=== PATIENT | male | born 1940 | race Caucasian/White ===

== ENCOUNTER → 2016-10-26 | Outpatient (REF) | payer MEDICARE, BC ==
[2016-10-26 13:01] LABS: MEAN CORPUSCULAR HEMOGLOBIN 30.7 pg (27.0-33.0); MEAN CORPUSCULAR HGB CONC 32.9 g/dl (32.0-36.5); MEAN CORPUSCULAR VOLUME 93.1 fl (80.0-96.0); RED CELL DISTRIBUTION WIDTH 12.6 % (11.5-14.5); WHITE BLOOD COUNT 6.2 K/mm3 (4.0-10.0)
[2016-10-26 13:25] LABS: ALBUMIN 4.1 GM/DL (3.2-5.2); ALBUMIN/GLOBULIN RATIO 1.41 (1.00-1.93); BILIRUBIN,TOTAL 0.5 MG/DL (0.2-1.0); CALCIUM LEVEL 9.2 MG/DL (8.8-10.2); CREATININE FOR GFR 1.48 MG/DL (0.70-1.30); GLOMERULAR FILTRATION RATE 49.1 (>42); POTASSIUM SERUM 4.9 MEQ/L (3.5-5.1)
== END ==
LOC: M SFHCPLAZ 10:59
PROVIDERS: ATTEND Internal Medicine
DX: Z79.899 Other long term (current) drug therapy (principal); E11.9 Type 2 diabetes mellitus without complications

== ENCOUNTER → 2017-10-04 | Outpatient (REF) | payer MEDICARE, BC ==
[2017-10-04 13:30] LABS: ALBUMIN 4.1 GM/DL (3.2-5.2); ALBUMIN/GLOBULIN RATIO 1.21 (1.00-1.93); ALKALINE PHOSPHATASE 63 U/L (45-117); ALT/SGPT 28 U/L (12-78); ANION GAP 7 MEQ/L (8-16); AST/SGOT 19 U/L (7-37); BILIRUBIN,TOTAL 0.5 MG/DL (0.2-1.0); BLOOD UREA NITROGEN 26 MG/DL (7-18); CALCIUM LEVEL 9.2 MG/DL (8.8-10.2); CARBON DIOXIDE LEVEL 28 MEQ/L (21-32); CHLORIDE LEVEL 103 MEQ/L (98-107); CHOLESTEROL LEVEL 139 MG/DL (<200); CHOLESTEROL RISK RATIO 3.088 (<5); CREATININE FOR GFR 1.56 MG/DL (0.70-1.30); GLOMERULAR FILTRATION RATE 46.1 (>42); GLUCOSE, FASTING 161 MG/DL (83-110); HDL CHOLESTEROL 45 MG/DL (>40); LDL CHOLESTEROL 68.2 MG/DL (<100); NON-HDL-C 94 MG/DL; POTASSIUM SERUM 4.9 MEQ/L (3.5-5.1); SODIUM LEVEL 138 MEQ/L (136-145); TOTAL PROTEIN 7.5 GM/DL (6.4-8.2); TRIGLYCERIDES LEVEL 129 MG/DL (<150)
[2017-10-04 14:10] LABS: CREATININE, URINE 78.1 MG/DL; MAU/CREAT RATIO 7.6 MCG/MG (0.0-30.0)
[2017-10-04 15:45] LABS: ESTIMATED AVERAGE GLUCOSE 183 MG/DL (60-110)
== END ==
LOC: M SFHCPLAZ 09:26
DX: E11.9 Type 2 diabetes mellitus without complications (principal); E78.00 Pure hypercholesterolemia, unspecified
CPT/HCPCS: 80053

== ENCOUNTER → 2017-12-27 | Outpatient (CLI) | payer MEDICARE, BC | LOC: M RAD 10:35 | DX: R93.422 Abnormal radiologic findings on diagnostic imaging of left kidney (principal) | CPT/HCPCS: 76775 ==

== ENCOUNTER → 2017-12-30 | Outpatient (REF) | payer MEDICARE, BC ==
[2017-12-30 16:01] LABS: ANION GAP 6 MEQ/L (8-16); BLOOD UREA NITROGEN 21 MG/DL (7-18); CALCIUM LEVEL 9.2 MG/DL (8.8-10.2); CARBON DIOXIDE LEVEL 27 MEQ/L (21-32); CHLORIDE LEVEL 104 MEQ/L (98-107); CREATININE FOR GFR 1.72 MG/DL (0.70-1.30); GLUCOSE, FASTING 260 MG/DL (70-100); SODIUM LEVEL 137 MEQ/L (136-145)
== END ==
LOC: M SFHCPLAZ 12:12
DX: N28.89 Other specified disorders of kidney and ureter (principal)
CPT/HCPCS: 80048

== ENCOUNTER → 2018-01-02 | Outpatient (CLI) | payer MEDICARE, BC | LOC: M RAD 15:00 | DX: N28.89 Other specified disorders of kidney and ureter (principal); R93.41 Abnormal radiologic findings on diagnostic imaging of renal pelvis, ureter, or bladder | CPT/HCPCS: 74150 ==

== ENCOUNTER → 2018-01-10 | Outpatient (CLI) | payer MEDICARE, BC ==
[~2018-01-10] MED LIST: PROHANCE 279.3MG/ML 15ML VIAL (A9576) As Ordered
== END ==
LOC: M RAD 15:18
DX: N28.89 Other specified disorders of kidney and ureter (principal); N28.1 Cyst of kidney, acquired
CPT/HCPCS: A9576

== ENCOUNTER → 2018-01-15 | Outpatient (CLI) | payer MEDICARE, BC ==
[2018-01-15 16:08] LABS: HEMATOCRIT 43.4 % (42.0-52.0); HEMOGLOBIN 14.4 g/dl (13.5-17.5); MEAN CORPUSCULAR HEMOGLOBIN 30.5 pg (27.0-33.0); MEAN CORPUSCULAR HGB CONC 33.2 g/dl (32.0-36.5); MEAN CORPUSCULAR VOLUME 91.9 fl (80.0-96.0); PLATELET COUNT, AUTOMATED 204 10^3/uL (150-450); RED BLOOD COUNT 4.72 10^6/uL (4.30-6.10); RED CELL DISTRIBUTION WIDTH 13.4 % (11.5-14.5); WHITE BLOOD COUNT 5.9 10^3/uL (4.0-10.0)
[2018-01-15 16:25] LABS: INR 0.88
[2018-01-15 16:26] LABS: PARTIAL THROMBOPLASTIN TIME 37.1 SECONDS (26.8-37.9)
[2018-01-15 16:33] LABS: ALBUMIN 4.2 GM/DL (3.2-5.2); ALBUMIN/GLOBULIN RATIO 1.17 (1.00-1.93); ALKALINE PHOSPHATASE 65 U/L (45-117); ALT/SGPT 22 U/L (12-78); ANION GAP 7 MEQ/L (8-16); AST/SGOT 14 U/L (7-37); BILIRUBIN,TOTAL 0.4 MG/DL (0.2-1.0); BLOOD UREA NITROGEN 25 MG/DL (7-18); CALCIUM LEVEL 9.2 MG/DL (8.8-10.2); CARBON DIOXIDE LEVEL 27 MEQ/L (21-32); CHLORIDE LEVEL 104 MEQ/L (98-107); CREATININE FOR GFR 1.59 MG/DL (0.70-1.30); GLOMERULAR FILTRATION RATE 44.9 (>42); GLUCOSE, FASTING 173 MG/DL (70-100); POTASSIUM SERUM 4.8 MEQ/L (3.5-5.1); SODIUM LEVEL 138 MEQ/L (136-145); TOTAL PROTEIN 7.8 GM/DL (6.4-8.2)
== END ==
LOC: M LAB 15:15
DX: Z01.818 Encounter for other preprocedural examination (principal); N28.89 Other specified disorders of kidney and ureter
CPT/HCPCS: 71046

== ENCOUNTER 2018-01-24 05:48 | Inpatient (IN) | payer MEDICARE, BC ==
[2018-01-24] MEDS ORDERED: LR 1,000 ML IV (06:00)
[2018-01-24 06:37] LABS: BEDSIDE GLUCOSE 156 MG/DL (83-110)
[2018-01-24] MEDS ORDERED: GLUCOSE 4 GM CHEW TABLET PO (07:45)
[2018-01-24] MEDS ORDERED: GLUCAGON FOR INJ 1 MG VIAL (J1610) SC (07:45)
[2018-01-24] MEDS ORDERED: PERCOCET 5MG/325MG TAB PO (07:45)
[2018-01-24] MEDS ORDERED: ACETAMINOPHEN TAB 650MG DOSE (2X325MG) PO (07:45)
[2018-01-24] MEDS ORDERED: ONDANSETRON 4MG/2ML VIAL (J2405) IV ×2 (07:45→14:45)
[2018-01-24] MEDS ORDERED: DEXTROSE 50% 50 ML SYRINGE IV (07:45)
[2018-01-24] MEDS ORDERED: PROPOFOL 200 MG/20 ML VIAL As Ordered (08:11)
[2018-01-24] MEDS ORDERED: ePHEDrine SULFATE 25 MG/5 ML(5MG/ML) SYRINGE As Ordered (08:11)
[2018-01-24] MEDS ORDERED: LIDOCAINE 2% JELLY 30 ML As Ordered (08:11)
[2018-01-24] MEDS ORDERED: ROCURONIUM BROMIDE 50 MG/5 ML VIAL As Ordered ×3 (08:11→10:32)
[2018-01-24] MEDS ORDERED: LIDOCAINE 2% INJ 100 MG/5 ML SDV (FOR ANES.) As Ordered (08:11)
[2018-01-24] MEDS ORDERED: dexameTHASONE 4 MG/ML 1ML VIAL (J1100) As Ordered (08:11)
[2018-01-24] MEDS ORDERED: PHENYLephrine HCL 500 MCG/5 ML (100MCG/ML) SYRINGE (J2370) As Ordered ×2 (08:11→12:38)
[2018-01-24] MEDS ORDERED: GLYCOPYRROLATE INJ 0.2 MG/ML 2 ML VIAL As Ordered ×2 (08:11)
[2018-01-24] MEDS ORDERED: NEOSTIGMINE 10 MG/10 ML VIAL (J2710) As Ordered (08:11)
[2018-01-24] MEDS ORDERED: MIDAZOLAM INJ 2 MG/2 ML VIAL (J2250) As Ordered (08:11)
[2018-01-24] MEDS ORDERED: fentaNYL 250 MCG/5 ML INJECTION (J3010) As Ordered (08:11)
[2018-01-24] MEDS ORDERED: METOCLOPRAMIDE INJ 10MG/2ML VIAL (J2765) As Ordered (08:11)
[2018-01-24] MEDS ORDERED: ONDANSETRON 4MG/2ML VIAL (J2405) As Ordered (08:12)
[2018-01-24] MEDS: GABAPENTIN 300 MG CAP PO ×2 (09:00→20:42)
[2018-01-24] MEDS: DOCUSATE SODIUM 100 MG CAP PO ×2 (09:00→20:41)
[2018-01-24] MEDS ORDERED: HYDROmorphone HCL 2 MG/ML 1ML VIAL (J1170) As Ordered (09:23)
[2018-01-24] MEDS ORDERED: DESFLURANE 240 ML INHALANT As Ordered (10:21)
[2018-01-24] MEDS: MANNITOL 25% 12.5 GM/50 ML VIAL (J2150) As Ordered (10:23)
[2018-01-24] MEDS: FILTER 1.2 MICRON (ADULT TPN/MANNITOL/REMICADE) XX (10:23)
[2018-01-24] MEDS: HumaLOG INSULIN (NovoLOG) PER UNIT SC ×4 (12:00→21:00)
[2018-01-24] MEDS ORDERED: PHENYLEPHRINE INJ 10MG/ML VIAL (J2370) As Ordered (12:54)
[2018-01-24 13:41] LABS: iSTAT CA++ 4.6 MG/DL (4.5-5.3)
[2018-01-24] MEDS ORDERED: FUROSEMIDE 100 MG/10 ML VIAL (J1940) As Ordered (13:54)
[2018-01-24] MEDS: LIDOCAINE 1% SDV INJ 30 ML VIAL As Ordered (14:10)
[2018-01-24] MEDS: BUPIVACAINE HCL 0.25% 30 ML VIAL As Ordered (14:10)
[2018-01-24 14:40] LABS: HEMOGLOBIN 12.5 g/dl (13.5-17.5); MEAN CORPUSCULAR HEMOGLOBIN 30.4 pg (27.0-33.0); MEAN CORPUSCULAR HGB CONC 32.9 g/dl (32.0-36.5); MEAN CORPUSCULAR VOLUME 92.5 fl (80.0-96.0); PLATELET COUNT, AUTOMATED 192 10^3/uL (150-450); RED BLOOD COUNT 4.11 10^6/uL (4.30-6.10); RED CELL DISTRIBUTION WIDTH 13.7 % (11.5-14.5)
[2018-01-24] MEDS ORDERED: MORPHINE 10 MG/ML 1ML VIAL (J2270) IV (14:45)
[2018-01-24] MEDS: LR 1,000 ML IV (14:45)
[2018-01-24] MEDS ORDERED: fentaNYL 100 MCG/2 ML INJECTION (J3010) IV (14:45)
[2018-01-24 15:00] LABS: ANION GAP 9 MEQ/L (8-16); BLOOD UREA NITROGEN 19 MG/DL (7-18); CALCIUM LEVEL 8.1 MG/DL (8.8-10.2); CARBON DIOXIDE LEVEL 24 MEQ/L (21-32); CHLORIDE LEVEL 106 MEQ/L (98-107); CREATININE FOR GFR 1.81 MG/DL (0.70-1.30); GLOMERULAR FILTRATION RATE 38.7 (>42); GLUCOSE, FASTING 300 MG/DL (70-100); POTASSIUM SERUM 5.1 MEQ/L (3.5-5.1); SODIUM LEVEL 139 MEQ/L (136-145)
[2018-01-24] MEDS: ceFAZolin SOD 1 GM in D5W MINI-BAG PLUS 50 ML IV (17:21)
[2018-01-24] MEDS: NS 1,000 ML IV ×2 (17:21)
[2018-01-24] MEDS: PERCOCET 5MG/325MG TAB PO (17:24)
[2018-01-24] MEDS: LISINOPRIL 40 MG TAB PO (17:24)
[2018-01-24 18:50] LABS: BEDSIDE GLUCOSE 325 MG/DL (83-110)
[2018-01-24 20:17] LABS: BEDSIDE GLUCOSE 280 MG/DL (83-110)
[2018-01-24] MEDS: MORPHINE 4 MG/ML 1ML VIAL/SYRINGE (J2270) IV (20:41)
[2018-01-24] MEDS: DOXEPIN 25 MG CAP PO (20:41)
[2018-01-25] MEDS: ceFAZolin SOD 1 GM in D5W MINI-BAG PLUS 50 ML IV (00:32)
[2018-01-25] MEDS: NS 1,000 ML IV ×2 (00:32→08:56)
[2018-01-25] MEDS: PERCOCET 5MG/325MG TAB PO ×4 (05:40→22:35)
[2018-01-25 06:53] LABS: HEMATOCRIT 32.5 % (42.0-52.0); HEMOGLOBIN 10.8 g/dl (13.5-17.5); MEAN CORPUSCULAR HEMOGLOBIN 30.7 pg (27.0-33.0); MEAN CORPUSCULAR HGB CONC 33.2 g/dl (32.0-36.5); MEAN CORPUSCULAR VOLUME 92.3 fl (80.0-96.0); PLATELET COUNT, AUTOMATED 178 10^3/uL (150-450); RED BLOOD COUNT 3.52 10^6/uL (4.30-6.10); RED CELL DISTRIBUTION WIDTH 13.9 % (11.5-14.5); WHITE BLOOD COUNT 7.8 10^3/uL (4.0-10.0)
[2018-01-25 07:24] LABS: ANION GAP 5 MEQ/L (8-16); BLOOD UREA NITROGEN 21 MG/DL (7-18); CALCIUM LEVEL 7.7 MG/DL (8.8-10.2); CARBON DIOXIDE LEVEL 26 MEQ/L (21-32); CHLORIDE LEVEL 107 MEQ/L (98-107); CREATININE FOR GFR 1.98 MG/DL (0.70-1.30); GLOMERULAR FILTRATION RATE 34.9 (>42); GLUCOSE, FASTING 220 MG/DL (70-100); SODIUM LEVEL 138 MEQ/L (136-145)
[2018-01-25 07:32] LABS: POTASSIUM SERUM 5.2 MEQ/L (3.5-5.1)
[2018-01-25] MEDS: DOCUSATE SODIUM 100 MG CAP PO ×2 (08:57→20:44)
[2018-01-25] MEDS: HumaLOG INSULIN (NovoLOG) PER UNIT SC ×4 (08:57→22:28)
[2018-01-25] MEDS: FUROSEMIDE 20 MG/2 ML VIAL (J1940) IV (08:57)
[2018-01-25] MEDS: GABAPENTIN 300 MG CAP PO ×2 (08:58→20:44)
[2018-01-25] MEDS: ASPIRIN 81 MG ENTERIC TAB PO (08:58)
[2018-01-25] MEDS: MORPHINE 4 MG/ML 1ML VIAL/SYRINGE (J2270) IV (09:06)
[2018-01-25 11:31] LABS: BEDSIDE GLUCOSE 216 MG/DL (83-110)
[2018-01-25 17:15] LABS: BEDSIDE GLUCOSE 180 MG/DL (83-110)
[2018-01-25] MEDS: LISINOPRIL 40 MG TAB PO (17:34)
[2018-01-25] MEDS: DOXEPIN 25 MG CAP PO (20:45)
[2018-01-25 22:31] LABS: BEDSIDE GLUCOSE 291 MG/DL (83-110)
[2018-01-26] MEDS: PERCOCET 5MG/325MG TAB PO ×3 (05:59→14:39)
[2018-01-26 06:48] LABS: HEMATOCRIT 30.8 % (42.0-52.0); HEMOGLOBIN 10.3 g/dl (13.5-17.5); MEAN CORPUSCULAR HGB CONC 33.4 g/dl (32.0-36.5); MEAN CORPUSCULAR VOLUME 92.8 fl (80.0-96.0); PLATELET COUNT, AUTOMATED 137 10^3/uL (150-450); RED BLOOD COUNT 3.32 10^6/uL (4.30-6.10); RED CELL DISTRIBUTION WIDTH 13.6 % (11.5-14.5); WHITE BLOOD COUNT 7.7 10^3/uL (4.0-10.0)
[2018-01-26 07:03] LABS: ANION GAP 6 MEQ/L (8-16); BLOOD UREA NITROGEN 22 MG/DL (7-18); CARBON DIOXIDE LEVEL 27 MEQ/L (21-32); CHLORIDE LEVEL 103 MEQ/L (98-107); CREATININE FOR GFR 2.09 MG/DL (0.70-1.30); GLOMERULAR FILTRATION RATE 32.8 (>42); GLUCOSE, FASTING 207 MG/DL (70-100); POTASSIUM SERUM 4.7 MEQ/L (3.5-5.1); SODIUM LEVEL 136 MEQ/L (136-145)
[2018-01-26] MEDS: HumaLOG INSULIN (NovoLOG) PER UNIT SC ×2 (08:51→11:34)
[2018-01-26] MEDS: ASPIRIN 81 MG ENTERIC TAB PO (08:52)
[2018-01-26] MEDS: DOCUSATE SODIUM 100 MG CAP PO (08:52)
[2018-01-26] MEDS: GABAPENTIN 300 MG CAP PO (08:52)
[2018-01-26 11:33] LABS: BEDSIDE GLUCOSE 287 MG/DL (83-110)
[2018-01-26 12:15] LABS: CREATININE BF 2.3 MG/DL (NOT ESTABLISHED); SOURCE, BODY FLUID CREATININE PERITONEAL
== END 2018-01-26 15:30 | disposition home or self-care (01) | DRG 688 ==
LOC: M OR 05:48 → M MS5PR 15:35
PROVIDERS: Urology
PROC: 0TB14ZX Excision of Left Kidney, Percutaneous Endoscopic Approach, Diagnostic (ICD-10-PCS; principal; 2018-01-24 07:30)
PROC: 8E0W4CZ Robotic Assisted Procedure of Trunk Region, Percutaneous Endoscopic Approach (ICD-10-PCS; 2018-01-24 07:30)
DX: C64.2 Malignant neoplasm of left kidney, except renal pelvis (principal); E11.9 Type 2 diabetes mellitus without complications; E78.00 Pure hypercholesterolemia, unspecified; M15.9 Polyosteoarthritis, unspecified; L30.8 Other specified dermatitis; Z87.891 Personal history of nicotine dependence; Z79.82 Long term (current) use of aspirin; Z79.84 Long term (current) use of oral hypoglycemic drugs; Z79.899 Other long term (current) drug therapy

== ENCOUNTER → 2018-02-04 | Outpatient (CLI) | payer MEDICARE, BC ==
[2018-02-04 18:19] LABS: HEMATOCRIT 34.7 % (42.0-52.0); MEAN CORPUSCULAR HEMOGLOBIN 30.3 pg (27.0-33.0); MEAN CORPUSCULAR HGB CONC 31.7 g/dl (32.0-36.5); MEAN CORPUSCULAR VOLUME 95.6 fl (80.0-96.0); PLATELET COUNT, AUTOMATED 361 10^3/uL (150-450); RED BLOOD COUNT 3.63 10^6/uL (4.30-6.10); RED CELL DISTRIBUTION WIDTH 13.5 % (11.5-14.5); WHITE BLOOD COUNT 8.4 10^3/uL (4.0-10.0)
[2018-02-04 18:23] LABS: ANION GAP 8 MEQ/L (8-16); BLOOD UREA NITROGEN 25 MG/DL (7-18); CALCIUM LEVEL 8.5 MG/DL (8.8-10.2); CARBON DIOXIDE LEVEL 26 MEQ/L (21-32); CHLORIDE LEVEL 104 MEQ/L (98-107); CREATININE FOR GFR 1.96 MG/DL (0.70-1.30); GLOMERULAR FILTRATION RATE 35.3 (>42); GLUCOSE, FASTING 237 MG/DL (70-100); SODIUM LEVEL 138 MEQ/L (136-145)
[2018-02-04 18:26] LABS: POTASSIUM SERUM 5.4 MEQ/L (3.5-5.1)
== END ==
LOC: M SMT 14:23
DX: C64.9 Malignant neoplasm of unspecified kidney, except renal pelvis (principal)
CPT/HCPCS: 80048

== ENCOUNTER 2018-03-13 12:43 | Emergency (ER) | payer MEDICARE, BC ==
[2018-03-13] MEDS: NORCO, ANEXSIA 5/325MG TABLET (HYDROcodone/ACETAMINOPHEN) PO (13:37)
[2018-03-13 14:17] LABS: HEMATOCRIT 34.7 % (42.0-52.0); HEMOGLOBIN 11.4 g/dl (13.5-17.5); MEAN CORPUSCULAR HEMOGLOBIN 29.9 pg (27.0-33.0); MEAN CORPUSCULAR HGB CONC 32.9 g/dl (32.0-36.5); MEAN CORPUSCULAR VOLUME 91.1 fl (80.0-96.0); PLATELET COUNT, AUTOMATED 214 10^3/uL (150-450); RED BLOOD COUNT 3.81 10^6/uL (4.30-6.10); RED CELL DISTRIBUTION WIDTH 13.5 % (11.5-14.5); WHITE BLOOD COUNT 8.1 10^3/uL (4.0-10.0)
[2018-03-13 14:29] LABS: INR 0.94; PROTHROMBIN TIME 12.7 SECONDS (12.1-14.4)
[2018-03-13] MEDS: BENZONATATE 100 MG CAP PO (14:30)
[2018-03-13 14:35] LABS: ALBUMIN 3.3 GM/DL (3.2-5.2); ALKALINE PHOSPHATASE 84 U/L (45-117); ALT/SGPT 19 U/L (12-78); ANION GAP 9 MEQ/L (8-16); AST/SGOT 8 U/L (7-37); BILIRUBIN,DIRECT 0.1 MG/DL (0.0-0.2); BILIRUBIN,TOTAL 0.5 MG/DL (0.2-1.0); BLOOD UREA NITROGEN 18 MG/DL (7-18); CALCIUM LEVEL 8.7 MG/DL (8.8-10.2); CARBON DIOXIDE LEVEL 27 MEQ/L (21-32); CHLORIDE LEVEL 103 MEQ/L (98-107); CREATININE FOR GFR 1.64 MG/DL (0.70-1.30); GLOMERULAR FILTRATION RATE 43.4 (>42); GLUCOSE, FASTING 262 MG/DL (70-100); POTASSIUM SERUM 4.6 MEQ/L (3.5-5.1); SODIUM LEVEL 139 MEQ/L (136-145); TOTAL PROTEIN 7.4 GM/DL (6.4-8.2)
== END 2018-03-13 15:57 | disposition short-term general hospital (02) ==
LOC: M ED 12:43
DX: S22.42XD Multiple fractures of ribs, left side, subsequent encounter for fracture with routine healing (principal); S06.5X0A Traumatic subdural hemorrhage without loss of consciousness, initial encounter; W10.9XXA Fall (on) (from) unspecified stairs and steps, initial encounter; Y92.009 Unspecified place in unspecified non-institutional (private) residence as the place of occurrence of the external cause; I10 Essential (primary) hypertension; E11.9 Type 2 diabetes mellitus without complications
CPT/HCPCS: 70450

== ENCOUNTER → 2018-03-20 | Outpatient (REF) | payer MEDICARE, BC ==
[2018-03-20 11:58] LABS: HEMATOCRIT 37.6 % (42.0-52.0); HEMOGLOBIN 12.3 g/dl (13.5-17.5); MEAN CORPUSCULAR HEMOGLOBIN 30.1 pg (27.0-33.0); MEAN CORPUSCULAR HGB CONC 32.7 g/dl (32.0-36.5); MEAN CORPUSCULAR VOLUME 92.2 fl (80.0-96.0); PLATELET COUNT, AUTOMATED 266 10^3/uL (150-450); RED BLOOD COUNT 4.08 10^6/uL (4.30-6.10); RED CELL DISTRIBUTION WIDTH 13.2 % (11.5-14.5); WHITE BLOOD COUNT 7.8 10^3/uL (4.0-10.0)
[2018-03-20 12:19] LABS: ALBUMIN 3.5 GM/DL (3.2-5.2); ALBUMIN/GLOBULIN RATIO 1.03 (1.00-1.93); ALKALINE PHOSPHATASE 123 U/L (45-117); ALT/SGPT 28 U/L (12-78); ANION GAP 7 MEQ/L (8-16); AST/SGOT 11 U/L (7-37); BILIRUBIN,TOTAL 0.4 MG/DL (0.2-1.0); BLOOD UREA NITROGEN 19 MG/DL (7-18); CALCIUM LEVEL 8.9 MG/DL (8.8-10.2); CARBON DIOXIDE LEVEL 28 MEQ/L (21-32); CHLORIDE LEVEL 104 MEQ/L (98-107); GLUCOSE, FASTING 171 MG/DL (70-100); POTASSIUM SERUM 4.9 MEQ/L (3.5-5.1); PROSTATIC SPECIFIC AG MONITOR 8.02 NG/ML (< 4.0); SODIUM LEVEL 139 MEQ/L (136-145); TOTAL PROTEIN 6.9 GM/DL (6.4-8.2)
[2018-03-20 13:10] LABS: ESTIMATED AVERAGE GLUCOSE 192 MG/DL (60-110); HEMOGLOBIN A1c 8.3 %
== END ==
LOC: M SFHCPLAZ 09:41
DX: C64.9 Malignant neoplasm of unspecified kidney, except renal pelvis (principal); Z51.81 Encounter for therapeutic drug level monitoring; Z79.899 Other long term (current) drug therapy; E11.9 Type 2 diabetes mellitus without complications; R97.20 Elevated prostate specific antigen [PSA]
CPT/HCPCS: 80053

== ENCOUNTER → 2018-04-15 | Outpatient (CLI) | payer MEDICARE, BC | LOC: M RAD 09:10 | DX: I62.00 Nontraumatic subdural hemorrhage, unspecified (principal) | CPT/HCPCS: 70450 ==

== ENCOUNTER → 2018-07-30 | Outpatient (REF) | payer MEDICARE, BC ==
[2018-07-30 12:52] LABS: HEMATOCRIT 42.3 % (42.0-52.0); HEMOGLOBIN 13.4 g/dl (13.5-17.5); MEAN CORPUSCULAR HEMOGLOBIN 29.3 pg (27.0-33.0); MEAN CORPUSCULAR HGB CONC 31.7 g/dl (32.0-36.5); MEAN CORPUSCULAR VOLUME 92.4 fl (80.0-96.0); PLATELET COUNT, AUTOMATED 216 10^3/uL (150-450); RED BLOOD COUNT 4.58 10^6/uL (4.30-6.10); RED CELL DISTRIBUTION WIDTH 13.9 % (11.5-14.5); WHITE BLOOD COUNT 5.8 10^3/uL (4.0-10.0)
[2018-07-30 13:02] LABS: ALBUMIN 3.8 GM/DL (3.2-5.2); ALBUMIN/GLOBULIN RATIO 1.06 (1.00-1.93); ALKALINE PHOSPHATASE 94 U/L (45-117); ALT/SGPT 24 U/L (12-78); ANION GAP 7 MEQ/L (8-16); AST/SGOT 15 U/L (7-37); BILIRUBIN,TOTAL 0.5 MG/DL (0.2-1.0); BLOOD UREA NITROGEN 15 MG/DL (7-18); CALCIUM LEVEL 9.1 MG/DL (8.8-10.2); CARBON DIOXIDE LEVEL 29 MEQ/L (21-32); CHLORIDE LEVEL 103 MEQ/L (98-107); CHOLESTEROL LEVEL 136 MG/DL (<200); CHOLESTEROL RISK RATIO 3.578 (<5); CREATININE FOR GFR 1.66 MG/DL (0.70-1.30); GLOMERULAR FILTRATION RATE 42.8 (>42); GLUCOSE, FASTING 194 MG/DL (70-100); HDL CHOLESTEROL 38 MG/DL (>40); LDL CHOLESTEROL 72 MG/DL (<100); NON-HDL-C 98 MG/DL; POTASSIUM SERUM 4.7 MEQ/L (3.5-5.1); PROSTATIC SPECIFIC AG MONITOR 6.2 NG/ML (< 4.0); SODIUM LEVEL 139 MEQ/L (136-145); TOTAL PROTEIN 7.4 GM/DL (6.4-8.2); TRIGLYCERIDES LEVEL 130 MG/DL (<150)
[2018-07-30 13:36] LABS: ESTIMATED AVERAGE GLUCOSE 166 MG/DL (60-110); HEMOGLOBIN A1c 7.4 %
[2018-07-30 13:41] LABS: MALB URINE SIEMENS 37.5 MG/L; MAU/CREAT RATIO 26.2 MCG/MG (0.0-30.0)
== END ==
LOC: M SFHCPLAZ 08:59
DX: Z86.010 Personal history of colon polyps (principal); E11.9 Type 2 diabetes mellitus without complications; E78.00 Pure hypercholesterolemia, unspecified; R97.20 Elevated prostate specific antigen [PSA]
CPT/HCPCS: 80053

== ENCOUNTER → 2018-08-11 | Outpatient (CLI) | payer MEDICARE, BC | LOC: M RAD 13:01 | DX: C64.9 Malignant neoplasm of unspecified kidney, except renal pelvis (principal); K86.2 Cyst of pancreas; Z90.5 Acquired absence of kidney | CPT/HCPCS: A9576 ==

== ENCOUNTER → 2018-12-24 | Outpatient (REF) | payer MEDICARE, BC ==
[~2018-12-24] MED LIST changes: +ACET-716 PO; +ACET1TAB55 PO; +ASPI81TA85 PO; +CINN500C9 PO; +COLA100C5 PO; +DOXE75CA2 PO; +GABA600T4 PO; +GLIP10TA6 PO; +LIPI20TA PO; +LISI40TA PO; +LOSA100T50 PO; +MELA1TAB15 PO; +METF750T PO; +MULT1TAB10 PO; +OCUVTAB PO; +OXYC1TAB23 PO; +PIOG1TAB37 PO; -PROHANCE 279.3MG/ML 15ML VIAL (A9576) As Ordered; +TRUL0.5I SC
[2018-12-24 12:35] LABS: MEAN CORPUSCULAR HEMOGLOBIN 29.4 pg (27.0-33.0); MEAN CORPUSCULAR HGB CONC 31.8 g/dl (32.0-36.5); MEAN CORPUSCULAR VOLUME 92.4 fl (80.0-96.0); RED BLOOD COUNT 4.76 10^6/uL (4.30-6.10); WHITE BLOOD COUNT 6.2 10^3/uL (4.0-10.0)
[2018-12-24 12:47] LABS: ALBUMIN 4.1 GM/DL (3.2-5.2); BILIRUBIN,TOTAL 0.5 MG/DL (0.2-1.0); CALCIUM LEVEL 8.9 MG/DL (8.8-10.2); CREATININE FOR GFR 1.59 MG/DL (0.70-1.30); GLOMERULAR FILTRATION RATE 44.8 (>35); POTASSIUM SERUM 4.4 MEQ/L (3.5-5.1); TOTAL PROTEIN 6.9 GM/DL (6.4-8.2)
[2018-12-24 14:05] LABS: HEMOGLOBIN A1c 7.9 %
== END ==
LOC: M SFHCPLAZ 09:03
PROVIDERS: ATTEND Internal Medicine
DX: Z86.010 Personal history of colon polyps (principal); E11.9 Type 2 diabetes mellitus without complications

== ENCOUNTER → 2019-02-10 | Outpatient (REF) | payer MEDICARE, BC ==
[2019-02-10 17:59] LABS: CALCIUM LEVEL 8.9 MG/DL (8.8-10.2); CREATININE FOR GFR 1.73 MG/DL (0.70-1.30); GLOMERULAR FILTRATION RATE 40.7 (>35); POTASSIUM SERUM 4.5 MEQ/L (3.5-5.1)
== END ==
LOC: M LABSMT 14:01
PROVIDERS: ATTEND Urology
DX: C64.9 Malignant neoplasm of unspecified kidney, except renal pelvis (principal)

== ENCOUNTER → 2019-03-09 | Outpatient (CLI) | payer MEDICARE, BC ==
[~2019-03-09] MED LIST changes: +PROHANCE 279.3MG/ML 5ML VIAL (A9576) As Ordered ONE
--- NOTE | 2019-03-09 12:09 | REP ---
MRI abdomen and kidneys without and with intravenous gadolinium: History: Renal cell carcinoma. Comparison MRI study is from August 11, 2018. Comparison CT study January 02, 2018. The patient is status post partial left nephrectomy. Technique: Axial and coronal imaging planes are utilized. T1 and T2-weighted sequences include spin-echo, gradient-echo, in and [id number], and dynamically acquired sequential post gadolinium enhanced images. MRI findings: A there is low T1 and low T2 signal intensity fibrosis at the partial nephrectomy site along the lateral aspect of the left kidney. There is a small peripheral cyst at the lower pole and tiny cysts are seen at each kidney. No recurrent mass is seen at the operative site. No suspicious hypervascular lesion is seen in the perinephric fat. There is no evidence of regional adenopathy. No contralateral mass is observed. There is a small septated cystic area in the head of the pancreas again seen at the bottom of the imaging field of view unchanged from the comparison MRI study August 11, 2018 measuring 2.0 cm in greatest diameter. Impression: No evidence of recurrent renal mass lesion. Electronically Signed by Korey Erickson MD 03/09/2019 01:17 P
== END ==
LOC: M RAD 10:13
PROVIDERS: ATTEND Urology
DX: C64.9 Malignant neoplasm of unspecified kidney, except renal pelvis (principal)
CPT/HCPCS: 74183; A9576

== ENCOUNTER → 2019-07-03 | Outpatient (REF) | payer MEDICARE, BC ==
[~2019-07-03] MED LIST changes: -METF750T PO; +METF750T36 PO; -PROHANCE 279.3MG/ML 5ML VIAL (A9576) As Ordered ONE
[2019-07-03 12:48] LABS: HEMATOCRIT 42.4 % (42.0-52.0); HEMOGLOBIN 13.6 g/dl (13.5-17.5); MEAN CORPUSCULAR HEMOGLOBIN 29.8 pg (27.0-33.0); MEAN CORPUSCULAR HGB CONC 32.1 g/dl (32.0-36.5); MEAN CORPUSCULAR VOLUME 92.8 fl (80.0-96.0); PLATELET COUNT, AUTOMATED 105 10^3/uL (150-450); RED BLOOD COUNT 4.57 10^6/uL (4.30-6.10); WHITE BLOOD COUNT 5.8 10^3/uL (4.0-10.0)
[2019-07-03 13:10] LABS: HEMOGLOBIN A1c 7.5 %
[2019-07-03 13:24] LABS: CHOLESTEROL RISK RATIO 3.2 (<5)
[2019-07-03 13:32] LABS: MALB URINE SIEMENS 35.7 MG/L
== END ==
LOC: M SFHCPLAZ 08:56
PROVIDERS: ATTEND Internal Medicine
DX: C64.9 Malignant neoplasm of unspecified kidney, except renal pelvis (principal); E11.9 Type 2 diabetes mellitus without complications; E78.00 Pure hypercholesterolemia, unspecified

== ENCOUNTER → 2019-11-18 | Outpatient (REF) | payer MEDICARE, BC ==
[2019-11-18 14:37] LABS: APPEARANCE, URINE CLEAR (CLEAR); BACTERIA, URINE AUTO NEGATIVE (NEGATIVE); BILIRUBIN, URINE AUTO NEGATIVE (NEGATIVE); BLOOD, URINE BLOOD NEGATIVE (NEGATIVE); COLOR, URINE YELLOW (YELLOW); GLUCOSE, URINE (UA) AUTO NEGATIVE (NEGATIVE); KETONE, URINE AUTO NEGATIVE (NEGATIVE); LEUKOCYTE ESTERASE, URINE AUTO NEGATIVE (NEGATIVE); NITRITE, URINE AUTO NEGATIVE (NEGATIVE); PROTEIN, URINE AUTO NEGATIVE (NEGATIVE); RBC, URINE AUTO 0 /HPF (0-3); SPECIFIC GRAVITY URINE AUTO 1.008 (1.002-1.035); SQUAMOUS EPITHELIAL CELL UR AU 0 /HPF (0-6); UROBILINOGEN, URINE AUTO 0.2 mg/dL (0.0-2.0); WBC, URINE AUTO 0 /HPF (0-3)
== END ==
LOC: M SMT 13:21
PROVIDERS: ATTEND Nurse Practitioner Family
DX: R35.1 Nocturia (principal)
CPT/HCPCS: 51798; 81001; 87086; G0463

== ENCOUNTER → 2019-12-16 | Outpatient (REF) | payer MEDICARE, BC ==
[2019-12-16 13:21] LABS: BASO # 0.1 10^3/uL (0.0-0.2); BASO % 1.4 % (0.0-1.0); EOS # 0.3 10^3/uL (0.0-0.5); HEMATOCRIT 43.2 % (42.0-52.0); HEMOGLOBIN 13.8 g/dl (13.5-17.5); LYMPH # 1.5 10^3/uL (1.5-5.0); LYMPH % 25.5 % (24.0-44.0); MEAN CORPUSCULAR HEMOGLOBIN 29.9 pg (27.0-33.0); MEAN CORPUSCULAR HGB CONC 31.9 g/dl (32.0-36.5); MEAN CORPUSCULAR VOLUME 93.7 fl (80.0-96.0); MONO # 0.5 10^3/uL (0.0-0.8); NEUTROPHILS # 3.5 10^3/uL (1.5-8.5); NEUTROPHILS % 59.9 % (36.0-66.0); PLATELET COUNT, AUTOMATED 137 10^3/uL (150-450); RED BLOOD COUNT 4.61 10^6/uL (4.30-6.10); WHITE BLOOD COUNT 5.8 10^3/uL (4.0-10.0)
[2019-12-16 13:32] LABS: ALBUMIN 3.8 GM/DL (3.2-5.2); BILIRUBIN,TOTAL 0.4 MG/DL (0.2-1.0); CALCIUM LEVEL 8.9 MG/DL (8.8-10.2); CREATININE FOR GFR 1.66 MG/DL (0.70-1.30); GLOMERULAR FILTRATION RATE 42.5 (>35); POTASSIUM SERUM 4.6 MEQ/L (3.5-5.1); TOTAL PROTEIN 7.2 GM/DL (6.4-8.2)
[2019-12-16 13:39] LABS: FOLATE 7.8 NG/ML
[2019-12-16 13:42] LABS: HEMOGLOBIN A1c 8.2 %
== END ==
LOC: M SFHCPLAZ 09:33
PROVIDERS: ATTEND Internal Medicine
DX: C64.9 Malignant neoplasm of unspecified kidney, except renal pelvis (principal); E11.9 Type 2 diabetes mellitus without complications; D69.6 Thrombocytopenia, unspecified

== ENCOUNTER → 2020-02-25 | Outpatient (CLI) | payer MEDICARE, BC ==
[~2020-02-25] MED LIST changes: +PROHANCE 279.3MG/ML 15ML VIAL As Ordered ONE
--- NOTE | 2020-02-25 15:33 | REP ---
REASON FOR EXAM: Known renal mass. There has been the interim development of mediastinal widening. There is an uncoiling of the aortic arch status quo. The cardiac silhouette is enlarged. The lung mcmillan are otherwise unchanged. There is no change in the osseous structures. IMPRESSION: Abnormal mediastinal widening. Contrast enhanced CT examination of the chest is recommended. Electronically Signed by Alphonso Ramos DO 02/25/2020 05:06 P
--- NOTE | 2020-02-25 23:09 | REP ---
MRI ABDOMEN WITH AND WITHOUT CONTRAST: HISTORY: Renal cell carcinoma. COMPARISON: 03/09/2019 TECHNIQUE: Multiple sequences obtained in the axial and coronal planes prior to and following the intravenous administration of 10 mL ProHance. Once again, there is evidence of a prior partial left nephrectomy. There is an area of low signal on both T1- and T2-weighted images at the surgical site laterally. There is no recurrent mass. There is a simple cyst again seen of the lower pole of the let kidney, unchanged, measuring 1.5 cm. There is no internal enhancement. No perinephric mass is seen. There is no evidence of adenopathy in the visualized abdomen. Stable complex cystic lesion in the upper pole of the right kidney is unchanged, measuring approximately 1.7 cm. There is no new renal mass bilaterally. There is no free fluid in the visualized abdomen. Small lobulated cystic structure in the head of the pancreas demonstrates no internal enhancement and is stable in size, measuring approximately 2 cm in diameter. IMPRESSION: Stable exam. Postsurgical changes left kidney status post partial nephrectomy. No recurrent mass or adenopathy. Unreviewed
== END ==
LOC: M RAD 13:24
PROVIDERS: ATTEND Urology
DX: C64.9 Malignant neoplasm of unspecified kidney, except renal pelvis (principal)
CPT/HCPCS: 36415; 71046; 74183; 80048; A9576

== ENCOUNTER → 2020-02-25 | Outpatient (CLI) | payer MEDICARE, BC ==
[~2020-02-25] MED LIST changes: -PROHANCE 279.3MG/ML 15ML VIAL As Ordered ONE
[2020-02-25 12:01] LABS: CALCIUM LEVEL 8.7 MG/DL (8.8-10.2); CREATININE FOR GFR 1.47 MG/DL (0.70-1.30); GLOMERULAR FILTRATION RATE 48.9 (>35); POTASSIUM SERUM 4.5 MEQ/L (3.5-5.1)
== END ==
LOC: M LAB 11:16
PROVIDERS: ATTEND Urology
DX: C64.9 Malignant neoplasm of unspecified kidney, except renal pelvis (principal)

== ENCOUNTER → 2020-05-28 | Outpatient (CLI) | payer MEDICARE, BC ==
[~2020-05-28] MED LIST changes: -ASPI81TA85 PO; +ASPI81TA86 PO
== END ==
LOC: M LABSMTC 11:06
PROVIDERS: ATTEND Orthopaedic Surgery
DX: Z11.59 Encounter for screening for other viral diseases (principal); Z20.828 Contact with and (suspected) exposure to other viral communicable diseases

== ENCOUNTER → 2020-05-30 | Outpatient (CLI) | payer MEDICARE, BC ==
[2020-05-30 18:02] LABS: CREATININE FOR GFR 1.56 MG/DL (0.70-1.30); GLOMERULAR FILTRATION RATE 45.7 (>35); POTASSIUM SERUM 4.6 MEQ/L (3.5-5.1)
[2020-05-30 18:06] LABS: HEMOGLOBIN A1c 7.5 %
== END ==
LOC: M PLALAB 14:25
PROVIDERS: ATTEND Family Medicine
DX: Z01.818 Encounter for other preprocedural examination (principal); E11.9 Type 2 diabetes mellitus without complications

== ENCOUNTER → 2020-10-25 | Outpatient (REF) | payer MEDICARE, BC ==
[~2020-10-25] MED LIST changes: -LISI40TA PO; +LISI40TA4 PO
[2020-10-25 14:59] LABS: BILIRUBIN,TOTAL 0.7 MG/DL (0.2-1.0); CALCIUM LEVEL 9.6 MG/DL (8.8-10.2); CHOLESTEROL RISK RATIO 3.857 (<5); CREATININE FOR GFR 1.71 MG/DL (0.70-1.30); GLOMERULAR FILTRATION RATE 41.1 (>35); POTASSIUM SERUM 4.8 MEQ/L (3.5-5.1); TOTAL PROTEIN 7.2 GM/DL (6.4-8.2)
[2020-10-25 15:04] LABS: MALB URINE SIEMENS 15.2 MG/L; MAU/CREAT RATIO 12.8 MCG/MG (0.0-30.0)
[2020-10-25 15:38] LABS: BASO # 0.1 10^3/uL (0.0-0.2); EOS # 0.3 10^3/uL (0.0-0.5); EOS % 4.8 % (0.0-3.0); HEMATOCRIT 42.9 % (42.0-52.0); HEMOGLOBIN 13.7 g/dl (13.5-17.5); LYMPH # 1.6 10^3/uL (1.5-5.0); LYMPH % 25.7 % (24.0-44.0); MEAN CORPUSCULAR HEMOGLOBIN 29.8 pg (27.0-33.0); MEAN CORPUSCULAR HGB CONC 31.9 g/dl (32.0-36.5); MEAN CORPUSCULAR VOLUME 93.5 fl (80.0-96.0); MONO # 0.4 10^3/uL (0.0-0.8); MONO % 7.2 % (0.0-5.0); NEUTROPHILS # 3.7 10^3/uL (1.5-8.5); PLATELET COUNT, AUTOMATED 163 10^3/uL (150-450); RED BLOOD COUNT 4.59 10^6/uL (4.30-6.10); WHITE BLOOD COUNT 6.1 10^3/uL (4.0-10.0)
[2020-10-25 15:54] LABS: HEMOGLOBIN A1c 7.5 %
== END ==
LOC: M PLALAB 09:07
PROVIDERS: ATTEND Internal Medicine
DX: E78.00 Pure hypercholesterolemia, unspecified (principal); Z86.010 Personal history of colon polyps; E11.9 Type 2 diabetes mellitus without complications

== ENCOUNTER → 2021-01-08 | Outpatient (CLI) | payer MEDICARE, BC | LOC: M LABSMTC 11:27 | PROVIDERS: ATTEND Anesthesiology | DX: Z01.812 Encounter for preprocedural laboratory examination (principal); Z11.52 Encounter for screening for COVID-19 ==

== ENCOUNTER 2021-01-13 10:42 | Day surgery (SDC) | payer MEDICARE, BC ==
[~2021-01-13] VITALS: Ht 172.7 cm; Wt 95.3 kg
[~2021-01-13 10:42] MED LIST changes: +NS 1,000 ML IV ONE
[2021-01-13] MEDS ORDERED: LIDOCAINE 2% 100MG/5ML SDV (FOR ANES.) As Ordered ONE (11:17)
[2021-01-13] MEDS ORDERED: propofoL 200 MG/20 ML VIAL As Ordered ONE (11:17)
--- NOTE | 2021-01-13 12:27 | ROOR ---
Patient Name: Dennis Pino Procedure Date: 01/13/2021 11:50 AM Date of : 1940 Age: 80 Room: [facility] Gender: Male Note Status: Finalized Procedure: Total Colonoscopy to Cecum + Cold Snare Polypectomy + Hemoclips Indications: High risk colon cancer surveillance: Personal history of colonic polyps, Last colonoscopy: 2015 Providers: Bradford Smith MD Referring MD: Salazar López MD Requesting Provider: Medicines: Monitored Anesthesia Care Complications: No immediate complications. Procedure: Pre-Anesthesia Assessment: - The heart rate, respiratory rate, oxygen saturations, blood pressure, adequacy of pulmonary ventilation, and response to care were monitored throughout the procedure. The Colonoscope was introduced through the anus and advanced to the cecum, identified by appendiceal orifice and ileocecal valve. The colonoscopy was performed without difficulty. The patient tolerated the procedure well. The quality of the bowel preparation was good. Findings: The perianal and digital rectal examinations were normal. Non-bleeding internal hemorrhoids were found during retroflexion. The hemorrhoids were small and Grade I (internal hemorrhoids that do not prolapse). Multiple small and large-mouthed diverticula were found in the recto-sigmoid colon, sigmoid colon and descending colon. A large polyp was found in the cecum. The polyp was carpet-like. The polyp was removed with a cold snare. Resection and retrieval were complete. To prevent bleeding after the polypectomy, three hemostatic clips were successfully placed. Impression: - Non-bleeding internal hemorrhoids. - Diverticulosis in the recto-sigmoid colon, in the sigmoid colon and in the descending colon. - One large polyp in the cecum, removed with a cold snare. Resected and retrieved. Clips were placed. - The exam was otherwise normal to the cecum. Recommendation: - Patient has a contact number available for emergencies. The signs and symptoms of potential delayed complications were discussed with the patient. Return to normal activities tomorrow. Written discharge instructions were provided to the patient. - High fiber diet. - Discharge patient to home. - Continue present medications. - Await pathology results. - Telephone GI clinic for pathology results in 1 week. - Repeat colonoscopy for surveillance based on pathology results. - Return to referring physician. - The findings and recommendations were discussed with the patient. Procedure Code(s): --- Professional --- 39338, Colonoscopy, flexible; with removal of tumor(s), polyp(s), or other lesion(s) by snare technique Diagnosis Code(s): --- Professional --- Z86.010, Personal history of colonic polyps K64.0, First degree hemorrhoids K63.5, Polyp of colon K57.30, Diverticulosis of large intestine without perforation or abscess without bleeding CPT copyright 2019 [employer]. All rights reserved. The codes documented in this report are preliminary and upon department supervisor review may be revised to meet current compliance requirements. Bradford Smith MD Bradford Smith MD 01/13/2021 12:27:03 PM Electronically signed by Bradford Smith MD Number of Addenda: 0 Note Initiated On: 01/13/2021 11:50 AM Estimated Blood Loss: Estimated blood loss: none.
[2021-01-13 12:50] VITALS: BP 167/89
== END 2021-01-13 12:49 | disposition home or self-care (01) ==
LOC: M OPP 10:42
PROVIDERS: ATTEND Internal Medicine Gastroenterology
DX: Z12.11 Encounter for screening for malignant neoplasm of colon (principal); Z86.010 Personal history of colon polyps; D12.0 Benign neoplasm of cecum; K57.30 Diverticulosis of large intestine without perforation or abscess without bleeding; K64.0 First degree hemorrhoids; E11.9 Type 2 diabetes mellitus without complications; N18.30 Chronic kidney disease, stage 3 unspecified; I12.9 Hypertensive chronic kidney disease with stage 1 through stage 4 chronic kidney disease, or unspecified chronic kidney disease; Z79.82 Long term (current) use of aspirin; Z79.84 Long term (current) use of oral hypoglycemic drugs; Z79.899 Other long term (current) drug therapy

== ENCOUNTER → 2021-03-21 | Outpatient (CLI) | payer MEDICARE, BC ==
[~2021-03-21] MED LIST changes: -NS 1,000 ML IV ONE
[2021-03-21 13:54] LABS: CALCIUM LEVEL 9.3 MG/DL (8.8-10.2); CREATININE FOR GFR 1.64 MG/DL (0.70-1.30); POTASSIUM SERUM 4.6 MEQ/L (3.5-5.1)
[2021-03-22 23:07] LABS: PSA FREE 1.07 ng/mL; PSA TOTAL 6.7 ng/mL (0.0-4.0)
== END ==
LOC: M PLALAB 09:36
PROVIDERS: ATTEND Urology
DX: C64.9 Malignant neoplasm of unspecified kidney, except renal pelvis (principal); R97.20 Elevated prostate specific antigen [PSA]

== ENCOUNTER → 2021-04-27 | Outpatient (CLI) | payer MEDICARE, BC ==
[2021-04-27 13:39] LABS: BASO # 0.1 10^3/uL (0.0-0.2); BASO % 1.5 % (0.0-1.0); EOS # 0.4 10^3/uL (0.0-0.5); EOS % 6.1 % (0.0-3.0); HEMATOCRIT 44.3 % (42.0-52.0); HEMOGLOBIN 13.8 g/dl (13.5-17.5); LYMPH # 1.4 10^3/uL (1.5-5.0); LYMPH % 23.5 % (24.0-44.0); MEAN CORPUSCULAR HEMOGLOBIN 28.8 pg (27.0-33.0); MEAN CORPUSCULAR HGB CONC 31.2 g/dl (32.0-36.5); MEAN CORPUSCULAR VOLUME 92.5 fl (80.0-96.0); MONO # 0.4 10^3/uL (0.0-0.8); MONO % 6.6 % (2.0-8.0); NEUTROPHILS # 3.8 10^3/uL (1.5-8.5); NEUTROPHILS % 62.1 % (36.0-66.0); PLATELET COUNT, AUTOMATED 175 10^3/uL (150-450); RED BLOOD COUNT 4.79 10^6/uL (4.30-6.10); WHITE BLOOD COUNT 6.1 10^3/uL (4.0-10.0)
[2021-04-27 13:58] LABS: HEMOGLOBIN A1c 7.1 %
[2021-04-27 14:04] LABS: ALBUMIN 4.1 GM/DL (3.2-5.2); BILIRUBIN,TOTAL 0.6 MG/DL (0.2-1.0); CALCIUM LEVEL 8.9 MG/DL (8.8-10.2); CHOLESTEROL RISK RATIO 3.358 (<5); CREATININE FOR GFR 1.68 MG/DL (0.70-1.30); GLOMERULAR FILTRATION RATE 41.9 (>35); POTASSIUM SERUM 4.8 MEQ/L (3.5-5.1); TOTAL PROTEIN 7.4 GM/DL (6.4-8.2)
== END ==
LOC: M PLALAB 11:13
PROVIDERS: ATTEND Internal Medicine
DX: E11.9 Type 2 diabetes mellitus without complications (principal); Z11.59 Encounter for screening for other viral diseases; D69.6 Thrombocytopenia, unspecified; E78.00 Pure hypercholesterolemia, unspecified
CPT/HCPCS: 36415; 80053; 80061; 83036; 85025; G0472

== ENCOUNTER → 2021-05-15 | Outpatient (CLI) | payer MEDICARE, BC ==
[~2021-05-15] MED LIST changes: +PROHANCE 279.3MG/ML 5ML VIAL ONE
--- NOTE | 2021-05-15 13:28 | REP ---
INDICATION: RENAL CELL CA. COMPARISON: 02/25/2020 as well as other multiple prior exams. TECHNIQUE: Multiple sequences obtained in the axial and coronal planes, prior to and following the intravenous administration of 9 cc ProHance. FINDINGS: There is again evidence of prior partial left nephrectomy. Low signal is again noted at the surgical site laterally on both T1 and T2 weighted images. I suspect a recurrent mass anteriorly of the mid left kidney approximately 2.2 cm in diameter. The adjacent draining left renal veins are more prominent than on the prior study. The oval cyst in the lower pole of the left kidney is unchanged measuring approximately 1.6 cm. There is no internal enhancement. There is a stable complex cystic lesion in the upper pole the right kidney unchanged, measuring approximately 1.4 cm. There is no hydronephrosis bilaterally. No adenopathy is seen in the visualized abdomen. There is no free fluid in the visualized abdomen. A complex cystic structure in the head of the pancreas is unchanged measuring approximately 2.2 cm in diameter. There is no internal enhancement. IMPRESSION: I suspect a recurrent mass anteriorly of the mid left kidney approximately 2.2 cm in diameter. The left renal veins are more prominent in size compared to the prior exam. The remainder of the study appears stable. <Electronically signed by Darrion Gutierrez > 05/15/21 [id number]
== END ==
LOC: M PLAIMG 09:49
PROVIDERS: ATTEND Urology
DX: C64.9 Malignant neoplasm of unspecified kidney, except renal pelvis (principal)
CPT/HCPCS: 74183; A9576

== ENCOUNTER → 2021-06-13 | Outpatient (CLI) | payer MEDICARE, BC ==
[~2021-06-13] MED LIST changes: -PROHANCE 279.3MG/ML 5ML VIAL ONE
[2021-06-13 18:00] LABS: CALCIUM LEVEL 8.8 MG/DL (8.8-10.2); CREATININE FOR GFR 2.78 MG/DL (0.70-1.30); GLOMERULAR FILTRATION RATE 23.4 (>35); POTASSIUM SERUM 5.2 MEQ/L (3.5-5.1)
== END ==
LOC: M PLALAB 14:20
DX: N28.89 Other specified disorders of kidney and ureter (principal)

== ENCOUNTER 2021-08-20 16:58 | Emergency (ER) | payer MEDICARE, BC ==
[~2021-08-20] VITALS: Ht 172.7 cm; Wt 91.1 kg
[2021-08-20 16:59] VITALS: BP 176/92
[2021-08-20] MEDS ORDERED: HumaLOG INSULIN (NovoLOG) PER UNIT SC SCH (21:00)
--- OUTSIDE RECORDS SUMMARY | 2021-08-20 21:03 | CCD ---
Author Author [facility] Organization [facility] Address Unknown Phone Unavailable Care Team Providers Care Manager Of Warehouse Name Role Phone Jorge L Parekh Unavailable PROBLEMS Type Condition ICD9-CM Code ZTY92-RX Code Onset Dates Condition S tatus W/U Status Risk SNOMED Code Notes Problem Hypercholesterolemia E78.00 Active confirmed 62804939 On Lipitor. Lipid targets achieved in April 2021, without toxicity from his medication. Problem Other intermediate frame tender (current) drug therapy Z79.899 A ctive confirmed 612923132 Problem Personal history of colonic polyps Z86.010 Activ e confirmed [id number] He had adenomatous polyps in 1997, 2000, not in 2008; two adenomatous polyps were seen in 08/2014, one sessile and not entirely removed. He had a followup colonoscopy in March 2015, 07/2016, December 2020 and he had a large villous adenoma resected partially in December 2020. He says he has another colonoscopy planned for June 2021. 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 He had been provided a prescription for Tylenol No. 3 from his dentist and this works better. I have no objection to him using that. He had a second opinion from another orthopedist in Spring 2017 and surgery on his back was being considered. His diagnosis of renal cancer has taken precedence but he may consider pursuing spine issues more aggressively, although he is tolerating his symptoms at present with a TENS unit. Problem Contact with and (suspected) exposure to asbestos Z77.090 Active confirmed [id number] Last CXR was in February 2019. Problem Type 2 diabetes mellitus without complications E11 .9 Active confirmed [id number] On glipizide, metfor min, and now Ozempic instead of Truliciity, which is supplied by [facility]. Metformin at 750 mg daily is acceptable at that dose given his renal function (GFR is 42). HgbA1c was most 7.1% in April 2021; it was 7.5% in May 2020 and October 2020, 8.2% in December 2019, 7.5% in June 2019, 7.9% in December 2018, 7.4% in July 2018. His last eye exam was in 2020 by his account (I have no note), and his last urine microalbumin was negative in October 2020. He has no endorgan complications. [facility] has been involved in his care and has provided nutrition counseling, and discussed insulin therapy with him which he is refractory to. [facility] also in 2018 stopped his Actos therapy. I would agree with that. ACP guidelines indicate that a hemoglobin A1c target of 8% or less is reasonable. He was started on acarbose therapy at [facility] in early 2019 which caused the expected side of excessive abdominal gas and he is off that. I [facility] that [facility] not [facility]. Problem Back pain M54.9 Active confirmed [id number] Tylenol 3 has been prescribed in the past. He no longer takes Mobic and tramadol because they did not provide much benefit, and gabapentin was added by orthopedist for back pain 2013. He has seen another orthopedist at which time his renal lesion was discovered but this has now been treated and he may end up pursuing his back issues more aggressively if they become more symptomatic. Problem Elevated PSA R97.20 Active confirmed 2792039 05 PSA was significantly higher in September 2011, but had dropped to near baseline levels in March 2012. He is followed by urology. His PSA has been as high as 8 as of March 2018, dropped to 6.2 as of July 2018, and was 5.6 in October 2019 at [facility], 6.7 here in March 2021. He is seeing a urologist. Problem Abnormal chest x-ray R93.89 Active confirmed 939111845 Problem Insomnia, unspecified G47.00 Active confirmed 424443799 He is on doxepin with benefit at 25mg daily. Problem Chronic kidney disease, stage 3b N18.32 Active confirmed 611115211 His baseline creatinine is in the 1.6-1. 7 range and was 1.68 with a GFR 42 in April 2021. He has had a creatinine in this range since at least 2008, by my review of laboratory tests from the past. Problem Unilateral inguinal hernia, without obstruction or gangrene, not specified as recurrent K40.90 Active confirmed 8574857 00 This is somewhat symptomatic. It was identified in the past and he had seen a surgeon in 2018 and balked at surgical intervention but he may need to pursue this in the future. Problem History of subdural hematoma Z86.79 Active confirme d [id number] A 4 mm left temporal subdural hematoma was identified on CT scan in late February 2018, subsequent to a fall. He was evaluated by the neurosurgical services in [place], not kept overnight. He has no residual evident. Problem Renal cell cancer C64.9 Active confirmed [id number] Patient had an MRI of his spine with [facility]-- incidental finding of left kidney abnormality. Had a robotic left partial nephrectomy 01/2018; cancer diagnosed. He is followed by urology, had an MRI most recently in February 2020. He is seeing the urologist again in May 2021. Problem Thrombocytopenia D69.6 Active confirmed 415 [id number] ?platelet clumping. Will follow. Most recently platelet count was 163,000 in October 2020, 175,000 in April 2021. Problem Low vitamin B12 level E53.8 Active confirmed 651488025 In December 2019 his vitamin B12 level was 311, likely related to metformin therapy, and I initiated supplementation, which he maintains. ALLERGIES No Known Allergies ENCOUNTERS from 1940 to 2021-05-25 Encounter Location Date Provider Diagnosis [facility] [phone] [place] [address] 07 May, 2021 Jorge L Parekh IMMUNIZATIONS Vaccine Route Administration Date Status Influenza 18 yrs & older Flublok IM Intramuscular Jul 10, 2019 Administered Influenza (High Dose 65 & up) Unknown Jul 02, 2018 Ad ministered Influenza (High Dose 65 & up) Unknown Oct 11, 2017 Re fused Influenza (High Dose 65 & up) IM Intramuscular Jul 26, 2015 A dministered Zoster 0.65mL Zostavax Unknown Oct 17, 2007 Administe red Pneumococcal Adult 0.5mL Pneumovax 23 Unknown Sep 16 06 Administered Influenza Pharmacy Given Unknown Jun 22, 2020 Adminis tered Pneumococcal 0.5mL Prevnar 13 IM Intramuscular Jul 26, 2015 A dministered TD Adult 0.5mL Tetanus Unknown February 18, 2002 Administe red Influenza 6mo & up Fluzone Unknown May 29, 2013 Admin istered SOCIAL HISTORY Tobacco Use: Social History Observation Description Date Details (start date - stop date) Never Smoker Sex Assigned At : Social History Observation Description Sex Assigned At Unknown Education: Question Answer Notes Level of Education: College Audit Question Answer Notes Total Score: 2 Interpretation: Alcohol Education Congregational: Question Answer Notes Congregational NONE Sexual Hx: Question Answer Notes Had sex in the last 12 months (vaginal, oral, or anal)? No Have you ever had an STD? Yes Herpes? Yes Drug and Alcohol Question Answer Notes Total Score: 0 Interpretation: No problems reported Alcohol Screening: Question Answer Notes Did you have a drink containing alcohol in the past year? Ye s Points 2 Interpretation Negative How often did you have six or more drinks on one occas ion in the past year? Never (0 points) How many drinks did you have on a typica l day when you were drinking in the past year? 3 or 4 (1 point) How often did you have a drink containing alcohol in t he past year? Monthly or less (1 point) BMI Care Goal Follow-Up Question Answer Notes Above Normal BMI Follow-Up Giving encouragement to exercise, Weight monitoring Tobacco Use: Question Answer Notes Are you a: never smoker REASON FOR REFERRAL No Information VITAL SIGNS No information MEDICATIONS Medication SIG (Take, Route, Frequency, Duration) Notes Start Da te End Date Status PreserVision AREDS 2 - 1 cap Orally Daily Active glipiZIDE 10 MG TAKE TWO TABLETS BY MOUTH TWICE A DAY for 90 Active Vitamin B12 1000 MCG 1 tablet Orally Once a day for 100 days Dec, Active Lipitor 40 MG 1 tablet Orally once a day three times a week fo r 90 day(s) M,W,F Active Vitamin D3 2000 UNIT 1 capsule Orally Once a day for 100 days Active Turmeric Curcumin 500 MG 1 cap Orally once daily Active Multivitamin Adults 50+ - as directed Orally Active Clobetasol Propionate 0.05 % 1 application to affected area Externally Twice a day for 30 days PRN Dec, Active Doxepin HCl 75 MG 1 capsule at bedtime Orally Once a day for 90 days Active Reynaldo Aspirin EC Low Dose 81 MG 1 tablet Orally Once a day Active metFORMIN HCl ER 750 MG 1 tablet Orally Once a day at supper time for 90 day(s) Active Blood Glucose Test _ Accu-Check Caitlin In Vitro Once a day DX: 25 0 for 90 days May, Active Losartan Potassium 100 MG 1 tablet Orally Once a day for 90 Active Jardiance 25 MG 1 tablet Orally Once a day for 30 day(s) 1 Dec, Active Cinnamon 500 MG 2 tab Orally Daily A ctive Melatonin 10 mg 1 tablet at bedtime as needed with food Orally daily Active Gabapentin 600 MG 1 cap(s) Orally twice a day for 90 day(s) Active Tylenol Extra Strength 500 MG 2 tablets as needed Orally cruz ry 6 hrs [id number] Active Ozempic (1 MG/DOSE) 2 MG/1.5ML 0.75 ml Subcutaneous Weekly Active PROCEDURES No Information RESULTS No Results REASON FOR VISIT MRI MEDICAL (GENERAL) HISTORY Type Description Date Medical History Type 2 diabetes mellitus without complic ations Medical History Hypercholesterolemia Medical History Polyosteoarthritis, unspecified Medical History Personal history of colonic polyps Medical History Contact with and (suspected) exposure to asbestos Medical History Primary insomnia Medical History Renal cell cancer Surgical History appendectomy age 5 Surgical History left tibial plateau fracture repair. had pelvic fracture, left SI joint disruption 1992 Surgical History colonoscopy 04/2009 Surgical History cataract extraction, left 06/2012 Surgical History cataract extraction, right 05/2012 Surgical History Colonoscopy 08/2014 Surgical History Colonoscopy 03/2015 Surgical History biopsy on center of chest, B CC removed in [place] and extracted sabaeous cyst. 10/2015 Surgical History Colonoscopy 07/2016 Surgical History Robotic partial nephrectomy-Dr. Parekh 01/24/2018 Surgical History Skin cancer removed from nose via Moh's surgery 04/2019 Surgical History Colonoscopy with a large villous adenoma 12/2020 Hospitalization History FALL FROM ROOF 17 [facility]YS [facility] [address] [facility] ED from fall, fractured 2 ribs and bleed on brain. Transfered to [facility] ED. 03/13/2018 Goals Section No Information Health Concerns No Information MEDICAL EQUIPMENT No Information MENTAL STATUS No Information FUNCTIONAL STATUS No Information ASSESSMENTS No Information PLAN OF TREATMENT Next Appt Details Provider Name:Salazar López, 2021-11-07 11 :00:00 AM, [address] [facility], , [place], [address], Insurance Providers Payer Name Payer Address Payer Phone Insured Name Patient Relati onship to Insured Coverage Start Date Coverage End Date EVAN KEVIN PPO [phone] [facility] [place] [place] [id number] AL[place] VILLA self MEDICARE Part A and B [address] [place] [id number] [phone] [place]ZO VILLA self
--- OUTSIDE RECORDS SUMMARY | 2021-08-20 21:03 | CCD ---
Author Author [facility] Organization [facility] Address Unknown Phone Unavailable Care Team Providers Care Computer Systems Architect Name Role Phone Jorge L Parekh Unavailable PROBLEMS Type Condition ICD9-CM Code [id number] Code Onset Dates Condition S tatus W/U Status Risk SNOMED Code Notes Problem Hypercholesterolemia E78.00 Active confirmed [id number] On Lipitor. Lipid targets achieved in April 2021, without toxicity from his medication. 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 He had a followup colonoscopy in March 2015, 07/2016, December 2020 and he had a large villous adenoma resected partially in December 2020. He says he has another colonoscopy planned for June 2021. 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 Problem Type 2 diabetes mellitus without complications E11 .9 Active confirmed [id number] On glipizide, metfor min, and now Ozempic [...] management. Problem Back pain M54.9 Active confirmed 654355517 Tylenol 3 has been prescribed in the [...] symptomatic. Problem Elevated PSA R97.20 Active confirmed 8686714 05 PSA was significantly higher in September [...] Problem Abnormal chest x-ray R93.89 Active confirmed 226347735 Problem Insomnia, unspecified G47.00 Active confirmed 567208436 He is on doxepin with benefit at 25mg daily. Problem Chronic kidney disease, stage 3b N18.32 Active confirmed 137322724 His baseline creatinine is in the 1.6-1. 7 range and was 1.68 with a GFR 42 in April 2021. He has had a creatinine in this range since at least 2008, by my review of laboratory tests from the past. Problem Unilateral inguinal hernia, without obstruction or gangrene, not specified as recurrent K40.90 Active confirmed 7898899 00 This is somewhat symptomatic. It was identified in the past and he had seen a surgeon in 2018 and balked at surgical intervention but he may need to pursue this in the future. Problem History of subdural hematoma Z86.79 Active confirme d [id number] A 4 mm left temporal subdural hematoma was identified on CT scan in late February 2018, subsequent to a fall. He was evaluated by the neurosurgical services in [place], not kept overnight. He has no residual evident. Problem Renal cell cancer C64.9 Active confirmed [id number] Patient had an MRI of his spine with [facility]-- incidental finding of left kidney abnormality. Had a robotic left partial nephrectomy 01/2018; cancer diagnosed. He is followed by urology, had an MRI most recently in February 2020. He is seeing the urologist again in May 2021. Problem Thrombocytopenia D69.6 Active confirmed 415 810014 ?platelet clumping. Will follow. Most recently platelet count was 163,000 in October 2020, 175,000 in April 2021. Problem Low vitamin B12 level E53.8 Active confirmed 473193903 In December 2019 his vitamin B12 level was 311, likely related to metformin therapy, and I initiated supplementation, which he maintains. ALLERGIES No Known Allergies ENCOUNTERS from 1938 to 2021-05-24 Encounter Location Date Provider Diagnosis [facility] [address] [phone] [place] [address] May, Jorge L Parekh Renal cell cancer C64.9 IMMUNIZATIONS Vaccine Route Administration Date Status Influenza [...] Adult 0.5mL Pneumovax 23 Unknown Sep 16 Administered Influenza Pharmacy Given Unknown Jun 22, [...] Notes Total Score: 2 Interpretation: Alcohol Education Scientology: Question Answer Notes Scientology NONE Sexual Hx: Question Answer Notes Had [...] REASON FOR REFERRAL No Information VITAL SIGNS Weight 209 lbs May, Weight-kg 94.8 kg May, Height 68 in May, BMI 31.77 kg/m2 May, Heart Rate 67 /min May, Respiratory Rate 18 /min May, Temperature 96.8 degrees Fahrenheit May, Oximetry 97 May, Blood pressure systolic 142 mm Hg May, Blood pressure diastolic 80 mm Hg May, MEDICATIONS Medication SIG (Take, Route, Frequency, Duration) [...] as needed Orally cruz ry 6 hrs [id number] Active Ozempic (1 MG/DOSE) 2 MG/1.5ML 0.75 ml Subcutaneous Weekly Active PROCEDURES No Information RESULTS No Results REASON FOR VISIT MRI f/u MEDICAL (GENERAL) HISTORY Type Description Date Medical [...] DAYS IN HOSPITAL 1 993 Hospitalization History [facility] ED from fall, fractured 2 ribs and bleed on brain. Transfered to [facility] ED. 03/13/2018 Goals Section No Information Health Concerns No Information MEDICAL EQUIPMENT No Information MENTAL STATUS No Information FUNCTIONAL STATUS No Information ASSESSMENTS Encounter Date Diagnosis Assessment Notes Treatment Notes Treatm ent Clinical Notes May, Renal cell cancer (ICD-10 - C64.9) - MRI results discussed w/ patient in detail - will send a referral to Dr. Womack at [facility] PLAN OF TREATMENT Treatment Notes Assessment Notes Clinical Notes Renal cell cancer - MRI results discus sed w/ patient in detail- will send a referral to Dr. Womack at [facility] Next Appt Details Provider Name:Salazar López, 2021-11-07 11 :00:00 AM, [address] [facility], , [place], [address], Insurance Providers Payer Name Payer Address Payer Phone Insured Name Patient Relati onship to Insured Coverage Start Date Coverage End Date BCBS [place] PPO [id number] [facility] [employer] [facility] [place] [id number] [place] MEDICARE Part A and B [facility] [address] [place] [phone] [place]
--- OUTSIDE RECORDS SUMMARY | 2021-08-20 21:03 | CCD | Continuity of Care Document ---
Author Author Dennis ALCALA F.N.P. Organization Unknown Address [address] [place] [address] Phone [phone] Care Team Providers Care Loom Tuner Name Role Phone Salazar López MD [facility] [phone] Problems Description No Information Available Social History Type Date Description Comments Sex Unknown Tobacco Use Start: Unknown Never Smoked Cigarettes ETOH Use Rarely consumes alcohol Tobacco Use Start: Unknown Patient has never smoked Sun Exposure excessive amount of sun exposure Sun Exposure Has experienced blistering from sunburns Sun Exposure Has never used tanning bed Sun Exposure Uses sunscreen on occasion. Wea rs protective clothing. Allergies and adverse reactions Description No Known Drug Allergies Medications Active Medications SIG Qnty Indications Ordering Provide r Date Valacyclovir HCL 1gm Tablets 2 tabs by mouth and repeat in 12 hours 20tabs B00.89 Evelia Alcala F.N.P. 07/04/2021 Losartan Potassium 25mg Tablets 1 by mouth every day Evelia Alcala F.N.P. 2018 Clobetasol Propionate 0.05% Ointme nt apply to left ankle and left calf sparingly x 10 days,then as needed 60units L20.89 Evelia Alcala F.N.P. 09/19/2017 Triamcinolone0.1% CR 120GM/Menthol 600MG /Eucerin 120GM Cream apply topically to skin as needed itching. QS L29.8 Elise LingP-C 08/15/2015 Compression Stocking 15-20MMHG apply to legs every in the morning and remove at hs. Page FelizN.P. 2014 Lpqjwcji-Tcnkdtumk-PT 3.5-27115-1 Solution Unknown Trulicity 1.5mg/0.5ML Solution Pen -Inject Unknown Multivitamin Adult Unknown Glipizide XL Unknown Cinnamon Unknown Urea Unknown Pioglitazone HCL-Glimepiride Unknown Codeine Sulfate Unknown 0 Atorvastatin Calcium Unknown Accu-Chek Caitlin Unknown 0 Ocuvite Adult 50+ Capsules 1 tab by mouth every day Unknown Lisinopril 40mg Tablets 1 tab by mouth every day Unknown Gabapentin 600mg Tablets 1 tab by mouth twice a day Unknown Doxepin HCL 50mg Capsules 1 tab by mouth every day Unknown Melatonin 10mg Capsules 1 tab by mouth every day Unknown Aspir-81 1 tab by mouth every day Unknown Metformin HCL ER 750mg Tablets ER 24HR 2 tab by mouth every day Unknown 0 Immunizations Description No Information Available Vital Signs Date Vital Result Comment 07/06/2021 9:13am BP Systolic 134 mmHg BP Diastolic 77 mmHg O2 % BldC Oximetry 96 % Heart Rate 71 /min 07/04/2021 12:37pm BP Systolic 138 mmHg BP Diastolic 77 mmHg O2 % BldC Oximetry 95 % Heart Rate 86 /min Results Test Acquired Date Facility Test Result H/L Range Note BXDX Pathology 07/04/2021 [facility] L LC Icd9 Code ICD9 Code: L57.0 1, 2 PDFReport SEE IMAGE 1 LN2 any remaining 2 ICD9 Code: L57.0 Protocol: tyler Clinical Text: CYSTIC BCC Final Diagnosis: ACTINIC KERATOSIS AND SURFACE OF CYSTIC STRUCTURE. Final Diagnosis: COMMENT: MULTIPLE SECTIONS HAVE BEEN EXAMINED AND AN UNDERLYING BASAL CELL CARCINOMA CANNOT BE EXCLUDED. Final Diagnosis: IF CLINICAL FEATURES OF AN ATYPICAL LESION PERSIST, AN ADDITIONAL BIOPSY IS RECOMMENDED. Gross Text: The specimen grossly was irregular in shape and measured 4 x 3 mm. on the surface and 1 mm. deep. It was divided into 2 sections on the short axis. All of the tissue was submitted for processing. Microscopic Description: The epidermis shows partial thickness keratinocytic atypia between adnexa. There is a background of solar elastosis. The base of the specimen is comprised of the surface of a cystic structure. CPT: 23882*1 Procedures Date Code Description Status 07/06/2021 34188 Office/Outpatient Established Mo d MDM 30-39 Min Completed 07/06/2021 43814 Destruction Of Lesions 2-14 Comp leted 07/06/2021 41537 Destruction Of Lesion First Comp leted 07/04/2021 50631 Office/Outpatient Established Mo d MDM 30-39 Min Completed 07/04/2021 92690 Shave Biopsy Of Skin, Single Les ion Completed Medical Devices Description No Information Available Encounters Type Date Location Provider Dx Diagnosis Office Visit 07/06/2021 9:00a Main Office JOANNE Reddy L57. 0 Actinic keratosis Office Visit 07/04/2021 12:15p Main Office Evelia Alcala, F.N.P. 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 07/04/2021 L57.0 Actinic keratosis Evelia ron, F.N.P. 07/04/2021 D22.5 Melanocytic nevi of trunk Lon Alcala, F.N.P. 07/04/2021 D22.61 Melanocytic nevi of right upper limb, including shoulder Evelia Alcala, F.N.P. 07/04/2021 D22.62 Melanocytic nevi of left upper l imb, including shoulder Evelia Alcala, F.N.P. 07/04/2021 D22.71 Melanocytic nevi of right lower limb, including hip Evelia Alcala, F.N.P. 07/04/2021 D22.72 Melanocytic nevi of left lower l imb, including hip Evelia Alcala, F.N.P. 07/04/2021 L81.4 Other melanin hyperpigmentation Evelia Alcala F.N.P. 07/04/2021 L82.1 Other seborrheic keratosis Kirsty Alcala, F.N.P. 07/04/2021 B00.89 Other herpesviral infection Chel Alcala F.N.P. 07/04/2021 Z85.828 Personal history of other malign ant neoplasm of skin Page FelizN.P. 07/04/2021 Z08 Encounter for follow -up examination after completed treatment for malignant neoplasm Page FelizNLorin. Plan of Treatment Future Appointment(s):* 08/28/2021 10:00 am - Evelia Alcala F.N.P. at Main Office * 01/04/2022 12:45 pm - Yasmin Feliz.N.PMaryse at Main Office 07/06/2021 - JOANNE Reddy* L57.0 Actinic keratosis* Comments:* Discussed actinic keratoses are precancerous proliferations that occur within sun damaged skin. If untreated, a small subset of AK's can develop into SCC's. Discussed LN2 in depth to include that the areas treated will get red, bubble up/blister, maybe get a little weepy, form a scab then heal. Discussed S/E to include scarring, risk of hypopigmentation, bleeding, infectionConsent signed todayLN2 to 10 AK's today. Wound care instructions given.Sunscreen use and sun protection discussed. Contact office if AK's fail to resolve despite treatment. Instructed to call with any problems * Follow up:* Has appointment - [facility] 01/04/22 Functional Status Description No Information Available Mental Status Description No Information Available Referrals Description No Information Available
--- OUTSIDE RECORDS SUMMARY | 2021-08-20 21:03 | CCD | Continuity of Care Document ---
Author Author Dennis ALCALA F.N.P. Organization Unknown Address [address] [place] [address] Phone [phone] Care Team Providers Care Crm Consultant Name Role Phone Salazar López MD [facility] [phone] Problems Description No Information Available Social History [...] 1 by mouth every day Evelia Alcala FMaryseN.P. 2018 Clobetasol Propionate 0.05% Ointme nt apply to left ankle and left calf sparingly x 10 days,then as needed 60units L20.89 Evelia Alcala F.N.P. 09/19/2017 Triamcinolone0.1% CR 120GM/Menthol 600MG /Eucerin 120GM Cream apply topically to skin as needed itching. QS L29.8 Elise LingP-C 08/15/2015 Compression Stocking 15-20MMHG apply to legs every in the morning and remove at hs. Page FelizN.P. 2014 Nizjnbem-Wafzadkkx-XH 3.5-39499-2 Solution Unknown Trulicity 1.5mg/0.5ML Solution Pen -Inject [...] the surface of a cystic structure. CPT: 62510*1 Procedures Date Code Description Status 07/06/2021 65285 Office/Outpatient Established Mo d MDM 30-39 Min Completed 07/06/2021 50801 Destruction Of Lesions 2-14 Comp leted 07/06/2021 32234 Destruction Of Lesion First Comp leted 07/04/2021 37526 Office/Outpatient Established Mo d MDM 30-39 Min Completed 07/04/2021 31798 Shave Biopsy Of Skin, Single Les ion [...]
--- OUTSIDE RECORDS SUMMARY | 2021-08-20 21:03 | CCD | Summary of Care ---
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 Name Role Phone Valerie Hernandez PCP Reason for Referral * (Routine) Referred By Contact Referred To Contact Status Reason Specialty Diagnoses / Procedures Yaneth Padgett MD [address], [address] [place] [id number] Email: [email or web address] Open Diagnoses Abnormal ECG P rocedures Echocardiogram 2D complete ECH10 Electronically signed by Yaneth Padgett MD at Reason for Visit * Reason Comments Pre-op Exam Echo Encounter Details Care Team Description Date Type Department Yaneth Padgett MD [address], [address] [place] [address] [phone] Essential hypertension (Primary Dx); Abnormal ECG 05/31/2021 Office Visit [facility] [address] [place] [address] 5th Floor, [address] [place] [phone] Allergies No Known Active Allergiesdocumented as of this encounter (statuses as of 05/31/2021) Medications End Date Status Medication Sig Dispensed Refills Start Date Active aspirin 81 MG tablet Take 81 mg by 0 mouth daily Active atorvastatin (LIPITOR) 40 Take 40 mg by 0 MG tablet mouth every other day (taking --) Active doxepin (SINEQUAN) 50 MG Take 75 mg by 0 capsule mouth nightly Active glipiZIDE (GLUCOTROL) 5 Take 10 mg by 0 MG tablet mouth Two times daily before meals Active Multiple Vitamin Take 1 tablet 0 (MULTIVITAMIN) tablet by mouth daily Active gabapentin (NEURONTIN) Take 600 mg 0 400 MG capsule by mouth Two Times Daily Active melatonin 3 MG tablet Take 10 mg by 0 mouth nightly Active pioglitazone (ACTOS) 30 Take 30 mg by 0 MG tablet mouth daily Active docusate sodium (COLACE) Take 100 mg 0 100 MG capsule by mouth daily Active oxycodone-acetaminophen Take 1 tablet 0 (PERCOCET) 5-325 MG per by mouth tablet every 4 (four) hours as needed for Pain Active LOSARTAN POTASSIUM PO Take 100 mg 0 by mouth daily Active Vitamin D3 25 MCG (1000 Take 1,000 0 UT) Oral Tablet Units by (CHOLECALCIFEROL) mouth every other day (taking on ) Active Semaglutide (OZEMPIC, 1 Inject into 0 MG/DOSE, SC) the skin once a week Active diphenhydrAMINE-APAP Take 1 tablet 0 (sleep) 25-500 MG Oral by mouth Tablet (TYLENOL PM) nightly as needed Active CINNAMON PO Take 1 tablet 0 by mouth daily Active Empagliflozin 25 MG Oral Take 1 tablet 0 Tablet by mouth daily Active metFORMIN HCl ER 750 MG Take 750 mg 0 Oral Tablet Extended by mouth Release 24 Hour daily with (GLUCOPHAGE-XR) breakfast Active Ocuvite Adult 50+ Oral Take 1 tablet 0 Capsule by mouth daily Active Turmeric 500 MG Oral Take by mouth 0 Capsule daily Active Magnesium 500 MG Oral Take 1 0 Capsule capsule by mouth Daily documented as of this encounter (statuses as of 05/31/2021) Active Problems Problem Noted Date Abnormal ECG 05/31/2021 Renal mass 05/30/2021 Overview: Formatting of this note might be differ ent from the original. Added automatically from request for triny ghosh [id number] SDH (subdural hematoma) 04/08/2018 Diabetes mellitus Hypertension Hypercholesteremia Sleep apnea GERD (gastroesophageal reflux disease) Cancer of kidney documented as of this encounter (statuses as of 05/31/2021) Social History Date Tobacco Use Types Packs/Day Years Used Never Smoker Smokeless Tobacco: Never Used Comments Alcohol Use Standard Drinks/Week rarely Yes 0 (1 standard drink = 0.6 o z pure alcohol) Sex Assigned at Date Recorded Not on file Date Recorded COVID-19 Exposure Response 05/31/2021 2:17 PM EDT In the last month, have you been in contact with No / Unsure someone who was confirmed or suspected to have Coronavirus / COVID-19? documented as of this encounter Last Filed Vital Signs Reading Time Taken Comments Vital Sign 123/65 05/31/2021 2:49 PM EDT Blood Pressure 74 05/31/2021 2:41 PM EDT Pulse - - Temperature 16 05/31/2021 2:41 PM EDT Respiratory Rate 95% 05/31/2021 2:41 PM EDT Oxygen Saturation - - Inhaled Oxygen Concentration 94.8 kg (209 lb) 05/31/2021 2:41 PM EDT Weight 172.7 cm (5' 8") 05/31/2021 2:41 PM EDT Height 31.78 05/31/2021 2:41 PM EDT Body Mass Index documented in this encounter Progress Notes * Yaneth Padgett MD - 05/31/2021 2:40 PM EDT Images from the original note were not included. CARDIOLOGY OFFICE NOTE May 31, 2021 REASON FOR VISIT: pre-operative assessment Mr. Villa is a 80 y.o. male with a history that includes hypertension, hyperlipi demia and recently diagnosed recurrent renal cell carcinoma. He denies cardiac symptoms. He states he can easily climb 2 flights of stairs. He is limited to some extent related to his history of back pain. He has some numbness in his ri ght leg and left hip area which he attributes to his back issues. 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 He is on losartan for his blood pressure. He is on atorvastatin for his hyperlipidemia. Overall from a cardiac standpoint he has clinically st able. CARDIAC HISTORY: None MEDICATIONS: Current Outpatient Medications Medication Sig aspirin 81 MG tablet Take 81 mg by mouth daily atorvastatin (LIPITOR) 40 MG tablet Take 40 mg by mouth every other day ( taking --) CINNAMON PO Take 1 tablet by mouth daily diphenhydrAMINE-APAP (sleep) 25-500 MG Oral Tablet (TYLENOL PM) Take 1 ta blet by mouth nightly as needed docusate sodium (COLACE) 100 MG capsule Take 100 mg by mouth daily doxepin (SINEQUAN) 50 MG capsule Take 75 mg by mouth nightly Empagliflozin 25 MG Oral Tablet Take 1 tablet by mouth daily gabapentin (NEURONTIN) 400 MG capsule Take 600 mg by mouth Two Times Danni y glipiZIDE (GLUCOTROL) 5 MG tablet Take 10 mg by mouth Two times daily bef ore meals LOSARTAN POTASSIUM PO Take 100 mg by mouth daily Magnesium 500 MG Oral Capsule Take 1 capsule by mouth Daily melatonin 3 MG tablet Take 10 mg by mouth nightly metFORMIN HCl ER 750 MG Oral Tablet Extended Release 24 Hour (GLUCOPHAGE- XR) Take 750 mg by mouth daily with breakfast Multiple Vitamin (MULTIVITAMIN) tablet Take 1 tablet by mouth daily Ocuvite Adult 50+ Oral Capsule Take 1 tablet by mouth daily oxycodone-acetaminophen (PERCOCET) 5-325 MG per tablet Take 1 tablet by m outh every 4 (four) hours as needed for Pain pioglitazone (ACTOS) 30 MG tablet Take 30 mg by mouth daily Semaglutide (OZEMPIC, 1 MG/DOSE, SC) Inject into the skin once a week Turmeric 500 MG Oral Capsule Take by mouth daily Vitamin D3 25 MCG (1000 UT) Oral Tablet (CHOLECALCIFEROL) Take 1,000 Unit s by mouth every other day (taking on ) ALLERGIES: No Known Allergies PMH : Past Medical History: Diagnosis Date Cancer of kidney Left Kidney Diabetes mellitus GERD (gastroesophageal reflux disease) Hypercholesteremia Hypertension Skin cancer Nose, Chest, Back Sleep apnea Patient denies SURGICAL HISTORY: Past Surgical History: Procedure Laterality Date APPENDECTOMY CARPAL TUNNEL RELEASE Left MASS EXCISION l kidney PARTIAL NEPHRECTOMY Left 2020 SKIN CANCER EXCISION Nose, chest, and back TIBIA FRACTURE SURGERY Left FAMILY HISTORY: Family History Problem Relation Age of Onset Heart attack Mother Diabetes Mother Diabetes Father SOCIAL HISTORY: Social History Socioeconomic History Marital status: Spouse name: Iva Number of children: 6 Years of education: Not on file Highest education level: Not on file Occupational History 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 HENT: Negative for nosebleeds. Eyes: Negative for visual disturbance. Cardiovascular: Positive for leg swelling (mainly left leg). Negative for chest pain, dyspnea on exertion, near-syncope, palpitations and syncope. Respiratory: Negative for cough and wheezing. Hematologic/Lymphatic: Does not bruise/bleed easily. Musculoskeletal: Positive for back pain. Bone pain, left lower leg Gastrointestinal: Negative for bloating. Neurological: Negative for dizziness and light-headedness. PHYSICAL EXAM: Vitals: 05/31/21 1441 05/31/21 1449 BP: 134/55 123/65 BP Location: Left arm Right arm Patient Position: Sitting Sitting Cuff size: Regular Regular Pulse: 74 Resp: 16 SpO2: 95% Weight: 94.8 kg (209 lb) Height: 1.727 m Physical Exam RESULTS: EKG: abnormal and reviewed by myself Sinus with LAFB. Echocardiogram: normal wall motion ASSESSMENT: SDH (subdural hematoma) Diabetes mellitus Hypertension Hypercholesteremia Sleep apnea GERD (gastroesophageal reflux disease) Cancer of kidney Renal mass Abnormal ECG PLAN: Return if symptoms worsen or fail to improve. Abnormal ECG - LAFB; echo is normal. >4METs of exercise tolerance. Stable from a cardiac standpoint to undergo his planned surgery. Yaneth Padgtet MD [facility] documented in this encounter Nursing Notes * Chen Jeff RN - 05/31/2021 2:40 PM EDT Patient needs cardiac clearance for Left nephrectomy, scheduled for this Saturday06/02/[address] Leal. Patient denies chest pain or SOB. documented in this encounter Plan of Treatment Care Team Description Date Type Specialty Cathy Salazar PA [address] [facility] [place] [address] 06/01/2021 Pre-Admission Pre-Admission Testi ng Testing Jorge Leal MD [address] [place] [address] [place] [phone] 06/02/2021 Hospital Surgery Encounter Order Schedule Name Type Priority Associated Diag noses Ordered: 05/31/2021 EKG 12 lead EKG1 ECG Routine Essential hyp ertension Health Maintenance Due Date Last Done Comments Pneumococcal Vaccine: 65+ 1944 Years (1 of 4 - PCV13) Pneumococcal Vaccine: 1946 Pediatrics (0 to 5 Years) and At-Risk Patients (6 to 64 Years) (1 of 4 - PCV13) COVID-19 Vaccine (1) 1952 MMR Vaccines (1 of 1 - 10/04/2008 Standard series) Varicella Vaccines (1 of 10/04/2008 09/06/2008, 2 - 2-dose childhood 10/17/2007 series) Zoster Vaccines (2 of 3) 11/01/2008 09/06/2008, 10/17/2007 DTaP,Tdap,and Td Vaccines 02/21/2011 08/23/2010, (3 - Td or Tdap) 02/18/2002 Influenza Vaccine 06/16/2021 06/22/2020, 06/20/2020, 07/10/2019, Additional history exists HIB Vaccines Aged Out No longer eligible based on patient's age to complete this topic Hepatitis A Vaccines Aged Out No longer eligibl e based on patient's age to complete this topic Hepatitis B Vaccines Aged Out No longer eligibl e based on patient's age to complete this topic IPV Vaccines Aged Out No longer eligible based on patient's age to complete this topic documented as of this encounter Procedures Comments Procedure Name Priority Date/Time Associated Diag nosis ECHOCARDIOGRAM 2D Routine 05/31/2021 Abnormal ECG COMPLETE 3:13 PM EDT documented in this encounter Results * Echocardiogram 2D complete ECH10 (05/31/2021 3:13 PM EDT) Specimen Narrative Performed At . [facility] [address] 5th Floor, [address] [place] [phone] Echocardiography Examination Transthoracic Name: DENNIS VILLA MR#: [id number] Admission Number: [id number] Study Date: 05/31/2021 Study Time: 03:13 PM Date Of : 1940 Age: 80 years Height: 68 in. (172.7 cm) Weight: 205 lbs. (92.99 kg) BSA: 2.07 m2 Gender: Male Blood Pressure: 123 mmHg / 65 mmHg Heart Rate: Procedure Staff Reading Physician: YANETH PADGETT MD [facility] Senior Technical Manager: Ezio Gallegos RDCS Ordering Physician: YANETH PADGETT MD [facility] Indications Reason for Order->Perioperative Evaluat ion for Non-Cardiac Surgery Exam Details Procedure Ordered: ECHOCARDIOGRAM 2D COMPLETE Conclusions Left Ventricle: There is left ventricular concentric re modeling. Normal global systolic left ventricular function. Left Ventricular Measurements LVEF, BP: 67 %. Right Ventricle: Right ventricular systolic function is normal. Tricuspid Valve: Trivial tricuspid regurgitation. Pulmonic Valve: Trace/physiologic pulmonic regurgitatio n is present. Patient: DENNIS VILLA Study Date: 05/31/2021 03:13 PM Previous Study Comparison Overview: No previous studies available for [facility] Findings Left Ventricle: Left ventricle is normal in size. There is left ventricular concentric remodeling. Normal global systolic left ventricular function. There are no regional wall mo tion abnormalities. Left ventricular diastolic function parameters are harper l. Left Ventricular Measurements LVEF, BP: 67 %. Right Ventricle: Right ventricle is normal in size . Rig ht ventricular systolic function is normal. Left Atrium: The left atrium size by volume measurem ent is normal (16-34 ml/m2) . Left Atrium Measurements LAESV index, BP: 28.5 ml/m. Right Atrium: The right atrium is normal in size. Mitral Valve: Mitral valve appears structurally harper l. No mitral regurgitation. Aortic Valve: Mild aortic valve sclerosis. No aortic regurgitation. Tricuspid Valve: The tricuspid valve appears structurall y normal. Trivial tricuspid regurgitation. Pulmonic Valve: The pulmonic valve appears grossly norm al. Trace/physiologic pulmonic regurgitation is present. Aorta: The aortic root is normal in size. The ascending aorta measures 3.7 cm. Ascending aorta is normal in size. Pericardium: No pericardial effusion. Measurements Anatomy Label Value Normal Value Aorta AoAsc 3.7 cm Aorta AoRoot, 2D 3.1 cm Aortic Valve AV PGmean 2.06 mmHg Aortic Valve AV Vmax 0.91 m/s Interventricular septum IVSd, 2D 1.3 cm (0.6cm - 1cm) Left Atrium LADs, 2D 3.9 cm (3cm - 4cm) Left Atrium LAESV index, BP 28.5 ml/m Left Ventricle LVDd, 2D 4.2 cm (4.2cm - 5.8cm) Left Ventricle LVPWd, 2D 1.3 cm (0.6cm - 1cm) Left Ventricle LVEF, BP 67 % (52% - 72%) Left Ventricle LV Mass Index, 2D ASE 97.6 g/m (49g/m - 115g/m) Left Ventricle LVRWT, 2D 0.62 Left Ventricle Diastolic MV E/A 0.63 Function Left Ventricle Diastolic MV E/E' lateral 9.20 Function Left Ventricle Diastolic MV E/E' septal 19.03 (2.4 - 2.4) Function Left Ventricle Diastolic MV E' septal 0.04 m/s Patient: DENNIS VILLA Study Date: 05/31/2021 03:13 PM Function Left Ventricle Diastolic MV E' lateral 0.09 m/s Function Left Ventricle Diastolic MV E/E' mean 12.46 Function Left Ventricle Diastolic MV E' mean 0.06 m/s Function Pulmonic Valve PV PGmax 4 mmHg Pulmonic Valve PV Vmax, Caliper 0.97 m/s _ Patient: DENNIS VILLA Study Date: 05/31/2021 03:13 PM Procedure Note Interface, Received Via [employer] - 05/31/2021 6:17 PM EDT . [facility] [address] 5th [address], [address] [place] [address] Echocardiography Examination Transthoracic Name: DENNIS VILLA MR#: [id number] Admission Number: [id number] Study Date: 05/31/2021 Study Time: 03:13 PM Date Of : 1940 Age: 80 years Height: 68 in. (172.7 cm) Weight: 205 lbs. (92.99 kg) BSA: 2.07 m2 Gender: Male Blood Pressure: 123 mmHg / 65 mmHg Heart Rate: Procedure Staff Reading Physician: YANETH PADGETT MD [facility] Senior Technical Manager: Ezio Gallegos RDCS Ordering Physician: YANETH PADGETT MD [facility] Indications Reason for Order->Perioperative Evaluation for Non-Cardiac Surgery Exam Details Procedure Ordered: ECHOCARDIOGRAM 2D COMPLETE Conclusions Left Ventricle: There is left ventricular concentric remodeling. Normal global systolic left ventricular function. Left Ventricular Measurements LVEF, BP: 67 %. Right Ventricle: Right ventricular systolic function is normal. Tricuspid Valve: Trivial tricuspid regurgitation. Pulmonic Valve: Trace/physiologic pulmonic regurgitation is present. Patient: DENNIS VILLA Study Date: 05/31/2021 03:13 PM Previous Study Comparison Overview: No previous studies available for comparison Findings Left Ventricle: Left ventricle is normal in size. There is left ventricular concentric remodeling. Normal global systolic left ventricular function. There are no regional wall motion abnormalities. Left ventricular diastolic function parameters are normal. Left Ventricular Measurements LVEF, BP: 67 %. Right Ventricle: Right ventricle is normal in size . Right ventricular systolic function is normal. Left Atrium: The left atrium size by volume measurement is normal (16-34 ml/m2) . Left Atrium Measurements LAESV index, BP: 28.5 ml/m. Right Atrium: The right atrium is normal in size. Mitral Valve: Mitral valve appears structurally normal. No mitral regurgitation. Aortic Valve: Mild aortic valve sclerosis. No aortic regurgitation. Tricuspid Valve: The tricuspid valve appears structurally normal. Trivial tricuspid regurgitation. Pulmonic Valve: The pulmonic valve appears grossly normal. Trace/physiologic pulmonic regurgitation is present. Aorta: The aortic root is normal in size. The ascending aorta measures 3.7 cm. Ascending aorta is normal in size. Pericardium: No pericardial effusion. Measurements Anatomy Label Value Normal Value Aorta AoAsc 3.7 cm Aorta AoRoot, 2D 3.1 cm Aortic Valve AV PGmean 2.06 mmHg Aortic Valve AV Vmax 0.91 m/s Interventricular septum IVSd, 2D 1.3 cm (0.6cm - 1cm) Left Atrium LADs, 2D 3.9 cm (3cm - 4cm) Left Atrium LAESV index, BP 28.5 ml/m Left Ventricle LVDd, 2D 4.2 cm (4.2cm - 5.8cm) Left Ventricle LVPWd, 2D 1.3 cm (0.6cm - 1cm) Left Ventricle LVEF, BP 67 % (52% - 72%) Left Ventricle LV Mass Index, 2D ASE 97.6 g/m (49g/m - 115g/m) Left Ventricle LVRWT, 2D 0.62 Left Ventricle Diastolic MV E/A 0.63 Function Left Ventricle Diastolic MV E/E' lateral 9.20 Function Left Ventricle Diastolic MV E/E' septal 19.03 (2.4 - 2.4) Function Left Ventricle Diastolic MV E' septal 0.04 m/s Patient: DENNIS VILLA Study Date: 05/31/2021 03:13 PM Function Left Ventricle Diastolic MV E' lateral 0.09 m/s Function Left Ventricle Diastolic MV E/E' mean 12.46 Function Left Ventricle Diastolic MV E' mean 0.06 m/s Function Pulmonic Valve PV PGmax 4 mmHg Pulmonic Valve PV Vmax, Caliper 0.97 m/s Patient: DENNIS VILLA Study Date: 05/31/2021 03:13 PM Performing Organization Address City/State/ZIP Code [place] [facility] documented in this encounter Visit Diagnoses Diagnosis Cancer of kidney Malignant neoplasm of kidney, except pe lvis Renal mass Unspecified disorder of kidney and uret er Essential hypertension - Primary Unspecified essential hypertension Abnormal ECG Nonspecific abnormal electrocardiogram (ECG) (EKG) documented in this encounter
--- OUTSIDE RECORDS SUMMARY | 2021-08-20 21:03 | CCD | Summary of Care ---
Author Author [facility] Organization [facility] Address Unknown Phone Unavailable Care Team Providers Care Welding Foreman Name Role Phone Valerie Hernandez PCP Reason for Visit * Auth/Cert Referred By Contact Referred To Contact Status Reason Specialty Diagnoses / Procedures Jorge Leal MD [address] [place] [phone] Email: [email or web address] Diagnoses renal mass Encounter Details Care Team Description Date Type Department Jorge Leal MD [address] [place] [address] 06/02/2021 Hospital [facility] SURGERY/TRANSPL ANT - Encounter [address] 06/04/2021 [place] [address] Allergies No Known Active Allergiesdocumented as of this encounter (statuses as of 06/04/2021) Medications End Date Status Medication Sig Dispensed Refills Start Date Active aspirin 81 MG tablet Take 81 mg by 0 mouth every morning Active atorvastatin (LIPITOR) 40 Take 40 mg by 0 MG tablet mouth every other day (taking --) nightly Active doxepin (SINEQUAN) 75 MG Take 75 mg by 0 capsule mouth nightly Active glipiZIDE (GLUCOTROL) 10 Take 20 mg by 0 MG tablet mouth Two times daily before breakfast and dinner Active Multiple Vitamin Take 1 tablet 0 (MULTIVITAMIN) tablet by mouth daily Active gabapentin (NEURONTIN) Take 600 mg 0 300 MG capsule by mouth Two Times Daily Active Melatonin 10 MG TABS Take 10 mg by 0 mouth nightly Active pioglitazone (ACTOS) 30 Take 30 mg by 0 MG tablet mouth daily Active docusate sodium (COLACE) Take 100 mg 0 100 MG capsule by mouth daily with dinner Active oxycodone-acetaminophen Take 1 tablet 0 (PERCOCET) 5-325 MG per by mouth tablet every 4 (four) hours as needed for Pain Active LOSARTAN POTASSIUM PO Take 100 mg 0 by mouth daily with dinner Active Vitamin D3 25 MCG (1000 Take 1,000 0 UT) Oral Tablet Units by (CHOLECALCIFEROL) mouth every other day (taking on ) morning Active Semaglutide (OZEMPIC, 1 Inject into 0 MG/DOSE, SC) the skin once a week Saturday Active diphenhydrAMINE-APAP Take 1 tablet 0 (sleep) 25-500 MG Oral by mouth Tablet (TYLENOL PM) nightly Active CINNAMON PO Take 1 tablet 0 by mouth every morning Active Empagliflozin 25 MG Oral Take 1 tablet 0 Tablet by mouth every morning Active metFORMIN HCl ER 750 MG Take 750 mg 0 Oral Tablet Extended by mouth Release 24 Hour daily with (GLUCOPHAGE-XR) dinner Active Ocuvite Adult 50+ Oral Take 1 tablet 0 Capsule by mouth every morning Active Magnesium 500 MG Oral Take 1 0 Capsule capsule by mouth daily with dinner Active Acetaminophen 500 MG Oral Take 500 mg 0 Tablet (TYLENOL) by mouth every 6 (six) hours as needed for Pain 06/07/2021 Active traMADol HCl 50 MG Oral Take 1 tablet 8 tablet 0 Tablet (ULTRAM) by mouth 1 every 8 (eight) hours as needed for Pain for up to 3 days, Max Daily Dose: 150 mg documented as of this encounter (statuses as of 06/04/2021) Active Problems Problem Noted Date Abnormal ECG 05/31/2021 Renal mass 05/30/2021 Overview: Formatting of this note might be differ ent from the original. Added automatically from request for triny ghosh [id number] SDH (subdural hematoma) 04/08/2018 Diabetes mellitus Hypertension Hypercholesteremia Sleep apnea GERD (gastroesophageal reflux disease) Cancer of kidney documented as of this encounter (statuses as of 06/04/2021) Social History Date Tobacco Use Types Packs/Day Years Used Never Smoker Smokeless Tobacco: Never Used Comments Alcohol Use Standard Drinks/Week rarely Yes 0 (1 standard drink = 0.6 o z pure alcohol) Sex Assigned at Date Recorded Not on file Date Recorded COVID-19 Exposure Response 06/02/2021 5:35 AM EDT In the last month, have you been in contact with No / Unsure someone who was confirmed or suspected to have Coronavirus / COVID-19? documented as of this encounter Last Filed Vital Signs Reading Time Taken Comments Vital Sign 157/80 06/04/2021 4:25 PM EDT Blood Pressure 96 06/04/2021 4:25 PM EDT Pulse 36.6 C (97.9 F) 06/04/2021 4:25 PM EDT Temperature 16 06/04/2021 4:25 PM EDT Respiratory Rate 94% 06/04/2021 4:25 PM EDT Oxygen Saturation - - Inhaled Oxygen Concentration 95 kg (209 lb 6.4 oz) 06/02/2021 5:43 AM EDT Weight 172.7 cm (5' 8") 05/30/2021 1:55 PM EDT Height 32.87 06/01/2021 9:28 AM EDT Body Mass Index documented in this encounter Discharge Instructions * Instructions* Jacque Kramer MD - 06/04/2021 1:40 PM EDT Images from the original note were not included. Call us with any questions or concerns at [phone] [facility] at [address] [place] [address] Specialty Services at [facility] [place] [address] [place] [address] Activity: Your activity is limited to lifting less than 10 pounds for 4-6 weeks. No mowing the lawn, no riding mowers, no motorcycles, no ATV's You should walk inside or outside of your home and do small tasks. Be active and do as much of your normal routine as you can. Go up and down stair s, walk as much as possible, go out as you like. Avoid sitting with your legs down for long periods of time. Keeping active will help prevent blood clots from forming in the veins of your l egs. You should not drive while taking pain medicines and cleared by Dr . You can ride in a car and should wear a seatbelt. Use your incentive spirometer (breathing toy) at least 5 times a day until your follow-up appointment. Incision Care: Shower when you get home. Daily showering will help to prevent infection. Do not use highly perfumed or scented soap, lotion, creams, or ointments on your incisions. Pat dry after washing with mild soap and water. Do not rub your incisions. Clear drainage from your incisions is ok, if you see pus and, or you develop a f ever call your doctor at [phone]. If you have steri strips small pieces of tape over the incision, remove them 7 t o10 days after your surgery. If you do not have steri-strips over your incisions, you may have clear skin glu e (Dermabond). Dermabond will flake off as your skin grows. This may take 3 to 5 weeks after s urgery. Nutrition: Be sure to eat well to promote healing. Medicines: You will receive a list of the medicines that you should take at home. You may be sent home with different medicines or dosages than you were taking be fore surgery. Your surgeon will review your medicines at your first postoperative clinic visit Bring your pill bottles or the list of your medicines with you to your first cli ashley appointment with your surgeon after surgery. Pain medicines are usually sent home with you and should be the same medicines y ou were taking during the later part of your hospital stay. Try using Tylenol before using the narcotic pain medicines. If you need to take the Lortab know that there is Tyleonol in it (325mg) Do not exceed 3000 mg of tylenol or acetaminophen in 24 hours from all sources If you have a lot of pain after surgery, take your medicine. Do not wait because it will be harder for the medicine to control the pain. If your pain is decreasing and you do not need the same dose of pain medicine d ecrease the amount of medicine you are taking. You can take 1 pill at a time ins tead of 2, or increase the amount of time between doses of pain medicine. Do not drive, drink alcohol, or operate heavy machinery while taking narcotic pa in medicines. Narcotic pain medicines can cause constipation. You should have a bowel movement within 3 days after your operation. We suggest the following steps to prevent constipation: Drink plenty of liquids. Use Colace [id number] two times a day. You may add Miralax daily You may also add Metamucil two times a day. Use Senna at bedtime as a laxative. Eat prunes or drink prune juice daily. Call for: Temperature of 101.5 or greater. Pus draining from your incisions. Shortness of breath. Call if you are having pain that is not controlled with your pain medications. Please bring a list of questions at the time of your visit. Speak Up If You Have Any Questions or Concerns documented in this encounter Progress Notes * Teresa Whalen RN - 06/04/2021 5:15 PM EDT Assumed care of patient from 0700 until time of discharge. Physical assessment as doc in flowsheets. VSS. Pain controled on current regimen . Cha removed, patient urinating appropriately 20 ml remaining per bladder scan. AVS reviewed in detail with patient. All questions answered. Patient dressed appropriately for discharge. Wheeled to front [place] with all [facility] belongings where son is waiting to transport patient home. Teresa Whalen * Buddy Alcantara RN - 06/03/2021 12:15 AM EDT 06/03/21 0009 Vitals Temp 38.5 C (101.3 F) Temp src Oral MD Jacque Kramer made aware of the following temp. Pt states no complaints at this time. 1,000 mg IV Acetaminophen started per NOV. No other interventions at this time. Will continue to monitor. * Zhanna Francisco - 06/02/2021 7:24 PM EDT Images from the original note were not included. If wound was present on admission, this documentation was sent to attending prov ider for cosignature. * Jess Vincent RN - 06/02/2021 3:36 PM EDT 153- Received call from radiology regarding critical chest XRay result 153- message delivered to urology Bryson CURRY, critical result relayed aware, n o new orders documented in this encounter H&P Notes * Teresa Wilder MD - 06/02/2021 6:55 AM EDT Urology History and Physical Pre-Operative Note Chief Complaint: L renal mass, L renal vein thrombus HPI: Dennis Pino is a 80 y.o. 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 . Past Medical History: Past Medical History: Diagnosis Date Cancer of kidney Left Kidney Diabetes mellitus GERD (gastroesophageal reflux disease) Hypercholesteremia Hypertension Skin cancer Nose, Chest, Back Sleep apnea Patient denies Past Surgical History: Past Surgical History: Procedure Laterality Date APPENDECTOMY CARPAL TUNNEL RELEASE Left MASS EXCISION l kidney PARTIAL NEPHRECTOMY Left 2020 SKIN CANCER EXCISION Nose, chest, and back TIBIA FRACTURE SURGERY Left Allergies: No Known Allergies Medications: No current facility-administered medications on file prior to encounter. Current Outpatient Medications on File Prior to Encounter Medication Sig Dispense Refill aspirin 81 MG tablet Take 81 mg by mouth every morning CINNAMON PO Take 1 tablet by mouth every morning diphenhydrAMINE-APAP (sleep) 25-500 MG Oral Tablet (TYLENOL PM) Take 1 ta blet by mouth nightly docusate sodium (COLACE) 100 MG capsule Take 100 mg by mouth daily with d inner doxepin (SINEQUAN) 75 MG capsule Take 75 mg by mouth nightly Empagliflozin 25 MG Oral Tablet Take 1 tablet by mouth every morning gabapentin (NEURONTIN) 300 MG capsule Take 600 mg by mouth Two Times Danni y glipiZIDE (GLUCOTROL) 10 MG tablet Take 20 mg by mouth Two times daily be fore breakfast and dinner Melatonin 10 MG TABS Take 10 mg by mouth nightly Ocuvite Adult 50+ Oral Capsule Take 1 tablet by mouth every morning oxycodone-acetaminophen (PERCOCET) 5-325 MG per tablet Take 1 tablet by m outh every 4 (four) hours as needed for Pain Semaglutide (OZEMPIC, 1 MG/DOSE, SC) Inject into the skin once a week Sat atorvastatin (LIPITOR) 40 MG tablet Take 40 mg by mouth every other day ( taking ) nightly LOSARTAN POTASSIUM PO Take 100 mg by mouth daily with dinner metFORMIN HCl ER 750 MG Oral Tablet Extended Release 24 Hour (GLUCOPHAGE- XR) Take 750 mg by mouth daily with dinner Multiple Vitamin (MULTIVITAMIN) tablet Take 1 tablet by mouth daily pioglitazone (ACTOS) 30 MG tablet Take 30 mg by mouth daily Vitamin D3 25 MCG (1000 UT) Oral Tablet (CHOLECALCIFEROL) Take 1,000 Unit s by mouth every other day (taking on ) morning Social: Social History Socioeconomic History Marital status: Spouse name: Iva Number of children: 6 Years of education: Not on file Highest education level: Not on file Occupational History Occupation: [employer] Tobacco Use Smoking status: Never Smoker Smokeless tobacco: Never Used Vaping Use Vaping Use: Never used Substance and Sexual Activity Alcohol use: Yes Comment: rarely Drug use: No Sexual activity: Not on file Other Topics Concern Not on file Social History Narrative Not on file Social Determinants of Health Financial Resource Strain: Difficulty of Paying Living Expenses: Food Insecurity: Worried About Running Out of Food in the Last Year: Ran Out of Food in the Last Year: Transportation Needs: Lack of Transportation (Medical): Lack of Transportation (Non-Medical): Physical Activity: Days of Exercise per Week: Minutes of Exercise per Session: Stress: Feeling of Stress : Social Connections: Frequency of Communication with Friends and Family: Frequency of Social Gatherings with Friends and Family: Attends Faith Services: Active Member of Clubs or Organizations: Attends Club or Organization Meetings: Marital Status: Intimate Partner Violence: Fear of Current or Ex-Partner: Emotionally Abused: Physically Abused: Sexually Abused: Family: Family History Problem Relation Age of Onset Heart attack Mother Diabetes Mother Diabetes Father ROS: A 10-point review of systems was performed, and pertinents as per HPI Objective: Vitals: 06/02/21 0642 BP: 135/75 Pulse: 65 Resp: 16 Temp: 36.7 C SpO2: 96% General: Awake, Alert Neurologic: Oriented to person, place, time Eyes: EOMI Lung: No increased WOB Abdomen: Soft, non-tender, nondistended Back: No CVA tenderness Extremities: No edema, no cyanosis Psychiatric: Normal mood, affect BMP: Lab Results Component Value Date NA 133 (L) 05/29/2021 K 4.7 05/29/2021 CL 97 (L) 05/29/2021 BICARBONATE 24 05/29/2021 GLUCOSE 146 (H) 05/29/2021 BUN 27 (H) 05/29/2021 CREATININE 1.73 (H) 05/29/2021 BCR 15 05/29/2021 GFRAA 05/29/2021 eGFR is not calculated in patients <18 or >80 years of age. GFRNONAA 05/29/2021 eGFR is not calculated in patients <18 or >80 years of age. 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 male who presents for L radical nephrectomy with renal vein thrombectomy, possible IVC thrombectomy, possible vascular reconstruction, possible open. - NPO - Abx - SQH - Consent - Proceed with surgery as scheduled Teresa Wilder, PGY-5 Department of Urology Associated attestation - Jorge Leal MD - 06/02/2021 7:50 AM EDT I saw and evaluated this patient with a resident and I agree with the resident's note above. Jorge Leal M.D. Professor and Chair Department of Urology [facility] documented in this encounter Miscellaneous Notes * Plan of Care - Neha Wynne RN - 06/04/2021 12:20 AM EDT Problem: Glucose Imbalance Goal: Clinical indication of glucose balance is achieved Outcome: Progressing Goal: Patient's discharge needs are met Outcome: Progressing Problem: Inadequate breathing pattern Goal: Respiratory rate and effor will be within normal limits for the plan Outcome: Progressing Goal: Patient will maintain patent airway Outcome: Progressing Problem: Risk for Falls Goal: No falls during hospitalization Description: Patient will not fall during hospitalization. Outcome: Progressing Problem: Knowledge Deficit Goal: Knowledge - personal safety Description: Patient will verbalize understanding of fall prevention. Outcome: Progressing Problem: INJURY, RISK FOR Goal: Patient will not be injured from a fall during hospitalization Outcome: Progressing Problem: Knowledge Deficit Goal: Patient requires education regarding causes of high risk injury from a fal l Outcome: Progressing Goal: Patient's family requires education regarding causes of high risk injury f rom a fall Outcome: Progressing * Plan of Care - [place] Walls RN - 06/03/2021 2:17 AM EDT Problem: Glucose Imbalance Goal: Clinical indication of glucose balance is achieved Outcome: Progressing Goal: Patient's discharge needs are met Outcome: Progressing Problem: Inadequate breathing pattern Goal: Respiratory rate and effor will be within normal limits for the plan Outcome: Progressing Goal: Patient will maintain patent airway Outcome: Progressing Problem: Risk for Falls Goal: No falls during hospitalization Description: Patient will not fall during hospitalization. Outcome: Progressing Problem: Knowledge Deficit Goal: Knowledge - personal safety Description: Patient will verbalize understanding of fall prevention. Outcome: Progressing Problem: INJURY, RISK FOR Goal: Patient will not be injured from a fall during hospitalization Outcome: Progressing Problem: Knowledge Deficit Goal: Patient requires education regarding causes of high risk injury from a fal l Outcome: Progressing Goal: Patient's family requires education regarding causes of high risk injury f rom a fall Outcome: Progressing * PAT Jose - Kajal Cox RN - 05/31/2021 11:11 AM EDT PAT GREEN SHEET PAT VISIT DATE: 06/01/2021 DOS DATE: 06/02/2021 PRE-PAT VISIT CALL COMPLETED: 1. GRADUATE NURSE name and phone number? []NA (Does not see a Cardiolog ist) a. Date of last visit? 05/31/2021 b. Clearance note? [x]Yes []No c. Note in Epic? [x]Yes[]No d. Note in CE? []Yes[]No e. Note printed/scanned? []Yes[]No f. Purple sheet with NSC waiting for records/future notes? []Yes[]No Additional notes for Hobbies And Crafts Sales Representative Visit: Seen by Dr. Barrow 2. Date of last EKG (actual tracing), where can it be found? 03/13/2021 (outside , in [facility]), 05/31/2021 (report/final not in [facility] yet) a. Calling for last EKG? []Yes[]No b. Received/Scanned? []Yes[]No 3. Date of last ECHO, where can it be found? 05/31/2021 ([facility]) a. Calling for last ECHO? []Yes[]No b. Received/Scanned? []Yes[]No 4. Date of last STRESS TEST, where can it be found? a. Calling for Last Stress Test? []Yes[]No b. Received/Scanned? []Yes[]No 5. PCP name and phone number? ?? []NA (Does not have PCP or not applic able at this time) 6. Date of last PCP visit? a. Clearance note? []Yes[]No b. F/U visit? []Yes[]No c. Note in Epic? []Yes[]NO d. Note in CE? []Yes[]No e. Note printed/scanned? []Yes[]No f. Purple sheet with NSC waiting for records/future notes? []Yes[]No Additional notes for PCP visit: Record states ALEXIS Alexandra is PCP, but this is heme/onc. 7. MEN'S FURNISHINGS SALESPERSON name and phone number? []NA (Does not see a Pulmonologi st a. Date of last Leather Goods I Assembler note? b. Date of last PFT, where can it be found? c. Calling for last PFT? []Yes[]No d. Received/Scanned? []Yes[]No Additional notes for Pulmonology visit: 8. Date of last LABS done, where can they be found? 05/29/2021 (epic) a. Calling for last labs? []Yes[]No b. Received/Scanned? []Yes[]No Additional information for labs done: 11. Orders for PAT visit from Surgeon? documented in this encounter Plan of Treatment Date/Time Name Type Priority Associated Diag noses 06/02/2021 7:09 AM EDT Type and Screen Blood Bank STAT 06/02/2021 3:41 PM EDT Surgical Pathology Exam Pathology and Routine ([facility] Only) Cytology Order Schedule Name Type Priority Associated Diag noses STAT for 1 Occurrences starting 06/02/20 until 06/02/2021 Prepare RBC 2 Units Blood Bank STAT STAT for 1 Occurrences starting 06/02/20 until 06/02/2021 Type and Screen Blood Bank STAT Once for 1 Occurrences starting 06/02/20 until 06/02/2021 Surgical Pathology Exam Pathology and Routine ( Only) Cytology Daily for 30 Days starting 06/03/2021 un til 07/02/2021, 2 completed CBC Lab Routine Daily for 3 Days starting 06/03/2021 unt il 06/05/2021, 2 completed Basic Metabolic Panel Lab Routine Daily for 30 Days starting 06/03/2021 un til 07/02/2021, 2 completed Magnesium Level Lab Routine Daily for 30 Days starting 06/03/2021 un til 07/02/2021, 2 completed Phosphorus Level Lab Routine Once for 1 Occurrences starting 06/02/20 until 06/02/2021 Surgical Pathology Exam Pathology and Routine ( Only) Cytology 4X Daily (AC & HS) for 30 Days starting 06/03/2021 until 07/03/2021, 3 completed POCT glucose, docked Point of Care Routine Testing-Docked Device Health Maintenance Due Date Last Done Comments [...] Procedure Name Priority Date/Time Associated Diag nosis POCT GLUCOSE, DOCKED Routine 06/04/2021 1:03 PM EDT POCT GLUCOSE, DOCKED Routine 06/04/2021 8:42 AM EDT XR CHEST FRONTAL ONLY Routine 06/04/2021 [id number] 5:29 AM EDT CBC Routine 06/04/2021 5:00 AM EDT PHOSPHORUS LEVEL Routine 06/04/2021 5:00 AM EDT MAGNESIUM LEVEL Routine 06/04/2021 5:00 AM EDT BASIC METABOLIC PANEL Routine 06/04/2021 5:00 AM EDT POCT GLUCOSE, DOCKED Routine 06/03/2021 9:24 PM EDT POCT GLUCOSE, DOCKED Routine 06/03/2021 6:00 PM EDT POCT GLUCOSE, DOCKED Routine 06/03/2021 12:41 PM EDT POCT GLUCOSE, DOCKED Routine 06/03/2021 8:29 AM EDT XR CHEST FRONTAL ONLY Routine 06/03/2021 [id number] 4:20 AM EDT CBC Routine 06/03/2021 3:50 AM EDT PHOSPHORUS LEVEL Routine 06/03/2021 3:50 AM EDT MAGNESIUM LEVEL Routine 06/03/2021 3:50 AM EDT BASIC METABOLIC PANEL Routine 06/03/2021 3:50 AM EDT POCT GLUCOSE, DOCKED Routine 06/03/2021 3:45 AM EDT POCT GLUCOSE, DOCKED Routine 06/03/2021 12:54 AM EDT COVID-19 PCR Timed 06/02/2021 8:47 PM EDT POCT GLUCOSE, DOCKED Routine 06/02/2021 8:41 PM EDT XR CHEST FRONTAL ONLY Routine 06/02/2021 [id number] 7:56 PM EDT POCT GLUCOSE, DOCKED Routine 06/02/2021 4:31 PM EDT CBC STAT 06/02/2021 2:30 PM EDT PHOSPHORUS LEVEL STAT 06/02/2021 2:30 PM EDT MAGNESIUM LEVEL STAT 06/02/2021 2:30 PM EDT BASIC METABOLIC PANEL STAT 06/02/2021 2:30 PM EDT XR CHEST FRONTAL ONLY Urgent 06/02/2021 [id number] 2:10 PM EDT POCT ISTAT ARTERIAL CG8 Routine 06/02/2021 1:24 PM EDT POCT ISTAT ARTERIAL CG8 Routine 06/02/2021 12:47 PM EDT POCT ISTAT ARTERIAL CG8 Routine 06/02/2021 12:02 PM EDT POCT ISTAT ARTERIAL CG8 Routine 06/02/2021 11:24 AM EDT POCT ISTAT ARTERIAL CG8 Routine 06/02/2021 9:30 AM EDT ANGELES VIDEO Routine 06/02/2021 7:04 AM EDT CROSSMATCH, PAT Routine 06/02/2021 7:00 AM EDT POCT GLUCOSE, DOCKED Routine 06/02/2021 6:59 AM EDT documented in this encounter Results * POCT glucose, docked (06/04/2021 1:03 PM EDT) POC Glucose 222 (H) 70 - 140 mg/dL [facility] POC Specimen Whole Blood Performing Organization Address City/[facility] P feliciano Number POINT OF CARE TEST [address] POC [address] [place] [address] * POCT glucose, docked (06/04/2021 8:42 AM EDT) POC Glucose 190 (H) 70 - 140 mg/dL [facility] POC Specimen Whole Blood Performing Organization Address [facility] P fel[place]o Number POINT OF CARE TEST [address] POC [address] [place] [address] * XR Chest Frontal Only (06/04/2021 5:29 AM EDT) Specimen Narrative Performed At [facility] PROCEDURE INFORMATION: Exam: XR Chest Exam date and time: 06/04/2021 5:23 AM Age: 80 years old Clinical indication: Other: Evaluate pn eumo TECHNIQUE: Imaging protocol: XR of the chest. Views: 1 view. COMPARISON: CR XR CHEST FRONTAL ONLY [id number] PORTABLE 06/03/2021 4:15 AM FINDINGS: Lungs: Suspicion for subtle left perihi lar and lower lung infiltrate. Pleural spaces: Unremarkable. No pleura l effusion. No pneumothorax. Heart/Mediastinum: Unremarkable. No car diomegaly. Bones/joints: Unremarkable. IMPRESSION: Left perihilar and lower lung infiltrat e suspected. THIS DOCUMENT HAS BEEN ELECTRONICALLY S IGNED BY HESHAM NGUYEN MD Procedure Note Interface, Received Via [employer] System - 06/04/2021 7:45 AM EDT PROCEDURE INFORMATION: Exam: XR Chest Exam date and time: 06/04/2021 5:23 AM Age: 80 years old Clinical indication: Other: Evaluate pneumo TECHNIQUE: Imaging protocol: XR of the chest. Views: 1 view. COMPARISON: CR XR CHEST FRONTAL ONLY [id number] PORTABLE 06/03/2021 4:15 AM FINDINGS: Lungs: Suspicion for subtle left perihilar and lower lung infiltrate. Pleural spaces: Unremarkable. No pleural effusion. No pneumothorax. Heart/Mediastinum: Unremarkable. No cardiomegaly. Bones/joints: Unremarkable. IMPRESSION: Left perihilar and lower lung infiltrate suspected. THIS DOCUMENT HAS BEEN ELECTRONICALLY SIGNED BY HESHAM NGUYEN MD Performing Organization Address City/State/ZIP Code P feliciano Number [facility] [address] [place] [address] * Phosphorus Level (06/04/2021 5:00 AM EDT) Phosphorus 3.0 2.5 - 4.5 mg/dL [facility] Clin Pathology Specimen Plasma Performing Organization Address [facility] P feliciano Number [address] 132 10 Clin Pathology * Magnesium Level (06/04/2021 5:00 AM EDT) Magnesium 2.1 1.6 - 2.4 mg/dL [facility] Pathology Specimen Plasma Performing Organization Address [facility] P feliciano Number [address] 132 10 Clin Pathology * Basic Metabolic Panel (06/04/2021 5:00 AM EDT) Bicarbonate 25 22 - 29 mmol/L [facility]ology Chloride 97 (L) 98 - 107 mmol/L [facility]ology Creatinine 2.17 (H) 0.70 - 1.20 mg/dL [facility]ology Glucose 186 (H) 70 - 140 mg/dL [facility]ology Potassium 4.6 3.4 - 5.1 mmol/L [facility]ology Sodium 134 (L) 136 - 145 mmol/L [facility] Pathology Blood Urea 22 8 - 23 mg/dL [facility] Nitrogen [facility] Clin Pathology Anion Gap 12 8 - 15 mmol/L [facility] Pathology Osmolality, Dominic 287 275.0 - 300.0 [facility] mosm/kg [facility] Pathology BUN/Cre Ratio 10 [facility] Pathology Calcium 8.0 (L) 8.8 - 10.2 mg/dL [facility] Pathology GFR Non eGFR is not calculated in >60 mL/min/1.73m2 [facility] 2008 patients <18 or >80 years of [facility] CDK-EPI age. Pathology GFR eGFR is not calculated in >60 mL/min/1.73m2 [facility] 2008 patients <18 or >80 years of [facility] CKD-EPI age. Pathology Specimen Plasma Performing Organization Address City/State/ZIP Code P feliciano Number [facility] [address] [place], [place] 132 PATHOLOGY [facility] [address] [place], [place] 132 10 Clin Pathology * CBC (06/04/2021 5:00 AM EDT) White Blood 7.1 4.00 - 10.00 10*3/[facility]L [facility] Red Blood Cell 3.03 (L) 4.60 - 6.10 10*6/uL [facility]ology Hemoglobin 8.8 (L) 13.5 - 18.0 g/dL [facility] Pathology Hematocrit 27.2 (L) 41.0 - 53.0 % [facility] Pathology Mean Cell 89.7 80.0 - 96.0 fL [facility] Volume [facility] Clin Pathology Mean Cell 29.0 27.0 - 33.0 pg [facility] Hemoglobin [facility] Clin Pathology Mean Cell Hgb 32.3 32 - 36 g/dL [facility] Clin Pathology Red Cell Dist 16.1 (H) 11.5 - 14.5 % [facility] Clin Pathology Platelet Count 144 (L) 150 - 400 10*3/uL [facility] Pathology Specimen EDTA Whole Blood Performing Organization Address City/[facility]/ZIP Code P feliciano Number [facility] [address] [place], [place] 1321 PATHOLOGY [facility] [address] [place], [place] 132 10 Clin Pathology * POCT glucose, docked (06/03/2021 9:24 PM EDT) POC Glucose 225 (H) 70 - 140 mg/dL [facility] POC Specimen Whole Blood Performing Organization Address City/[facility]/ZIP [facility] P feliciano Number POINT OF CARE TEST [address] [place], [place] [id number] [place] [address] POC [address] [place] [address] * POCT glucose, docked (06/03/2021 6:00 PM EDT) POC Glucose 242 (H) 70 - 140 mg/dL [facility] POC Specimen Whole Blood Performing Organization Address City/[facility]/ZIP [facility] P feliciano Number POINT OF CARE TEST [address] [place], [place] [id number] [place] [address] POC [address] [place] [address] * POCT glucose, docked (06/03/2021 12:41 PM EDT) POC Glucose 176 (H) 70 - 140 mg/dL [facility] POC Specimen Whole Blood Performing Organization Address City/[facility] P feliciano Number POINT OF CARE TEST [address] [place], [place] [id number] [place] [address] POC [address] [place] [address] * POCT glucose, docked (06/03/2021 8:29 AM EDT) POC Glucose 146 (H) 70 - 140 mg/dL [facility] POC Specimen Whole Blood Performing Organization Address City/[facility] P feliciano Number POINT OF CARE TEST [address] [place], [place] [id number] [place] [address] POC [address] [place] [address] * XR Chest Frontal Only (06/03/2021 4:20 AM EDT) Specimen Narrative Performed At [facility] PROCEDURE INFORMATION: Exam: XR Chest Exam date and time: 06/03/2021 4:15 AM Age: 80 years old Clinical indication: Other: Evaluate pn eumothorax TECHNIQUE: Imaging protocol: XR of the chest. Views: 1 view. COMPARISON: DX XR CHEST FRONTAL ONLY [id number] PORTABLE 06/02/2021 7:53 PM FINDINGS: Lungs: Opacities of the lower lungs int ervally accentuated which could reflect areas of atelectasis or infiltrate with most prominent involvement in the retrocardiac left lower lung. Pleural spaces: Mild blunting of the co stophrenic angles could not exclude small effusions. Probably minor residua l left apical pneumothorax. Heart/Mediastinum: Cardiomediastinal si lhouette is similar. Bones/joints: Degenerative change of th e spine. Remote lower left rib fracture deformities. IMPRESSION: 1. Minor residual left apical pneumotho rax. 2. Opacities in the lower lungs greater on the left which could indicate atelectasis or infiltrate and are both slightly accentuated. THIS DOCUMENT HAS BEEN ELECTRONICALLY S IGNED BY AMBER COHN MD Procedure Note Interface, Received Via [employer] - 06/03/2021 8:52 AM EDT PROCEDURE INFORMATION: Exam: XR Chest Exam date and time: 06/03/2021 4:15 AM Age: 80 years old Clinical indication: Other: Evaluate pneumothorax TECHNIQUE: Imaging protocol: XR of the chest. Views: 1 view. COMPARISON: DX XR CHEST FRONTAL ONLY [id number] PORTABLE 06/02/2021 7:53 PM FINDINGS: Lungs: Opacities of the lower lungs intervally accentuated which could reflect areas of atelectasis or infiltrate with most prominent involvement in the retrocardiac left lower lung. Pleural spaces: Mild blunting of the costophrenic angles could not exclude small effusions. Probably minor residual left apical pneumothorax. Heart/Mediastinum: Cardiomediastinal silhouette is similar. Bones/joints: Degenerative change of the spine. Remote lower left rib fracture deformities. IMPRESSION: 1. Minor residual left apical pneumothor ax. 2. Opacities in the lower lungs greater on the left which could indicate atelectasis or infiltrate and are both slightly accentuated. THIS DOCUMENT HAS BEEN ELECTRONICALLY SIGNED BY AMBER COHN MD Performing Organization Address City/State/ZIP Code P feliciano Number [facility] [address] [place] [address] * Phosphorus Level (06/03/2021 3:50 AM EDT) Phosphorus 4.3 2.5 - 4.5 mg/dL [facility] Pathology Specimen Plasma Performing Organization Address City/[facility] P feliciano Number [facility] [address] [place], [place] [address] 132 10 Clin Pathology * Magnesium Level (06/03/2021 3:50 AM EDT) Magnesium 1.9 1.6 - 2.4 mg/dL [facility] Pathology Specimen Plasma Performing Organization Address [facility] P feliciano Number [facility] [address] [place], [place] [address] 132 10 Clin Pathology * Basic Metabolic Panel (06/03/2021 3:50 AM EDT) Bicarbonate 20 (L) 22 - 29 mmol/L [facility]ology Chloride 101 98 - 107 mmol/L [facility]ology Creatinine 1.86 (H) 0.70 - 1.20 mg/dL [facility]ology Glucose 163 (H) 70 - 140 mg/dL [facility]ology Potassium 5.0 3.4 - 5.1 mmol/L [facility]ology Sodium 135 (L) 136 - 145 mmol/L [facility] Pathology Blood Urea 18 8 - 23 mg/dL [facility] Nitrogen [facility] Clin Pathology Anion Gap 14 8 - 15 mmol/L [facility] Pathology Osmolality, Dominic 285 275.0 - 300.0 [facility] mosm/kg [facility] Clin Pathology BUN/Cre Ratio 10 [facility] Pathology Calcium 8.4 (L) 8.8 - 10.2 mg/dL [facility] Pathology GFR Non eGFR is not calculated in >60 mL/min/1.73m2 [facility] Cambodian 2009 patients <18 or >80 years of [facility] Clin CDK-EPI age. Pathology GFR eGFR is not calculated in >60 mL/min/1.73m2 [facility] 2009 patients <18 or >80 years of [facility] CKD-EPI age. Pathology Specimen Plasma Performing Organization Address City/State/ZIP Code P feliciano Number [facility] [address] [place], [place] 1321 PATHOLOGY [facility] [address] [place], [place] 132 10 Clin Pathology * CBC (06/03/2021 3:50 AM EDT) White Blood 7.0 4.00 - 10.00 10*3/uL [facility] ate Cell [facility] Pathology Red Blood Cell 3.57 (L) 4.60 - 6.10 10*6/uL [facility] Pathology Hemoglobin 10.4 (L) 13.5 - 18.0 g/dL [facility] Pathology Hematocrit 31.8 (L) 41.0 - 53.0 % [facility] Pathology Mean Cell 89.0 80.0 - 96.0 fL [facility] Volume [facility] Clin Pathology Mean Cell 29.2 27.0 - 33.0 pg [facility] Hemoglobin [facility] Clin Pathology Mean Cell Hgb 32.8 32 - 36 g/dL [facility] Pathology Red Cell Dist 15.6 (H) 11.5 - 14.5 % [facility] Width [facility] Clin Pathology Platelet Count 150 150 - 400 10*3/uL [facility] Pathology Specimen EDTA Whole Blood Performing Organization Address City/[facility] P feliciano Number [facility] [address] [place], [place] 1321 PATHOLOGY [facility] [address] [place], [place] 132 10 Clin Pathology * POCT glucose, docked (06/03/2021 3:45 AM EDT) POC Glucose 156 (H) 70 - 140 mg/dL [facility] POC Specimen Whole Blood Performing Organization Address City/[facility]/ZIP Code P feliciano Number POINT OF CARE TEST [address] [place] [address] [facility] POC [address] [place] [address] * POCT glucose, docked (06/03/2021 12:54 AM EDT) POC Glucose 148 (H) 70 - 140 mg/dL [facility] POC Specimen Whole Blood Performing Organization Address City/[facility]/ZIP Code P feliciano Number POINT OF CARE TEST [address] [place] [address] [facility] POC [address] [place] [address] * COVID-19 PCR (06/02/2021 8:47 PM EDT) Specimen Nasopharyngeal Swab [facility] Description CLINICAL PATHOLOGY SARS CoV-2 2019 nCoV Real-Time RT-PCR: 2019 nCoV Real-Isaak e [facility] NOT DETECTED RT-PCR: NOT DETECTED Med [facility] Clin Pathology Assay performed Test performed using [employer] [facility] Simplexa COVID-19 Direct [facility] Clin Assay. This test is only for Pathology use under Food and Drug Administration's Emergency Use Authorization. Additional information is available on the following FDA websites for healthcare providers and patients. https://www.fda.gov/media/0369 20/download, https://www.Turpitude.gov/XipLink/3662 21/download First COVID-19 [facility] Test? CLINICAL PATHOLOGY Employed in [facility] [employer] [facility] CLINICAL setting? PATHOLOGY Symptomatic for [facility] COVID-19 as CLINICAL defined by CDC? PATHOLOGY Date of symptom UNKNOWN [facility] onset? CLINICAL ([id number]) PATHOLOGY Hospitalized [facility] for COVID-19? CLINICAL PATHOLOGY Admitted to ICU UNKNOWN [facility] for COVID-19? CLINICAL PATHOLOGY Resident in a [facility] CLINICAL ([facility]) care PATHOLOGY setting? ? UNKNOWN [facility] CLINICAL PATHOLOGY Specimen Nasopharyngeal Swab Performing Organization Address City/[facility]/ZIP Code P feliciano Number [facility] [address] [place], [place] 132 PATHOLOGY [facility] [address] [place], [place] [address] 10 Clin Pathology * POCT glucose, docked (06/02/2021 8:41 PM EDT) POC Glucose 165 (H) 70 - 140 mg/dL [facility] POC Specimen Whole Blood Performing Organization Address City/[facility]/ZIP Code P feliciano Number POINT OF CARE TEST [address] [place] [address] [facility] POC [address] [place] [address] * XR Chest Frontal Only (06/02/2021 7:56 PM EDT) Specimen Narrative Performed At [facility] PROCEDURE INFORMATION: Exam: XR Chest Exam date and time: 06/02/2021 7:53 PM Age: 80 years old Clinical indication: Other: Evaluate pn eumothorax TECHNIQUE: Imaging protocol: XR of the chest. Views: 1 view. COMPARISON: DX XR CHEST FRONTAL ONLY [id number] PORTABLE 06/02/2021 2:10 PM FINDINGS: Lungs: Low lung volumes are noted. This accentuates bronchovascular markings as well as cardiac size. Left basilar cons olidation is unchanged. Stable right lung apex pulmonary opacity. Pleural spaces: Small left apical pneum othorax is unchanged from the previous examination. Heart/Mediastinum: The heart size is wi thin normal limits. Vasculature: There is uncoiling/tortuos ity of the aorta. Bones/joints: Left posterior rib fracture. IMPRESSION: 1. Small left apical pneumothorax is un changed from the previous examination. 2. Left basilar consolidation is unchan ged. THIS DOCUMENT HAS BEEN ELECTRONICALLY S IGNED BY BRYCE ANTONY MD Procedure Note Interface, Received Via [employer] - 06/02/2021 9:15 PM EDT PROCEDURE INFORMATION: Exam: XR Chest Exam date and time: 06/02/2021 7:53 PM Age: 80 years old Clinical indication: Other: Evaluate pneumothorax TECHNIQUE: Imaging protocol: XR of the chest. Views: 1 view. COMPARISON: DX XR CHEST FRONTAL ONLY [id number] PORTABLE 06/02/2021 2:10 PM FINDINGS: Lungs: Low lung volumes are noted. This accentuates bronchovascular markings as well as cardiac size. Left basilar consolidation is unchanged. Stable right lung apex pulmonary opacity. Pleural spaces: Small left apical pneumothorax is unchanged from the previous examination. Heart/Mediastinum: The heart size is within normal limits. Vasculature: There is uncoiling/tortuosity of the aorta. Bones/joints: Left posterior rib fracture. IMPRESSION: 1. Small left apical pneumothorax is unc hanged from the previous examination. 2. Left basilar consolidation is unchang ed. THIS DOCUMENT HAS BEEN ELECTRONICALLY SIGNED BY BRYCE ANTONY MD Performing Organization Address City/State/ZIP Code P feliciano Number [facility] [address] [place] [address] * POCT glucose, docked (06/02/2021 4:31 PM EDT) POC Glucose 152 (H) 70 - 140 mg/dL [facility] POC Specimen Whole Blood Performing Organization Address [facility] P feliciano Number POINT OF CARE TEST [address] [place] [address] [facility] POC [address] [place] [address] * Phosphorus Level (06/02/2021 2:30 PM EDT) Phosphorus 3.7 2.5 - 4.5 mg/dL [facility] Clin Pathology Specimen Plasma Performing Organization Address [facility] P feliciano Number [facility] [address] [place], [place] [address] 132 10 Clin Pathology * Magnesium Level (06/02/2021 2:30 PM EDT) Magnesium 2.2 1.6 - 2.4 mg/dL [facility] Pathology Specimen Plasma Performing Organization Address [facility] P feliciano Number [facility] [address] [place], [place] 1321 PATHOLOGY [facility] [address] [place], [place] 132 10 Clin Pathology * Basic Metabolic Panel (06/02/2021 2:30 PM EDT) Bicarbonate 23 22 - 29 mmol/L [facility] Pathology Chloride 102 98 - 107 mmol/L [facility] Pathology Creatinine 1.50 (H) 0.70 - 1.20 mg/dL [facility] Pathology Glucose 146 (H) 70 - 140 mg/dL [facility] Pathology Potassium 4.2 3.4 - 5.1 mmol/L [facility] Pathology Sodium 139 136 - 145 mmol/L [facility] Pathology Blood Urea 17 8 - 23 mg/dL [facility] Clin Pathology Anion Gap 14 8 - 15 mmol/L [facility] Pathology Osmolality, Dominic 292 275.0 - 300.0 [facility] mosm/kg [facility] Clin Pathology BUN/Cre Ratio 11 [facility] Pathology Calcium 8.9 8.8 - 10.2 mg/dL [facility] Pathology GFR Non eGFR is not calculated in >60 mL/min/1.73m2 [facility] 2008 patients <18 or >80 years of [facility] CDK-EPI age. Pathology GFR eGFR is not calculated in >60 mL/min/1.73m2 [facility] 2008 patients <18 or >80 years of [facility] CKD-EPI age. Pathology Specimen Plasma Performing Organization Address [facility]/ZIP Code P feliciano Number [facility] [address] [place], [place] [address] 132 10 Clin Pathology * CBC (06/02/2021 2:30 PM EDT) White Blood 8.5 4.00 - 10.00 10*3/uL [facility] ate Cell [facility] Clin Pathology Red Blood Cell 3.27 (L) 4.60 - 6.10 10*6/uL [facility] Clin Pathology Hemoglobin 9.9 (L) 13.5 - 18.0 g/dL [facility] Pathology Hematocrit 29.5 (L) 41.0 - 53.0 % [facility] Pathology Mean Cell 90.1 80.0 - 96.0 fL [facility] Volume [facility] Clin Pathology Mean Cell 30.3 27.0 - 33.0 pg [facility] Hemoglobin [facility] Clin Pathology Mean Cell Hgb 33.7 32 - 36 g/dL [facility] Conc [facility] Clin Pathology Red Cell Dist 15.7 (H) 11.5 - 14.5 % [facility] Width [facility] Clin Pathology Platelet Count 149 (L) 150 - 400 10*3/uL [facility] Pathology Specimen EDTA Whole Blood Performing Organization Address City/[facility]/ZIP Code P feliciano Number [facility] [address] [place], [place] [address] 132 10 Clin Pathology * XR Chest Frontal Only (06/02/2021 2:10 PM EDT) Specimen Addenda Addendum by Lora Mercedes MD on 06/02/2021 3:36 PM THIS REPORT CONTAINS FINDINGS THAT MAY BE CRITICAL TO PATIENT CARE. The findings were verbally communicated via telephone conference with Jess Vincent RN at 3:35 PM EDT on 06/02/2021. The findings were acknowledged and understood THIS DOCUMENT HAS BEEN ELECTRONICALLY SIGNED BY LORA MERCEDES MD Narrative Performed At [facility] PROCEDURE INFORMATION: Exam: XR Chest Exam date and time: 06/02/2021 2:10 PM Age: 80 years old Clinical indication: Other: Pneumothroa x TECHNIQUE: Imaging protocol: XR of the chest. Views: 1 view. COMPARISON: CT THORAX WITHOUT CONTRAST [id number] 12:30 PM FINDINGS: Tubes, catheters and devices: EKG leads overlie the chest. Lungs: There is hyperlucency of the lef t upper lobe. There is bibasilar and right upper lobe atelectasis/consolidat ion. Pleural spaces: A left apical pneumotho rax cannot be excluded. Possible trace right pleural effusion.. Heart/Mediastinum: Unremarkable. No car diomegaly. Bones/joints: A mildly displaced fractu re of the posterior left 7th rib is present. The fracture is of uncertain a ge. There is generalized osteopenia. Degenerative changes are seen in the sp ine, the bilateral shoulders and bilateral acromioclavicular joints. Soft tissues: Skin carole are projecte d over the left upper quadrant. IMPRESSION: 1. Questionable left apical pneumothora x. 2. Bibasilar and right upper lobe atele ctasis/consolidation. 3. Possible trace right pleural effusio n. 4. Mildly displaced fracture of uncerta in age involving the posterior left 7th rib. THIS DOCUMENT HAS BEEN ELECTRONICALLY S IGNED BY LORA MERCEDES MD Procedure Note Interface, Received Via [employer] - 06/02/2021 2:58 PM EDT PROCEDURE INFORMATION: Exam: XR Chest Exam date and time: 06/02/2021 2:10 PM Age: 80 years old Clinical indication: Other: Pneumothroax TECHNIQUE: Imaging protocol: XR of the chest. Views: 1 view. COMPARISON: CT THORAX WITHOUT CONTRAST [id number] 05/31/2021 12:30 PM FINDINGS: Tubes, catheters and devices: EKG leads overlie the chest. Lungs: There is hyperlucency of the left upper lobe. There is bibasilar and right upper lobe atelectasis/consolidation. Pleural spaces: A left apical pneumothorax cannot be excluded. Possible trace right pleural effusion.. Heart/Mediastinum: Unremarkable. No cardiomegaly. Bones/joints: A mildly displaced fracture of the posterior left 7th rib is present. The fracture is of uncertain age. There is generalized osteopenia. Degenerative changes are seen in the spine, the bilateral shoulders and bilateral acromioclavicular joints. Soft tissues: Skin carole are projected over the left upper quadrant. IMPRESSION: 1. Questionable left apical pneumothorax . 2. Bibasilar and right upper lobe atelec tasis/consolidation. 3. Possible trace right pleural effusion . 4. Mildly displaced fracture of uncertai n age involving the posterior left 7th rib. THIS DOCUMENT HAS BEEN ELECTRONICALLY SIGNED BY LORA MERCEDES MD Performing Organization Address [facility] P feliciano Number [facility] [address] [place] [address] * POCT i-STAT arterial CG8 (06/02/2021 1:24 PM EDT) I-STAT ARTERIAL 7.40 7.38 - 7.44 [facility] PH [facility] POC i-STAT Arterial 39 35 - 40 mmHg [facility] PCO2 [facility] POC i-STAT Arterial 117 (H) 95 - 100 mmHg [facility] PO2 [facility] POC i-STAT Arterial 0 mmol/L [facility] Base Excess [facility] POC i-STAT Arterial 99 94 - 100 % [facility] SO2 [facility] POC i-STAT Arterial 25 mmol/L [facility] Total CO2 [facility] POC i-STAT Sodium 138 136 - 145 mmol/L [facility] POC i-STAT 4.1 3.4 - 5.1 mmol/L [facility] Potassium [facility] POC i-STAT Ionized 1.27 1.13 - 1.32 mmol/L [facility] v Calcium [facility] POC i-STAT Glucose 143 (H) 70 - 140 mg/dL [facility] POC i-STAT 29 (L) 41 - 53 % [facility] Hematocrit [facility] POC i-STAT 9.9 (L) 13.5 - 18.0 g/dL [facility] Hemoglobin [facility] POC Specimen Whole Blood Performing Organization Address [facility] P feliciano Number POINT OF CARE TEST [address] [place], [place] [id number] [place] [address] POC [address] [place] [address] * POCT i-STAT arterial CG8 (06/02/2021 12:47 PM EDT) I-STAT ARTERIAL 7.37 (L) 7.38 - 7.44 [facility] PH [facility] POC i-STAT Arterial 44 (H) 35 - 40 mmHg [facility] PCO2 [facility] POC i-STAT Arterial 126 (H) 95 - 100 mmHg [facility] PO2 [facility] POC i-STAT Arterial 0 mmol/L [facility] Excess [facility] POC i-STAT Arterial 99 94 - 100 % [facility] SO2 [facility] POC i-STAT Arterial 26 mmol/L [facility] Total CO2 [facility] POC i-STAT Sodium 138 136 - 145 mmol/L [facility] POC i-STAT 4.1 3.4 - 5.1 mmol/L [facility] Potassium [facility] POC i-STAT Ionized 1.15 1.13 - 1.32 mmol/L [facility] POC i-STAT Glucose 151 (H) 70 - 140 mg/dL [facility] POC i-STAT 32 (L) 41 - 53 % [facility] Hematocrit [facility] POC i-STAT 10.9 (L) 13.5 - 18.0 g/dL [facility] POC Specimen Whole Blood Performing Organization Address City/State/ZIP Code P feliciano Number POINT OF CARE TEST [address] [place], [place] [id number] [place] [address] POC [address] [place] [address] * POCT i-STAT arterial CG8 (06/02/2021 12:02 PM EDT) I-STAT ARTERIAL 7.36 (L) 7.38 - 7.44 [facility] POC i-STAT Arterial 46 (H) 35 - 40 mmHg [facility] PCO2 [facility] POC i-STAT Arterial 152 (H) 95 - [address] POC i-STAT Arterial 1 mmol/L [facility] POC i-STAT Arterial 99 94 - 100 % [facility] SO2 [facility] POC i-STAT Arterial 28 mmol/L [facility] Total CO2 [facility] POC i-STAT Sodium 138 136 - 145 mmol/L [facility] POC i-STAT 4.2 3.4 - 5.1 mmol/L [facility] Potassium [facility] POC i-STAT Ionized 1.02 (L) 1.13 - 1.32 mmol/L [facility] POC i-STAT Glucose 159 (H) 70 - 140 mg/dL [facility] POC i-STAT 33 (L) 41 - 53 % [facility] POC i-STAT 11.2 (L) 13.5 - 18.0 g/dL [facility] Hemoglobin [facility] POC Specimen Whole Blood Performing Organization Address City/[facility] P feliciano Number POINT OF CARE TEST [address] [place] [address] [facility] POC [address] [place] [address] * POCT i-STAT arterial CG8 (06/02/2021 11:24 AM EDT) I-STAT ARTERIAL 7.32 (L) 7.38 - 7.44 [facility] PH [facility] POC i-STAT Arterial 50 (H) 35 - 40 mmHg [facility] PCO2 [facility] POC i-STAT Arterial 129 (H) 95 - 100 mmHg [facility] PO2 [facility] POC i-STAT Arterial NEG 1 mmol/L [facility] Base Excess [facility] POC i-STAT Arterial 99 94 - 100 % [facility] SO2 [facility] POC i-STAT Arterial 27 mmol/L [facility] Total CO2 [facility] POC i-STAT Sodium 138 136 - 145 mmol/L [facility] POC i-STAT 4.2 3.4 - 5.1 mmol/L [facility] Potassium [facility] POC i-STAT Ionized 1.04 (L) 1.13 - 1.32 mmol/L [facility] v Calcium [facility] POC i-STAT Glucose 154 (H) 70 - 140 mg/dL [facility] POC i-STAT 33 (L) 41 - 53 % [facility] Hematocrit [facility] POC i-STAT 11.2 (L) 13.5 - 18.0 g/dL [facility] Hemoglobin [facility] POC Specimen Whole Blood Performing Organization Address City/[facility] P feliciano Number POINT OF CARE TEST [address] [place], [place] [id number] [place] [address] POC [address] [place] [address] * POCT i-STAT arterial CG8 (06/02/2021 9:30 AM EDT) I-STAT ARTERIAL 7.35 (L) 7.38 - 7.44 [facility] PH [facility] POC i-STAT Arterial 50 (H) 35 - 40 mmHg [facility] PCO2 Hospital POC i-STAT Arterial 153 (H) 95 - 100 mmHg [facility] PO2 [facility] POC i-STAT Arterial 1 mmol/L [facility] Base Excess [facility] POC i-STAT Arterial 99 94 - 100 % [facility] SO2 Hospital POC i-STAT Arterial 29 mmol/L [facility] Total CO2 [facility] POC i-STAT Sodium 139 136 - 145 mmol/L [facility] POC i-STAT 3.9 3.4 - 5.1 mmol/L [facility] Potassium [facility] POC i-STAT Ionized 1.17 1.13 - 1.32 mmol/L [facility] v Calcium [facility] POC i-STAT Glucose 173 (H) 70 - 140 mg/dL [facility] POC i-STAT 38 (L) 41 - 53 % [facility] Hematocrit [facility] POC i-STAT 12.9 (L) 13.5 - 18.0 g/dL [facility] Hemoglobin [facility] POC Specimen Whole Blood Performing Organization Address City/[facility] Code P feliciano Number POINT OF CARE TEST [address] [place], [place] [id number] [place] [address] POC [address] [place] [address] * CROSSMATCH, PAT (06/02/2021 7:00 AM EDT) Crossmatch 06/05/2021,2359 [facility] Expiration [facility] Pathology ABO/RH(D) O POS [facility]ology Site Performed at [place], [place] Med Univ Clin Pathology UNIT NUMBER [id number] [facility] Blood Component Leukoreduced Red Cells [facility] Univ Clin Pathology Unit Division 00 [facility] Clin Pathology STATUS OF UNIT REL FROM ALLOC [facility] Clin Pathology TRANSFUSION OK TO TRANSFUSE [facility] Med Univ Clin Pathology CROSSMATCH Compatible [facility] Univ Clin Pathology UNIT NUMBER [id number] [facility] Blood Component Leukoreduced Red Cells [facility] Univ Clin Pathology Unit Division 00 [facility] Univ Clin Pathology STATUS OF UNIT REL FROM ALLOC [facility] Clin Pathology TRANSFUSION OK TO TRANSFUSE [facility] Med Univ Clin Pathology CROSSMATCH Compatible [facility] Clin Pathology UNIT NUMBER [id number] [facility] Clin Pathology Blood Component Leukoreduced Red Cells [facility] Univ Clin Pathology Unit Division 00 [facility] Clin Pathology STATUS OF UNIT REL FROM ALLOC [facility] Clin Pathology TRANSFUSION OK TO TRANSFUSE [facility] Med [facility] Clin Pathology CROSSMATCH Compatible [facility] Med [facility] Clin Pathology UNIT NUMBER [id number] [facility] Pathology Blood Component Leukoreduced Red Cells [facility] Type [facility] Clin Pathology Unit Division 00 [facility] Clin Pathology STATUS OF UNIT REL FROM ALLOC [facility] Clin Pathology TRANSFUSION OK TO TRANSFUSE [facility] Clin Pathology CROSSMATCH Compatible [facility] RESULT [facility] Clin Pathology Specimen EDTA Whole Blood Performing Organization Address City/[facility]/ZIP Code P feliciano Number [facility] CL[facility]ICAL [address] [place], [place] [address] PATHOLOGY [facility] [address] [place], [place] [address] Clin Pathology * POCT glucose, docked (06/02/2021 6:59 AM EDT) POC Glucose 128 70 - 140 mg/dL [facility] POC Specimen Whole Blood Performing Organization Address City/[facility] P feliciano Number POINT OF CARE TEST [address] [place] [address] [facility] POC [address] [place] [address] documented in this encounter Visit Diagnoses Diagnosis Renal mass - Primary Unspecified disorder of kidney and uret er 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 06/03/2021 8:38 AM EDT 40 mg atorvastatin (LIPITOR) tablet 40 mg Given 40 mg, Oral, Every other day, First dos e on Sat06/03/21 at 0900, For 30 days 06/04/2021 9:15 AM EDT 100 mg docusate sodium (COLACE) capsule 100 mg Given 100 mg, Oral, 2 Times Daily, First dose on Sat06/02/21 at 2100, For 30 days 100 mg Given 06/03/2021 8:22 PM EDT 100 mg Given 06/03/2021 8:38 AM EDT 06/03/2021 8:22 PM EDT 75 mg doxepin (SINEQUAN) capsule 75 mg Given 75 mg, Oral, Nightly, First dose on Sat06/02/21 at 2200, For 7 days 06/03/2021 9:05 AM EDT 25 mcg fentaNYL (SUBLIMAZE) (PF) injection 25 New Bag mcg 25 mcg, Intravenous, Every 2 hours PRN, breakthrough pain, Starting on Sat06/02/21 at 1724, For 70 hours 25 mcg New Bag 06/03/2021 1:31 AM EDT 25 mcg New Bag 06/02/2021 8:52 PM EDT 06/04/2021 9:14 AM EDT 400 mg gabapentin (NEURONTIN) capsule 400 mg Given 400 mg, Oral, 2 Times Daily, Indications: Neuropathic Pain, First dose (after last modification) on Sat06/02/21 at 2100, For 30 days 400 mg Given 06/03/2021 8:22 PM EDT 400 mg Given 06/03/2021 8:38 AM EDT 06/04/2021 9:14 AM EDT 5,000 Units heparin (porcine) 5000 UNIT/ML injection Given 5,000 Units 5,000 Units, Subcutaneous, Three Times Daily Standard, First dose on Sat06/02/21 at 1700, For 30 days 5,000 Units Given 06/03/2021 8:22 PM EDT 5,000 Units Given 06/03/2021 5:54 PM EDT hydroxypropyl methylcellulose (GONIOSOL ) 2.5 % ophthalmic solution 1 drop 1 drop, Both Eyes, PRN, Dry Eyes, Starting on Sat06/03/21 at 1115, For 30 days 06/04/2021 1:49 PM EDT 1 Units insulin lispro (HumaLOG) injection LOW Given DOSE EATING INSULIN patients 1-8 Units 1-8 Units, Subcutaneous, Three Times Daily-With Meals, First dose on Sat06/03/21 at 1300, For 30 days, Nursing MUST open the 'SQ Insulin Dosing Charts ' Sidebar Report, or, the Patient Summary or Summary Report within the ED. 1 Units Given 06/03/2021 6:08 PM EDT 06/02/2021 6:18 PM EDT 50 mL/hr 50 mL/hr lactated ringers infusion Rate/Dose at 50 mL/hr, Intravenous, Continuous, Change Starting on Sat06/02/21 at 1515, For 30 days 100 mL/hr 100 mL/hr New Bag 06/02/2021 3:12 PM EDT 06/02/2021 4:47 PM EDT 1 patch Other lidocaine (LIDODERM) 5 % patch 1 patch Patch 1 patch, Transdermal, Every 24 hours, Applied First dose on Sat06/02/21 at 1630, For 30 days, Apply to abdomen 12 hours on - 12 hours off 06/03/2021 9:39 PM EDT 10 mg melatonin tablet 10 mg Given 10 mg, Oral, Nightly, First dose on Sat06/02/21 at 2200, For 30 days 10 mg Given 06/02/2021 10:13 PM EDT 06/04/2021 4:23 PM EDT 10 mg oxyCODONE (ROXICODONE) immediate release Given tablet 10 mg 10 mg, Oral, Every 4 hours PRN, Sever e Pain (Pain Scale Score 7-10), Starting on Sat06/02/21 at 1724, For 70 hours, Oxycodone immediate release is limited to 10 mg per dose. Higher doses ([facility] only) require Pain Service consultation and approval. 10 mg Given 06/04/2021 9:14 AM EDT 10 mg Given 06/04/2021 5:31 AM EDT oxyCODONE (ROXICODONE) immediate releas e tablet 5 mg 5 mg, Oral, Every 4 hours PRN, Moderate Pain (Pain Scale Score 4-6), Starting on Sat06/02/21 at 1724, For 70 hours, Oxycodone immediate release is limited to 10 mg per dose. Higher doses ([facility] only) require Pain Service consultation and approval. Action Date Dose Rate Site Medication Order MAR Action 06/03/2021 1:57 PM EDT 1,000 mg 400 mL/hr acetaminophen (OFIRMEV) infusion 1,000 New Bag mg 1,000 mg, Intravenous, Administer over 15 Minutes, Every 8 hours, First dose on Sat06/02/21 at 1630, For 4 doses, Maximum daily dose of acetaminophen fro m all sources 3,000 mg daily. 1,000 mg 400 mL/hr New Bag 06/03/2021 12:00 AM EDT 1,000 mg 400 mL/hr New Bag 06/02/2021 4:47 PM EDT 06/02/2021 2:30 PM EDT 25 mcg fentaNYL (SUBLIMAZE) (PF) injection 25 Given by IV mcg push 25 mcg, Intravenous, Every 5 min PRN, Severe Pain (Pain Scale Score 7-10), Starting on Sat06/02/21 at 1343, For 10 doses, Recovery 25 mcg Given by IV push 06/02/2021 2:24 PM EDT 25 mcg Given by IV push 06/02/2021 2:17 PM EDT 06/02/2021 5:34 PM EDT 50 mcg fentaNYL (SUBLIMAZE) (PF) injection 50 New Bag mcg 50 mcg, Intravenous, Once, On Sat06/02/21 at 1730, For 1 dose 06/02/2021 7:08 AM EDT 5,000 Units Abdomina l Tissue heparin (porcine) 5000 UNIT/ML injection Given 5,000 Units 5,000 Units, Subcutaneous, Once, On Sat06/02/21 at 0715, For 1 dose, Pre-op 06/03/2021 5:56 AM EDT 1 g 100 mL/hr magnesium sulfate in dextrose 5 % New Bag infusion (premix) 1 g 1 g, Intravenous, Administer over 60 Minutes, Once, On Sat06/03/21 at 0545, For 1 dose 06/02/2021 4:47 PM EDT 5 mg oxyCODONE (ROXICODONE) immediate release Given tablet 5 mg 5 mg, Oral, Every 4 hours PRN, Severe Pain (Pain Scale Score 7-10), Starting on Sat06/02/21 at 1617, For 3 days, Oxycodone immediate release is limited to 10 mg per dose. Higher doses ([facility] only) require Pain Service consultation and approval. 06/02/2021 3:00 PM EDT 3 mLs sodium chloride (preservative free) 0.9 Given by IV % flush 3 mL push 3 mL, Intravenous, Every 8 hours, First dose on Sat06/02/21 at 0700, For 30 days, Pre-op, Saline Lock. Flush Q8H and after each use to Saline Lock. documented in this encounter Active and Recently Administered Medications Times are shown in EDT. 06/03/2021 06/04/2021 Medication Order 06/02/2021 0000 (New Bag - Provider: Buddy Alcantara RN)1357 (New Bag - Provider: Teresa Whalen RN) acetaminophen (OFIRMEV) infusion 1,000 1647 (New Bag - mg (CANCELED) Provider: Zhanna 1,000 mg, Intravenous, Administer over Francisco) 15 Minutes, Every 8 hours, First dose on Sat06/02/21 at 1630, For 4 doses, Maximum daily dose of acetaminophen fro m all sources 3,000 mg daily. 2021 (Given - Provider: Bailey Walls RN) 0123 (Not Given - Provider: Bailey Walls RN - Reason: Patient sedated/sleeping)0914 (Not Given - Provider: Teresa Whalen RN - Reason: Patient/family refused)1305 (Not Given - Provider: Teresa Duenas RN - Reason: Patient/family refused)1999 (Due) acetaminophen (TYLENOL) tablet 650 mg 650 mg, Oral, Every 6 hours, First dose on Sat06/03/21 at 2000, For 30 days, Maximum daily dose of acetaminophen is 3,000 mg from all sources in 24 hours. 0838 (Given - Provider: Teresa Fernández RN) atorvastatin (LIPITOR) tablet 40 mg 40 mg, Oral, Every other day, First dos e on Sat06/03/21 at 0900, For 30 days ceFAZolin (ANCEF) IVPB 2 g in dextrose 0849 (Given - (premix) (COMPLETED) Provider: Denise 2 g, Intravenous, Administer over 30 MD Mello)123 7 Minutes, Once, On Sat06/02/21 at 0715, (Given - Prov ider: For 1 dose, Pre-op Denise Sarkar MD) 0838 (Given - Provider: Teresa Fernández RN)2021 (Given - Provider: Bailey Walls RN) 0915 (Given - Provider: Teresa Fernández RN)2099 (Due) docusate sodium (COLACE) capsule 100 mg 3 (Given - 100 mg, Oral, 2 Times Daily, First dose Provider: Tommie monsivais on Sat06/02/21 at 2100, For 30 days BETHANY Alcantara) 0138 (Hold - Provider: Buddy Alcantara RN - Reason: Medication not available)2021 (Given - Provider: Bailey Walls RN) 2199 (Due) doxepin (SINEQUAN) capsule 75 mg 75 mg, Oral, Nightly, First dose on Sat06/02/21 at 2200, For 7 days fentaNYL (SUBLIMAZE) (PF) injection 50 1734 (New Bag - mcg (COMPLETED) Provider: Zhanna 50 mcg, Intravenous, Once, On Sat Francisco) 06/02/21 at 1730, For 1 dose 0838 (Given - Provider: Teresa Fernández RN)2021 (Given - Provider: Bailey Walls RN) 0914 (Given - Provider: Teresa Fernández RN)2100 (Due) gabapentin (NEURONTIN) capsule 400 mg 2213 (Given - 400 mg, Oral, 2 Times Daily, Provider: Buddy Indications: Neuropathic Pain, First BETHANY Alcantara) dose (after last modification) on Sat06/02/21 at 2100, For 30 days heparin (porcine) 5000 UNIT/ML injection 0708 (Given - 5,000 Units (COMPLETED) Provider: Mahnaz A 5,000 Units, Subcutaneous, Once, On Sat BETHANY Blank ) 06/02/21 at 0715, For 1 dose, Pre-op 0838 (Given - Provider: Teresa Fernández RN)1754 (Given - Provider: Teresa Whalen RN)2021 (Given - Provider: Bailey Walls RN) 0914 (Given - Provider: Teresa Fernández RN)1700 (Due)2100 (Due) heparin (porcine) 5000 UNIT/ML injection 1647 (Given - 5,000 Units Provider: Zhanna 5,000 Units, Subcutaneous, Three Times Francisco)2213 (G iven - Daily Standard, First dose on Sat Provider: Buddy 06/02/21 at 1700, For 30 days BETHANY Alcantara) 1304 (Not Given - Provider: Teresa Ramírez RN - Reason: Order parameters not met)1808 (Given - Provider: Teresa Whalen RN) 0912 (Not Given - Provider: Teresa Ramírez RN - Reason: Order parameters not met)1349 (Given - Provider: Teresa Whalen RN)1800 (Due) insulin lispro (HumaLOG) injection LOW DOSE EATING INSULIN patients 1-8 Units 1-8 Units, Subcutaneous, Three Times Daily-With Meals, First dose on 06/03/21 at 1300, For 30 days, Nursing MUST open the 'SQ Insulin Dosing Charts ' Sidebar Report, or, the Patient Summary or Summary Report within the ED. 0431 (Patch Removed - Provider: Buddy alvarado RN)1552 (Not Given - Provider: Teresa Whalen RN - Reason: Patient/family refused) 1626 (Not Given - Provider: Teresa Ramírez RN - Reason: Patient/family refused) lidocaine (LIDODERM) 5 % patch 1 patch 1647 (Patch A pplied 1 patch, Transdermal, Every 24 hours, - Provider: Sandra mcallister First dose on Sat06/02/21 at 1630, For Francisco) 30 days, Apply to abdomen 12 hours on - 12 hours off 0556 (New Bag - Provider: Buddy Alcantara RN) magnesium sulfate in dextrose 5 % infusion (premix) 1 g (COMPLETED) 1 g, Intravenous, Administer over 60 Minutes, Once, On 06/03/21 at 0545, For 1 dose 2138 (Given - Provider: Bailey Walls RN) 2200 (Due) melatonin tablet 10 mg 2213 (Given - 10 mg, Oral, Nightly, First dose on Sat Provider: Tommie monsivais 06/02/21 at 2200, For 30 days BETHANY Alcantara) sodium chloride (preservative free) 0.9 1445 (Not Gi marc - % flush 3 mL (CANCELED) Provider: Jess Goodson 3 mL, Intravenous, Every 8 hours, BETHANY Vincent - First dose on Sat06/02/21 at 0700, For Reason: Other prep 30 days, Pre-op, Saline Lock. Flush Q8H given)1500 ( Given by and after each use to Saline Lock. IV push - Provide r: Jess Vincent RN) 06/03/2021 06/04/2021 Medication Order 06/02/2021 1459 (Stopped - All Meds - Provider: Ashley Whalen RN) lactated ringers infusion 1512 (New Bag - at 50 mL/hr, Intravenous, Continuous, Provider: Edith Goodson Starting on Sat06/02/21 at 1515, For 30 BETHANY Vincent )1818 days (Rate/Dose Change - Provider: Zhanna Francisco) 06/03/2021 06/04/2021 Medication Order 06/02/2021 bupivacaine (MARCAINE) 0.25 % injection 1339 (Given - (CANCELED) Provider: Jorge PRN, Starting on Sat06/02/21 at 1339, Sandra Leal - Intra-op Comment: Mixed 1:1 with Exparel) bupivacaine liposome (EXPAREL) 1.3 % 133 (Given - injectable suspension (CANCELED) Provider: Jorge BRASWELLN, Starting on Sat06/02/21 at 1339, Sandra Leal - Intra-op Comment: Mixed 1:1 with Bupivacaine) dextrose 50 % IV solution 25 mL 25 mL, Intravenous, PRN, Other, blood glucose <55, Starting on Sat06/02/21 at 1617, For 30 days, Not for midline administration. fentaNYL (SUBLIMAZE) (PF) injection 1411 (Given b y IV mcg (CANCELED) push - Provider: 25 mcg, Intravenous, Every 5 min PRN, Jess Granado ett, Severe Pain (Pain Scale Score 7-10), RN)1417 (Given by IV Starting on Sat06/02/21 at 1343, For 10 push - Provi mal: doses, Recovery Jess Vincent RN)1424 (Given by IV push - Provider: Jess Vincent RN)1430 (Given by IV push - Provider: Jess Vincent RN) 0131 (New Bag - Provider: Buddy Alcantara RN)0905 (New Bag - Provider: Teresa Whalen RN) fentaNYL (SUBLIMAZE) (PF) injection 2051 (New Bag - mcg Provider: Mela Flores 25 mcg, Intravenous, Every 2 hours BETHANY Gray) PRN, breakthrough pain, Starting on Sat06/02/21 at 1724, For 70 hours glucagon (human recombinant) (GLUCAGEN) injection 1 mg 1 mg, Intramuscular, PRN, for glucose <55 without IV access, Starting on Sat06/02/21 at 1617, For 30 days glucose (GLUTOSE) 40 % oral gel 15 g 15 g, Oral, PRN, Low blood sugar, for gluose 55-69 mg/dl and able to take PO, Starting on Sat06/02/21 at 1617, For 30 days hydroxypropyl methylcellulose (GONIOSOL ) 2.5 % ophthalmic solution 1 drop 1 drop, Both Eyes, PRN, Dry Eyes, Starting on Sat06/03/21 at 1115, For 30 days ondansetron (ZOFRAN) injection 4 mg 4 mg, Intravenous, Every 8 hours PRN, Nausea, Starting on Sat06/02/21 at 1617 , For 5 days 0558 (Given - Provider: Kellee Morales)1051 (Given - Provider: Treesa Whalen RN)1552 (Given - Provider: Teresa Whalen RN)2022 (Given - Provider: Bailey Walls RN) 0531 (Given - Provider: Bailey Walls RN)0 914 (Given - Provider: Teresa Whalen RN)1623 (Given - Provider: Teresa Whalen RN) oxyCODONE (ROXICODONE) immediate release 2213 (Given - tablet 10 mg(Linked Group 1) Provider: Buddy 10 mg, Oral, Every 4 hours PRN, David Alcantara RN) Pain (Pain Scale Score 7-10), Starting on Sat06/02/21 at 1724, For 70 hours, Oxycodone immediate release is limited to 10 mg per dose. Higher doses ([facility] only) require Pain Service consultation and approval. oxyCODONE (ROXICODONE) immediate release 1647 (Given - tablet 5 mg (CANCELED) Provider: Zhanna 5 mg, Oral, Every 4 hours PRN, Severe Francisco) Pain (Pain Scale Score 7-10), Starting on Sat06/02/21 at 1617, For 3 days, Oxycodone immediate release is limited to 10 mg per dose. Higher doses ([facility] only) require Pain Service consultation and approval. 0558 (See Alternative - Provider: Buddy Alcantara RN)1051 (See Alternative - Provider: Teresa Whalen RN)1552 (See Alternative - Provider: Teresa Whalen RN)2022 (See Alternative - Provider: Bailey Walls RN) 0531 (See Alternative - Provider: Bailey jacobs, RN)0914 (See Alternative - Provider: Teresa Whalen, BETHANY)1623 (See Alternative - Provider: Teresa Whalen RN) oxyCODONE (ROXICODONE) immediate release 2213 (See tablet 5 mg(Linked Group 1) Alternative - 5 mg, Oral, Every 4 hours PRN, Provider: Buddy Moderate Pain (Pain Scale Score 4-6), BETHANY Alcantara) Starting on Sat06/02/21 at 1724, For 70 hours, Oxycodone immediate release is limited to 10 mg per dose. Higher doses ([facility] only) require Pain Service consultation and approval. sodium chloride (bottle) 0.9 % 1010 (Given - irrigation (CANCELED) Provider: Jorge PRN, Starting on Sat06/02/21 at 1010, Sandra Leal - Intra-op Comment: Used PRN for procedure)1255 (Given - Provider: Jorge Leal MD - Comment: warm irrigation) Order Group 1: oxyCODONE (ROXICODONE) immediate releas e tablet 5 mgJump to med 5 mg, Oral, Every 4 hours PRN, Modera te Pain (Pain Scale Score 4-6), Starting on Sat06/02/21 at 1724, For 70 hours
Oxycodone immedia te release is limited to 10 mg per dose. Higher doses ([facility] only) require Pain Service consultation and approval.
Or oxyCODONE (ROXICODONE) immediate releas e tablet 10 mgJump to med 10 mg, Oral, Every 4 hours PRN, Sever e Pain (Pain Scale Score 7-10), Starting on Sat06/02/21 at 1724, For 70 hours
Oxycodone immedia te release is limited to 10 mg per dose. Higher doses ([facility] only) require Pain Service consultation and approval.
documented in this encounter
--- OUTSIDE RECORDS SUMMARY | 2021-08-20 21:03 | CCD | Summary of Care ---
Author Author [facility] Organization [facility] Address Unknown Phone Unavailable Care Team Providers Care Web Content Developer Name Role Phone Valerie Hernandez PCP Reason for Visit * Reason Comments Follow-up Surgery discussion Encounter Details Care Team Description Date Type Department Jorge Leal MD [address] [place] [phone] Malignant neoplasm of left kidney (Prima ry Dx); Renal mass 05/31/2021 Telemedicine [facility] Urology [address] [place] [phone] Allergies No Known Active Allergiesdocumented as of this encounter (statuses as of 05/31/2021) Medications End Date Status Medication Sig Dispensed Refills Start Date Active aspirin 81 MG tablet Take 81 mg by 0 mouth daily Active atorvastatin (LIPITOR) 40 Take 40 mg by 0 MG tablet mouth every evening Active doxepin (SINEQUAN) 50 MG Take 75 [...] mg 0 100 MG capsule by mouth Two Times Daily Active oxycodone-acetaminophen Take 1 tablet 0 (PERCOCET) 5-325 MG per by mouth tablet every 4 (four) hours as needed for Pain Active LOSARTAN POTASSIUM PO Take by mouth 0 Active Vitamin D3 25 MCG (1000 Take 1,000 0 UT) Oral Tablet Units by (CHOLECALCIFEROL) mouth daily Active Semaglutide (OZEMPIC, 1 Inject into 0 MG/DOSE, SC) the skin Active diphenhydrAMINE-APAP Take 1 tablet 0 (sleep) 25-500 MG Oral by mouth Tablet (TYLENOL PM) nightly as needed Active CINNAMON PO Take by mouth 0 Active Empagliflozin 25 MG Oral Take by mouth 0 Tablet Active metFORMIN HCl ER 750 MG Take 750 mg 0 Oral Tablet Extended by mouth Release 24 Hour daily with (GLUCOPHAGE-XR) breakfast Active Ocuvite Adult 50+ Oral Take by mouth 0 Capsule Active Turmeric 500 MG Oral Take by mouth 0 Capsule Active Magnesium 500 MG Oral Take 1 0 Capsule capsule by mouth Daily documented as of this encounter (statuses as of 05/31/2021) Active Problems Problem Noted Date Renal mass 05/30/2021 Overview: Formatting of this note might be differ ent from the original. Added automatically from request for triny ghosh [id number] SDH (subdural hematoma) 04/08/2018 Diabetes mellitus Hypertension [...] on file Date Recorded COVID-19 Exposure Response 05/30/2021 1:49 PM EDT In the last month, have you been in contact with No / Unsure someone who was confirmed or suspected to have Coronavirus / COVID-19? documented as of this encounter Last Filed Vital Signs Reading Time Taken Comments Vital Sign - - Blood Pressure - - Pulse - - Temperature - - Respiratory Rate - - Oxygen Saturation - - Inhaled Oxygen Concentration 93 kg (205 lb) 05/31/2021 7:56 AM EDT Weight 172.7 cm (5' 7.99") 05/31/2021 7:56 AM EDT Height 31.18 05/31/2021 7:56 AM EDT Body Mass Index documented in this encounter Progress Notes * Jorge Leal MD - 05/31/2021 8:45 AM EDT Below is a telemedicine encounter note. Due to COVID-19 we have instituted telem edicine encounters. If there is no physical exam documented below the telemedici ne appointment was conducted over the telephone only as the patient was either u nable or unwilling to use video streaming for this telemedicine encounter. If th e physical exam is documented, the appointment was done using video telemedicine . The patient consented to this encounter to be telemedicine. The patient also understands the risks with the telemedicine encounters and concerns of privacy w ith these type of appointments. Referring Physician: Dr. Carlton Womack HPI: 80 y.o. gentleman with a history of left robotic partial nephrectomy in 2017. 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 There was suspicion for vascular invasion. This was a T1b disease. Patient was noted to have a recurrence in the left kidney with invasion of the l eft renal vein. Patient was sent to us for consultation. PMH: Past Medical History: Diagnosis Date Cancer of kidney Diabetes mellitus GERD (gastroesophageal reflux disease) Hypercholesteremia Hypertension Sleep apnea PSH: Past Surgical History: Procedure Laterality Date APPENDECTOMY MASS EXCISION l kidney PARTIAL NEPHRECTOMY Left 2019 Allergies: No Known Allergies Social: Social History Socioeconomic History Marital status: Spouse name: Not on file Number of children: Not on file Years of education: Not on file Highest education level: Not on file Occupational History Not on file Tobacco Use Smoking status: Never Smoker Smokeless tobacco: Never Used Substance and Sexual Activity Alcohol use: Yes [...] Social Gatherings with Friends and Family: Attends [employer] Services: Active Member of Clubs or Organizations: Attends Club or Organization Meetings: Marital Status: Intimate Partner Violence: Fear of Current or Ex-Partner: Emotionally Abused: Physically Abused: Sexually Abused: Family: No family history on file. Medications: Current Outpatient Medications on File Prior to Visit Medication Sig Dispense Refill aspirin 81 MG tablet Take 81 mg by mouth daily atorvastatin (LIPITOR) 40 MG tablet Take 40 mg by mouth every evening CINNAMON PO Take by mouth diphenhydrAMINE-APAP (sleep) 25-500 MG Oral Tablet (TYLENOL PM) Take 1 ta blet by mouth nightly as needed docusate sodium (COLACE) 100 MG capsule Take 100 mg by mouth Two Times Da tommie doxepin (SINEQUAN) 50 MG capsule Take 75 mg by mouth nightly Empagliflozin 25 MG Oral Tablet Take by mouth gabapentin (NEURONTIN) 400 MG capsule Take 600 mg by mouth Two Times Danni y glipiZIDE (GLUCOTROL) 5 MG tablet Take 10 mg by mouth Two times daily bef ore meals LOSARTAN POTASSIUM PO Take by mouth melatonin 3 MG tablet Take 10 mg by mouth nightly metFORMIN HCl ER 750 MG Oral Tablet Extended Release 24 Hour (GLUCOPHAGE- XR) Take 750 mg by mouth daily with breakfast Multiple Vitamin (MULTIVITAMIN) tablet Take 1 tablet by mouth daily Ocuvite Adult 50+ Oral Capsule Take by mouth Semaglutide (OZEMPIC, 1 MG/DOSE, SC) Inject into the skin Vitamin D3 25 MCG (1000 UT) Oral Tablet (CHOLECALCIFEROL) Take 1,000 Unit s by mouth daily oxycodone-acetaminophen (PERCOCET) 5-325 MG per tablet Take 1 tablet by m outh every 4 (four) hours as needed for Pain (Patient not taking: Reported on ) pioglitazone (ACTOS) 30 MG tablet Take 30 mg by mouth daily (Patient not taking: Reported on 05/29/2021) No current facility-administered medications on file prior to visit. Labs: No visits with results within 1 Month(s) from this visit. Latest known visit with results is: Admission on 03/13/2018, Discharged on 03/14/2018 Component Date Value Ref Range Status Bicarbonate 03/13/2018 27 22 - 29 mmol/L Final Chloride 03/13/2018 103 96 - 108 mmol/L Final Creatinine 03/13/2018 1.42* 0.5 - 1.2 mg/dL Final Glucose 03/13/2018 126* 65 - 110 mg/dL Final Potassium 03/13/2018 4.3 3.3 - 5.1 mmol/L Final Sodium 03/13/2018 141 133 - 145 mmol/L Final Blood Urea Nitrogen 03/13/2018 18 8 - 23 mg/dL Final Anion Gap 03/13/2018 11 8 - 15 mmol/L Final Osmolality, Dominic 03/13/2018 295 275.0 - 300.0 mosm/kg Final BUN/Cre Ratio 03/13/2018 13 Final Calcium 03/13/2018 8.4* 8.8 - 10.2 mg/dL Final GFR Non 2008 CDK-* 03/13/2018 45* >60 mL/min/1.73m2 Final GFR 2008 CKD-EPI 03/13/2018 53* >60 mL/min/1.73m2 Final White Blood Cell 03/13/2018 6.8 4.00 - 10.00 10*3/uL Final Red Blood Cell 03/13/2018 3.74* 4.60 - 6.10 10*6/uL Final Hemoglobin 03/13/2018 11.4* 13.5 - 18.0 g/dL Final Hematocrit 03/13/2018 34.5* 41.0 - 53.0 % Final Mean Cell Volume 03/13/2018 92.3 80.0 - 96.0 fL Final Mean Cell Hemoglobin 03/13/2018 30.6 27.0 - 33.0 pg Final Mean Cell Hgb Conc 03/13/2018 33.1 32 - 36 g/dL Final Red Cell Dist Width 03/13/2018 14.4 11.5 - 14.5 % Final Platelet Count 03/13/2018 219 150 - 400 10*3/uL Final Differential Type 03/13/2018 Automated Diff Final Neutrophil 03/13/2018 71 % Final Lymphocyte 03/13/2018 18 % Final Monocyte 03/13/2018 7 % Final Eosinophil 03/13/2018 3 % Final Basophil 03/13/2018 1 % Final Abs Neutrophil 03/13/2018 4.80 1.80 - 7.00 10*3/uL Final Abs Lymphocyte 03/13/2018 1.23 1.20 - 4.00 10*3/uL Final Abs Monocyte 03/13/2018 0.45 0.00 - 0.80 10*3/uL Final Abs Eosinophil 03/13/2018 0.21 0.00 - 0.50 10*3/uL Final Abs Basophil 03/13/2018 0.08 0.00 - 0.20 10*3/uL Final Nucleated Red Blood Cells 03/13/2018 0 0 - 0 /100 Final PT Patient 03/13/2018 12.5 12.5 - 14.9 s Final Int'l Normalized Ratio 03/13/2018 0.94 Final ABO/RH(D) 03/13/2018 O POS Final Gel Antibody Screen 03/13/2018 NEG Final PTT 03/13/2018 36.9* 24.0 - 34.0 s Final Radiology: I personally reviewed patient's MRI which reveals 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 Assessment/Plan: Recurrent RCC. -CMP, CBC and coags. -CT of the chest as well as cardiac clearance - left robotic radical nephrectomy with renal vein thrombectomy on Saturday. Finally, I discussed the surgical risks associated with the procedure and anesth esia, and potential complications, not limited to bleeding, infection, DVT, stro ke, or WI. Pt understood the risks. I have spent a total of 12 minutes during this visit with the patient with more than 50% of my time spent counseling regarding the plan of care, its risks and b enefits, and coordinating further care. Jorge Leal M.D. Professor and Chair Department of Urology [facility] documented in this encounter Plan of Treatment Care Team Description Date Type Specialty 05/31/2021 Hospital Radiology Encounter Kleber Barrow MD [address] [facility], [address] [place] [address] 05/31/2021 Office Visit Cardiology Cathy Salazar PA [address] [facility] [address] [place], [place] [id number] 06/01/2021 Pre-Admission Pre-Admission Testi ng Testing Jorge Leal MD [address] [facility] [address] [place] [address] 06/02/2021 Hospital Surgery Encounter Health Maintenance Due Date Last Done Comments Pneumococcal Vaccine: 65+ 1944 Years (1 of 4 - PCV13) Pneumococcal Vaccine: 1946 Pediatrics (0 to 5 Years) and At-Risk Patients (6 to 64 Years) (1 of 4 - PCV13) MMR Vaccines (1 of 1 - 10/04/2008 Standard series) Varicella Vaccines (1 of 10/04/2008 09/06/2008 2 - 2-dose childhood series) Zoster Vaccines (2 of 3) 11/01/2008 09/06/2008 DTaP,Tdap,and Td Vaccines 09/20/2010 08/23/2010 (2 - Td or Tdap) Influenza Vaccine 06/16/2021 06/20/2020, 07/10/2019, 07/02/2018 HIB Vaccines Aged Out No longer eligible [...] this topic documented as of this encounter Results Not on filedocumented in this encounter Visit Diagnoses Diagnosis Cancer of kidney Malignant neoplasm of kidney, except pe lvis Renal mass Unspecified disorder of kidney and uret er Malignant neoplasm of left kidney - Bhargavi joiner Renal mass Unspecified disorder of kidney and uret er documented in this encounter
--- OUTSIDE RECORDS SUMMARY | 2021-08-20 21:03 | CCD | Summary of Care ---
Author Author [facility] Organization [facility] Address Unknown Phone Unavailable Care Team Providers Care Impersonator Character Name Role Phone Valerie Hernandez PCP Reason for Referral * Diagnostic Radiology (Routine) Referred By Contact Referred To Contact Status Reason Specialty Diagnoses / Procedures Carlton Womack MD [address] [place] [address] Email: [email or web address] Authorized Radiology Diagnoses Renal mass P rocedures CT Thorax without Contrast Electronically signed by Beverly Michel NP at Reason for Visit * Diagnostic Radiology (Routine) Referred By Contact Referred To Contact Status Reason Specialty Diagnoses / Procedures Carlton Womack MD [address] [place] [address] Email: [email or web address] Authorized Radiology Diagnoses Renal mass P rocedures CT Thorax without Contrast Encounter Details Care Team Description Date Type Department Renal mass 05/31/2021 [facility] CT Scan [facility] Encounter [address] [place] [phone] Allergies No Known Active Allergiesdocumented as of this encounter (statuses as of 06/01/2021) Medications End Date Status Medication Sig Dispensed [...] as of this encounter (statuses as of 06/01/2021) Active Problems Problem Noted Date Abnormal ECG 05/31/2021 Renal mass 05/30/2021 Overview: Formatting of this note might be differ ent from the original. Added automatically from request for triny ghosh [id number] SDH (subdural hematoma) 04/08/2018 Diabetes mellitus Hypertension Hypercholesteremia Sleep apnea GERD (gastroesophageal reflux disease) Cancer of kidney documented as of this encounter (statuses as of 06/01/2021) Social History Date Tobacco Use Types Packs/Day [...] of this encounter Last Filed Vital Signs Not on filedocumented in this encounter Plan of Treatment Care Team Description Date Type Specialty Cathy Salazar PA [address] [place] [address] [place] [address] 06/01/2021 Pre-Admission Pre-Admission Testi ng Testing Jorge Leal MD [address] [place] [phone] 06/02/2021 Hospital Surgery Encounter Health Maintenance [...] Procedure Name Priority Date/Time Associated Diag nosis CT THORAX WITHOUT Routine 05/31/2021 Renal mass CONTRAST [id number] 12:38 PM EDT documented in this encounter Results * CT Thorax without Contrast (05/31/2021 12:38 PM EDT) Specimen Narrative Performed At [facility] PROCEDURE INFORMATION: Exam: CT Chest Without Contrast; Diagno stic Exam date and time: 05/31/2021 12:26 PM Age: 80 years old Clinical indication: Other specified di sorders of kidney and ureter; Other: Kidney cancer, staging TECHNIQUE: Imaging protocol: Diagnostic computed t omography of the chest without contrast. Radiation optimization: All CT scans at this facility use at least one of these dose optimization techniques: automated exposure control; mA and/or kV adjustment per patient size (includes t argeted exams where dose is matched to clinical indication); or iterative jessica nstruction. COMPARISON: MRI ABD W/O FOL WITH 05/15/2021 10:03 AM FINDINGS: Lungs: The lungs are hyperexpanded but no mass or infiltrate is seen. Pleural spaces: There are no pleural ef fusions visualized. Heart: The heart is not enlarged. There is moderate atherosclerotic calcification of the coronary arteries. Mediastinal space: The trachea is harper l. Aorta: The aorta is normal. Lymph nodes: No pathologic lymph node e nlargement is demonstrated. Bones/joints: Marginal osteophytes are noted at multiple levels in the spine. There is mild scoliosis. Soft tissues: The extrathoracic soft ti ssues are normal. IMPRESSION: Hyperexpanded lungs without acute abnor mality. THIS DOCUMENT HAS BEEN ELECTRONICALLY S IGNED BY JUN GEORGES MD Procedure Note Interface, Received Via [employer] System - 05/31/2021 5:44 PM EDT PROCEDURE INFORMATION: Exam: CT Chest Without Contrast; Diagnostic Exam date and time: 05/31/2021 12:26 PM Age: 80 years old Clinical indication: Other specified disorders of kidney and ureter; Other: Kidney cancer, staging TECHNIQUE: Imaging protocol: Diagnostic computed tomography of the chest without contrast. Radiation optimization: All CT scans at this facility use at least one of these dose optimization techniques: automated exposure control; mA and/or kV adjustment per patient size (includes targeted exams where dose is matched to clinical indication); or iterative reconstruction. COMPARISON: MRI ABD W/O FOL WITH 05/15/2021 10:03 AM FINDINGS: Lungs: The lungs are hyperexpanded but no mass or infiltrate is seen. Pleural spaces: There are no pleural effusions visualized. Heart: The heart is not enlarged. There is moderate atherosclerotic calcification of the coronary arteries. Mediastinal space: The trachea is normal. Aorta: The aorta is normal. Lymph nodes: No pathologic lymph node enlargement is demonstrated. Bones/joints: Marginal osteophytes are noted at multiple levels in the spine. There is mild scoliosis. Soft tissues: The extrathoracic soft tissues are normal. IMPRESSION: Hyperexpanded lungs without acute abnormality. THIS DOCUMENT HAS BEEN ELECTRONICALLY SIGNED BY JUN GEORGES MD Performing Organization Address City/State/ZIP Code P fel[place]o Number [facility] [address] [place] [address] documented in this encounter Visit Diagnoses Diagnosis Cancer of kidney Malignant neoplasm of kidney, except pe lvis Renal mass Unspecified disorder of kidney and uret er Renal mass Unspecified disorder of kidney and uret er documented in this encounter
--- OUTSIDE RECORDS SUMMARY | 2021-08-20 21:03 | CCD | Summary of Care ---
Author Author [facility] Organization [facility] Address Unknown Phone Unavailable Care Team Providers Care Toll Lineman Name Role Phone Valerie Hernandez PCP Encounter Details Care Team Description Date Type Department Malignant neoplasm of left k idney 05/29/2021 [facility] Pathology Encounter Laboratory and PSC at [facility] [address] [facility] [place] [address] [place] [phone] Allergies No Known Active Allergiesdocumented as of this encounter (statuses as of 05/30/2021) Medications End Date Status Medication Sig Dispensed [...] 50+ Oral Take by mouth 0 Capsule documented as of this encounter (statuses as of 05/30/2021) Active Problems Problem Noted Date SDH (subdural hematoma) 04/08/2018 Diabetes mellitus Hypertension Hypercholesteremia Sleep apnea GERD (gastroesophageal reflux disease) Cancer of kidney documented as of this encounter (statuses as of 05/30/2021) Social History Date Tobacco Use Types Packs/Day Years Used Never Smoker Smokeless Tobacco: Never Used Comments Alcohol Use Standard Drinks/Week rarely Yes 0 (1 standard drink = 0.6 o z pure alcohol) Sex Assigned at Date Recorded Not on file Date Recorded COVID-19 Exposure Response 05/29/2021 12:35 PM EDT In the last month, have you been in contact with No / Unsure someone who was confirmed or suspected to have Coronavirus / COVID-19? documented as of this encounter Last Filed Vital Signs Not on filedocumented in this encounter Plan of Treatment Health Maintenance Due Date Last Done Comments [...] Procedure Name Priority Date/Time Associated Diag nosis PARTIAL THROMBOPLASTIN Routine 05/29/2021 Maligna nt neoplasm of TIME (PTT) 1:26 PM EDT left kidney PROTIME INR Routine 05/29/2021 Malignant neopl asm of 1:26 PM EDT left kidney CBC Routine 05/29/2021 Malignant neopl asm of 1:26 PM EDT left kidney COMPREHENSIVE METABOLIC Routine 05/29/2021 Malign ant neoplasm of PANEL 1:26 PM EDT left kidney documented in this encounter Results * CBC (05/29/2021 1:26 PM EDT) White Blood 6.3 4.00 - 10.00 [facility] Red Blood Cell 4.86 4.60 - 6.10 10*6/[facility] Hemoglobin 14.3 13.5 - 18.0 g/dL [facility] Pathology Hematocrit 43.7 41.0 - 53.0 % [facility]ology Mean Cell 89.9 80.0 - 96.0 fL [facility] Volume [facility] Pathology Mean Cell 29.4 27.0 - 33.0 pg [facility] Hemoglobin [facility] Path[facility] Mean Cell Hgb 32.7 32 - 36 g/dL [facility] Conc [facility] Red Cell Dist 15.7 (H) 11.5 - 14.5 % [facility] Width [facility]ology Platelet Count 180 150 - 400 10*3/uL [facility] Pathology Specimen EDTA Whole Blood Performing Organization Address City/State/ZIP Code P fel[place] Number [facility] [address] [place], [place] [address] [facility] [address] [place], [place] [address] Clin Pathology * Protime-INR (05/29/2021 1:26 PM EDT) PT Patient 12.5 11.6 - 14.[address] [facility] Pathology Int'l 0.97Comment: Routine intensity ELIZABETH [facility] [place] Normalized oral anticoagulation INR is Med Univ Clin Ratio typically 2.0-3.0. Target INR Patholo gy must be clinically individualized. Specimen Plasma Performing Organization Address City/[facility]/ZIP Code P fel[place]o Number [facility] [address] [place], [place] [address] [address] Clin Pathology * Partial Thromboplastin Time (PTT) (05/29/2021 1:26 PM EDT) PTT 34.3 (H) 24.0 - 33.[address] [facility] Clin Pathology Specimen Plasma Performing Organization Address [facility] Code P fel[place]o Number [facility] [address] [place], [place] [address] [address] Clin Pathology * Comprehensive metabolic panel (05/29/2021 1:26 PM EDT) Albumin 4.8 3.5 - 5.2 g/dL [facility] Pathology Bilirubin, 0.3 <1.2 mg/dL [facility] Clin Pathology Calcium 9.5 8.8 - 10.2 mg/dL [facility]ology Chloride 97 (L) 98 - 107 mmol/L [facility]ology Creatinine 1.73 (H) 0.70 - 1.20 mg/dL [facility]ology Glucose 146 (H) 70 - 140 mg/dL [facility]ology Alkaline 68 40 - 129 U/L [facility] Phosphatase [facility] Pathology Potassium 4.7 3.4 - 5.1 mmol/L [facility]ology Total Protein 7.4 6.4 - 8.3 g/dL [facility]ology Sodium 133 (L) 136 - 145 mmol/L [facility] AST/SGO 16 <40 U/L [facility] Pathology Blood Urea 27 (H) 8 - 23 mg/dL [facility] Pathology Osmolality, Dominic 283 275.0 - 300.0 [facility] mosm/kg Med Univ Clin Pathology BUN/Cre Ratio 15 [facility]ology Bicarbonate 24 22 - 29 mmol/L [facility]ology ALT/SGP 13 <41 U/L [facility]ology Anion Gap 12 8 - 15 mmol/L [facility] Pathology GFR Non eGFR is not calculated in >60 mL/min/1.73m2 [facility] 2009 patients <18 or >80 years of [facility] Clin CDK-EPI age. Pathology GFR eGFR is not calculated in >60 mL/min/1.73m2 [facility] 2008 patients <18 or >80 years of [facility] Clin CKD-EPI age. Pathology Specimen Plasma Performing Organization Address City/State/ZIP Code P fel[place] Number [facility] [address] [place], [place] [address] [facility] [address] [place], [place] [address] Clin Pathology documented in this encounter Visit Diagnoses Diagnosis Malignant neoplasm of left kidney documented in this encounter
--- OUTSIDE RECORDS SUMMARY | 2021-08-20 21:04 | CCD ---
Author Author [facility] Organization [facility] Address Unknown Phone Unavailable Care Team Providers Care Manual Writer Name Role Phone Venessa Leal MD Unavailable Venessa Smith MD Unavailable Unavailable Venessa Leal MD Unavailable Unavailable Venessa Leal MD Unavailable Unavailable Venessa Leal MD Unavailable Unavailable Venessa Leal MD Unavailable Unavailable Venessa Leal MD Unavailable Unavailable Venessa Leal MD Unavailable Unavailable Venessa Leal MD Unavailable Venessa Smith MD Unavailable Venessa Smith MD Unavailable Venessa Smith MD Unavailable Venessa Smith MD Unavailable Venessa Smith MD Unavailable Venessa Smith MD Unavailable Venessa Smith MD Unavailable Venessa Smith MD Unavailable Venessa Smith MD Unavailable Venessa Smith MD Unavailable Venessa Smith MD Unavailable Venessa Smith MD Unavailable Venessa Smith MD Unavailable Venessa Smith MD Unavailable Unavailable Venessa Leal MD Unavailable Unavailable Venessa Leal MD Unavailable Unavailable BraVenessa soto MD Unavailable Unavailable BraVenessa soto MD Unavailable Unavailable BraVenessa soto MD Unavailable Unavailable BratsVenessa almendarez MD Unavailable Unavailable BratsVenessa almendarez MD Unavailable Unavailable BraVenessa soto MD Unavailable Unavailable BratsVenessa almendarez MD Unavailable Unavailable BraVenessa soto MD Unavailable Unavailable BratsVenessa almendarez MD Unavailable Unavailable BratsVenessa almendarez MD Unavailable Unavailable BratsVenessa almendarez MD Unavailable Unavailable BratslaGen danielnaorlando CURRY Unavailable Unavailable BratsVenessa almendarez MD Unavailable Unavailable BraVenessa soto MD Unavailable Unavailable BraVenessa soto MD Unavailable Unavailable BraVenessa soto MD Unavailable Unavailable BraVenessa soto MD Unavailable Unavailable Venessa Leal MD Unavailable Unavailable Venessa Leal MD Unavailable Unavailable BraVenessa soto MD Unavailable Unavailable Venessa Leal MD Unavailable Unavailable BraVenessa soto MD Unavailable Unavailable Venessa Leal MD Unavailable Unavailable Venessa Leal MD Unavailable Unavailable Venessa Leal MD Unavailable Unavailable Venessa Leal MD Unavailable Unavailable Venessa Leal MD Unavailable Unavailable Venessa Leal MD Unavailable Unavailable Venessa Leal MD Unavailable Unavailable Venessa Leal MD Unavailable Unavailable Venessa Leal MD Unavailable Unavailable Venessa Leal MD Unavailable Unavailable Venessa Leal MD Unavailable Unavailable Venessa Leal MD Unavailable Unavailable Venessa Leal MD Unavailable Unavailable Venessa Leal MD Unavailable Unavailable Venessa Leal MD Unavailable Unavailable Venessa Leal MD Unavailable Unavailable Venessa Leal MD Unavailable Unavailable Lino Alvarez SPREADER OPERATOR Unavailable Unavailable Lino Alvarez SPREADER OPERATOR Unavailable Unavailable Alvarez, C Nabila SPREADER OPERATOR Unavailable Unavailable Alvarez, C Nabila SPREADER OPERATOR Unavailable Unavailable Alvarez, C Nabila SPREADER OPERATOR Unavailable Unavailable Alvarez, C Nabila SPREADER OPERATOR Unavailable Unavailable Alvarez, C Nabila SPREADER OPERATOR Unavailable Unavailable Alvarez, C Nabila SPREADER OPERATOR Unavailable Unavailable Alvarez, C Nabila SPREADER OPERATOR Unavailable Unavailable Alvarez, C Nabila SPREADER OPERATOR Unavailable Unavailable Alvarez, C Nabila SPREADER OPERATOR Unavailable Unavailable Alvarez, C Nabila SPREADER OPERATOR Unavailable Unavailable Alvarez, C Nabila SPREADER OPERATOR Unavailable Unavailable Alvarez, C Nabila SPREADER OPERATOR Unavailable Unavailable Alvarez, C Nabila SPREADER OPERATOR Unavailable Unavailable Alvarez, C Nabila SPREADER OPERATOR Unavailable Unavailable Alvarez, C Nabila SPREADER OPERATOR Unavailable Unavailable Alvarez, C Anbila SPREADER OPERATOR Unavailable Unavailable Alvarez, C Nabila SPREADER OPERATOR Unavailable Unavailable Alvarez, C Nabila SPREADER OPERATOR Unavailable Unavailable Alvarez, C Nabila SPREADER OPERATOR Unavailable Unavailable Alvarez, C Nabila SPREADER OPERATOR Unavailable Unavailable Alvarez, C Nabila SPREADER OPERATOR Unavailable Unavailable Alvarez, C Nabila SPREADER OPERATOR Unavailable Unavailable Alvarez, C Nabila SPREADER OPERATOR Unavailable Unavailable Alvarez, C Nabila SPREADER OPERATOR Unavailable Unavailable Alvarez, C Nabila SPREADER OPERATOR Unavailable Unavailable Alvarez, C Nabila SPREADER OPERATOR Unavailable Unavailable Alvarez, C Nabila SPREADER OPERATOR Unavailable Unavailable Alvarez, C Nabila SPREADER OPERATOR Unavailable Unavailable [place], Darlene SPREADER OPERATOR Unavailable Unavailable [place], Darlene SPREADER OPERATOR Unavailable Unavailable [place], Darlene SPREADER OPERATOR Unavailable Unavailable [place], Darlene SPREADER OPERATOR Unavailable Unavailable [place], Darlene SPREADER OPERATOR Unavailable Unavailable [place], Darlene SPREADER OPERATOR Unavailable Unavailable [place], Darlene SPREADER OPERATOR Unavailable Unavailable [place], Darlene SPREADER OPERATOR Unavailable Unavailable [place], Darlene SPREADER OPERATOR Unavailable Unavailable [place], Darlene SPREADER OPERATOR Unavailable Unavailable [place], Darlene SPREADER OPERATOR Unavailable Unavailable [place], Darlene SPREADER OPERATOR Unavailable Unavailable [place], Darlene SPREADER OPERATOR Unavailable Unavailable [place], Darlene SPREADER OPERATOR Unavailable Unavailable [place], Darlene SPREADER OPERATOR Unavailable Unavailable [place], Darlene SPREADER OPERATOR Unavailable Unavailable [place], Darlene SPREADER OPERATOR Unavailable Unavailable [place], Darlene SPREADER OPERATOR Unavailable Unavailable [place], Darlene SPREADER OPERATOR Unavailable Unavailable [place], Darlene SPREADER OPERATOR Unavailable Unavailable [place], Darlene SPREADER OPERATOR Unavailable Unavailable [place], Darlene SPREADER OPERATOR Unavailable Unavailable [place], Darlene SPREADER OPERATOR Unavailable Unavailable [place], Darlene SPREADER OPERATOR Unavailable Unavailable [place], Darlene SPREADER OPERATOR Unavailable Unavailable [place], Darlene SPREADER OPERATOR Unavailable Unavailable [place], Darlene SPREADER OPERATOR Unavailable Unavailable [place], Darlene SPREADER OPERATOR Unavailable Unavailable [place], Darlene SPREADER OPERATOR Unavailable Unavailable [place], Darlene SPREADER OPERATOR Unavailable Unavailable [place], Darlene SPREADER OPERATOR Unavailable Unavailable [place], Darlene SPREADER OPERATOR Unavailable Unavailable [place], Darlene SPREADER OPERATOR Unavailable Unavailable [place], Darlene SPREADER OPERATOR Unavailable Unavailable [place], Darlene SPREADER OPERATOR Unavailable Unavailable [place], Darlene SPREADER OPERATOR Unavailable Unavailable SHAWN, RODNEY Unavailable Unavailable SHAWN, RODNEY Unavailable Unavailable SHAWN, RODNEY Unavailable Unavailable SHAWN, RODNEY Unavailable Unavailable SHAWN, RODNEY Unavailable Unavailable SHAWN, RODNEY Unavailable Unavailable Siddhartha PADGETT JR, MD Unavailable Unavailable Siddhartha PADGETT JR, MD Unavailable Unavailable Siddhartha PADGETT JR, MD Unavailable Unavailable Siddhartha PADGETT JR, MD Unavailable Unavailable Siddhartha PADGETT JR, MD Unavailable Unavailable Siddhartha PADGETT JR, MD Unavailable Unavailable Siddhartha PADGETT JR, MD Unavailable Unavailable Siddhartha PADGETT JR, MD Unavailable Unavailable Siddhartha PADGETT JR, MD Unavailable Unavailable Siddhartha PADGETT JR, MD Unavailable Unavailable Siddhartha PADGETT JR, MD Unavailable Unavailable Siddhartha PADGETT JR, MD Unavailable Unavailable Siddhartha PADGETT JR, MD Unavailable Unavailable Siddhartha PADGETT JR, MD Unavailable Unavailable Siddhartha PADGETT JR, MD Unavailable Unavailable Siddhartha PADGETT JR, MD Unavailable Unavailable Siddhartha PADGETT JR, MD Unavailable Unavailable Siddhartha PADGETT JR, MD Unavailable Unavailable Siddhartha PADGETT JR, MD Unavailable Unavailable Siddhartha PADGETT JR, MD Unavailable Unavailable Siddhartha PADGETT JR, MD Unavailable Unavailable CARSiddhartha JAVIER JR, MD Unavailable Unavailable CARTABITHAT Siddhartha KHANNA MD Unavailable Unavailable CARHART Siddhartha KHANNA MD Unavailable Unavailable CARHART Siddhartha KHANNA MD Unavailable Unavailable CARHART Siddhartha KHANNA MD Unavailable Unavailable CARHART Siddhartha KHANNA MD Unavailable Unavailable CARTABITHAT Siddhartha KHANNA MD Unavailable Unavailable CARSiddhartha JAVIER JR, MD Unavailable Unavailable CARTABITHAT iSddhartha KHANNA MD Unavailable Unavailable CARTABITHAT Siddhartha KHANNA MD Unavailable Unavailable CARTABITHAT Siddhartha KHANNA MD Unavailable Unavailable CARTABITHAT Siddhartha KHANNA MD Unavailable Unavailable CARSiddhartha JAVIER JR, MD Unavailable Unavailable CARSiddhartha JAVIER JR, MD Unavailable Unavailable CARSiddhartha JAVIER JR, MD Unavailable Unavailable CARSiddhartha JAVIER JR, MD Unavailable Unavailable CARSiddhartha JAVIER JR, MD Unavailable Unavailable CARSiddhartha JAVIER JR, MD Unavailable Unavailable CARSiddhartha JAVIER JR, MD Unavailable Unavailable CARSiddhartha JAVIER JR, MD Unavailable Unavailable CARSiddhartha JAVIER JR, MD Unavailable Unavailable CARSiddhartha JAVIER JR, MD Unavailable Unavailable CARSiddhartha JAVIER JR, MD Unavailable Unavailable CARSiddhartha JAVIER JR, MD Unavailable Unavailable CARSiddhartha JAVIER JR, MD Unavailable Unavailable CARSiddhartha JAVIER JR, MD Unavailable Unavailable CARSiddhartha JAVIER JR, MD Unavailable Unavailable CARSiddhartha JAVIER JR, MD Unavailable Unavailable CARSiddhartha JAVIER JR, MD Unavailable Unavailable CARSiddhartha JAVIER JR, MD Unavailable Unavailable CARSiddhartha JAVIER JR, MD Unavailable Unavailable CARSiddhartha JAVIER JR, MD Unavailable Unavailable CARSiddhartha JAVIER JR, MD Unavailable Unavailable CARSiddhartha JAVIER JR, MD Unavailable Unavailable CARSiddhartha JAVIER JR, MD Unavailable Unavailable CARSiddhartha JAVIER JR, MD Unavailable Unavailable CARSiddhartha JAVIER JR, MD Unavailable Unavailable CARSiddhartha JAVIER JR, MD Unavailable Unavailable CARSiddhartha JAVIER JR, MD Unavailable Unavailable CARSiddhartha JAVIER JR, MD Unavailable Unavailable CARSiddhartha JAVIER JR, MD Unavailable Unavailable CARSiddhartha JAVIER JR, MD Unavailable Unavailable CARSiddhartha JAVIER JR, MD Unavailable Unavailable CARSiddhartha JAVIER JR, MD Unavailable Unavailable CARSiddhartha JAVIER JR, MD Unavailable Unavailable CARSiddhartha JAVIER JR, MD Unavailable Unavailable CARSiddhartha JAVIER JR, MD Unavailable Unavailable CARSiddhartha JAVIER JR, MD Unavailable Unavailable CARSiddhartha JAVIER JR, MD Unavailable Unavailable CARSiddhartha JAVIER JR, MD Unavailable Unavailable CARHART JR, Siddhartha WOLFE MD Unavailable Unavailable CARHART JR, Siddhartha WOLFE MD Unavailable Unavailable CARHART JR, Siddhartha WOLFE MD Unavailable Unavailable CARHART JR, Siddhartha WOLFE MD Unavailable Unavailable CARHART JR, Siddharhta WOLFE MD Unavailable Unavailable CARHART JR, Siddhartha WOLFE MD Unavailable Unavailable CARHART JR, Siddhartha WOLFE MD Unavailable Unavailable CARHART JR, Siddhartha WOLFE MD Unavailable Unavailable CARHART JR, L YANETH CURRY Unavailable Unavailable CARHART JR, Siddhartha WOLFE MD Unavailable Unavailable CARHART JR, Siddhartha WOLFE MD Unavailable Unavailable CARHART JR, Siddhartha WOLFE MD Unavailable Unavailable CARHART JR, Siddhartha WOLFE MD Unavailable Unavailable CARHART JR, Siddhartha WOLFE MD Unavailable Unavailable CARHART JR, Siddhartha WOLFE MD Unavailable Unavailable CARHART JR, Siddhartha WOLFE MD Unavailable Unavailable CARHART JR, Siddhartha WOLFE MD Unavailable Unavailable Mejia Womack, Elena Bolanos MD, FACS Unavailable Unavailable Mejia Womack, Elena Bolanos MD, FACS Unavailable Unavailable Mejia Womack, Elena Bolanos MD, FACS Unavailable Unavailable Mejia Womack, Elena Bolanos MD, FACS Unavailable Unavailable Mejia Womack, Elena Bolanos MD, FACS Unavailable Unavailable Mejia Womack, Elena Bolanos MD, FACS Unavailable Unavailable Mejia Womack, Elena Bolanos MD, FACS Unavailable Unavailable Mejia Womack, Elena Bolanos MD, FACS Unavailable Unavailable Mejia Womack, Elena Bolanos MD, FACS Unavailable Unavailable Mejia Womack, Elena Bolanos MD, FACS Unavailable Unavailable Mejia Womack, Elena Bolanos MD, FACS Unavailable Unavailable Mejia Womack, Elena Bolanos MD, FACS Unavailable Unavailable Mejia Womack, Elena Bolanos MD, FACS Unavailable Unavailable Mejia Womack, Elena Bolanos MD, FACS Unavailable Unavailable Mejia Womack, Elena Bolanos MD, FACS Unavailable Unavailable Mejia Womack, Elena Bolanos MD, FACS Unavailable Unavailable Mejia Womack, Elena Bolanos MD, FACS Unavailable Unavailable Mejia Womack, Elena Bolanos MD, FACS Unavailable Unavailable Mejia Womack, Elena Bolanos MD, FACS Unavailable Unavailable Mejia Womack, Elena Bolanos MD, FACS Unavailable Unavailable Mejia Womack, Elena Bolanos MD, FACS Unavailable Unavailable Mejia Womack, Elena Bolanos MD, FACS Unavailable Unavailable Mejia Womack, Elena Bolanos MD, FACS Unavailable Unavailable Mejia Womack, Elena Bolanos MD, FACS Unavailable Unavailable Mejia Womack, Elena Bolanos MD, FACS Unavailable Unavailable Mejia Womack, Elena Bolanos MD, FACS Unavailable Unavailable Mejia Womack, Elena Bolanos MD, FACS Unavailable Unavailable Mejia Womack, Elena Bolanos MD, FACS Unavailable Unavailable Mejia Womack, Elena Bolanos MD, FACS Unavailable Unavailable Mejia Womack, Elena Bolanos MD, FACS Unavailable Unavailable Mejia Womack, Elena Bolanos MD, FACS Unavailable Unavailable Mejia Womack, Elena Bolanos MD, FACS Unavailable Unavailable Mejia Womack, Elena Bolanos MD, FACS Unavailable Unavailable Mejia Womack, Elena Bolanos MD, FACS Unavailable Unavailable Mejia Womack, Elena Bolanos MD, FACS Unavailable Unavailable Mejia Womack, Elena Bolanos MD, FACS Unavailable Unavailable Mejia Womack, Elena Bolanos MD, FACS Unavailable Unavailable Mejia Womack, Elena Bolanos MD, FACS Unavailable Unavailable Mejia Womack, Elena Bolanos MD, FACS Unavailable Unavailable Martin, Siddhartha Morgan MD Unavailable Unavailable Siddhartha Salazar MD Unavailable Unavailable Martin, Siddhartha Morgan MD Unavailable Unavailable Martin, Siddhartha Morgan MD Unavailable Unavailable Martin, Siddhartha Morgan MD Unavailable Unavailable Martin, Siddhartha Morgan MD Unavailable Unavailable Salazar, Siddhartha Morgan MD Unavailable Unavailable Salazar, Siddhartha Morgan MD Unavailable Unavailable Salazar, Siddhartha Morgan MD Unavailable Unavailable Martin, Siddhartha Morgan MD Unavailable Unavailable Martin, Siddhartha Morgan MD Unavailable Unavailable Siddhartha SU Unavailable Unavailable Womack, Carlton Unavailable Unavailable Womack, Carlton Unavailable Unavailable Womack, Carlton Unavailable Unavailable Womack, Carlton Unavailable Unavailable Womack, Carlton Unavailable Unavailable Womack, Carlton Unavailable Unavailable Womack, Carlton Unavailable Unavailable Womack, Carlton Unavailable Unavailable Womack, Carlton Unavailable Unavailable Womack, Carlton Unavailable Unavailable Womack, Carlton Unavailable Unavailable Womack, Carlton Unavailable Unavailable Womack, Carlton Unavailable Unavailable Womack, Carlton Unavailable Unavailable Womack, Carlton Unavailable Unavailable Womack, Carlton Unavailable Unavailable Womack, Carlton Unavailable Unavailable Womack, Carlton Unavailable Unavailable Wmoack, Carlton Unavailable Unavailable Womack, Carlton Unavailable Unavailable Womack, Carlton Unavailable Unavailable Womack, Carlton Unavailable Unavailable Womack, Carlton Unavailable Unavailable Womack, Carlton Unavailable Unavailable Womack, Carlton Unavailable Unavailable Womack, Carlton Unavailable Unavailable Womack, Carlton Unavailable Unavailable Womack, Carlton Unavailable Unavailable Womack, Carlton Unavailable Unavailable Womack, Carlton Unavailable Unavailable Womack, Carlton Unavailable Unavailable Womack, Carlton Unavailable Unavailable Womack, Carlton Unavailable Unavailable Womack, Carlton Unavailable Unavailable Womack, Carlton Unavailable Unavailable Womack, Carlton Unavailable Unavailable Womack, Carlton Unavailable Unavailable Womack, Carlton Unavailable Unavailable Womack, Carlton Unavailable Unavailable Womack, Carlton Unavailable Unavailable Womack, Carlton Unavailable Unavailable Womack, Carlton Unavailable Unavailable Womack, Carlton Unavailable Unavailable Womack, Carlton Unavailable Unavailable Womack, Carlton Unavailable Unavailable Womack, Carlton Unavailable Unavailable Womack, Carlton Unavailable Unavailable Womack, Carlton Unavailable Unavailable Womack, Carlton Unavailable Unavailable Womack, Carlton Unavailable Unavailable Womack, Carlton Unavailable Unavailable Womack, Carlton Unavailable Unavailable Womack, Carlton Unavailable Unavailable Womack, Carlton Unavailable Unavailable Womack, Carlton Unavailable Unavailable Womack, Carlton Unavailable Unavailable Womack, Carlton Unavailable Unavailable Womack, Carlton Unavailable Unavailable Womack, Carlton Unavailable Unavailable Womack, Carlton Unavailable Unavailable Womack, Carlton Unavailable Unavailable Womack, Carlton Unavailable Unavailable Womack, Carlton Unavailable Unavailable Womack, Carlton Unavailable Unavailable Womack, Carlton Unavailable Unavailable Womack, Carlton Unavailable Unavailable Womack, Carlton Unavailable Unavailable Womack, Carlton Unavailable Unavailable Womack, Carlton Unavailable Unavailable Womack, Carlton Unavailable Unavailable Womack, Carlton Unavailable Unavailable Womack, Carlton Unavailable Unavailable Womack, Carlton Unavailable Unavailable Womack, Carlton Unavailable Unavailable Womack, Carlton Unavailable Unavailable Womack, Carlton Unavailable Unavailable Womack, Carlton Unavailable Unavailable Womack, Carlton Unavailable Unavailable Womack, Carlton Unavailable Unavailable EANNIELLO, L ADEN EMPLOYMENT LAW SPECIALIST Unavailable Unavailable EANNIELLO, L ADEN EMPLOYMENT LAW SPECIALIST Unavailable Unavailable EANNIELLO, L ADEN EMPLOYMENT LAW SPECIALIST Unavailable Unavailable EANNIELLO, L ADEN EMPLOYMENT LAW SPECIALIST Unavailable Unavailable EANNIELLO, L ADEN EMPLOYMENT LAW SPECIALIST Unavailable Unavailable EANNIELLO, L ADEN EMPLOYMENT LAW SPECIALIST Unavailable Unavailable EANNIELLO, L ADEN EMPLOYMENT LAW SPECIALIST Unavailable Unavailable EANNIELLO, L ADEN EMPLOYMENT LAW SPECIALIST Unavailable Unavailable EANNIELLO, L ADEN EMPLOYMENT LAW SPECIALIST Unavailable Unavailable EANNIELLO, L ADEN EMPLOYMENT LAW SPECIALIST Unavailable Unavailable EANNIELLO, L ADEN EMPLOYMENT LAW SPECIALIST Unavailable Unavailable EANNIELLO, L ADEN EMPLOYMENT LAW SPECIALIST Unavailable Unavailable EANNIELLO, L ADEN EMPLOYMENT LAW SPECIALIST Unavailable Unavailable EANNIELLO, L ADEN EMPLOYMENT LAW SPECIALIST Unavailable Unavailable EANNIELLO, L ADEN EMPLOYMENT LAW SPECIALIST Unavailable Unavailable EANNIELLO, L ADEN EMPLOYMENT LAW SPECIALIST Unavailable Unavailable EANNIELLO, L ADEN EMPLOYMENT LAW SPECIALIST Unavailable Unavailable EANNIELLO, L ADEN EMPLOYMENT LAW SPECIALIST Unavailable Unavailable EANNIELLO, L ADEN EMPLOYMENT LAW SPECIALIST Unavailable Unavailable EANNIELLO, L ADEN EMPLOYMENT LAW SPECIALIST Unavailable Unavailable EANNIELLO, L ADEN EMPLOYMENT LAW SPECIALIST Unavailable Unavailable EANNIELLO, L ADEN EMPLOYMENT LAW SPECIALIST Unavailable Unavailable EANNIELLO, L ADEN EMPLOYMENT LAW SPECIALIST Unavailable Unavailable EANNIELLO, L ADEN EMPLOYMENT LAW SPECIALIST Unavailable Unavailable EANNIELLO, L ADEN EMPLOYMENT LAW SPECIALIST Unavailable Unavailable EANNIELLO, L ADEN EMPLOYMENT LAW SPECIALIST Unavailable Unavailable EANNIELLO, L ADEN EMPLOYMENT LAW SPECIALIST Unavailable Unavailable EANNIELLO, L ADEN EMPLOYMENT LAW SPECIALIST Unavailable Unavailable EANNIELLO, L ADEN EMPLOYMENT LAW SPECIALIST Unavailable Unavailable EANNIELLO, L ADEN EMPLOYMENT LAW SPECIALIST Unavailable Unavailable EANNIELLO, L ADEN EMPLOYMENT LAW SPECIALIST Unavailable Unavailable EANNIELLO, L ADEN EMPLOYMENT LAW SPECIALIST Unavailable Unavailable EANNIELLO, L ADEN EMPLOYMENT LAW SPECIALIST Unavailable Unavailable EANNIELLO, L ADEN EMPLOYMENT LAW SPECIALIST Unavailable Unavailable Siddhartha UMAZNOR BILLIE Unavailable Unavailable Re-disclosure Warning The records that you are about to access may contain information from federally-assisted alcohol or drug abuse programs. If such information is present, then the following federally mandated warning applies: This information has been disclosed to you from records protected by federal confidentiality rules (42 CFR part 2). The federal rules prohibit you from making any further disclosure of this information unless further disclosure is expressly permitted by the written consent of the person to whom it pertains or as otherwise permitted by 42 CFR part 2. A general authorization for the release of medical or other information is NOT sufficient for this purpose. The Federal rules restrict any use of the information to criminally investigate or prosecute any alcohol or drug abuse patient.The records that you are about to access may contain highly sensitive health information, the redisclosure of which is protected by Article 27-F of the [facility] Public Health law. If you continue you may have access to information: Regarding HIV / AIDS; Provided by facilities licensed or operated by the [facility] Office of Mental Health; or Provided by the [facility] Office for People With Developmental Disabilities. If such information is present, then the following [facility] mandated warning applies: This information has been disclosed to you from confidential records which are protected by state law. State law prohibits you from making any further disclosure of this information without the specific written consent of the person to whom it pertains, or as otherwise permitted by law. Any unauthorized further disclosure in violation of state law may result in a fine or residential sentence or both. A general authorization for the release of medical or other information is NOT sufficient authorization for further disc losure. Allergies and Adverse Reactions Type Description Substance Reaction Status Data Source(s ) Propensity to adverse reactions NO KNOWN ALLERGIES NO KNOWN ALLERGIES [facility] Allergy to substance No Known Allergies No known allergies (situation ) LEATHA ([facility] W[facility]) Family History Family Member Name Family Member Gender Family Member Status Date o f Status Description Data Source(s) Unknown Male Problem MEDENT ([facility] Unknown Unknown Problem [facility] ([facility], ) Unknown Female Unknown Female Problem [facility] ([facility]) Unknown Female Problem [facility] ([facility]) Encounters Encounter Providers Location Date Indications Data Source(s ) Outpatient Attender: RODNEY SHAWN Main Office 07/06/2021 09:00:00 A M EDT [facility] ([facility]) Outpatient Attender: Evelia GARCÍA Main Office 07/04/2021 12:15:00 PM EDT [facility] ([facility]) Outpatient Attender: Venessa Leal MD [id number] 06/28/2021 12:00:00 AM EDT - 06/28/2021 01:46:39 PM EDT [facility] Outpatient Attender: ADEN UMANZOR NP [id number] 12/2020 12:00:00 AM EDT - 06/19/2021 12:08:04 PM EDT [facility] Inpatient Attender: Venessa Leal MDAdmitter : Venessa Leal MD [id number] 06/02/2021 12:00:00 AM EDT - 06/04/2021 06:03:00 PM T [facility] Patient discharged. Outpatient Attender: Cathy Salazar MDReferrer: Venessa pantoja MD 06/01/2021 12:00:00 AM EDT [facility] pretest Outpatient Attender: YANETH PADGETT JRReferrer: YANETH OMALLEY JR [id number] 05/31/2021 02:19:06 PM EDT - 05/31/2021 03:37:07 PM T [facility] Outpatient Attender: Nabila HERNANDEZP Attender: ROBINA SUReferrer: Nabila GARCÍA 05/31/2021 12:00:00 AM EDT Encounter for screening for other viral diseases [facility] Encounter for screening for other viral diseases Outpatient Referrer: Carlton Womack 05/31/2021 12:00:0 0 AM EDT Other specified disorders of kidney and ureter [facility] Other specified disorders of kidney and ureter Outpatient Attender: Venessa Leal MD A-XXHAURO 05/31/2021 12:00:00 AM EDT [facility] Outpatient Attender: Carlton Womack -XXHAURO 12:00:00 AM EDT - 05/29/2021 01:20:31 PM EDT [facility] Outpatient Referrer: ADEN UMANZOR NP 05/29/2021 1 2:00:00 AM EDT Malignant neoplasm of left kidney, except renal pelvis [facility] Malignant neoplasm of left kidney, excep t renal pelvis [place] [address] [facility] [address] 05/23/2021 12:00:00 AM EDT [facility] [place] [address] [facility] [address] 05/23/2021 12:00:00 AM EDT [facility] [place] [address] [facility] [address] 05/02/2021 12:00:00 AM EDT eCW1 ([facility]) [place] [address] [facility] [place] [address] 04/10/2021 12:00:00 AM EDT eCW1 ([facility]) Unknown [address] [facility] [address] 04/05/2021 12:00:00 AM EDT eCW1 ([facility]) Unknown [address] [facility] [address] 03/08/2021 12:00:00 AM EDT eCW1 ([facility]) Unknown [address] [facility] [address] 02/27/2021 12:00:00 AM EDT eCW1 ([facility]) Outpatient<td ID="encounterTypeDescripti onID0">1 Year Follow-Up</td><td>Luis Miguel Benitez MD, FACS</td><td>Luis Miguel Benitez MD [facility]</td><td>01/11/2021</td><td>12:27PM</td><td>08/05/2019 11:59PM</td><td><content ID="encounterDiagnosisID0-0">Pseudophakia</content>, <content ID="encounterDiagnosisID0-1">Taking Medication For Diabetes Long-term Use of Insulin</content>, <content ID="encounterDiagnosisID0-2">Assessment of Taking Medication For Diabetes Long-term Use of Oral Hypoglycemics</content>, <content ID="encounterDiagnosisID0-3">Posterior Capsule Opacification Eccentric Capsule Right Eye</content>, <content ID="encounterDiagnosisID0-4">Diabetes Mellitus Type 2 Without Complication</content>, <content ID="encounterDiagnosisID0-5">Macular Degeneration Nonexudative Bilateral Early Dry Stage</content></td> Attender: Luis Miguel Womack MD, FACS Luis Miguel Salomon [facility] 01/11/2021 12:27:00 PM EDT - 08/05/2019 11:59:00 PM ES T Taking Medication For Diabetes Long-term Use of InsulinAssessment of Taking Medication For Diabetes Long-term Use of Oral HypoglycemicsMacular Degeneration Nonexudative Bilateral Early Dry StagePosterior Capsule Opacification Eccentric Capsule Right EyePseudophakiaDiabetes Mellitus Type 2 Without Complication [place] (Luis Miguel Womack MD [facility]) Taking Medication For Diabetes Long-term Use of Insulin Assessment of Taking Medication For Diab etes Long-term Use of Oral Hypoglycemics Macular Degeneration Nonexudative Bilate ral Early Dry Stage Posterior Capsule Opacification Eccentri c Capsule Right Eye Pseudophakia Diabetes Mellitus Type 2 Without Complic ation Unknown [address] [facility] [address] 12/26/2020 12:00:00 AM EDT eCW1 ([facility]) Outpatient [address] [facility] [address] 11/02/2020 12:00:00 AM EST eCW1 ([facility]) Unknown [address] [facility] [address] 08/22/2020 12:00:00 AM EST eCW1 ([facility]) Immunizations Vaccine Date Status Description Data Source(s) COVID-19 VACCINE Moderna 07/10/2021 12:00:00 AM EDT completed [employer] Vaccine Series Complete: NOThis Data was Submitted to [facility] Via [employer]. IIV3. This is one of two codes replacing CVX 15, which is being retired. 06/22/2020 06:03:00 AM EDT completed eCW1 (On license of [facility]) IIV3. This is one of two codes replacing CVX 15, which is being retired. 06/22/2020 06:03:00 AM EDT completed eCW1 (On license of [facility]) IIV3. This is one of two codes replacing CVX 15, which is being retired. 06/22/2020 06:03:00 AM EDT completed eCW1 (On license of [facility]) IIV3. This is one of two codes replacing CVX 15, which is being retired. 06/22/2020 06:03:00 AM EDT completed eCW1 (On license of [facility]) IIV3. This is one of two codes replacing CVX 15, which is being retired. 06/22/2020 06:03:00 AM EDT completed eCW1 (On license of [facility]) IIV3. This is one of two codes replacing CVX 15, which is being retired. 06/22/2020 06:03:00 AM EDT completed eCW1 (On license of [facility]) IIV3. This is one of two codes replacing CVX 15, which is being retired. 06/22/2020 06:03:00 AM EDT completed eCW1 (On license of [facility]) IIV3. This is one of two codes replacing CVX 15, which is being retired. 06/22/2020 06:03:00 AM EDT completed eCW1 (On license of [facility]) IIV3. This is one of two codes replacing CVX 15, which is being retired. 06/22/2020 06:03:00 AM EDT completed eCW1 (On license of [facility]) Medications Medication Brand Name Start Date Product Form Dose Route Admi nistrative Instructions Pharmacy Instructions Status Indications Reaction Description Data Source(s) valacyclovir 1000 MG Oral Tablet Valacyclovir HCL 07/04/2021 12:00: 00 AM EDT ORAL active [facility] ([facility]) tramadol hydrochloride 50 MG Oral Tablet traMADol HCl 50 MG Oral Tablet (ULTRAM) traMADol HCl 50 MG Oral Tablet (ULTRAM) 06/04/2021 12:00:00 AM EDT 50 mg Oral active Take 1 tablet b y mouth every 8 (eight) hours as needed for Pain for up to 3 days, Max Daily Dose: 150 mg [facility] Acetaminophen 325 MG Oral Tablet acetaminophen (TYLENO L) tablet 650 mg acetaminophen (TYLENOL) tablet 650 mg 06/03/2021 08:00:00 PM EDT 65 0 mg Oral active 650 mg, Oral, E very 6 hours, First dose on 06/03/21 at 2000, For 30 days
Maximum daily dose of acetaminophen is 3,000 mg from all sources in 24 hours.
[facility] Medication administered onsite insulin lispro (HumaLOG) injection LOW DOSE EATING INS ULIN patients 1-8 Units 37901-985-92 06/03/2021 01:00:00 PM EDT U Subcutaneous active 1-8 Units, Subcutaneous, Three Times Daily-With Meals, First dose on 06/03/21 at 1300, For 30 days
Nursing MUST open the 'SQ Insulin Dosing Charts' Sidebar Report, or, the Patient Summary or Summary Report within the ED.
[facility] Medication administered onsite hypromellose 25 MG/ML Ophthalmic Solutio n hydroxypropyl methylcellulose (GONIOSOL) 2.5 % ophthalmic solution 1 drop hydroxypropyl methylcellulose (GONIOSOL) 2.5 % ophthalmic solution 1 drop 06/03/2021 11:15:47 AM EDT 1 [drp] Both Eyes active 1 drop, Brandan th Eyes, PRN, Dry Eyes, Starting on 06/03/21 at 1115, For 30 days [facility] Medication administered onsite atorvastatin 40 MG Oral Tablet atorvastatin (LIPITOR) tablet 40 mg atorvastatin (LIPITOR) tablet 40 mg 06/03/2021 09:00:00 AM EDT 40 mg Oral active 40 mg, Oral, Every other day, First dose on 06/03/21 at 0900, For 30 days [facility] Medication administered onsite magnesium sulfate in dextrose 5 % infusion (premix) 1 g 0409 -6727-23 06/03/2021 05:45:00 AM EDT 1 g Intravenous completed 1 g, Intravenous, Administer over 60 Minutes, Once, On Sat06/03/21 at 0545, For 1 dose [facility] Medication administered onsite doxepin (SINEQUAN) capsule 75 mg 06/02/2021 10:00:00 PM EDT 75 mg Oral active 75 mg, Oral, Nightly, First dose on Sat06/02/21 at 2200, For 7 days [facility] Medication administered onsite Melatonin 5 MG Oral Tablet melatonin tablet 10 mg melatonin tablet 10 mg 06/02/2021 10:00:00 PM EDT 10 mg Oral active 10 mg, Oral, Nightly, First dose on Sat06/02/21 at 2200, For 30 days [facility] Medication administered onsite Docusate Sodium 100 MG Oral Capsule docusate sodium (C OLACE) capsule 100 mg docusate sodium (COLACE) capsule 100 mg 06/02/2021 09:00:00 PM EDT 100 mg Oral active 100 mg, Oral, 2 Times Daily, First dose on Sat06/02/21 at 2100, For 30 days [facility] Medication administered onsite gabapentin 400 MG Oral Capsule gabapentin (NEURONTIN) capsule 400 mg gabapentin (NEURONTIN) capsule 400 mg 06/02/2021 09:00:00 PM EDT 400 mg Oral active Neuropathic Pain 400 mg, Oral, 2 Times Daily, Indications: Neuropathic Pain, First dose (after last modification) on Sat06/02/21 at 2100, For 30 days [facility] Neuropathic Pain Medication administered onsite fentaNYL (SUBLIMAZE) (PF) injection 50 mcg 6308-5789-95 06/02/2021 05:30:00 PM EDT 50 ug Intravenous completed 50 mcg, Intravenous, Once, On Sat06/02/21 at 1730, For 1 dose [facility] Medication administered onsite oxyCODONE (ROXICODONE) immediate release tablet 5 mg 06/02/2021 05:24:41 PM EDT 5 mg Oral active [Order 1 Start] Name: oxyCODONE (ROXICODONE) immediate release tablet 5 mg Signed Summary: 5 mg, Oral, Every 4 hours PRN, Moderate Pain (Pain Scale Score 4-6), Starting on Sat06/02/21 at 1724, For 70 hours
Oxycodone immediate release is limited to 10 mg per dose. Higher doses ( only) require Pain Service consultation and approval.
[Order 1 End] [Order 2 Start] Name: oxyCODONE (ROXICODONE) immediate release tablet 10 mg Signed Summary: 10 mg, Oral, Every 4 hours PRN, Severe Pain (Pain Scale Score 7-10), Starting on Sat06/02/21 at 1724, For 70 hours
Oxycodone immediate release is limited to 10 mg per dose. Higher doses ( only) require Pain Service consultation and approval.
[Order 2 End] [facility] Medication administered onsite fentaNYL (SUBLIMAZE) (PF) injection 25 mcg [id number] 06/02/2021 05:24:06 PM EDT 25 ug Intravenous active 25 m cg, Intravenous, Every 2 hours PRN, breakthrough pain, Starting on Sat06/02/21 at 1724, For 70 hours [facility] Medication administered onsite heparin (porcine) 5000 UNIT/ML injection 5,000 Units 10164-9 47-10 06/02/2021 05:00:00 PM EDT 5000 U Subcutaneous active 5,000 Units, Subcutaneous, Three Times Daily Standard, First dose on Sat06/02/21 at 1700, For 30 days [facility] Medication administered onsite Acetaminophen 10 MG/ML Injectable Soluti on acetaminophen (OFIRMEV) infusion 1,000 mg acetaminophen (OFIRMEV) infusion 1,000 mg 06/02/2021 04:30:00 PM EDT 1000 mg Intravenous aborted 1,000 mg , Intravenous, Administer over 15 Minutes, Every 8 hours, First dose on Sat06/02/21 at 1630, For 4 doses
Maximum daily dose of acetaminophen from all sources 3,000 mg daily.
[facility] Medication administered onsite lidocaine (LIDODERM) 5 % patch 1 patch [id number] 04:30:00 PM EDT 1 {patch} Transdermal active 1 patch, T ransdermal, Every 24 hours, First dose on Sat06/02/21 at 1630, For 30 days
Apply to abdomen 12 hours on - 12 hours off
[facility] Medication administered onsite Glucose 0.417 MG/MG Oral Gel glucose (GLUTOSE) 40 % or al gel 15 g glucose (GLUTOSE) 40 % oral gel 15 g 06/02/2021 04:17:27 PM EDT 15 g Oral active 15 g, Oral, PRN, Low blood s ugar, for gluose 55-69 mg/dl and able to take PO, Starting on Sat06/02/21 at 1617, For 30 days [facility] Medication administered onsite Glucagon 1 MG Injection glucagon (human recombinant) ( GLUCAGEN) injection 1 mg glucagon (human recombinant) (GLUCAGEN) injection 1 mg 06/02/2021 04:17:27 PM EDT 1 mg Intramuscular active 1 mg, Intramuscular, PRN, for glucose <55 without IV access, Starting on Sat06/02/21 at 1617, For 30 days [facility] Medication administered onsite dextrose 50 % IV solution 25 mL [id number] 06/02/2021 04:17:27 PM E DT 25 mL Intravenous active 25 mL, Intrav enous, PRN, Other, blood glucose <55, Starting on Sat06/02/21 at 1617, For 30 days
Not for midline administration.
[facility] Medication administered onsite ondansetron (ZOFRAN) injection 4 mg [id number] 06/02/2021 04:17:1 4 PM EDT 4 mg Intravenous active 4 mg, In travenous, Every 8 hours PRN, Nausea, Starting on Sat06/02/21 at 1617, For 5 days [facility] Medication administered onsite Calcium Chloride 0.0014 MEQ/ML / Potassi um Chloride 0.004 MEQ/ML / Sodium Chloride 0.103 MEQ/ML / Sodium Lactate 0.028 MEQ/ML Injectable Solution lactated ringers infusion lactated ringers infusion 06/02/2021 03:15:00 PM EDT 50 mL/h Intravenous active at 50 mL/hr, Intravenous, Continuous, Starting on Sat06/02/21 at 1515, For 30 days [facility] Medication administered onsite fentaNYL (SUBLIMAZE) (PF) injection 25 mcg [id number] 06/02/2021 01:43:24 PM EDT 25 ug Intravenous aborted 25 m cg, Intravenous, Every 5 min PRN, Severe Pain (Pain Scale Score 7-10), Starting on Sat06/02/21 at 1343, For 10 doses, Recovery [facility] Medication administered onsite heparin (porcine) 5000 UNIT/ML injection 5,000 Units [id number] 47-10 06/02/2021 07:15:00 AM EDT 5000 U Subcutaneous completed 5,000 Units, Subcutaneous, Once, On Sat06/02/21 at 0715, For 1 dose, Pre-op [facility] Medication administered onsite sodium chloride (preservative free) 0.9 % flush 3 mL 32625-3 86-00 06/02/2021 06:48:08 AM EDT 3 mL Intravenous aborted 3 mL, Intravenous, Every 8 hours, First dose on Sat06/02/21 at 0700, For 30 days, Pre-op
Saline Lock. Flush Q8H and after each use to Saline Lock.
[facility] Medication administered onsite Melatonin 0.2 MG Oral Tablet Melatonin 200 MCG Oral Ta blet Melatonin 200 MCG Oral Tablet 01/11/2021 12:00:00 AM EDT 1 active melatonin 0.2 MG Oral Tablet [facility] (Luis Miguel Womack MD [facility]) empagliflozin 25 MG Oral Tablet [Jardiance] Jardiance 25 MG Jardiance 25 MG 12/26/2020 12:00:00 AM EDT 1.0 {tablet} active Jardiance 25 MG eCW1 ([facility]) empagliflozin 25 MG Oral Tablet [Jardiance] Jardiance 25 MG Jardiance 25 MG 12/26/2020 12:00:00 AM EDT 1.0 {tablet} active Jardiance 25 MG eCW1 ([facility]) empagliflozin 25 MG Oral Tablet [Jardiance] Jardiance 25 MG Jardiance 25 MG 12/26/2020 12:00:00 AM EDT 1.0 {tablet} active Jardiance 25 MG eCW1 ([facility]) empagliflozin 25 MG Oral Tablet [Jardiance] Jardiance 25 MG Jardiance 25 MG 12/26/2020 12:00:00 AM EDT 1.0 {tablet} active Jardiance 25 MG eCW1 ([facility]) empagliflozin 25 MG Oral Tablet [Jardiance] Jardiance 25 MG Jardiance 25 MG 12/26/2020 12:00:00 AM EDT 1.0 {tablet} active Jardiance 25 MG eCW1 ([facility]) empagliflozin 25 MG Oral Tablet [Jardiance] Jardiance 25 MG Jardiance 25 MG 12/26/2020 12:00:00 AM EDT 1.0 {tablet} active Jardiance 25 MG eCW1 ([facility]) empagliflozin 25 MG Oral Tablet [Jardiance] Jardiance 25 MG Jardiance 25 MG 12/26/2020 12:00:00 AM EDT 1.0 {tablet} active Jardiance 25 MG eCW1 ([facility]) empagliflozin 25 MG Oral Tablet [Jardiance] Jardiance 25 MG Jardiance 25 MG 12/26/2020 12:00:00 AM EDT 1.0 {tablet} active Jardiance 25 MG eCW1 ([facility]) 0.5 ML dulaglutide 1.5 MG/ML Auto-Inject or [Trulicity] Trulicity 0.75MG/0.5ML Subcutaneous Solution Pen-injector Trulicity 0.75MG/0.5ML Subcutaneous Solu tion Pen-injector 04/07/2018 12:00:00 AM EDT 1 abort ed 0.5 ML dulaglutide 1.5 MG/ML Auto-Injector [Trulicity] [facility] (Luis Miguel Womack MD [facility]) Melatonin 0.2 MG Oral Tablet Melatonin 200 MCG OR TABS Melatonin 200 MCG OR TABS 01/16/2013 12:00:00 AM EDT 1 aborted melatonin 0.2 MG Oral Tablet [facility] (Luis Miguel Womack MD [facility]) Insurance Providers Payer name Policy type / Coverage type Policy ID Covered alliance party ID Covered alliance party's relationship to tinsley Policy [place] Plan Information MEDICARE [id number] SP [id number] A MEDICARE A [id number] Self [id number] MEDICARE A [id number] Self [id number] A Lifetime Benefit Solution Medigap Part B [id number] Self [place] Primary [id number] Self Lifetime Benefit Solution Medigap Part B [id number] Self EXCELLUS C [id number] Self [id number] BCBS of [facility] Other 0 [id number] Self 0 EXCELLUS C [id number] Self [id number] [facility] Other 0 [id number] Self 0 [place]/307 [id number] SP [id number] DME Jurisdiction A [facility] C [id number] SELF [id number] Medicare C [id number] SELF [id number] A [place]/307 [id number] SP [id number] Blue Cross Blue Shield P [id number] SELF [id number] ANSI-Commercial [id number] ANSI-Medicare Part B [id number] [place] Med[place] Part B [id number] Self [id number] Medicare Medicare Primary [id number] Self [id number] BS [place] Medigap Part B [id number] Self [id number] Medicare Medicare Primary [id number] Self [id number] ANSI-Commercial [id number] ANSI-Medicare Part B [id number] ANSI-Commercial [id number] ANSI-Medicare Part B [id number] ANSI-Commercial [id number] ANSI-Medicare Part B [id number] MEDICARE [id number] SP [id number] A [place]/307 [id number] SP [id number] ANSI-Medicare Part B [id number] ANSI-Commercial [id number] ANSI-Medicare Part B [id number] ANSI-Commercial [id number] ANSI-Commercial [id number] ANSI-Medicare Part B [id number] MEDICARE [id number] SP [id number] A [employer] BCBS Medigap Part B [id number] Self [id number] [employer] Medigap Part B [id number] Self [id number] Medicare [place] Medicare Primary [id number] Self [id number] ANSI-Medicare Part B [id number] ANSI-Commercial [id number] MEDICARE C [id number] S [id number] A MEDICARE [id number] SP [id number] A BS Of [place] [facility] Part B [id number] Self Medicare [place] Medicare Primary [id number] Self [place] [employer] 910 Commercial [id number] Self EXCELLUS BC-BS PPO 306 [id number] SP [id number] EXCELLUS BS B [id number] S [id number] LIFETIME BENEFIT SOLUTIO O [id number] S [id number] MEDICARE C [id number] S [id number] A LIFETIME BENEFIT SOLUTIONS UNAVAILABLE UNAVAILABLE LIFETIME BENEFIT SOLUTIONS [id number] SP [id number] Lifetime Benefit Solutions [id number] Self [employer] MED[employer] CLAIMS [id number] SP [id number] [employer] S [id number] S [id number] A MEDICARE [id number] SP [id number] [place] PPO 302/307 [id number] SP [id number] BCBS [place] P[place] 302/307 [id number] SP [id number] Medicare Part B [facility] Other 0 [id number] Self 0 MEDICARE C [id number] S [id number] EXCELLUS BCBS B [id number] S [id number] Medicare Part B [facility] Other 0 [id number] S elf 0 ANSI-Commercial [id number] ANSI-Medicare Part B [id number] ANSI-Medicare Part B [id number] ANSI-Commercial [id number] ANSI-Commercial [id number] ANSI-Medicare Part B [id number] ANSI-Medicare Part B [id number] ANSI-Commercial [id number] Problems, Conditions, and Diagnoses Code Display Name Description Problem Type Effective Dates Data Source(s) pretest pretest Diagnosis 06/01/2021 12:00:00 AM ED [facility] Z11.59 Encounter for screening for other viral diseases Encounter for screening for other viral diseases Diagnosis 05/31/2021 12:47:56 PM [facility] N28.89 Other specified disorders of kidney and ureter Other specified disorders of kidney and ureter Diagnosis 05/30/2021 10:38:02 AM T [facility] C64.2 Malignant neoplasm of left kidney, 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, except renal pelvis Diagnosis 05/29/2021 01:26:04 PM E [facility] N18.32 [id number] Chronic kidney disease, stage 3b Problem 05/03/2021 12:00:00 AM EDT eCW1 ([facility]) Surgeries/Procedures Procedure Description Date Indications Data Source(s) DESTRUCTION PREMALIGNANT LESION 1ST 07/06/2021 12:00:0 0 AM [facility] DESTRUCTION PREMALIGNANT LESION 2-14 EA 07/06/2021 12: 00:00 AM [facility] OFFICE OUTPATIENT VISIT 25 MINUTES 07/06/2021 12:00:00 AM EDT [facility] ([facility]) Shave Biopsy Of Skin, Single Lesion 07/04/2021 12:00:0 0 AM EDT [facility] ([facility]) OFFICE OUTPATIENT VISIT 25 MINUTES 07/04/2021 12:00:00 AM EDT [facility] ([facility]) POCT GLUCOSE, DOCKED <td>POCT GLUCOSE, DOCKED</td ><td>Routine</td><td>06/04/2021 1:03 PM EDT</td><td></td><td> </td> 06/04/2021 01:03:00 PM [facility] POCT GLUCOSE, DOCKED <td>POCT GLUCOSE, DOCKED</td ><td>Routine</td><td>06/04/2021 8:42 AM EDT</td><td></td><td> </td> 06/04/2021 08:42:00 AM [facility] XR CHEST FRONTAL ONLY [id number] <td>XR CHEST FRONTAL ONLY [id number]</td><td>Routine</td><td>06/04/2021 5:29 AM EDT</td><td></td><td> </td> 06/04/2021 05:29:00 AM [facility] BLOOD COUNT COMPLETE AUTOMATED <td>CBC</td><td>Routine </td><td>06/04/2021 5:00 AM EDT</td><td></td><td> </td> 06/04/2021 05:00:00 AM [facility] PHOSPHORUS INORGANIC <td>PHOSPHORUS LEVEL</td><td >Routine</td><td>06/04/2021 5:00 AM EDT</td><td></td><td> </td> 06/04/2021 05:00:00 AM [facility] MAGNESIUM <td>MAGNESIUM LEVEL</td><td> Routine</td><td>06/04/2021 5:00 AM EDT</td><td></td><td> </td> 06/04/2021 05:00:00 AM [facility] BASIC METABOLIC PANEL CALCIUM TOTAL <td>BASIC METABOLI C PANEL</td><td>Routine</td><td>06/04/2021 5:00 AM EDT</td><td></td><td> </td> 06/04/2021 05:00:00 AM [facility] GLUCOSE QUANTITATIVE BLOOD XCPT REAGENT STRIP <td>POCT GLUCOSE, DOCKED</td><td>Routine</td><td>06/03/2021 9:24 PM EDT</td><td></td><td> </td> 06/03/2021 09:24:00 PM [facility] GLUCOSE QUANTITATIVE BLOOD XCPT REAGENT STRIP <td>POCT GLUCOSE, DOCKED</td><td>Routine</td><td>06/03/2021 6:00 PM EDT</td><td></td><td> </td> 06/03/2021 06:00:00 PM [facility] GLUCOSE QUANTITATIVE BLOOD XCPT REAGENT STRIP <td>POCT GLUCOSE, DOCKED</td><td>Routine</td><td>06/03/2021 12:41 PM EDT</td><td></td><td> </td> 06/03/2021 12:41:00 PM [facility] GLUCOSE QUANTITATIVE BLOOD XCPT REAGENT STRIP <td>POCT GLUCOSE, DOCKED</td><td>Routine</td><td>06/03/2021 8:29 AM EDT</td><td></td><td> </td> 06/03/2021 08:29:00 AM [facility] XR CHEST FRONTAL ONLY [id number] <td>XR CHEST FRONTAL ONLY [id number]</td><td>Routine</td><td>06/03/2021 4:20 AM EDT</td><td></td><td> </td> 06/03/2021 04:20:00 AM [facility] BLOOD COUNT COMPLETE AUTOMATED <td>CBC</td><td>Routine </td><td>06/03/2021 3:50 AM EDT</td><td></td><td> </td> 06/03/2021 03:50:00 AM [facility] PHOSPHORUS INORGANIC <td>PHOSPHORUS LEVEL</td><td >Routine</td><td>06/03/2021 3:50 AM EDT</td><td></td><td> </td> 06/03/2021 03:50:00 AM [facility] MAGNESIUM <td>MAGNESIUM LEVEL</td><td> Routine</td><td>06/03/2021 3:50 AM EDT</td><td></td><td> </td> 06/03/2021 03:50:00 AM [facility] BASIC METABOLIC PANEL CALCIUM TOTAL <td>BASIC METABOLI C PANEL</td><td>Routine</td><td>06/03/2021 3:50 AM EDT</td><td></td><td> </td> 06/03/2021 03:50:00 AM [facility] GLUCOSE QUANTITATIVE BLOOD XCPT REAGENT STRIP <td>POCT GLUCOSE, DOCKED</td><td>Routine</td><td>06/03/2021 3:45 AM EDT</td><td></td><td> </td> 06/03/2021 03:45:00 AM [facility] GLUCOSE QUANTITATIVE BLOOD XCPT REAGENT STRIP <td>POCT GLUCOSE, DOCKED</td><td>Routine</td><td>06/03/2021 12:54 AM EDT</td><td></td><td> </td> 06/03/2021 12:54:00 AM [facility] COVID-19 PCR <td>COVID-19 PCR</td><td>Isaak ed</td><td>06/02/2021 8:47 PM EDT</td><td></td><td> </td> 06/02/2021 08:47:00 PM [facility] GLUCOSE QUANTITATIVE BLOOD XCPT REAGENT STRIP <td>POCT GLUCOSE, DOCKED</td><td>Routine</td><td>06/02/2021 8:41 PM EDT</td><td></td><td> </td> 06/02/2021 08:41:00 PM [facility] XR CHEST FRONTAL ONLY [id number] <td>XR CHEST FRONTAL ONLY [id number]</td><td>Routine</td><td>06/02/2021 7:56 PM EDT</td><td></td><td> </td> 06/02/2021 07:56:00 PM [facility] GLUCOSE QUANTITATIVE BLOOD XCPT REAGENT STRIP <td>POCT GLUCOSE, DOCKED</td><td>Routine</td><td>06/02/2021 4:31 PM EDT</td><td></td><td> </td> 06/02/2021 04:31:00 PM [facility] BLOOD COUNT COMPLETE AUTOMATED <td>CBC</td><td>STAT</t d><td>06/02/2021 2:30 PM EDT</td><td></td><td> </td> 06/02/2021 02:30:00 PM [facility] PHOSPHORUS INORGANIC <td>PHOSPHORUS LEVEL</td><td >STAT</td><td>06/02/2021 2:30 PM EDT</td><td></td><td> </td> 06/02/2021 02:30:00 PM [facility] MAGNESIUM <td>MAGNESIUM LEVEL</td><td> STAT</td><td>06/02/2021 2:30 PM EDT</td><td></td><td> </td> 06/02/2021 02:30:00 PM [facility] BASIC METABOLIC PANEL CALCIUM TOTAL <td>BASIC METABOLI C PANEL</td><td>STAT</td><td>06/02/2021 2:30 PM EDT</td><td></td><td> </td> 06/02/2021 02:30:00 PM [facility] XR CHEST FRONTAL ONLY [id number] <td>XR CHEST FRONTAL ONLY [id number]</td><td>Urgent</td><td>06/02/2021 2:10 PM EDT</td><td></td><td> </td> 06/02/2021 02:10:00 PM [facility] BLOOD GASES ANY COMBINATION PH PCO2 PO2 CO2 HCO3 <td>P OCT ISTAT ARTERIAL CG8</td><td>Routine</td><td>06/02/2021 1:24 PM EDT</td><td></td><td> </td> 06/02/2021 01:24:00 PM [facility] BLOOD GASES ANY COMBINATION PH PCO2 PO2 CO2 HCO3 <td>P OCT ISTAT ARTERIAL CG8</td><td>Routine</td><td>06/02/2021 12:47 PM EDT</td><td></td><td> </td> 06/02/2021 12:47:00 PM [facility] BLOOD GASES ANY COMBINATION PH PCO2 PO2 CO2 HCO3 <td>P OCT ISTAT ARTERIAL CG8</td><td>Routine</td><td>06/02/2021 12:02 PM EDT</td><td></td><td> </td> 06/02/2021 12:02:00 PM [facility] BLOOD GASES ANY COMBINATION PH PCO2 PO2 CO2 HCO3 <td>P OCT ISTAT ARTERIAL CG8</td><td>Routine</td><td>06/02/2021 11:24 AM EDT</td><td></td><td> </td> 06/02/2021 11:24:00 AM [facility] BLOOD GASES ANY COMBINATION PH PCO2 PO2 CO2 HCO3 <td>P OCT ISTAT ARTERIAL CG8</td><td>Routine</td><td>06/02/2021 9:30 AM EDT</td><td></td><td> </td> 06/02/2021 09:30:00 AM [facility] ANGELES VIDEO <td>ANGELES VIDEO</td><td>Ro utine</td><td>06/02/2021 7:04 AM EDT</td><td></td><td></td> 06/02/2021 07:04:16 AM EDT [facility] CROSSMATCH, PAT <td>CROSSMATCH, PAT</td><td> Routine</td><td>06/02/2021 7:00 AM EDT</td><td></td><td> </td> 06/02/2021 07:00:00 AM [facility] GLUCOSE QUANTITATIVE BLOOD XCPT REAGENT STRIP <td>POCT GLUCOSE, DOCKED</td><td>Routine</td><td>06/02/2021 6:59 AM EDT</td><td></td><td> </td> 06/02/2021 06:59:00 AM [facility] ECHO TTHRC R-T 2D W/WOM-MODE COMPL SPEC&COLR DOP <td>E CHOCARDIOGRAM 2D COMPLETE</td><td>Routine</td><td>05/31/2021 3:13 PM EDT</td><td> Abnormal ECG</td><td> </td> 05/31/2021 03:13:11 PM EDT Abnormal ECG [facility] Abnormal ECG CT THORAX W/O CONTRAST MATERIAL <td>CT THORAX WITHOUT CONTRAST [id number]</td><td>Routine</td><td>05/31/2021 12:38 PM EDT</td><td> Renal mass</td><td> </td> 05/31/2021 12:38:20 PM EDT Renal mass [facility] Renal mass THROMBOPLASTIN TIME PARTIAL PLASMA/WHOLE BLOOD <td>PAR TIAL THROMBOPLASTIN TIME (PTT)</td><td>Routine</td><td>05/29/2021 1:26 PM EDT</td><td> Malignant neoplasm of left kidney</td><td> </td> 05/29/2021 01:26:00 PM EDT Malignant neoplasm of left kidney [facility] Malignant neoplasm of left kidney PROTHROMBIN TIME <td>PROTIME INR</td><td>Rout ine</td><td>05/29/2021 1:26 PM EDT</td><td> Malignant neoplasm of left kidney</td><td> </td> 05/29/2021 01:26:00 PM EDT Malignant neoplasm of left kidney [facility] Malignant neoplasm of left kidney BLOOD COUNT COMPLETE AUTOMATED <td>CBC</td><td>Routine </td><td>05/29/2021 1:26 PM EDT</td><td> Malignant neoplasm of left kidney</td><td> </td> 05/29/2021 01:26:00 PM EDT Malignant neoplasm of left kidney [facility] Malignant neoplasm of left kidney COMPREHENSIVE METABOLIC PANEL <td>COMPREHENSIVE METABO LIC PANEL</td><td>Routine</td><td>05/29/2021 1:26 PM EDT</td><td> Malignant neoplasm of left kidney</td><td> </td> 05/29/2021 01:26:00 PM EDT Malignant neoplasm of left kidney [facility] Malignant neoplasm of left kidney Intermediate Eye Exam Established Patient Intermediate Eye Exam Established Patient 01/11/2021 12:00:00 AM EDT LEATHA (Chano Womack MD [facility]) Results ID Date Data Source [id number] 07/04/2021 12:55:00 PM EDT [facility] ([facility]) Name Value Range Interpretation Code Description Data Kiana rce(s) Supporting Document(s) Laboratory test finding (navigational concept) Laboratory test result [facility] ([facility]) LN2 any remaining Laboratory test finding (navigational concept) Laboratory test result [facility] ([facility]) LN2 any remaining ID Date Data Source [id number] 06/28/2021 06:39:06 PM EDT [facility] Name Value Range Interpretation Code Description Data Kiana rce(s) Supporting Document(s) Progress Note 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 Q8QEjxvlFfq2r47cv4vc/9bhxbtvjWHFmc8uPiNRCB hNjMkWuiHD2SW0nQ9OkoH99+Vmb59wO1jmV+cSKKsfP8Fw3fJDNQKNWrPS9zjJz1VE5ccShLUY1KWv5r mE+bQMJI4nuB2wzk2dRAPKhKnVFcBNmy5KePafF37hFvLWNuaYO+o75FCh1CD9sK0bYJBGzHOzj9R4Lb h/FVVbG7J976MQZ2A0lexAWwhzWjbm9XRfnE9XgCLZ I2pF/Fe9oeEEWgC6WJ0qj/BW3H3V1sV3X2YGezuh4q2YP/Qkbdd+N71lKpJZV/A9YP3N+QO9RIRTpfol YJ1r9y82bEDsdAKhs7A0cZy5VseGTsgDnHPPgpMCEz5fX8T0qROfI+tIKAL3pqrY6lgGlPbclOKnSklU l0aX5Mi1xwGnjaEHNvSGZgS08NnahmwzckD3V7dDCF NBGQ6OJcpI0iYYlB4LFgp8q1Xl2cufknclKWyafOxc2eL/3366EcHVl6HA3bRPGSGObnNm5Fk24lsC+z RS/kO6WFeyx4t7yq3m0ZMs2Eb7SQg5Jr7jpgG7NTrEqdSaxykdPKgajWmK5fEhblzssal/WNupd5odX8 m/0zvry0gQwRejnqvHVNyAXcUFYPW4mZ+Ui1+Jt8Wn Mk9OlA/UI5BN2Jl2Ch3S9FSK8uukZDcoMbTpxtfZ6nNbWrtjvam8gXfiLWahWxl28Kj1Pc2IhpaTvf/R c/DsgTzvU97Fjh8e66KQyy+t/QPvX0yJqBhLiJ/lZfhuhgJ4k+20qR4R6bD0EUyhzSrOo6+kiTHiFnwX wWUjnfdikvByYazo4kLimgpHkUcAEKMhjqtloATh8K [file] FVQ6bZYqVn8NRtWzQJgIZdSyTV5CUDp= ID Date Data Source [id number] 06/19/2021 12:11:37 PM EDT [facility] Name Value Range Interpretation Code Description Data Kiana rce(s) Supporting Document(s) Progress Note [facility] XJUCOn3pHkIWEkZc06/RRAgjRJJbc0YrEQvkIEd3YBaaGMXuF2TtNGL6tZ0cMRS7GLpIIvPhSzPbMHT8 lbm [file] CsCrQmXoXH5ZGf8OKvX3ELJ7tMWaTm7TNrB2OTgKEwVvWF8GJQz= ID Date Data Source [id number] 06/20/2021 11:54:56 AM EDT [facility] Service Cmnt XXX-Imp : NoneMicroorganism XXX Cult : No growth 1 day Name Value Range Interpretation Code Description Data Kiana rce(s) Supporting Document(s) ID Date Data Source [id number] 06/19/2021 04:22:54 PM EDT [facility] Name Value Range Interpretation Code Description Data Kiana rce(s) Supporting Document(s) Color of Urine [facility] Clarity of Urine [facility] Specific gravity of Urine by Refractometry automated 1.022 1.003 -1.030 [facility] pH of Urine by Automated test strip 5.0 5.0-8.0 [facility] Protein [Mass/volume] in Urine by Automated test strip 30 mg/dL Neg [facility] Glucose [Mass/volume] in Urine by Automated test strip Neg [facility] Ketones [Mass/volume] in Urine by Automated test strip Neg [facility] Bilirubin.total [Presence] in Urine by Automated test strip Negative [facility] Hemoglobin [Presence] in Urine by Automated test strip Neg [facility] Leukocyte esterase [Presence] in Urine by Automated test strip Negative [facility] Nitrite [Presence] in Urine by Automated test strip Negati [facility] Leukocytes [#/area] in Urine sediment by Automated count 0 /HPF 0 -5 [facility] Erythrocytes [#/area] in Urine sediment by Automated count 0 /HPF 0-3 [facility] Mucus [#/area] in Urine sediment by Microscopy low power field None [facility] ID Date Data Source [id number] 06/16/2021 12:53:42 PM EDT [facility] Name Value Range Interpretation Code Description Data Kiana rce(s) Supporting Document(s) Discharge Summary [facility] VOPXPq0rTbYSOuQy43/WRIlrLDZvd4UoXUxcKVf7PItdUITtR1PhMPP6rX7jWUI7VVjKVoZgMpHjWOFn lbm [file] UvPFP9CtFmSWIyCWAlJexjUlO9TiRcUcUbKW1LOj1DIlO0FWR6lOMfGl3IEii8SDNPHmWpCP3NBQi= ID Date Data Source [id number] 06/16/2021 12:47:04 PM EDT [facility] Name Value Range Interpretation Code Description Data Kiana rce(s) Supporting Document(s) Operative Note [facility] OPVQMo2qIwREGwJk13/SDQajVZUco9SgILoeHAg0XZyiELRmQ1XrMRP3aC6jHBG1UZwMQdOtIrMkMHUv lbm [file] LQMeXyDwPVOwJCBbIZ0gXDXQJe9+IRwehGRoqXsiBTPELjXtEml7DYcpDMRNCj2A ID Date Data Source [id number] [facility] Interpretation Code Description Data Kiana rce(s) Supporting Document(s) Glucose [Mass/volume] in Capillary blood by Glucometer 222 mg/dL 70- 140 H [facility] ID Date Data Source [id number] 06/04/2021 08:48:29 AM EDT [facility] Name Value Range Interpretation Code Description Data Kiana rce(s) Supporting Document(s) Glucose [Mass/volume] in Capillary blood by Glucometer 190 mg/dL 70- 140 H [facility] ID Date Data Source [id number] 06/04[facility]2021 07[facility]45[facility] ONLY [id number] RESULTI nterpreted by:Caesar Ignacio [facility] INFORMATION: Exam: XR Chest Exam date and time: 06/04/2021 5:23 AM Age: 80 years old Clinical indication: Other: Evaluate pneumo TECHNIQUE: Imaging protocol: XR of the chest. Views: 1 view. COMPARISON: CR XR CHEST FRONTAL ONLY [id number] PORTABLE 06/03/2021 4:15 AM FINDINGS: Lungs: Suspicion for subtle left perihilar and lower lung infiltrate. Pleural spaces: Unremarkable. No pleural effusion. No pneumothorax. Heart/Mediastinum: Unremarkable. No cardiomegaly. Bones/joints: Unremarkable. IMPRESSION: Left perihilar and lower lung infiltrate suspected. THIS DOCUMENT HAS BEEN ELECTRONICALLY SIGNED BY CAESAR IGNACIO MDThis document has been electronically signed by Caesar Ignacio MD on 06/04/2021 7:45 AM Name Value Range Interpretation Code Description Data Kiana rce(s) Supporting Document(s) ID Date Data Source [id number] 06/04/2021 05:43:11 AM [facility] Name Value Range Interpretation Code Description Data Kiana rce(s) Supporting Document(s) Leukocytes [#/volume] in Blood by Automated count 7.1 10*3/uL 4-10 [facility] Erythrocytes [#/volume] in Blood by Automated count 3.03 10*6/uL 4.6- 6.1 L [facility] Hemoglobin [Mass/volume] in Blood 8.8 g/dL 13.5-18 L [facility] Hematocrit [Volume Fraction] of Blood by Automated count 27.2 % 4 1-53 L [facility] Erythrocyte mean corpuscular volume [Entitic volume] by Auto mated count 89.7 fL 80-96 [facility] Erythrocyte mean corpuscular hemoglobin [Entitic mass] by Automated count 29.0 pg 27-33 [facility] Erythrocyte mean corpuscular hemoglobin concentration [Mass/volume] by Automated count 32.3 g/dL 32.0-36.0 [facility] width [Ratio] by Automated count 16.1 % 11.5-14.5 H [facility] Platelets [#/volume] in Blood by Automated count 144 10*3/uL 150-400 L [facility] ID Date Data Source [id number] 06/04/2021 06:14:06 AM [facility] Name Value Range Interpretation Code Description Data Kiana rce(s) Supporting Document(s) Magnesium [Mass/volume] in Serum or Plasma 2.1 mg/dL 1.6-2.4 [facility] ID Date Data Source [id number] 06/04/2021 06:14:06 AM [facility] Name Value Range Interpretation Code Description Data Kiana rce(s) Supporting Document(s) Bicarbonate [Moles/volume] in Serum 25 mmol/L 22-29 [facility] Chloride [Moles/volume] in Serum or Plasma 97 mmol/L 98-107 L [facility] Creatinine [Mass/volume] in Serum or Plasma 2.17 mg/dL 0.70-1.20 H [facility] Glucose [Mass/volume] in Serum or Plasma 186 mg/dL 70-140 H [facility] Potassium [Moles/volume] in Serum or Plasma 4.6 mmol/L 3.4-5.1 [facility] Sodium [Moles/volume] in Serum or Plasma 134 mmol/L 136-145 L [facility] Urea nitrogen [Mass/volume] in Serum or Plasma 22 mg/dL 8-23 [facility] Anion gap 3 in Serum or Plasma 12 mmol/L 8-15 [facility] Osmolality of Serum or Plasma by calculation 287 mosm/kg 275-300 [facility] Creatinine/Urea nitrogen [Mass Ratio] in Serum or Plasma 10 [facility] Calcium [Mass/volume] in Serum or Plasma 8.0 mg/dL 8.8-10.2 L [facility] Glomerular filtration rate/1.73 sq M pre dicted among non-blacks [Volume Rate/Area] in Serum or Plasma by Creatinine-based formula (MDRD) >6 0 [facility] Glomerular filtration rate/1.73 sq M pre dicted among blacks [Volume Rate/Area] in Serum or Plasma by Creatinine-based formula (MDRD) >60 [facility] ID Date Data Source [id number] 06/04/2021 06:14:06 AM [facility] Value Range Interpretation Code Description Data Kiana rce(s) Supporting Document(s) Phosphate [Mass/volume] in Serum or Plasma 3.0 mg/dL 2.5-4.5 [facility] ID Date Data Source [id number] 06/03/2021 09:26:38 PM [facility] Value Range Interpretation Code Description Data Kiana rce(s) Supporting Document(s) Glucose [Mass/volume] in Capillary blood by Glucometer 225 mg/dL 70- 140 H [facility] ID Date Data Source [id number] 06/03/2021 06:02:06 PM [facility] Value Range Interpretation Code Description Data Kiana rce(s) Supporting Document(s) Glucose [Mass/volume] in Capillary blood by Glucometer 242 mg/dL 70- 140 H [facility] ID Date Data Source [id number] 06/03/2021 12:57:13 PM [facility] Value Range Interpretation Code Description Data Kiana rce(s) Supporting Document(s) Glucose [Mass/volume] in Capillary blood by Glucometer 176 mg/dL 70- 140 H [facility] ID Date Data Source [id number] 06/03/2021 08:52:47 AM [facility] XR CHEST FRONTAL ONLY [id number] RESULTI nterpreted by:Miryam Austin, SAMIRAROCEDDOMITILA INFORMATION: Exam: XR Chest Exam date and time: 06/03/2021 4:15 AM Age: 80 years old Clinical indication: Other: Evaluate pneumothorax TECHNIQUE: Imaging protocol: XR of the chest. Views: 1 view. COMPARISON: DX XR CHEST FRONTAL ONLY [id number] PORTABLE 06/02/2021 7:53 PM FINDINGS: Lungs: Opacities [...] deformities. IMPRESSION: 1. Minor residual left apical pneumothorax. 2. Opacities in the lower lungs greater on the left which could indicate atelectasis or infiltrate and are both slightly accentuated. THIS DOCUMENT HAS BEEN ELECTRONICALLY SIGNED BY MIRYAM Glass document has been electronically signed by Miryam Austin DO on 06/03/2021 8:52 AM Name Value Range Interpretation Code Description Data Kiana rce(s) Supporting Document(s) ID Date Data Source [id number] 06/03/2021 08:54:41 AM [facility] Name Value Range Interpretation Code Description Data Kiana rce(s) Supporting Document(s) Glucose [Mass/volume] in Capillary blood by Glucometer 146 mg/dL 70- 140 H [facility] ID Date Data Source [id number] 06/03/2021 04:23:39 AM [facility] Name Value Range Interpretation Code Description Data Kiana rce(s) Supporting Document(s) Leukocytes [#/volume] in Blood by Automated count 7.0 10*3/uL 4-10 [facility] Erythrocytes [#/volume] in Blood by Automated count 3.57 10*6/uL 4.6- 6.1 L [facility] Hemoglobin [Mass/volume] in Blood 10.4 g/dL 13.5-18 L [facility] Hematocrit [Volume Fraction] of Blood by Automated count 31.8 % 4 1-53 L [facility] Erythrocyte mean corpuscular volume [Entitic volume] by Auto mated count 89.0 fL 80-96 [facility] Erythrocyte mean corpuscular hemoglobin [Entitic mass] by Automated count 29.2 pg 27-33 [facility] Erythrocyte mean corpuscular hemoglobin concentration [Mass/volume] by Automated count 32.8 g/dL 32.0-36.0 [facility] distribution width [Ratio] by Automated count 15.6 % 11.5-14.5 H [facility] Platelets [#/volume] in Blood by Automated count 150 10*3/uL 150-400 [facility] ID Date Data Source [id number] 06/03/2021 04:48:12 AM EDT [facility] Name Value Range Interpretation Code Description Data Kiana rce(s) Supporting Document(s) Bicarbonate [Moles/volume] in Serum 20 mmol/L 22-29 L [facility] Chloride [Moles/volume] in Serum or Plasma 101 mmol/L 98-107 [facility] Creatinine [Mass/volume] in Serum or Plasma 1.86 mg/dL 0.70-1.20 H [facility] Glucose [Mass/volume] in Serum or Plasma 163 mg/dL 70-140 H [facility] Potassium [Moles/volume] in Serum or Plasma 5.0 mmol/L 3.4-5.1 [facility] Sodium [Moles/volume] in Serum or Plasma 135 mmol/L 136-145 L [facility] Urea nitrogen [Mass/volume] in Serum or Plasma 18 mg/dL 8-23 [facility] Anion gap 3 in Serum or Plasma 14 mmol/L 8-15 [facility] Osmolality of Serum or Plasma by calculation 285 mosm/kg 275-300 [facility] Creatinine/Urea nitrogen [Mass Ratio] in Serum or Plasma 10 [facility] Calcium [Mass/volume] in Serum or Plasma 8.4 mg/dL 8.8-10.2 L [facility] Glomerular filtration rate/1.73 sq M pre dicted among non-blacks [Volume Rate/Area] in Serum or Plasma by Creatinine-based formula (MDRD) >6 0 [facility] Glomerular filtration rate/1.73 sq M pre dicted among blacks [Volume Rate/Area] in Serum or Plasma by Creatinine-based formula (MDRD) >60 [facility] ID Date Data Source [id number] 06/03/2021 04:48:12 AM EDT [facility] Name Value Range Interpretation Code Description Data Kiana rce(s) Supporting Document(s) Magnesium [Mass/volume] in Serum or Plasma 1.9 mg/dL 1.6-2.4 [facility] ID Date Data Source [id number] 06/03/2021 04:48:12 AM [facility] Name Value Range Interpretation Code Description Data Kiana rce(s) Supporting Document(s) Phosphate [Mass/volume] in Serum or Plasma 4.3 mg/dL 2.5-4.5 [facility] ID Date Data Source [id number] 06/03/2021 03:58:07 AM [facility] Name Value Range Interpretation Code Description Data Kiana rce(s) Supporting Document(s) Glucose [Mass/volume] in Capillary blood by Glucometer 156 mg/dL 70- 140 H [facility] ID Date Data Source [id number] 06/03/2021 12:55:23 AM [facility] Name Value Range Interpretation Code Description Data Kiana rce(s) Supporting Document(s) Glucose [Mass/volume] in Capillary blood by Glucometer 148 mg/dL 70- 140 H [facility] ID Date Data Source [id number] 06/02/2021 09:15:52 PM [facility] XR CHEST FRONTAL ONLY [id number] RESULTI nterpreted by:KD OrtizROCEDURE INFORMATION: Exam: XR Chest Exam date and time: 06/02/2021 7:53 PM Age: 80 years old Clinical indication: Other: Evaluate pneumothorax TECHNIQUE: Imaging protocol: XR of the chest. Views: 1 view. COMPARISON: DX XR CHEST FRONTAL ONLY [id number] PORTABLE 06/02/2021 2:10 PM FINDINGS: Lungs: Low lung volumes are noted. This accentuates bronchovascular markings as well as cardiac size. Left basilar consolidation is unchanged. Stable right lung apex pulmonary opacity.Pleural spaces: Small left apical pneumothorax is unchanged from the previous examination. Heart/Mediastinum: The heart size is within normal limits. Vasculature: There is uncoiling/tortuosity of the aorta. Bones/joints: Left posterior rib fracture. IMPRESSION: 1. Small left apical pneumothorax is unchanged from the previous examination. 2. Left basilar consolidation is unchanged. THIS DOCUMENT HAS BEEN ELECTRONICALLY SIGNED BY LIBRADO HUNT MDThis document has been electronically signed by Librado Hunt MD on 06/02/2021 9:15 PM Name Value Range Interpretation Code Description Data Kiana rce(s) Supporting Document(s) ID Date Data Source [id number] 06/02/2021 08:47:00 PM EDT [facility] Name Value Range Interpretation Code Description Data Kiana rce(s) Supporting Document(s) SARS-CoV-2 RNA 2019 nCoV Real-Time RT-PCR: NOT DETECTED [facility] This lab was ordered by [facility] and reported by [facility]. 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 [facility] Patient has symptoms related to [facility] When did you start to experience these symptoms [Date and time] [Phen X] [facility] Patient was hospitalized because of this condition [facility] patient was admitted to ICU for [facility] Patient resides in a congregate care setting [facility] status [facility] ID Date Data Source [id number] 06/02/2021 08:51:38 PM EDT [facility] Name Value Range Interpretation Code Description Data Kiana rce(s) Supporting Document(s) Glucose [Mass/volume] in Capillary blood by Glucometer 165 mg/dL 70- 140 H [facility] ID Date Data Source [id number] 06/02/2021 04:36:46 PM EDT [facility] Name Value Range Interpretation Code Description Data Kiana rce(s) Supporting Document(s) Glucose [Mass/volume] in Capillary blood by Glucometer 152 mg/dL 70- 140 [facility] ID Date Data Source [id number] 06/02/2021 03:36:55 PM EDT [facility] XR CHEST FRONTAL ONLY [id number] RESULT - FINALInterpreted by:Twila Quintanaum BeginsSigned on SatJun 02, 2021 3:36 PM by Raine Mercedes MDTHIS REPORT CONTAINS FINDINGS THAT MAY BE CRITICAL TO PATIENT CARE. The findings were verbally communicated via telephone conference with Jess Vincent RN at 3:35 PM EDT on 06/02/2021. The findings were acknowledged and understoodTHIS DOCUMENT HAS BEEN ELECTRONICALLY SIGNED BY RAINE MERCEDES MDAddcolquitt regional medical center EndsPROCEDURE INFORMATION: Exam: XR Chest Exam date and time: 06/02/2021 2:10 PM Age: 80 years old Clinical indication: Other: Pneumothroax TECHNIQUE: Imaging protocol: XR of the chest. Views: 1 view. COMPARISON: CT THORAX WITHOUT CONTRAST [id number] 05/31/2021 12:30 PM FINDINGS: Tubes, catheters and [...] upper quadrant. IMPRESSION: 1. Questionable left apical pneumothorax. 2. Bibasilar and right upper lobe atelectasis/consolidation. 3. Possible trace right pleural effusion. 4. Mildly displaced fracture of uncertain age involving the posterior left 7th rib. THIS DOCUMENT HAS BEEN ELECTRONICALLY SIGNED BY RAINE MERCEDES MDThis document has been electronically signed by Raine Mercedes MD on 06/02/2021 2:58 PM Name Value Range Interpretation Code Description Data Kiana rce(s) Supporting Document(s) ID Date Data Source [id number] 06/02/2021 03:14:47 PM EDT [facility] Name Value Range Interpretation Code Description Data [facility](s) Bicarbonate [Moles/volume] in Serum 23 mmol/L 22-29 [facility] Chloride [Moles/volume] in Serum or Plasma 102 mmol/L 98-107 [facility] Creatinine [Mass/volume] in Serum or Plasma 1.50 mg/dL 0.70-1.20 [facility] Glucose [Mass/volume] in Serum or Plasma 146 mg/dL 70-140 [facility] Potassium [Moles/volume] in Serum or Plasma 4.2 mmol/L 3.4-5.1 [facility] Sodium [Moles/volume] in Serum or Plasma 139 mmol/L 136-145 [facility] Urea nitrogen [Mass/volume] in Serum or Plasma 17 mg/dL 8-23 [facility] Anion gap 3 in Serum or Plasma 14 mmol/L 8-15 [facility] Osmolality of Serum or Plasma by calculation 292 mosm/kg 275-300 [facility] Creatinine/Urea nitrogen [Mass Ratio] in Serum or Plasma 11 [facility] Calcium [Mass/volume] in Serum or Plasma 8.9 mg/dL 8.8-10.2 [facility] Glomerular filtration rate/1.73 sq M pre dicted among non-blacks [Volume Rate/Area] in Serum or Plasma by Creatinine-based formula (MDRD) >6 0 [facility] Glomerular filtration rate/1.73 sq M pre dicted among blacks [Volume Rate/Area] in Serum or Plasma by Creatinine-based formula (MDRD) >60 [facility] ID Date Data Source [id number] 06/02/2021 03:14:47 PM [facility] Name Value Range Interpretation Code Description Data Kiana rce(s) Supporting Document(s) Magnesium [Mass/volume] in Serum or Plasma 2.2 mg/dL 1.6-2.4 [facility] ID Date Data Source [id number] 06/02/2021 03:14:47 PM [facility] Value Range Interpretation Code Description Data Kiana rce(s) Supporting Document(s) Phosphate [Mass/volume] in Serum or Plasma 3.7 mg/dL 2.5-4.5 [facility] ID Date Data Source [id number] 06/02/2021 03:14:50 PM [facility] Value Range Interpretation Code Description Data Kiana rce(s) Supporting Document(s) Leukocytes [#/volume] in Blood by Automated count 8.5 10*3/uL 4-10 [facility] Erythrocytes [#/volume] in Blood by Automated count 3.27 10*6/uL 4.6- 6.1 [facility] Hemoglobin [Mass/volume] in Blood 9.9 g/dL 13.5-18 [facility] Hematocrit [Volume Fraction] of Blood by Automated count 29.5 % 4 1-53 [facility] Erythrocyte mean corpuscular volume [Entitic volume] by Auto mated count 90.1 fL 80-96 [facility] Erythrocyte mean corpuscular hemoglobin [Entitic mass] by Automated count 30.3 pg 27-33 [facility] Erythrocyte mean corpuscular hemoglobin concentration [Mass/volume] by Automated count 33.7 g/dL 32.0-36.0 [facility] al Erythrocyte distribution width [Ratio] by Automated count 15.7 % 11.5-14.5 [facility] Platelets [#/volume] in Blood by Automated count 149 10*3/uL 150-400 [facility] ID Date Data Source [id number] 06/02/2021 01:32:18 PM [facility] Name Value Range Interpretation Code Description Data Kiana rce(s) Supporting Document(s) pH of Arterial blood 7.40 7.38-7.44 [facility] Carbon dioxide [Partial pressure] in Arterial blood 39 mmHg 35-40 [facility] Oxygen [Partial pressure] in Arterial blood 117 mmHg 95-100 [facility] Base excess standard in Arterial blood by calculation 0 mmol/L [facility] Oxygen saturation Calculated from oxygen partial press ure in Arterial blood 99 % 94-100 [facility] Bicarbonate [Moles/volume] in Arterial blood 25 mmol/L [facility] Sodium [Moles/volume] in Blood 138 mmol/L 136-145 [facility] Potassium [Moles/volume] in Blood 4.1 mmol/L 3.4-5.1 [facility] Calcium.ionized [Moles/volume] in Blood 1.27 mmol/L 1.13-1.32 [facility] Glucose [Mass/volume] in Blood 143 mg/dL 70-140 [facility] Hematocrit [Volume Fraction] of Blood 29 % 41-53 [facility] Hemoglobin [Mass/volume] in Blood by calculation 9.9 g/dL 13.5-18.0 [facility] ID Date Data Source [id number] 06/02/2021 12:54:53 PM [facility] Name Value Range Interpretation Code Description Data Kiana rce(s) Supporting Document(s) pH of Arterial blood 7.37 7.38-7.44 [facility] Carbon dioxide [Partial pressure] in Arterial blood 44 mmHg 35-40 [facility] Oxygen [Partial pressure] in Arterial blood 126 mmHg 95-100 [facility] Base excess standard in Arterial blood by calculation 0 mmol/L [facility] Oxygen saturation Calculated from oxygen partial press ure in Arterial blood 99 % 94-100 [facility] Bicarbonate [Moles/volume] in Arterial blood 26 mmol/L [facility] Sodium [Moles/volume] in Blood 138 mmol/L 136-145 [facility] Potassium [Moles/volume] in Blood 4.1 mmol/L 3.4-5.1 [facility] Calcium.ionized [Moles/volume] in Blood 1.15 mmol/L 1.13-1.32 [facility] Glucose [Mass/volume] in Blood 151 mg/dL 70-140 [facility] Hematocrit [Volume Fraction] of Blood 32 % 41-53 [facility] Hemoglobin [Mass/volume] in Blood by calculation 10.9 g/dL 13.5-18.0 [facility] ID Date Data Source [id number] 06/02/2021 12:09:19 PM EDT [facility] Name Value Range Interpretation Code Description Data Kiana rce(s) Supporting Document(s) pH of Arterial blood 7.36 7.38-7.44 [facility] Carbon dioxide [Partial pressure] in Arterial blood 46 mmHg 35-40 [facility] Oxygen [Partial pressure] in Arterial blood 152 mmHg 95-100 [facility] Base excess standard in Arterial blood by calculation 1 mmol/L [facility] Oxygen saturation Calculated from oxygen partial press ure in Arterial blood 99 % 94-100 [facility] Bicarbonate [Moles/volume] in Arterial blood 28 mmol/L [facility] Sodium [Moles/volume] in Blood 138 mmol/L 136-145 [facility] Potassium [Moles/volume] in Blood 4.2 mmol/L 3.4-5.1 [facility] Calcium.ionized [Moles/volume] in Blood 1.02 mmol/L 1.13-1.32 [facility] Glucose [Mass/volume] in Blood 159 mg/dL 70-140 [facility] Hematocrit [Volume Fraction] of Blood 33 % 41-53 [facility] Hemoglobin [Mass/volume] in Blood by calculation 11.2 g/dL 13.5-18.0 [facility] ID Date Data Source [id number] 06/02/2021 11:34:16 AM [facility] Name Value Range Interpretation Code Description Data Kiana rce(s) Supporting Document(s) pH of Arterial blood 7.32 7.38-7.44 L [facility] Carbon dioxide [Partial pressure] in Arterial blood 50 mmHg 35-40 [facility] Oxygen [Partial pressure] in Arterial blood 129 mmHg 95-100 [facility] Base excess standard in Arterial blood by calculation [facility] Oxygen saturation Calculated from oxygen partial press ure in Arterial blood 99 % 94-100 [facility] Bicarbonate [Moles/volume] in Arterial blood 27 mmol/L [facility] Sodium [Moles/volume] in Blood 138 mmol/L 136-145 [facility] Potassium [Moles/volume] in Blood 4.2 mmol/L 3.4-5.1 [facility] Calcium.ionized [Moles/volume] in Blood 1.04 mmol/L 1.13-1.32 [facility] Glucose [Mass/volume] in Blood 154 mg/dL 70-140 [facility] Hematocrit [Volume Fraction] of Blood 33 % 41-53 [facility] Hemoglobin [Mass/volume] in Blood by calculation 11.2 g/dL 13.5-18.0 [facility] ID Date Data Source [id number] 06/02/2021 09:37:21 AM [facility] Name Value Range Interpretation Code Description Data Kiana rce(s) Supporting Document(s) pH of Arterial blood 7.35 7.38-7.44 [facility] Carbon dioxide [Partial pressure] in Arterial blood 50 mmHg 35-40 [facility] Oxygen [Partial pressure] in Arterial blood 153 mmHg 95-100 [facility] Base excess standard in Arterial blood by calculation 1 mmol/L [facility] Oxygen saturation Calculated from oxygen partial press ure in Arterial blood 99 % 94-100 [facility] Bicarbonate [Moles/volume] in Arterial blood 29 mmol/L [facility] Sodium [Moles/volume] in Blood 139 mmol/L 136-145 [facility] Potassium [Moles/volume] in Blood 3.9 mmol/L 3.4-5.1 [facility] Calcium.ionized [Moles/volume] in Blood 1.17 mmol/L 1.13-1.32 [facility] Glucose [Mass/volume] in Blood 173 mg/dL 70-140 [facility] Hematocrit [Volume Fraction] of Blood 38 % 41-53 [facility] Hemoglobin [Mass/volume] in Blood by calculation 12.9 g/dL 13.5-18.0 [facility] ID Date Data Source [id number] 06/02/2021 07:50:17 AM EDT [facility] Name Value Range Interpretation Code Description Data Kiana e(s) Supporting Document(s) History and Physical [facility] ATLZDw2yVkZTLyNx45/IQFacECCsx0FrRAxwCFe0YBdpCOReQ0PlMZQ3lC3rIMX7RFfORlFqLfTnSQP6 lbm SiGukAZtMmVBQgBqnFQxPrIAjmQoroyVNmBE6GtGO3IPZvW78cITOnQLAzA0KxEMS7OZH+Ab7BNYRruK YeXI3MGqhW5Ewjl5g10zkI/QcCA+5Lm0zUOMSHVFwLQ1/UDkjnOL6ZnlTDes65RbgtY0N7s06/SqJsn1 V8hRBnnv0vlSEYIB3Ho8qkoJm53pfqEzZcYSg0M68C PTxVNknti7olfbWYrpjnqIJ4eRzqU6RU5H/C/qmT1fz26LdIXQJ1N5LJNpx3DezSHJ/rVLqdg3Z8/2Gu 0LCOKfLT1RMSXhkC8rlpRqBwU4wBbsQBKDPP3BiOBF+rpOMnpwA4Go0IFzRi1I9QjFEUibJqPnsEkHVq nXPQMg5ZoiDeczSI5IOUCg+3Pi3dH4V1zG5vuOPkor FgvQf8miAR2oeShMKl2iW7XTHqEPyVt93V5rTZyOh+tlqhHpxtjOhN2ghqwNPi1eFfweLmVS+d7SiUS+ XMT6KLOoV22YOIDvV8qb13CwUscwhmNp3kr/cxAOucVZ3FmfwZoup8ygVR8YUYOcNNd+fUjlEJdhlPlU 3NE1zt1M8K1O9SZ8A50EsNk07W4zCwxJlWEkOF1zZ0 LRvUnl+kdxvzqayrkFlcU3pEgWj9h1rWIHShdUX08DLQX4gVn1SZOCD9go2xXPK2/Pf7wAFaGdHq7O9f cS+HJtdMP2P1W0GTEMokuH3gl5D7n+w4/cI3vF5Z2HXDcacN+rkwRklc1uykXz/1l0ZBbZMEJlt+T2cW a6HNIrg6E/aMNEa5Na8J7x6MXaH0nm4WyEGxElcR/X 5Uc6rbfzThWRBNehMvC+mIno7fx1HIHMlu/lzUtQyCUbBFmfcjkkuZBXMnzhySChipID5xIZKEWYZIRL WZHnsGRGYOrfDwFeBIMLAWvcKPUFsTAQSfWStMsKGF59mHbpwFrcEtZCFj7dcto0sZGu/OETIoSUQHbn KLIh8fRg0YvW0auxWgOnIjyzbZd1gKu55lm/karli+Yr1 [file] ICAgICAgICAgICAgICAgICAgICAgICAgICAgICAgIC AgICAgICAgICAgICAgICAgICAgICAgICAgICAgDQogICAgICAgICAgICAgICAgICAgICAgICAgICAgIC AgICAgICAgICAgICAgICAgICAgICAgICAgICAgICAgICAgICAgICAgICAgICAgICAgICAgICAgICAgIC AgICAgICAgICAgDQogICAgICAgICAgICAgICAgICAg ICAgICAgICAgICAgICAgICAgICAgICAgICAgICAgICAgICAgICAgICAgICAgICAgICAgICAgICAgICAg ICAgICAgICAgICAgICAgICAgICAgDQogICAgICAgICAgICAgICAgICAgICAgICAgICAgICAgICAgICAg ICAgICAgICAgICAgICAgICAgICAgICAgICAgICAgIC AgICAgICAgICAgICAgICAgICAgICAgICAgICAgICAgDQogICAgICAgICAgICAgICAgICAgICAgICAgIC AgICAgICAgICAgICAgICAgICAgICAgICAgICAgICAgICAgICAgICAgICAgICAgICAgICAgICAgICAgIC AgICAgICAgICAgICAgDQogICAgICAgICAgICAgICAg ICAgICAgICAgICAgICAgICAgICAgICAgICAgICAgICAgICAgICAgICAgICAgICAgICAgICAgICAgICAg ICAgICAgICAgICAgICAgICAgICAgICAgDQogICAgICAgICAgICAgICAgICAgICAgICAgICAgICAgICAg ICAgICAgICAgICAgICAgICAgICAgICAgICAgICAgIC AgICAgICAgICAgICAgICAgICAgICAgICAgICAgICAgICAgDQogICAgICAgICAgICAgICAgICAgICAgIC AgICAgICAgICAgICAgICAgICAgICAgICAgICAgICAgICAgICAgICAgICAgICAgICAgICAgICAgICAgIC AgICAgICAgICAgICAgICAgDQogICAgICAgICAgICAg ICAgICAgICAgICAgICAgICAgICAgICAgICAgICAgICAgICAgICAgICAgICAgICAgICAgICAgICAgICAg ICAgICAgICAgICAgICAgICAgICAgICAgICAgDQogICAgICAgICAgICAgICAgICAgICAgICAgICAgICAg ICAgICAgICAgICAgICAgICAgICAgICAgICAgICAgIC EhAXTrCBBlWQUhPTMdAVFnDLOgXKMoEWHwZZScKPUqMBCdZZMpSCx3N0zyOPTcQLMqXX9oKXs1Pd9+DQ dHVwToYEN7cmTulH3OHN9mz2BfYKxmEDLfa9QbFFr6AB5FZTJvVFqnEH7BVLcvsf5YQSEhWYXkyDMCm5 wyKwAhHAS8BAObQchtQY5ZFXRwZ5vygkGgUCFtTMVM JRfxKRXDMOyzDQDIMBRuXUBcTtTuUySkYQPpSO0STPVuE485hdDnMZ5BPc4RTuQvMX8hry4JRiRhUSMw CqyDJkl9WCgxEM5AbKOqnNOrQhSfPTQGJnXeS7cow2GpPwkvSDHEZVlcEQ5Wa4KzbIHcWQd+Ss5LPF8f o3PdKOohUiNeJT2rwx2PDWeHYaCfW1FgzMooHCihGD AnhRKAICQutGMuRR0eM3OjFOQkNXnrVDKKRQKntHZ8QqP0GlGnVqIiIPE4MWLnJL6pVOmvIR2IBRE1PZ tfPJUpIEBnI5qJTzTlZHBuCVMwwBrsZD5FUkWhB8IgdfMrfZEuDtKvNMJZOl2+EHftmaJoBhcHQyV9MQ Gfb6ElYYi0TC9ZIJBmUObzTZ0IPHUlhR4hGRtsMH9C BxQtRAWrKEZQKlFvH12mfBYxUKq0R9WdEaDeSQTaEelyDTNcCAjzRkKpCCCaEuKeEAqhAH2+ID4+DQog PI4SQAvkbxKqUIPqGx4GVZIgNDVdWX2eOXHiLPDvS8Q3kPqlAIUIRjKsY7xtspsjWY0qEHVtT350sGtr mgAvWNS3POVnNk4IGJDpQSR0INCbpYVdSyYmWKFHJL bkDO7UdFAwBUU1xB3dAWxrFGSjWKEoP2oEBmOhiNfkBJ07iTtwvpZbjOLfKIp+Lx2RIE9qk0HfABy6cu OfKXuiBFO4COrjWGHwNGMyNEYmEIA5RMA7ZHSTAxTjWMKfFYGlTEfqZVRhHYJzbg4ZOACcXOQbIcXqHM HzHJSiMGPkNJnbYADdDGD8Mcb9VAElAMDuUX3WEtLf RHLsGZAbQYkfNYUxNVWqov6FUSVrSCArKku7CRXgRNKsASPmIJrgMBYhJIQhPPxpGNBzTPWpRD6MEfIe PQZfQYOnPeWkSWKbGUEuen9YHPLsGQSeEvVoALSwQYNyFVAqGVpwUHEcCGI3LZW8RWZtRZFbHN8AAlSw XZSeHBdrMuTgDPUrECXywf8WZZKpCLKnJDodSzMjXR XnKNJgTGelHEHhKIKvTJP5EWRlABTuRP4XViCzHTAcJQX1MMDlURKcCUBfkl1YFKLaHINqVFYnSTHwXC UfIZFfBJocMIQqPXR1YRGmFJBqBIWgAV3OHxDiGENaNXRfYVvyMYSnZYHswy5JRUWlSUKsHWF8HTBkOR BtSYCkTGvxPPQyGYB5IeZpVHQrEWYzMJ5SPwGzOUWo SQE4MVKdSNGvKPFofl4IUGDzHYJuXaZ3ENSiJBQzVAPmRVhkIKBtEGP8XqCfYOTpUGYzDR0JVmIhZQBq FYv1HDgaJNYdDJDmmk6RKHMyLRVhVTOjMPZkMEZmVVAdMMjwSIApAQY3WPm7CVKhOXZqJD5NKpRfNQJr HMraIOAmJZYoIEUwio3TUJUbKDVmLPY4IHKaUFBoZE HmBFqeVNGgTGTbFiS1ZJZaTFHoEU2VWyGbWHWkPzTuCFJyTKWtDHTgky2SZITwUSHlHIJ5WDExPQDkLE ZqXHpkLXXeUWAbQFGmMKDsGYVzGV8ZVrLqCHQpNzE6KkRhWBPrKWAvpz6WYXWtUKQlZrMrLDTrBAAlLW ZbYYnqRRKkJRJwXBA7OUJfFJIxYS9TYoOqYDIuHoE5 FNWjDBHoFXKhod0NSGGzFBAjCrCzUBMiUWMgCNRnCFudNNSdEDQ1BKp9RDZiBAGsSR3PBkUmXSJvYrO8 DfXkQISqAYDfoh1IKGGkJVCbSZUjFcCzTEOgRKGxFPu8ysVjiMRkAGj8SK2PU6DqypQuVfdOPm4Sb692 VNB8OIUyUf5RB6qxYb4hUFSvENKZTl5VMBq2NJA2HU YsCEIeEoheNrIgQeO5EmD3HXtbKUW6QPF0PMD+LWjkGTHpZzYcSxEaAXChNZK3ZNItBlBcM6JuNbR3GQ byJm6gBRRDXr5+ZNvmcJIqdNjxROJOYiE1HiN2RFtsUDRBFu1E ID Date Data Source [id number] 06/02/2021 07:08:35 AM EDT [facility] Name Value Range Interpretation Code Description Data Kiana rce(s) Supporting Document(s) [facility] HPAOZi6sWsOGSiShm3UmWsKzCOYsTJ0urde1U7R8pJScO8DvoDLgi6sbR7JvJ9XcNQLxUBVTFL3XvMPy jb2 [file] TvTAO4edMa6oLjNcFJJNJ9Itq7MyKBPuMDGMFd4+FoK2NFT5pHKqMsm6DKolCgleRLJOIy== ID Date Data Source [id number] 06/03/2021 06:24:16 AM EDT [facility] 06/05/2021,2359 Name Value Range Interpretation Code Description Data Kiana rce(s) Supporting Document(s) ABO and Rh group [Type] in Blood [facility] Performed at [facility] [place] ID Date Data Source [id number] 06/02/2021 07:01:46 AM [facility] Name Value Range Interpretation Code Description Data Kiana rce(s) Supporting Document(s) Glucose [Mass/volume] in Capillary blood by Glucometer 128 mg/dL 70- 140 [facility] ID Date Data Source [id number] 06/06/2021 10:39:00 AM [facility] Surgical Pathology ReportName: SAIRA PINOMRN: [id number] Number: [id number] Date: 06/02/2021 00:00Received Date: 06/02/2021 15:41Physician(s): VENESSA LEAL MD BRATSLAVSKY, GENNADY, MDSpecimen(s) ReceivedA: Left kidneyClinical HistoryRenal mass. 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 (See Synoptic Report.) Synoptic Report:Specimen Procedure: Radical nephrectomy Specimen Laterality: LeftTumor Tumor Site: Middle Histologic Type: Clear cell renal cell carcinoma Histologic Grade: G2: Nucleoli conspicuous and eosinophilic at 400xmagnification, visible but not prominent at 100x magnification Tumor Size: 2.2 x 1.8 x 1.3 Centimeters (cm) Tumor Focality: Multifocal Tumor Extension: Tumor extension into renal sinus, Tumor extensioninto major vein (renal vein or its segmental branches, inferior vena cava) Extent into Major Vein (renal vein or its segmental branches,inferior vena cava): Tumor extends into the renal vein or its segmentalbranches, or invades the pelvicalyceal system, or invades perirenal and /or renal sinus fat but not beyond Gerota's fascia Sarcomatoid Features: Not identified Rhabdoid Features: Not identified Tumor Necrosis: Not identified Lymphovascular Invasion: Not identifiedMargins Margins: Uninvolved by invasive carcinomaLymph Nodes Regional Lymph Nodes: No lymph nodes submitted or foundPathologic Stage Classification (pTNM, AJCC 8th Edition) Primary Tumor (pT): pT3a Regional Lymph Nodes (pN): pNXAdditional Findings Pathologic Findings in Nonneoplastic Kidney: Glomerular disease - Glomerular sclerosis, focal. Additional Findings: Left adrenal gland without significantpathologic changes. [facility] October 2019 Annual Release Georgia Lima M.D.;Resident PathologistElectronically Signed By Stan Kilpatrick M.D., Attending Pathologist06/06/2021 10:39:43 The attending pathologist named above attests that he/she has personallyreviewed the relevant preparation(s) for the specimen, performedmicroscopic examination when indicated, and rendered the final diagnosis.Unless 'gross-only' is specified, the final diagnosis is based on amicroscopic examination of admissions representative sections of tissue.Gross DescriptionThe specimen is received in formalin labeled with the patient's name "Indra" and "left kidney". It consists of a 30.4 x 13.4 x 9.3 cm 1.5 Kg.kidney and surrounding adipose tissue. The perinephric capsule appearsintact except on the medial aspect of the specimen. A ureter isidentified (16.2 cm in length, 0.3 cm average diameter) and is free of anyovert lesions. The renal artery (4.7 cm length, 0.5 cm average diameter)is equally unremarkable. The renal vein (7.1 cm length, 2.4 cm ingreatest diameter) is dilated at its terminus and filled with an abundantred-brown solid material. 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 On the posterior aspect of the kidney is numerous plastic clipspresumably the prior partial nephrectomy site. Adjacent to and extendingoutward from these plastic clips is an ill-defined 2.2 x 1.8 x 1.3 cmyellow and red nodule. There are several satellite nodules splaying outfrom this central lesion. The nodules are present within the sinus fat ofthe kidney. Due to the presence of the plastic clips, it is not possibleto ascertain as to whether this lesion extends outside of the renalcapsule at this location or not. The tissue immediately surrounding theseplastic clips is densely fibrotic and white. The renal vein thrombus ispresent at the clipped surgical end. A 3.1 x 0.7 x 0.5 cm area ofbrownish yellow discoloration possibly adrenal gland is present along themedial staple line. Winding Lathe Operator sections are submitted in eightcassettes as follows:A1 -vascular and ureteral marginsA2 -venous thrombusA3-5 -admissions representative sections of tumor, within renal sinusA6 - potential adrenal glandA7 -additional sections of venous thrombus, parenchymalA8 -uninvolved kidneyBE/pmw This report may include one or more immunohistochemical stain results thatuse analyte specific reagents. All positive and negative controls havebeen reviewed by the attending pathologist and are satisfactory. The testswere developed and their performance characteristics determined by [facility] Pathology department. They have not been cleared or approved by the USFood and Drug Administration. The FDA has determined that such clearanceor approval is not necessary. Name Value Range Interpretation Code Description Data Kiana rce(s) Supporting Document(s) ID Date Data Source [id number] 06/01/2021 02:18:32 PM EDT [facility] Name Value Range Interpretation Code Description Data Kiana rce(s) Supporting Document(s) ABO and Rh group [Type] in Blood [facility] Blood group antibody screen [Presence] in Serum or Plasma [facility] Performed at [facility], [place] Confirmed ID Date Data Source [id number] 05/31/2021 09:03:47 PM EDT [facility] Name Value Range Interpretation Code Description Data Kiana rce(s) Supporting Document(s) Progress Note [facility] ZOXXJo7bCxVNGlZx94/TGZcsRQQmx4ImBMnqDQv3GCryFFUlI8OyVHE2mV0pDXA8KTrHQtIdNsBdDRU4 lbm [file] ICAgICAgICAgICAgICAgICAgICAgICAgICAgICAgIC AgICAgICAgICAgICAgICAgICAgICAgICAgICAgICAgICAgICAgICAgICAgICAgICAgICAgICAgICAgIC AgDQogICAgICAgICAgICAgICAgICAgICAgICAgICAgICAgICAgICAgICAgICAgICAgICAgICAgICAgIC AgICAgICAgICAgICAgICAgICAgICAgICAgICAgICAg ICAgICAgICAgICAgDQogICAgICAgICAgICAgICAgICAgICAgICAgICAgICAgICAgICAgICAgICAgICAg ICAgICAgICAgICAgICAgICAgICAgICAgICAgICAgICAgICAgICAgICAgICAgICAgICAgICAgDQogICAg ICAgICAgICAgICAgICAgICAgICAgICAgICAgICAgIC AgICAgICAgICAgICAgICAgICAgICAgICAgICAgICAgICAgICAgICAgICAgICAgICAgICAgICAgICAgIC AgICAgDQogICAgICAgICAgICAgICAgICAgICAgICAgICAgICAgICAgICAgICAgICAgICAgICAgICAgIC AgICAgICAgICAgICAgICAgICAgICAgICAgICAgICAg ICAgICAgICAgICAgICAgDQogICAgICAgICAgICAgICAgICAgICAgICAgICAgICAgICAgICAgICAgICAg ICAgICAgICAgICAgICAgICAgICAgICAgICAgICAgICAgICAgICAgICAgICAgICAgICAgICAgICAgDQog ICAgICAgICAgICAgICAgICAgICAgICAgICAgICAgIC AgICAgICAgICAgICAgICAgICAgICAgICAgICAgICAgICAgICAgICAgICAgICAgICAgICAgICAgICAgIC AgICAgICAgDQogICAgICAgICAgICAgICAgICAgICAgICAgICAgICAgICAgICAgICAgICAgICAgICAgIC AgICAgICAgICAgICAgICAgICAgICAgICAgICAgICAg ICAgICAgICAgICAgICAgICAgDQogICAgICAgICAgICAgICAgICAgICAgICAgICAgICAgICAgICAgICAg ICAgICAgICAgICAgICAgICAgICAgICAgICAgICAgICAgICAgICAgICAgICAgICAgICAgICAgICAgICAg DQogICAgICAgICAgICAgICAgICAgICAgICAgICAgIC AgICAgICAgICAgICAgICAgICAgICAgICAgICAgICAgICAgICAgICAgICAgICAgICAgICAgICAgICAgIC DtOSYaIDMrMSCnDAn5T7apUWBvYVZvKR8vTUd8Ao5+ZEgHXyKsFGW3oiRxiG2AZA6cg8PaDSzlNETwq0 BhBYi5KM6JEKRsFCcpXV9YNYxifp7QMTAxNFQjuKYW t2ybIxHkAJH5UPGbXbkzQN1BURTfC0gkkvPpIFKoBVNHSSasLOKRNFgjMXPLWHOcGQUkEuUcZBlbZM7Z s7FoxXH9SYb+Da1DKO4si6CtLBnkCCVfGV9vgw1QLPfKXlGiC4YnfkX9OAOlNYPaZx7KANIxTFJcoXQo NoRaISDFUzFyI5ZlpF87WIYGJx7+DQplbmRvYmoNCj BoNQMbb8QpWGd4RX0SCNQcNAs2bATaLAPhT6Gjc0WaPd83GAUvPafwLq7jTAG4SYrdH4BfmPFfdDxvXF RdNZByZY6aWO4gNWNoVVNeYaGwOEHFKU0FPPEmUFOmeMTcBEDkUWEDGT9QFPeeTJJ6GLAacfBqjTUlZW puPO4FHXFpjjSzUzKbISQHGPv+Hq2NAJ6ns4ErTGfm MlEfZZ1omi7KVSfNHmDlR5K9zFPrD8Z0ZVocFl7JYHWaSFXaCchfPQOSWJrbQN1GHQ8mdyR8TS0LmYVz LKTvWTLlqJKePMr2D76mmXFqLKteET8DDRA+Chela+Bc2RQRRvKIZbPCDwEsUlAJCSKpXvK0BtN1IJj9Yy J6TnWB45dEtpnkMcVCojNW6ZXY7vQLFwVBTMXQ7NoZ OtuB3tiqCmQQCoZNAOViUaI16zvTDfMWWpFLUgAJLiSy7NTTJkX5HzpbPzsIzcnwAhJLMpSWRHAS8GJE vvjwMrlYSjmSmrMF71hMvlKJ3YWv6FOkCeHD6rbz6OwMNaCs9UMNQmFG7ZIPNuMENtOOIkZDO0JMUbIq EuBDmwNJCuYUHhNAQ2WRWxEQDiSX4TSrIfJVLnZqPz GqasBTKoYQWmfq0TJDXyMIVaMSj0TFCbLHDrSNZtKZzuHUNwIGMlYRE7PBJuFGOqSS2SYvNpMSPwCDI7 OAhgNXGwPVQdvn0USIZpKLTqIBF5LENoKJTrDTOrNIepQRCsBQA0QLH6QUJcSHZkZD7AOmMvUTKbLOzz IKSmZDQqFBQhua7BCBBqIZRxSLs8MVUsMEOyNDVtVO hrIAYhVXAoAIIsFPQhXXDtEI3RAtObHAPyPTSdGkHsLCMyJNMfqq4VGLYuRXEgSkD9SVIhJKIoIHDlYN nmDLBvJEUcDdEwCHWnKXSlAY2LQhXeXJJvARK5JGeeEXWjBWTiet0VLURlARFhMcR2GQFyCONoNGQxPI hmGDLrPCR3LnThFHLrIAUgQN4RLmMbLDHsPIZ9GPIi XHPuIURstm5WBMSkZIHaMYGjLBIuFBIyIAOvAQwqVMKgYWL0ZNTyCHEqWMNnHU5IQjWbRYXiQpN6IYHm ZATcJLVila1GDFByTQPwBaq9HDByJQGnIXTfKKvcMWMjUJK0AuA9YRWtRTYyQZ1JOaVlIOHaXuvsHWLn XHQqFDLjlb7JGLNjBKYeSMQfSxKxFBRpOWUdFCieJE HmPSC2PVC8SXBgIWOsXS9MUcUlHBHlZud4UFTsOZErHYAbbp4CNQUeXDQsWRYbUDOoJKQjDXSxFSmfUK VgMTI2BIC5GXYsOHLqWH4XPbLgCAEsZvEjGNZjUFGqNLXfkf7XXCMwWNTkYTEoIDEgUMNuYKEsYRktKG WiDDHlCVt8LDWnSTEdTV2BYfTpJBOySmA8CzVsTXQf MIZiqv0SOZUwHAUyFwYbSwLlTYNnCLMnWTu6kkAcqVPkKQq5AH7KZ8MpxqPnRuPBNn2Zp934GSTsIJUg Ei2UG8crGs8jELQqNWXRMv7DAYw3SzZ3NuP8FwJ2KYUcQja3EGL1NLX3QKZeQKQhLyljCXZ+IDxiMzQ2 VmvyDgAoVFBdNdTkFIolXDNwL8B3GrQeTlG4Bx6y XSANCj4+ATrxsRBviHfsISBSAzNfOcPaULnrXPJTFg5H ID Date Data Source [id number] 05/31/2021 05:44:44 PM EDT [facility] CT THORAX WITHOUT CONTRAST [id number] RE SULTInterpreted by:KD CotoROCEDURE INFORMATION: Exam: CT Chest Without Contrast; Diagnostic [...] coronary arteries. Mediastinal space: The trachea is normal . Aorta: The aorta is normal. Lymph nodes: No pathologic lymph node enlargement is demonstrated. Bones/joints: Marginal osteophytes are noted at multiple levels in the spine. There is mild scoliosis. Soft tissues: The extrathoracic soft tissues are normal. IMPRESSION: Hyperexpanded lungs without acute abnormality. THIS DOCUMENT HAS BEEN ELECTRONICALLY SIGNED BY KOBE ADAMS MDThis document has been electronically signed by Kobe Adams MD on 05/31/2021 5:44 PM Name Value Range Interpretation Code Description Data Kiana rce(s) Supporting Document(s) ID Date Data Source [id number] 05/31/2021 12:52:00 PM EDT [facility] Name Value Range Interpretation Code Description Data Kiana rce(s) Supporting Document(s) SARS-CoV-2 RNA 2019 nCoV Real-Time RT-PCR: NOT DETECTED [facility] This lab was ordered by [facility] and reported by [facility]. 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 [facility] Patient has symptoms related to condition [facility] When did you start to experience these symptoms [Date and time] [Phen X] [facility] Patient was hospitalized because of this condition [facility] patient was admitted to ICU for condition [facility] Patient resides in a congregate care setting [facility] status [facility] ID Date Data Source [id number] 05/31/2021 09:43:37 AM EDT [facility] Name Value Range Interpretation Code Description Data Kiana rce(s) Supporting Document(s) Progress Note [facility] [id number] lbm [file] [id number] ID Date Data Source [id number] 05/29/2021 01:39:40 PM EDT [facility] Name Value Range Interpretation Code Description Data Kiana rce(s) Supporting Document(s) Progress Note [facility] [id number] lbm [file] ID Date Data Source [id number] 01/08/2021 11:20:00 AM EDT [facility] Name Value Range Interpretation Code Description Data Kiana rce(s) Supporting Document(s) SARS-CoV-2 (COVID-19) RNA [Presence] in Respiratory specimen by KEVIN with probe detection Not Detected [facility] This lab was ordered by [facility] and reported by [employer]. Procedure Social History Code Duration Value Status Description Data Source(s ) Alcohol intake 06/02/2021 12:00:00 AM EDT Current drinker of al cohol (finding) completed Current drinker of alcohol (finding) [facility] Tobacco use and exposure 06/02/2021 12:00:00 AM EDT Never used co mpleted Never used [facility] Smoking 06/02/2021 12:00:00 AM EDT Never smoker completed Never s moker [facility] Alcohol intake 05/31/2021 12:00:00 AM EDT Current drinker of al cohol (finding) completed Current drinker of alcohol (finding) [facility] Alcohol intake 05/31/2021 12:00:00 AM EDT Current drinker of al cohol (finding) completed Current drinker of alcohol (finding) [facility] Alcohol intake 05/29/2021 12:00:00 AM EDT Current drinker of al cohol (finding) completed Current drinker of alcohol (finding) [facility] Smoking 05/23/2021 12:00:00 AM EDT Never Smoker completed Never S moker eCW1 ([facility]) Smoking 05/23/2021 12:00:00 AM EDT Never Smoker completed Never S moker eCW1 ([facility]) Smoking 05/03/2021 12:00:00 AM EDT Never Smoker completed Never S moker eCW1 ([facility]) Smoking 05/02/2021 12:00:00 AM EDT Never Smoker completed Never S moker eCW1 ([facility]) Smoking 01/11/2021 01:23:36 PM EDT Never smoked tobacco (findi ng) completed Never smoked tobacco (finding) LEATHA ([facility] Womack MD [facility]) Smoking 11/02/2020 12:00:00 AM EST Never Smoker completed Never S moker eCW1 ([facility]) Smoking 11/02/2020 12:00:00 AM EST Never Smoker completed Never S moker eCW1 ([facility]) Smoking 11/02/2020 12:00:00 AM EST Never Smoker completed Never S moker eCW1 ([facility]) Smoking 11/02/2020 12:00:00 AM EST Never Smoker completed Never S moker eCW1 ([facility]) Smoking 11/02/2020 12:00:00 AM EST Never Smoker completed Never S moker eCW1 ([facility]) Vital Signs ID Date Data Source UNK Name Value Range Interpretation Code Description Data Source(s) Diastolic blood pressure 77 mm[Hg] 77 mm[Hg] LEIGH ([facility] Oxygen saturation in Arterial blood by Pulse oximetry 96 % 96 % LEIGH ([facility]) Heart rate 71 /min 71 /min LE[facility] ([facility]) Systolic blood pressure 134 mm[Hg] 134 mm[Hg] M EDPOLO ([facility]) Systolic blood pressure 138 mm[Hg] 138 mm[Hg] M ADRIA ([facility]) Diastolic blood pressure 77 mm[Hg] 77 mm[Hg] LEIGH ([facility]) Oxygen saturation in Arterial blood by Pulse oximetry 95 % 95 % LEIGH ([facility]) Heart rate 86 /min 86 /min LEIGH ([facility]) Body weight 209 [lb_av] 209 [lb_av] eCW1 ([facility]) Body weight 94.8 kg 94.8 kg eCW1 (On license of [facility]) Body height 68 [in_i] 68 [in_i] eCW1 (On license of [facility]) Body mass index (BMI) [Ratio] 31.77 kg/m2 31.77 kg/m2 eCW1 ([facility]) Heart rate 67 /min 67 /min eCW1 ([facility]) Respiratory rate 18 /min 18 /min eCW1 ([facility]) Body temperature 96.8 [degF] 96.8 [degF] eCW1 ( [facility]) Systolic blood pressure 142 mm[Hg] 142 mm[Hg] e CW1 ([facility]) Diastolic blood pressure 80 mm[Hg] 80 mm[Hg] eCW1 ([facility]) Body weight 208 [lb_av] 208 [lb_av] eCW1 ([facility]) Body weight 94.35 kg 94.35 kg eCW1 (On license of [facility]) Body height 68 [in_i] 68 [in_i] eCW1 (On license of [facility]) Body mass index (BMI) [Ratio] 31.62 kg/m2 31.62 kg/m2 eCW1 ([facility]) Heart rate 77 /min 77 /min eCW1 ([facility]) Respiratory rate 18 /min 18 /min eCW1 ([facility]) Body temperature 97.3 [degF] 97.3 [degF] eCW1 ( [facility]) Systolic blood pressure 124 mm[Hg] 124 mm[Hg] e CW1 ([facility]) Diastolic blood pressure 62 mm[Hg] 62 mm[Hg] eCW1 ([facility]) Body weight 219.8 [lb_av] 219.8 [lb_av] eCW1 ([facility] Respiratory rate 18 /min 18 /min eCW1 ([facility]) Body height 68 [in_i] 68 [in_i] eCW1 (On license of [facility]) Body temperature 97.4 [degF] 97.4 [degF] eCW1 ( [facility]) Body mass index (BMI) [Ratio] 33.42 kg/m2 33.42 kg/m2 W1 ([facility]) Heart rate 84 /min 84 /min eCW1 ([facility]) Systolic blood pressure 138 mm[Hg] 138 mm[Hg] e CW1 ([facility]) Diastolic blood pressure 80 mm[Hg] 80 mm[Hg] eCW1 ([facility]) ID Date Data Source [id number] 06/16/2021 12:53:42 PM EDT [facility] Name Value Range Interpretation Code Description Data Source(s) WEIGHT RECORDED 209.4 lb 209.4 lb [facility] WEIGHT RECORDED 205 lb 205 lb [facility] Body height Measured 68 in 68 in [facility] Patient Treatment Plan of Care Planned Activity Planned Date Details Description Data Source (s) tramadol hydrochloride 50 MG Oral Tablet 06/04/2021 12:00:00 AM [facility] hypromellose 25 MG/ML Ophthalmic Solution 06/03/2021 11:15:[address] [facility] oxyCODONE (ROXICODONE) immediate release tablet 5 mg 021 05:24:41 PM [facility] dextrose 50 % IV solution 25 mL 06/02/2021 04:17:27 PM [facility] Glucagon 1 MG Injection 06/02/2021 04:17:27 PM [facility] Glucose 0.417 MG/MG Oral Gel 06/02/2021 04:17:27 PM [facility] ondansetron (ZOFRAN) injection 4 mg 06/02/2021 04:17:14 PM [facility] empagliflozin 25 MG Oral Tablet [Jardiance] 12/26/2020 12:00:00 AM EDT [facility] ([facility]) empagliflozin 25 MG Oral Tablet [Jardiance] 12/26/2020 12:00:00 AM EDT [facility] ([facility]) empagliflozin 25 MG Oral Tablet [Jardiance] 12/26/2020 12:00:00 AM EDT eCW1 ([facility]) empagliflozin 25 MG Oral Tablet [[place]] 12/26/2020 12:00:00 AM EDT eCW1 ([facility])
--- NOTE | 2021-08-20 21:46 | REPVR ---
PROCEDURE INFORMATION: Exam: XR Chest Exam date and time: 08/20/2021 8:32 PM Age: 80 years old Clinical indication: Cough; Additional info: Cough with sputum TECHNIQUE: Imaging protocol: XR of the chest. Views: 2 views. COMPARISON: CR Chest, 2 view PA, Lat 02/25/2020 1:41 PM FINDINGS: Lungs: Unremarkable. No consolidation. Pleural spaces: Unremarkable. No pleural effusion. No pneumothorax. Heart/Mediastinum: Unremarkable. No cardiomegaly. Vasculature: Enlarged aortic knob with uncoiled aorta. Bones/joints: Posterior mid old rib fractures. IMPRESSION: Enlarged aortic knob with uncoiled aorta. Electronically signed by: Libia uD On 08/20/2021 21:46:06 PM
[2021-08-20 21:55] LABS: BASO # 0.1 10^3/uL (0.0-0.2); BASO % 0.8 % (0.0-1.0); EOS # 0.4 10^3/uL (0.0-0.5); EOS % 4.7 % (0.0-3.0); HEMATOCRIT 34.5 % (42.0-52.0); HEMOGLOBIN 10.7 g/dl (13.5-17.5); LYMPH # 1.6 10^3/uL (1.5-5.0); LYMPH % 18.8 % (24.0-44.0); MEAN CORPUSCULAR VOLUME 90.3 fl (80.0-96.0); MONO # 0.7 10^3/uL (0.0-0.8); MONO % 8.7 % (2.0-8.0); NEUTROPHILS # 5.5 10^3/uL (1.5-8.5); NEUTROPHILS % 66.5 % (36.0-66.0); PLATELET COUNT, AUTOMATED 277 10^3/uL (150-450); RED BLOOD COUNT 3.82 10^6/uL (4.30-6.10); WHITE BLOOD COUNT 8.3 10^3/uL (4.0-10.0)
[2021-08-20 22:14] LABS: CALCIUM LEVEL 8.7 MG/DL (8.8-10.2); CREATININE FOR GFR 2.36 MG/DL (0.70-1.30); GLOMERULAR FILTRATION RATE 28.3 (>35); MAGNESIUM LEVEL 2.2 MG/DL (1.8-2.4); POTASSIUM SERUM 4.8 MEQ/L (3.5-5.1)
[2021-08-20] MEDS ORDERED: MELA10CA PO (22:36)
[2021-08-20] MEDS ORDERED: MULT-40 PO (22:36)
[2021-08-20] MEDS ORDERED: ASPI81TA26 PO (22:36)
[2021-08-20] MEDS ORDERED: CINN500C2 PO (22:36)
[2021-08-20] MEDS ORDERED: METF750T36 PO (23:01)
[2021-08-20] MEDS ORDERED: TUMERIC PO (23:01)
[2021-08-20] MEDS ORDERED: PIOG1TAB37 PO (23:02)
[2021-08-20] MEDS ORDERED: OZEM2INJ2 SC (23:02)
[2021-08-20] MEDS ORDERED: DIPH25CA32 PO (23:03)
[2021-08-20] MEDS ORDERED: HOME MED LIST COMPLETE! XX SCH (23:10)
[2021-08-20] MEDS ORDERED: ACETAMINOPHEN TAB 650MG DOSE (2X325MG) PO PRN (23:35)
[2021-08-20] MEDS ORDERED: GLUCAGON INJ 1MG VIAL SC PRN (23:35)
[2021-08-20] MEDS ORDERED: guaiFENesin ER 600 MG TAB PO PRN (23:35)
[2021-08-20] MEDS ORDERED: IPRATROPIUM 0.5MG/ALBUTEROL 2.5MG INH SOL UD 3ML (DUONEB) NEB PRN (23:35)
[2021-08-20] MEDS ORDERED: DEXTROSE 50% 50 ML SYRINGE IV PRN (23:35)
[2021-08-20] MEDS ORDERED: NS 1,000 ML IV SCH (23:35)
[2021-08-20] MEDS ORDERED: GLUCOSE 4GM CHEW TABLET PO PRN (23:35)
--- OUTSIDE RECORDS SUMMARY | 2021-08-20 23:44 | CCD ---
Author Author [facility] Organization [facility] Address Unknown Phone Unavailable Care Team Providers Care Fitness Technician Name Role Phone Venessa Leal MD Unavailable [...] Venessa Leal MD Unavailable Unavailable Lino Alvarez PRACTICE MANAGER Unavailable Unavailable Lino Alvarez PRACTICE MANAGER Unavailable Unavailable Alvarez, C Nabila PRACTICE MANAGER Unavailable Unavailable Alvarez, C Nabila PRACTICE MANAGER Unavailable Unavailable Alvarez, C Nabila PRACTICE MANAGER Unavailable Unavailable Alvarez, C Nabila PRACTICE MANAGER Unavailable Unavailable Alvarez, C Nabila PRACTICE MANAGER Unavailable Unavailable Alvarez, C Nabila PRACTICE MANAGER Unavailable Unavailable Alvarez, C Nabila PRACTICE MANAGER Unavailable Unavailable Alvarez, C Nabila PRACTICE MANAGER Unavailable Unavailable Alvarez, C Nabila PRACTICE MANAGER Unavailable Unavailable Alvarez, C Nabila PRACTICE MANAGER Unavailable Unavailable Alvarez, C Nabila PRACTICE MANAGER Unavailable Unavailable Alvarez, C Nabila PRACTICE MANAGER Unavailable Unavailable Alvarez, C Nabila PRACTICE MANAGER Unavailable Unavailable Alvarez, C Nabila PRACTICE MANAGER Unavailable Unavailable Alvarez, C Nabila PRACTICE MANAGER Unavailable Unavailable Alvarez, C Nabila PRACTICE MANAGER Unavailable Unavailable Alvarez, C Nabila PRACTICE MANAGER Unavailable Unavailable Alvarez, C Nabila PRACTICE MANAGER Unavailable Unavailable Alvarez, C Nabila PRACTICE MANAGER Unavailable Unavailable Alvarez, C Nabila PRACTICE MANAGER Unavailable Unavailable Alvarez, C Nabila PRACTICE MANAGER Unavailable Unavailable Alvarez, C Nabila PRACTICE MANAGER Unavailable Unavailable Alvarez, C Nabila PRACTICE MANAGER Unavailable Unavailable Alvarez, C Nabila PRACTICE MANAGER Unavailable Unavailable Alvarez, C Nabila PRACTICE MANAGER Unavailable Unavailable Alvarez, C Nabila PRACTICE MANAGER Unavailable Unavailable Alvarez, C Nabila PRACTICE MANAGER Unavailable Unavailable Alvarez, C Nabila PRACTICE MANAGER Unavailable Unavailable [place], Darlene PRACTICE MANAGER Unavailable Unavailable [place], Darlene PRACTICE MANAGER Unavailable Unavailable [place], Darlene PRACTICE MANAGER Unavailable Unavailable [place], Darlene PRACTICE MANAGER Unavailable Unavailable [place], Darlene PRACTICE MANAGER Unavailable Unavailable [place], Darlene PRACTICE MANAGER Unavailable Unavailable [place], Darlene PRACTICE MANAGER Unavailable Unavailable [place], Darlene PRACTICE MANAGER Unavailable Unavailable [place], Darlene PRACTICE MANAGER Unavailable Unavailable [place], Darlene PRACTICE MANAGER Unavailable Unavailable [place], Darlene PRACTICE MANAGER Unavailable Unavailable [place], Darlene PRACTICE MANAGER Unavailable Unavailable [place], Darlene PRACTICE MANAGER Unavailable Unavailable [place], Darlene PRACTICE MANAGER Unavailable Unavailable [place], Darlene PRACTICE MANAGER Unavailable Unavailable [place], Darlene PRACTICE MANAGER Unavailable Unavailable [place], Darlene PRACTICE MANAGER Unavailable Unavailable [place], Darlene PRACTICE MANAGER Unavailable Unavailable [place], Darlene PRACTICE MANAGER Unavailable Unavailable [place], Darlene PRACTICE MANAGER Unavailable Unavailable [place], Darlene PRACTICE MANAGER Unavailable Unavailable [place], Darlene PRACTICE MANAGER Unavailable Unavailable [place], Darlene PRACTICE MANAGER Unavailable Unavailable [place], Darlene PRACTICE MANAGER Unavailable Unavailable [place], Darlene PRACTICE MANAGER Unavailable Unavailable [place], Darlene PRACTICE MANAGER Unavailable Unavailable [place], Darlene PRACTICE MANAGER Unavailable Unavailable [place], Darlene PRACTICE MANAGER Unavailable Unavailable [place], Darlene PRACTICE MANAGER Unavailable Unavailable [place], Darlene PRACTICE MANAGER Unavailable Unavailable [place], Darlene PRACTICE MANAGER Unavailable Unavailable [place], Darlene PRACTICE MANAGER Unavailable Unavailable [place], Darlene PRACTICE MANAGER Unavailable Unavailable [place], Darlene PRACTICE MANAGER Unavailable Unavailable [place], Darlene PRACTICE MANAGER Unavailable Unavailable [place], Darlene PRACTICE MANAGER Unavailable Unavailable SHAWN, RODNEY Unavailable Unavailable SHAWN, [...] Elena Bolanos MD, FACS Unavailable Unavailable Mejia Womakc, Elena Bolanos MD, FACS Unavailable Unavailable Mejia [...] Martin, Siddhartha Morgan MD Unavailable Unavailable Martin, iSddhartha Morgan MD Unavailable Unavailable Martin, Siddhartha Morgan MD Unavailable Unavailable Martin, Siddhartha Morgan MD Unavailable Unavailable Salazar, Siddhartha Morgan MD Unavailable Unavailable Salazar, Siddhartha Morgan MD Unavailable Unavailable Salazar, Siddhartha Morgan MD Unavailable Unavailable Martin, Siddhartha Morgan MD Unavailable Unavailable Martin, Siddhartha Morgan MD Unavailable Unavailable Siddhartha SU Unavailable Unavailable Womack, Carlton Unavailable Unavailable Womack, Carlton Unavailable Unavailable Womack, Carlton Unavailable Unavailable Woamck, Carlton Unavailable Unavailable Womack, Carlton Unavailable Unavailable [...] Unavailable Unavailable Womack, Carlton Unavailable Unavailable Womack, Carltno Unavailable Unavailable Womack, Carlton Unavailable Unavailable Womack, [...] Womack, Carlton Unavailable Unavailable EANNIELLO, L ADEN RINKMAN Unavailable Unavailable EANNIELLO, L ADEN RINKMAN Unavailable Unavailable EANNIELLO, L ADEN RINKMAN Unavailable Unavailable EANNIELLO, L ADEN RINKMAN Unavailable Unavailable EANNIELLO, L ADEN RINKMAN Unavailable Unavailable EANNIELLO, L ADEN RINKMAN Unavailable Unavailable EANNIELLO, L ADEN RINKMAN Unavailable Unavailable EANNIELLO, L ADEN RINKMAN Unavailable Unavailable EANNIELLO, L ADEN RINKMAN Unavailable Unavailable EANNIELLO, L ADEN RINKMAN Unavailable Unavailable EANNIELLO, L ADEN RINKMAN Unavailable Unavailable EANNIELLO, L ADEN RINKMAN Unavailable Unavailable EANNIELLO, L ADEN RINKMAN Unavailable Unavailable EANNIELLO, L ADEN RINKMAN Unavailable Unavailable EANNIELLO, L ADEN RINKMAN Unavailable Unavailable EANNIELLO, L ADEN RINKMAN Unavailable Unavailable EANNIELLO, L ADEN RINKMAN Unavailable Unavailable EANNIELLO, L ADEN RINKMAN Unavailable Unavailable EANNIELLO, L ADEN RINKMAN Unavailable Unavailable EANNIELLO, L ADEN RINKMAN Unavailable Unavailable EANNIELLO, L ADEN RINKMAN Unavailable Unavailable EANNIELLO, L ADEN RINKMAN Unavailable Unavailable EANNIELLO, L ADEN RINKMAN Unavailable Unavailable EANNIELLO, L ADEN RINKMAN Unavailable Unavailable EANNIELLO, L ADEN RINKMAN Unavailable Unavailable EANNIELLO, L ADEN RINKMAN Unavailable Unavailable EANNIELLO, L ADEN RINKMAN Unavailable Unavailable EANNIELLO, L ADEN RINKMAN Unavailable Unavailable EANNIELLO, L ADEN RINKMAN Unavailable Unavailable EANNIELLO, L ADEN RINKMAN Unavailable Unavailable EANNIELLO, L ADEN RINKMAN Unavailable Unavailable EANNIELLO, L ADEN RINKMAN Unavailable Unavailable EANNIELLO, L ADEN RINKMAN Unavailable Unavailable EANNIELLO, L ADEN RINKMAN Unavailable Unavailable Siddhartha UMANZOR BILLIE Unavailable Unavailable Re-disclosure Warning The records [...] is protected by Article 27-F of the [facility] Public Health law. If you continue you may have access to information: Regarding HIV / AIDS; Provided by facilities licensed or operated by the [facility] Office of Mental Health; or Provided by the [facility] Office for People With Developmental Disabilities. If such information is present, then the following [facility] mandated warning applies: This information has [...] reactions NO KNOWN ALLERGIES NO KNOWN ALLERGIES [facility] Allergy to substance No Known Allergies No known allergies (situation ) LEATHA (Luis Miguel Womack MD [facility]) Family History Family Member Name Family Member Gender Family Member Status Date o f Status Description Data Source(s) Unknown Male Problem MEDENT ([facility] Unknown Unknown Problem [facility] ([facility], ) Unknown Female Unknown Female Problem [facility] ([facility]) Unknown Female Problem [facility] ([facility]) Encounters Encounter Providers Location Date Indications Data Source(s ) Outpatient Attender: RODNEY SHAWN Main Office 07/06/2021 09:00:00 A M EDT [facility] ([facility]) Outpatient Attender: Evelia GARCÍA Main Office 07/04/2021 12:15:00 PM EDT [facility] ([facility] Outpatient Attender: Venessa Leal MD A-XX[facility]URO 06/28/2021 12:00:00 AM EDT - 06/28/2021 01:46:39 PM EDT [facility] Outpatient Attender: ADEN UMANZOR NP A-XXHAURO 12/2020 12:00:00 AM EDT - 06/19/2021 12:08:[address] [facility] Inpatient Attender: Venessa Leal MDAdmitter : Venessa Leal MD [id number] 06/02/2021 12:00:00 AM EDT - 06/04/2021 06:03:[address] [facility] Patient discharged. Outpatient Attender: Cathy Salazar MDReferrer: Venessa pantoja MD 06/01/2021 12:00:00 AM EDT [facility] pretest Outpatient Attender: YANETH PADGETT JRReferrer: YANETH OMALLEY JR [id number] 05/31/2021 02:19:06 PM EDT - 05/31/2021 03:37:[address] [facility] Outpatient Attender: Nabila HERNANDEZP Attender: ROBINA SUReferrer: Nabila GARCÍA 05/31/2021 12:00:00 AM EDT Encounter for screening for other viral diseases [facility] Encounter for screening for other viral diseases Outpatient Referrer: Carlton Womack 05/31/2021 12:00:0 0 AM EDT Other specified disorders of kidney and ureter [facility] Other specified disorders of kidney and ureter Outpatient Attender: Venessa Leal MD A-XXHAURO 05/31/2021 12:00:[address] [facility] Outpatient Attender: Carlton Womack -XXHAURO 12:00:00 AM EDT - 05/29/2021 01:20:[address] [facility] Outpatient Referrer: ADEN UMANZOR NP 05/29/2021 1 2:00:00 AM EDT Malignant neoplasm of left kidney, except renal pelvis [facility] Malignant neoplasm of left kidney, excep t renal pelvis [place] [address] [facility] [address] 05/23/2021 12:00:00 AM EDT [facility] [place] [address] [facility] [facility] [address] 05/23/2021 12:00:00 AM EDT eCW1 ([facility]) [place] [address] [facility] [address] 05/02/2021 12:00:00 AM EDT eCW1 ([facility]) [place] [address] [facility] [place] [address] 04/10/2021 12:00:00 AM EDT eCW1 ([facility]) [place] [address] [facility] [address] 04/05/2021 12:00:00 AM EDT eCW1 ([facility]) [place] [address] [facility] [address] 03/08/2021 12:00:00 AM EDT eCW1 ([facility]) [place] [address] [facility] [address] 02/27/2021 12:00:00 AM EDT eCW1 ([facility]) <td ID="encounterTypeDescriptionID0">1 Y ear Follow-Up</td><td>Luis Miguel Womack MD, FACS</td><td>[facility]</td><td>01/11/2021</td><td>12:27PM</td><td>08/05/2019 11:59PM</td><td> <content ID="encounterDiagnosisID0-0">Pseudophakia</content>, <content ID="encounterDiagnosisID0-1">Taking Medication For Diabetes Long-term Use of Insulin</content>, <content ID="encounterDiagnosisID0-2">Assessment of Taking Medication For Diabetes Long-term Use of Oral Hypoglycemics</content>, <content ID="encounterDiagnosisID0-3">Posterior Capsule Opacification Eccentric Capsule Right Eye</content>, <content ID="encounterDiagnosisID0-4">Diabetes Mellitus Type 2 Without Complication</content>, <content ID="encounterDiagnosisID0-5"> Macular Degeneration Nonexudative Bilateral Early Dry Stage</content></td>Outpatient Attender: Luis Miguel Womack MD, FACS Luis Miguel Womack MD [facility] 01/11/2021 12:27:00 PM EDT - 08/05/2019 11:59:00 PM ES T Taking Medication For Diabetes Long-term Use of InsulinAssessment of Taking Medication For Diabetes Long-term Use of Oral HypoglycemicsMacular Degeneration Nonexudative Bilateral Early Dry StagePosterior Capsule Opacification Eccentric Capsule Right EyePseudophakiaDiabetes Mellitus Type 2 Without Complication LEATHA (Luis Miguel Womack MD [facility]) Taking Medication For Diabetes Long-term Use of Insulin Assessment of Taking Medication For Diab etes Long-term Use of Oral Hypoglycemics Macular Degeneration Nonexudative Bilate ral Early Dry Stage Posterior Capsule Opacification Eccentri c Capsule Right Eye Pseudophakia Diabetes Mellitus Type 2 Without Complic ation [place] [address] [facility] [address] 12/26/2020 12:00:00 AM EDT eCW1 ([facility]) [place] [address] [facility] [address] 11/02/2020 12:00:00 AM EST eCW1 ([facility]) [place] [address] [facility] [address] 08/22/2020 12:00:00 AM EST eCW1 ([facility]) Immunizations Vaccine Date Status Description Data Source(s) COVID-19 VACCINE Moderna 07/10/2021 12:00:00 AM EDT completed NVSIIS Vaccine Series Complete: NOThis Data was Submitted to [facility] Via [employer]. IIV3. This is one of two codes replacing CVX 15, which is being retired. 06/22/2020 06:03:00 AM EDT completed eCW1 ([facility]) IIV3. This is one of two codes replacing CVX 15, which is being retired. 06/22/2020 06:03:00 AM EDT completed eCW1 ([facility]) IIV3. This is one of two codes replacing CVX 15, which is being retired. 06/22/2020 06:03:00 AM EDT completed eCW1 ([facility]) IIV3. This is one of two codes replacing CVX 15, which is being retired. 06/22/2020 06:03:00 AM EDT completed eCW1 ([facility]) IIV3. This is one of two codes replacing CVX 15, which is being retired. 06/22/2020 06:03:00 AM EDT completed eCW1 ([facility]) IIV3. This is one of two codes replacing CVX 15, which is being retired. 06/22/2020 06:03:00 AM EDT completed eCW1 ([facility]) IIV3. This is one of two codes replacing CVX 15, which is being retired. 06/22/2020 06:03:00 AM EDT completed eCW1 ([facility]) IIV3. This is one of two codes replacing CVX 15, which is being retired. 06/22/2020 06:03:00 AM EDT completed eCW1 ([facility]) IIV3. This is one of two codes replacing CVX 15, which is being retired. 06/22/2020 06:03:00 AM EDT completed eCW1 ([facility]) Medications Medication Brand Name Start Date Product Form Dose Route Admi nistrative Instructions Pharmacy Instructions Status Indications Reaction Description Data Source(s) valacyclovir 1000 MG Oral Tablet Valacyclovir HCL 07/04/2021 12:00: 00 AM EDT ORAL active [facility] ([facility]) tramadol hydrochloride 50 MG Oral Tablet [facility] HCl [facility] traMADol HCl 50 MG Oral Tablet (ULTRAM) 06/04/2021 12:00:00 AM EDT 50 mg Oral active Take 1 tablet b y mouth every 8 (eight) hours as needed for Pain for up to 3 days, Max Daily Dose: [address] [facility] Acetaminophen 325 MG Oral Tablet acetaminophen (TYLENO L) tablet 650 mg acetaminophen (TYLENOL) tablet 650 mg 06/03/2021 08:00:00 PM EDT 65 0 mg Oral active 650 mg, Oral, E very 6 hours, First dose on 06/03/21 at 2000, For 30 days
Maximum daily dose of acetaminophen is 3,000 mg from all sources in [address]
[facility] Medication administered onsite insulin lispro (HumaLOG) injection LOW DOSE EATING INS ULIN patients 1-8 Units [id number] 06/03/2021 01:00:00 PM EDT U Subcutaneous active 1-8 Units, Subcutaneous, Three Times Daily-With Meals, First dose on 06/03/21 at 1300, For 30 days
Nursing MUST open the 'SQ Insulin Dosing Charts' Sidebar Report, or, the Patient Summary or Summary Report within the ED.
[facility] Medication administered onsite hypromellose 25 MG/ML Ophthalmic Solutio n hydroxypropyl methylcellulose (GONIOSOL) 2.5 % ophthalmic solution 1 drop hydroxypropyl methylcellulose (GONIOSOL) 2.5 % ophthalmic solution 1 drop 06/03/2021 11:15:47 AM EDT 1 [drp] Both Eyes active 1 drop, Brandan th Eyes, PRN, Dry Eyes, Starting on 06/03/21 at 1115, For [address] [facility] Medication administered onsite atorvastatin 40 MG Oral Tablet atorvastatin (LIPITOR) tablet 40 mg atorvastatin (LIPITOR) tablet 40 mg 06/03/2021 09:00:00 AM EDT 40 mg Oral active 40 mg, Oral, Every other day, First dose on 06/03/21 at 0900, For [address] [facility] Medication administered onsite magnesium sulfate in dextrose 5 % infusion (premix) 1 g [id number] -[id number] 06/03/2021 05:45:00 AM EDT 1 g Intravenous completed 1 g, Intravenous, Administer over 60 Minutes, Once, On Sat06/03/21 at 0545, For [address] [facility] Medication administered onsite doxepin (SINEQUAN) capsule 75 mg 06/02/2021 10:00:00 PM EDT 75 mg Oral active 75 mg, Oral, Nightly, First dose on Sat06/02/21 at 2200, For [address] [facility] Medication administered onsite Melatonin 5 MG Oral Tablet melatonin tablet 10 mg melatonin tablet 10 mg 06/02/2021 10:00:00 PM EDT 10 mg Oral active 10 mg, Oral, Nightly, First dose on Sat06/02/21 at 2200, For [address] [facility] Medication administered onsite Docusate Sodium 100 MG Oral Capsule docusate sodium (C OLACE) capsule 100 mg docusate sodium (COLACE) capsule 100 mg 06/02/2021 09:00:00 PM EDT 100 mg Oral active 100 mg, Oral, 2 Times Daily, First dose on Sat06/02/21 at 2100, For [address] [facility] Medication administered onsite gabapentin 400 MG Oral Capsule gabapentin (NEURONTIN) capsule 400 mg gabapentin (NEURONTIN) capsule 400 mg 06/02/2021 09:00:00 PM EDT 400 mg Oral active Neuropathic Pain 400 mg, Oral, 2 Times Daily, Indications: Neuropathic Pain, First dose (after last modification) on Sat06/02/21 at 2100, For [address] [facility] Neuropathic Pain Medication administered onsite fentaNYL (SUBLIMAZE) (PF) injection 50 mcg [id number] 06/02/2021 05:30:00 PM EDT 50 ug Intravenous completed 50 mcg, Intravenous, Once, On Sat06/02/21 at 1730, For [address] [facility] Medication administered onsite oxyCODONE (ROXICODONE) immediate [...] Service consultation and approval.
[Order 2 End] [facility] Medication administered onsite fentaNYL (SUBLIMAZE) (PF) injection 25 mcg [id number] 06/02/2021 05:24:06 PM EDT 25 ug Intravenous active 25 m cg, Intravenous, Every 2 hours PRN, breakthrough pain, Starting on Sat06/02/21 at 1724, For [address] [facility] Medication administered onsite heparin (porcine) 5000 UNIT/ML injection 5,000 Units [id number] 06/02/2021 05:00:00 PM EDT 5000 U Subcutaneous active 5,000 Units, Subcutaneous, Three Times Daily Standard, First dose on Sat06/02/21 at 1700, For [address] [facility] Medication administered onsite Acetaminophen 10 MG/ML Injectable Soluti on acetaminophen (OFIRMEV) infusion 1,000 mg acetaminophen (OFIRMEV) infusion 1,000 mg 06/02/2021 04:30:00 PM EDT 1000 mg Intravenous aborted 1,000 mg , Intravenous, Administer over 15 Minutes, Every 8 hours, First dose on Sat06/02/21 at 1630, For 4 doses
Maximum daily dose of acetaminophen from all sources 3,[address]
[facility] Medication administered onsite lidocaine (LIDODERM) 5 % patch 1 patch [id number] 04:30:00 PM EDT 1 {patch} Transdermal active 1 patch, T ransdermal, Every 24 hours, First dose on Sat06/02/21 at 1630, For 30 days
Apply to abdomen 12 hours on - [address]
[facility] Medication administered onsite Glucose 0.417 MG/MG Oral Gel glucose (GLUTOSE) 40 % or al gel 15 g glucose (GLUTOSE) 40 % oral gel 15 g 06/02/2021 04:17:27 PM EDT 15 g Oral active 15 g, Oral, PRN, Low blood s ugar, for gluose 55-69 mg/dl and able to take PO, Starting on Sat06/02/21 at 1617, For [address] [facility] Medication administered onsite Glucagon 1 MG Injection glucagon (human recombinant) ( GLUCAGEN) injection 1 mg glucagon (human recombinant) (GLUCAGEN) injection 1 mg 06/02/2021 04:17:27 PM EDT 1 mg Intramuscular active 1 mg, Intramuscular, PRN, for glucose <55 without IV access, Starting on Sat06/02/21 at 1617, For [address] [facility] Medication administered onsite dextrose 50 % IV solution 25 mL [id number] 06/02/2021 04:17:27 PM E DT 25 mL Intravenous active 25 mL, Intrav enous, PRN, Other, blood glucose <55, Starting on Sat06/02/21 at 1617, For 30 days
Not for midline administration.
[facility] Medication administered onsite ondansetron (ZOFRAN) injection 4 mg [id number] 06/02/2021 04:17:1 4 PM EDT 4 mg Intravenous active 4 mg, In travenous, Every 8 hours PRN, Nausea, Starting on Sat06/02/21 at 1617, For [address] [facility] Medication administered onsite Calcium Chloride 0.0014 MEQ/ML / Potassi um Chloride 0.004 MEQ/ML / Sodium Chloride 0.103 MEQ/ML / Sodium Lactate 0.028 MEQ/ML Injectable Solution lactated ringers infusion lactated ringers infusion 06/02/2021 03:15:00 PM EDT 50 mL/h Intravenous active at 50 mL/hr, Intravenous, Continuous, Starting on Sat06/02/21 at 1515, For [address] [facility] Medication administered onsite fentaNYL (SUBLIMAZE) (PF) injection 25 mcg [id number] 06/02/2021 01:43:24 PM EDT 25 ug Intravenous aborted 25 m cg, Intravenous, Every 5 min PRN, Severe Pain (Pain Scale Score 7-10), Starting on Sat06/02/21 at 1343, For 10 doses, Recovery [facility] Medication administered onsite heparin (porcine) 5000 UNIT/ML injection 5,000 Units [id number] 06/02/2021 07:15:00 AM EDT 5000 U Subcutaneous completed 5,000 Units, Subcutaneous, Once, On Sat06/02/21 at 0715, For 1 dose, Pre-op [facility] Medication administered onsite sodium chloride (preservative free) 0.9 % flush 3 mL [id number] 06/02/2021 06:48:08 AM EDT 3 mL Intravenous aborted 3 mL, Intravenous, Every 8 hours, First dose on Sat06/02/21 at 0700, For 30 days, Pre-op
Saline Lock. Flush Q8H and after each use to Saline Lock.
[facility] Medication administered onsite Melatonin 0.2 MG Oral Tablet Melatonin 200 MCG Oral Ta blet Melatonin 200 MCG Oral Tablet 01/11/2021 12:00:00 AM EDT 1 active melatonin 0.2 MG Oral Tablet SEBASTIAN (Luis Miguel Womack MD [facility]) empagliflozin 25 MG Oral Tablet [Jardiance] Jardiance 25 MG Jardiance 25 MG 12/26/2020 12:00:00 AM EDT 1.0 {tablet} active Jardiance 25 MG eCW1 ([facility]) empagliflozin 25 MG Oral Tablet [Jardiance] Jardiance 25 MG Jardiance 25 MG 12/26/2020 12:00:00 AM EDT 1.0 {tablet} active Jardiance 25 MG eCW1 ([facility]) empagliflozin 25 MG Oral Tablet [Jardiance] Jardiance 25 MG Jardiance 25 MG 12/26/2020 12:00:00 AM EDT 1.0 {tablet} active Jardiance 25 MG eCW1 ([facility]) empagliflozin 25 MG Oral Tablet [Jardiance] Jardiance 25 MG Jardiance 25 MG 12/26/2020 12:00:00 AM EDT 1.0 {tablet} active Jardiance 25 MG eCW1 ([facility]) empagliflozin 25 MG Oral Tablet [Jardiance] Jardiance 25 MG Jardiance 25 MG 12/26/2020 12:00:00 AM EDT 1.0 {tablet} active Jardiance 25 MG eCW1 ([facility]) empagliflozin 25 MG Oral Tablet [Jardiance] Jardiance 25 MG Jardiance 25 MG 12/26/2020 12:00:00 AM EDT 1.0 {tablet} active Jardiance 25 MG eCW1 ([facility]) empagliflozin 25 MG Oral Tablet [Jardiance] Jardiance 25 MG Jardiance 25 MG 12/26/2020 12:00:00 AM EDT 1.0 {tablet} active Jardiance 25 MG eCW1 ([facility]) empagliflozin 25 MG Oral Tablet [Jardiance] Jardiance 25 MG Jardiance 25 MG 12/26/2020 12:00:00 AM EDT 1.0 {tablet} active Jardiance 25 MG eCW1 ([facility]) 0.5 ML dulaglutide 1.5 MG/ML Auto-Inject or [Trulicity] Trulicity 0.75MG/0.5ML Subcutaneous Solution Pen-injector Trulicity 0.75MG/0.5ML Subcutaneous Solu tion Pen-injector 04/07/2018 12:00:00 AM EDT 1 abort ed 0.5 ML dulaglutide 1.5 MG/ML Auto-Injector [Trulicity] LEATHA (Luis Miguel Womack MD [facility]) Melatonin 0.2 MG Oral Tablet Melatonin 200 MCG OR TABS Melatonin 200 MCG OR TABS 01/16/2013 12:00:00 AM EDT 1 aborted melatonin 0.2 MG Oral Tablet LEATHA (Luis Miguel Womack MD [facility]) Insurance Providers Payer name Policy type / Coverage type Policy ID Covered green party ID Covered green party's relationship to tinsley Policy [place] Plan Information MEDICARE [id number] SP [id number] A MEDICARE A [id number] Self [id number] MEDICARE A [id number] Self [id number] A Lifetime Benefit Solution Medigap Part B [id number] Self [place] Primary [id number] Self Lifetime Benefit Solution Medigap Part B [id number] Self EXCELLUS C [id number] Self [id number] BCBS [facility] Other 0 [id number] Self 0 EXCELLUS C [id number] Self [id number] BCBS [facility] Other 0 [id number] Self 0 [place]/307 [id number] SP [id number] DME Jurisdiction A INIC C [id number] SELF [id number] Medicare C [id number] SELF [id number] A [place] 302/307 [id number] SP [id number] Blue Cross Blue Shield P [id number] SELF [id number] ANSI-Commercial [id number] ANSI-Medicare Part B [id number] [place] Medig[place] Part B [id number] Self [id number] Medicare Medicare Primary [id number] Self [id number] BS [place] Medigap Part B [id number] Self [id number] Medicare Medicare Primary [id number] Self [id number] ANSI-Commercial [id number] ANSI-Medicare Part B [id number] ANSI-Commercial [id number] ANSI-Medicare Part B [id number] ANSI-Commercial [id number] ANSI-Medicare Part B [id number] MEDICARE [id number] SP [id number] A [place]/307 [id number] SP [id number] ANSI-Medicare Part B [id number] ANSI-Commercial [id number] ANSI-Medicare Part B [id number] ANSI-Commercial [id number] ANSI-Commercial [id number] ANSI-Medicare Part B [id number] MEDICARE [id number] SP [id number] A [employer] BCBS Medigap Part B [id number] Self [id number] [employer] Medigap Part B [id number] Self [id number] [place] Medicare Primary [id number] Self [id number] ANSI-Medicare Part B [id number] ANSI-Commercial [id number] MEDICARE C [id number] S [id number] A MEDICARE [id number] SP [id number] A BS Of [place] Healthcaregap Part B [id number] Self Medicare [place] Medicare Primary [id number] Self [place] [employer] 910 Commercial [id number] Self EXCELLUS BC-BS PPO 306 [id number] SP [id number] EXCELLUS BS B [id number] S VYW [id number] LIFETIME BENEFIT SOLUTIO O [id number] S [id number] MEDICARE C [id number] S [id number] A LIFETIME BENEFIT SOLUTIONS UNAVAILABLE UNAVAILABLE LIFETIME BENEFIT SOLUTIONS [id number] SP [id number] Lifetime Benefit Solutions [place] Healthcaregap Part B [id number] Self [employer] MEDICAL CLAIMS [id number] SP [id number] [employer] S [id number] S [id number] A MEDICARE [id number] SP [id number] P08 [id number] BC[place] PPO 302/307 [id number] SP [id number] BCBS [place] PPO 302/307 [id number] SP [id number] Medicare Part B [facility] Other 0 [id number] Self 0 MEDICARE C [id number] S [id number] P08 EXCELLUS BCBS B [id number] S VYW [id number] Medicare Part B [facility] Other 0 [id number] S elf 0 ANSI-Commercial [id number] ANSI-Medicare Part B [id number] ANSI-Medicare Part B [id number] ANSI-Commercial [id number] ANSI-Commercial [id number] ANSI-Medicare Part B [id number] ANSI-Medicare Part B [id number] ANSI-Commercial [id number] Problems, Conditions, and Diagnoses Code Display Name Description Problem Type Effective Dates Data Source(s) pretest pretest Diagnosis 06/01/2021 12:00:00 AM ED [facility] Z11.59 Encounter for screening for other viral diseases Encounter for screening for other viral diseases Diagnosis 05/31/2021 12:47:56 PM [facility] N28.89 Other specified disorders of kidney and ureter Other specified disorders of kidney and ureter Diagnosis 05/30/2021 10:38:02 AM EDT [facility] C64.2 Malignant neoplasm of left kidney, 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, except renal pelvis Diagnosis 05/29/2021 01:26:04 PM E [facility] N18.32 [id number] Chronic kidney disease, stage 3b Problem 05/03/2021 12:00:00 AM EDT [email or web address] ([facility]) Surgeries/Procedures Procedure Description Date Indications Data Source(s) DESTRUCTION PREMALIGNANT LESION 1ST 07/06/2021 12:00:0 0 AM EDT [facility] DESTRUCTION PREMALIGNANT LESION 2-14 EA 07/06/2021 12: 00:00 AM EDT [facility]) OFFICE OUTPATIENT VISIT 25 MINUTES 07/06/2021 12:00:00 AM EDT [facility] ([facility]) Shave Biopsy Of Skin, Single Lesion 07/04/2021 12:00:0 0 AM EDT [facility] ([facility]) OFFICE OUTPATIENT VISIT 25 MINUTES 07/04/2021 12:00:00 AM EDT [facility] ([facility]) POCT GLUCOSE, DOCKED <td>POCT GLUCOSE, DOCKED</td ><td>Routine</td><td>06/04/2021 1:03 PM EDT</td><td></td><td> </td> 06/04/2021 01:03:00 PM [facility] POCT GLUCOSE, DOCKED <td>POCT GLUCOSE, DOCKED</td ><td>Routine</td><td>06/04/2021 8:42 AM EDT</td><td></td><td> </td> 06/04/2021 08:42:00 AM [facility] XR CHEST FRONTAL ONLY [id number] <td>XR CHEST FRONTAL ONLY 51182</td><td>Routine</td><td>06/04/2021 5:29 AM EDT</td><td></td><td> </td> 06/04/2021 05:29:00 AM [facility] BLOOD COUNT COMPLETE AUTOMATED <td>CBC</td><td>Routine </td><td>06/04/2021 5:00 AM EDT</td><td></td><td> </td> 06/04/2021 05:00:00 AM [facility] PHOSPHORUS INORGANIC <td>PHOSPHORUS LEVEL</td><td >Routine</td><td>06/04/2021 5:00 AM EDT</td><td></td><td> </td> 06/04/2021 05:00:00 AM [facility] MAGNESIUM <td>MAGNESIUM LEVEL</td><td> Routine</td><td>06/04/2021 5:00 AM EDT</td><td></td><td> </td> 06/04/2021 05:00:00 AM [facility] BASIC METABOLIC PANEL CALCIUM TOTAL <td>BASIC METABOLI C PANEL</td><td>Routine</td><td>06/04/2021 5:00 AM EDT</td><td></td><td> </td> 06/04/2021 05:00:00 AM [facility] GLUCOSE QUANTITATIVE BLOOD XCPT REAGENT STRIP <td>POCT GLUCOSE, DOCKED</td><td>Routine</td><td>06/03/2021 9:24 PM EDT</td><td></td><td> </td> 06/03/2021 09:24:00 PM [facility] GLUCOSE QUANTITATIVE BLOOD XCPT REAGENT STRIP <td>POCT GLUCOSE, DOCKED</td><td>Routine</td><td>06/03/2021 6:00 PM EDT</td><td></td><td> </td> 06/03/2021 06:00:00 PM [facility] GLUCOSE QUANTITATIVE BLOOD XCPT REAGENT STRIP <td>POCT GLUCOSE, DOCKED</td><td>Routine</td><td>06/03/2021 12:41 PM EDT</td><td></td><td> </td> 06/03/2021 12:41:00 PM [facility] GLUCOSE QUANTITATIVE BLOOD XCPT REAGENT STRIP <td>POCT GLUCOSE, DOCKED</td><td>Routine</td><td>06/03/2021 8:29 AM EDT</td><td></td><td> </td> 06/03/2021 08:29:00 AM [facility] XR CHEST FRONTAL ONLY [id number] <td>XR CHEST FRONTAL ONLY 04026</td><td>Routine</td><td>06/03/2021 4:20 AM EDT</td><td></td><td> </td> 06/03/2021 04:20:00 AM [facility] BLOOD COUNT COMPLETE AUTOMATED <td>CBC</td><td>Routine </td><td>06/03/2021 3:50 AM EDT</td><td></td><td> </td> 06/03/2021 03:50:00 AM [facility] PHOSPHORUS INORGANIC <td>PHOSPHORUS LEVEL</td><td >Routine</td><td>06/03/2021 3:50 AM EDT</td><td></td><td> </td> 06/03/2021 03:50:00 AM [facility] MAGNESIUM <td>MAGNESIUM LEVEL</td><td> Routine</td><td>06/03/2021 3:50 AM EDT</td><td></td><td> </td> 06/03/2021 03:50:00 AM [facility] BASIC METABOLIC PANEL CALCIUM TOTAL <td>BASIC METABOLI C PANEL</td><td>Routine</td><td>06/03/2021 3:50 AM EDT</td><td></td><td> </td> 06/03/2021 03:50:00 AM [facility] GLUCOSE QUANTITATIVE BLOOD XCPT REAGENT STRIP <td>POCT GLUCOSE, DOCKED</td><td>Routine</td><td>06/03/2021 3:45 AM EDT</td><td></td><td> </td> 06/03/2021 03:45:00 AM [facility] GLUCOSE QUANTITATIVE BLOOD XCPT REAGENT STRIP <td>POCT GLUCOSE, DOCKED</td><td>Routine</td><td>06/03/2021 12:54 AM EDT</td><td></td><td> </td> 06/03/2021 12:54:00 AM [facility] COVID-19 PCR <td>COVID-19 PCR</td><td>Isaak ed</td><td>06/02/2021 8:47 PM EDT</td><td></td><td> </td> 06/02/2021 08:47:00 PM [facility] GLUCOSE QUANTITATIVE BLOOD XCPT REAGENT STRIP <td>POCT GLUCOSE, DOCKED</td><td>Routine</td><td>06/02/2021 8:41 PM EDT</td><td></td><td> </td> 06/02/2021 08:41:00 PM [facility] XR CHEST FRONTAL ONLY [id number] <td>XR CHEST FRONTAL ONLY 24293</td><td>Routine</td><td>06/02/2021 7:56 PM EDT</td><td></td><td> </td> 06/02/2021 07:56:00 PM [facility] GLUCOSE QUANTITATIVE BLOOD XCPT REAGENT STRIP <td>POCT GLUCOSE, DOCKED</td><td>Routine</td><td>06/02/2021 4:31 PM EDT</td><td></td><td> </td> 06/02/2021 04:31:00 PM [facility] BLOOD COUNT COMPLETE AUTOMATED <td>CBC</td><td>STAT</t d><td>06/02/2021 2:30 PM EDT</td><td></td><td> </td> 06/02/2021 02:30:00 PM [facility] PHOSPHORUS INORGANIC <td>PHOSPHORUS LEVEL</td><td >STAT</td><td>06/02/2021 2:30 PM EDT</td><td></td><td> </td> 06/02/2021 02:30:00 PM [facility] MAGNESIUM <td>MAGNESIUM LEVEL</td><td> STAT</td><td>06/02/2021 2:30 PM EDT</td><td></td><td> </td> 06/02/2021 02:30:00 PM [facility] BASIC METABOLIC PANEL CALCIUM TOTAL <td>BASIC METABOLI C PANEL</td><td>STAT</td><td>06/02/2021 2:30 PM EDT</td><td></td><td> </td> 06/02/2021 02:30:00 PM [facility] XR CHEST FRONTAL ONLY [id number] <td>XR CHEST FRONTAL ONLY 92283</td><td>Urgent</td><td>06/02/2021 2:10 PM EDT</td><td></td><td> </td> 06/02/2021 02:10:00 PM [facility] BLOOD GASES ANY COMBINATION PH PCO2 PO2 CO2 HCO3 <td>P OCT ISTAT ARTERIAL CG8</td><td>Routine</td><td>06/02/2021 1:24 PM EDT</td><td></td><td> </td> 06/02/2021 01:24:00 PM [facility] BLOOD GASES ANY COMBINATION PH PCO2 PO2 CO2 HCO3 <td>P OCT ISTAT ARTERIAL CG8</td><td>Routine</td><td>06/02/2021 12:47 PM EDT</td><td></td><td> </td> 06/02/2021 12:47:00 PM [facility] BLOOD GASES ANY COMBINATION PH PCO2 PO2 CO2 HCO3 <td>P OCT ISTAT ARTERIAL CG8</td><td>Routine</td><td>06/02/2021 12:02 PM EDT</td><td></td><td> </td> 06/02/2021 12:02:00 PM [facility] BLOOD GASES ANY COMBINATION PH PCO2 PO2 CO2 HCO3 <td>P OCT ISTAT ARTERIAL CG8</td><td>Routine</td><td>06/02/2021 11:24 AM EDT</td><td></td><td> </td> 06/02/2021 11:24:00 AM [facility] BLOOD GASES ANY COMBINATION PH PCO2 PO2 CO2 HCO3 <td>P OCT ISTAT ARTERIAL CG8</td><td>Routine</td><td>06/02/2021 9:30 AM EDT</td><td></td><td> </td> 06/02/2021 09:30:00 AM [facility] ANGELES VIDEO <td>ANGELES VIDEO</td><td>Ro utine</td><td>06/02/2021 7:04 AM EDT</td><td></td><td></td> 06/02/2021 07:04:16 AM EDT [facility] CROSSMATCH, PAT <td>CROSSMATCH, PAT</td><td> Routine</td><td>06/02/2021 7:00 AM EDT</td><td></td><td> </td> 06/02/2021 07:00:00 AM [facility] GLUCOSE QUANTITATIVE BLOOD XCPT REAGENT STRIP <td>POCT GLUCOSE, DOCKED</td><td>Routine</td><td>06/02/2021 6:59 AM EDT</td><td></td><td> </td> 06/02/2021 06:59:00 AM [facility] ECHO TTHRC R-T 2D W/WOM-MODE COMPL SPEC&COLR DOP <td>E CHOCARDIOGRAM 2D COMPLETE</td><td>Routine</td><td>05/31/2021 3:13 PM EDT</td><td> Abnormal ECG</td><td> </td> 05/31/2021 03:13:11 [address] [facility] Abnormal ECG CT THORAX W/O CONTRAST MATERIAL <td>CT THORAX WITHOUT CONTRAST 05823</td><td>Routine</td><td>05/31/2021 12:38 PM EDT</td><td> Renal mass</td><td> </td> 05/31/2021 12:38:[address] [facility] Renal mass THROMBOPLASTIN TIME PARTIAL PLASMA/WHOLE BLOOD <td>PAR TIAL THROMBOPLASTIN TIME (PTT)</td><td>Routine</td><td>05/29/2021 1:26 PM EDT</td><td> Malignant neoplasm of left kidney</td><td> </td> 05/29/2021 01:26:00 PM EDT Malignant neoplasm of left kidney [facility] Malignant neoplasm of left kidney PROTHROMBIN TIME <td>PROTIME INR</td><td>Rout ine</td><td>05/29/2021 1:26 PM EDT</td><td> Malignant neoplasm of left kidney</td><td> </td> 05/29/2021 01:26:00 PM EDT Malignant neoplasm of left kidney [facility] Malignant neoplasm of left kidney BLOOD COUNT COMPLETE AUTOMATED <td>CBC</td><td>Routine </td><td>05/29/2021 1:26 PM EDT</td><td> Malignant neoplasm of left kidney</td><td> </td> 05/29/2021 01:26:00 PM EDT Malignant neoplasm of left kidney [facility] Malignant neoplasm of left kidney COMPREHENSIVE METABOLIC PANEL <td>COMPREHENSIVE METABO LIC PANEL</td><td>Routine</td><td>05/29/2021 1:26 PM EDT</td><td> Malignant neoplasm of left kidney</td><td> </td> 05/29/2021 01:26:00 PM EDT Malignant neoplasm of left kidney [facility] Malignant neoplasm of left kidney Intermediate Eye Exam Established Patient Intermediate Eye Exam Established Patient 01/11/2021 12:00:00 AM EDT LEATHA (Chano mickie Womack MD [facility]) Results ID Date Data Source [id number] 07/04/2021 12:55:00 PM EDT [facility] ([facility]) Name Value Range Interpretation Code Description Data Kiana rce(s) Supporting Document(s) Laboratory test finding (navigational concept) Laboratory test result [facility] ([facility]) LN2 any remaining Laboratory test finding (navigational concept) Laboratory test result [facility] ([facility]) LN2 any remaining ID Date Data Source [id number] 06/28/2021 06:39:06 PM EDT [facility] Name Value Range Interpretation Code Description Data Kiana rce(s) Supporting Document(s) Progress Note [facility] [id number]/QMTbkCHBju7PwSBhgRVt8MBdkTMZgD6PvNSO0zO8oIDB3IKkHZoTdPlGlMVFu lbm [file] [id number]= ID Date Data Source [id number] 06/19/2021 12:11:37 PM EDT [facility] Name Value Range Interpretation Code Description Data Kiana rce(s) Supporting Document(s) Progress Note [facility] [id number]/GTSmzAMErv7EgBPxaKOt6HNqqNTVvJ4MiUIG7xQ1wTBX7XFnRRnEgYxPoFOL5 lbm [file] [id number]Ec= ID Date Data Source [id number] 06/20/2021 11:54:56 AM EDT [facility] Cmnt XXX-Imp : NoneMicroorganism XXX Cult : No growth 1 day Name Value Range Interpretation Code Description Data Kiana rce(s) Supporting Document(s) ID Date Data Source [id number] 06/19/2021 04:22:54 PM EDT [facility] Name Value Range Interpretation Code Description Data Kiana rce(s) Supporting Document(s) Color of Urine [facility] Clarity of Urine [facility] Specific gravity of Urine by Refractometry automated 1.022 1.003 -1.030 [facility] pH of Urine by Automated test strip 5.0 5.0-8.0 [facility] Protein [Mass/volume] in Urine by Automated test strip 30 mg/dL Neg [facility] Glucose [Mass/volume] in Urine by Automated test strip Neg [facility] Ketones [Mass/volume] in Urine by Automated test strip Neg [facility] Bilirubin.total [Presence] in Urine by Automated test strip Negative [facility] Hemoglobin [Presence] in Urine by Automated test strip Neg [facility] Leukocyte esterase [Presence] in Urine by Automated test strip Negative [facility] Nitrite [Presence] in Urine by Automated test strip Negati [facility] Leukocytes [#/area] in Urine sediment by Automated count 0 /HPF 0 -5 [facility] Erythrocytes [#/area] in Urine sediment by Automated count 0 /HPF 0-3 [facility] Mucus [#/area] in Urine sediment by Microscopy low power field None [facility] ID Date Data Source [id number] 06/16/2021 12:53:42 PM EDT [facility] Name Value Range Interpretation Code Description Data Kiana rce(s) Supporting Document(s) Discharge Summary [facility] [id number]/ZUKkgOVAyz8DyLRehYDp1AGkzNYGoJ7VdLIU2pO7cGYM7LPxWEqJvGwMwMSUi lbm [file] RiPCI5RqJfLLIvEIXjMgtqFlX3SdRcTiUhNN5DIc3BUuM6YCB6bNWhBh3VCnk4XHAPQrXzRH4PJFr= ID Date Data Source [id number] 06/16/2021 12:47:04 PM EDT [facility] Name Value Range Interpretation Code Description Data Kiana rce(s) Supporting Document(s) Operative Note [facility] VLCHGk2lKxCTJoBw32/SCRobQWZym1YeFYjoULg8LNpwQHTbG7ZtFXZ2zD4zJTC2RJwEGhMfKzPoECMt lbm [file] [id number]+UMfbvOSbsOuhDKQXHoHxChr5WEztYOFAVm4G ID Date Data Source [id number] [facility] Value Range Interpretation Code Description Data Kiana rce(s) Supporting Document(s) Glucose [Mass/volume] in Capillary blood by Glucometer 222 mg/dL 70- [address] [facility] ID Date Data Source [id number] 06/04/2021 08[facility]48[facility] Name Value Range Interpretation Code Description Data Kiana rce(s) Supporting Document(s) Glucose [Mass/volume] in Capillary blood by Glucometer 190 mg/dL 70- [address] [facility] ID Date Data Source [id number] 06/04/2021 07[facility]45[facility] CHE[facility] FRONTAL ONLY [id number] RESULTI nterpreted by:Caesar Ignacio [facility]: Exam: XR Chest Exam date and time: 06/04/2021 5:23 AM Age: 80 years old Clinical indication: Other: Evaluate pneumo TECHNIQUE: Imaging protocol: XR of the chest. Views: 1 view. COMPARISON: CR XR CHEST FRONTAL ONLY [id number] PORTABLE 06/03/2021 4:15 AM FINDINGS: Lungs: Suspicion [...] rce(s) Supporting Document(s) ID Date Data Source [id number] 06/04/2021 05:43:11 AM [facility] Name Value Range Interpretation Code Description Data Kiana rce(s) Supporting Document(s) Leukocytes [#/volume] in Blood by Automated count 7.1 10*3/uL 4-10 [facility] Erythrocytes [#/volume] in Blood by Automated count 3.03 10*6/uL 4.6- 6.[address] [facility] Hemoglobin [Mass/volume] in Blood 8.8 g/dL 13.5-[address] [facility] Hematocrit [Volume Fraction] of Blood by Automated count 27.2 % 4 1-[address] [facility] Erythrocyte mean corpuscular volume [Entitic volume] by Auto mated count 89.7 fL 80-96 [facility] Erythrocyte mean corpuscular hemoglobin [Entitic mass] by Automated count 29.0 pg 27-33 [facility] Erythrocyte mean corpuscular hemoglobin concentration [Mass/volume] by Automated count 32.3 g/dL 32.0-36.0 [facility] Erythrocyte distribution width [Ratio] by Automated count 16.1 % 11.5-14.[address] [facility] Platelets [#/volume] in Blood by Automated count 144 10*3/uL 150-[address] [facility] ID Date Data Source [id number] 06/04/2021 06:14:06 AM [facility] Name Value Range Interpretation Code Description Data Kiana rce(s) Supporting Document(s) Magnesium [Mass/volume] in Serum or Plasma 2.1 mg/dL 1.6-2.4 [facility] ID Date Data Source [id number] 06/04/2021 06:14:06 AM [facility] Name Value Range Interpretation Code Description Data Kiana rce(s) Supporting Document(s) Bicarbonate [Moles/volume] in Serum 25 mmol/L 22-29 [facility] Chloride [Moles/volume] in Serum or Plasma 97 mmol/L 98-[address] [facility] Creatinine [Mass/volume] in Serum or Plasma 2.17 mg/dL 0.70-1.[address] [facility] Glucose [Mass/volume] in Serum or Plasma 186 mg/dL 70-[address] [facility] Potassium [Moles/volume] in Serum or Plasma 4.6 mmol/L 3.4-5.1 [facility] Sodium [Moles/volume] in Serum or Plasma 134 mmol/L 136-[address] [facility] Urea nitrogen [Mass/volume] in Serum or Plasma 22 mg/dL 8-23 [facility] Anion gap 3 in Serum or Plasma 12 mmol/L 8-15 [facility] Osmolality of Serum or Plasma by calculation 287 mosm/kg 275-300 [facility] Creatinine/Urea nitrogen [Mass Ratio] in Serum or Plasma 10 [facility] Calcium [Mass/volume] in Serum or Plasma 8.0 mg/dL 8.8-10.[address] [facility] Glomerular filtration rate/1.73 sq M pre dicted among non-blacks [Volume Rate/Area] in Serum or Plasma by Creatinine-based formula (MDRD) >[address] [facility] Glomerular filtration rate/1.73 sq M pre dicted among blacks [Volume Rate/Area] in Serum or Plasma by Creatinine-based formula (MDRD) >60 [facility] ID Date Data Source [id number] 06/04/2021 06:14:06 AM [facility] Name Value Range Interpretation Code Description Data Kiana rce(s) Supporting Document(s) Phosphate [Mass/volume] in Serum or Plasma 3.0 mg/dL 2.5-4.5 [facility] ID Date Data Source [id number] 06/03/2021 09:26:38 PM [facility] Value Range Interpretation Code Description Data Kiana rce(s) Supporting Document(s) Glucose [Mass/volume] in Capillary blood by Glucometer 225 mg/dL 70- [address] [facility] ID Date Data Source [id number] 06/03/2021 06:02:06 PM [facility] Value Range Interpretation Code Description Data Kiana rce(s) Supporting Document(s) Glucose [Mass/volume] in Capillary blood by Glucometer 242 mg/dL 70- [address] [facility] ID Date Data Source [id number] 06/03/2021 12:57:13 PM [facility] Value Range Interpretation Code Description Data Kiana rce(s) Supporting Document(s) Glucose [Mass/volume] in Capillary blood by Glucometer 176 mg/dL 70- [address] [facility] ID Date Data Source [id number] 06/03/2021 08:52:47 AM [facility] XR CHEST FRONTAL ONLY [id number] RESULTI nterpreted by:Miryam Austin, SAMIRAROCEDDOMITILA INFORMATION: Exam: XR Chest Exam date and time: 06/03/2021 4:15 AM Age: 80 years old Clinical indication: Other: Evaluate pneumothorax TECHNIQUE: Imaging protocol: XR of the chest. Views: 1 view. COMPARISON: DX XR CHEST FRONTAL ONLY [id number] PORTABLE 06/02/2021 7:53 PM FINDINGS: Lungs: Opacities [...] rce(s) Supporting Document(s) ID Date Data Source [id number] 06/03/2021 08:54:41 AM [facility] Name Value Range Interpretation Code Description Data Kiana rce(s) Supporting Document(s) Glucose [Mass/volume] in Capillary blood by Glucometer 146 mg/dL 70- [address] [facility] ID Date Data Source [id number] 06/03/2021 04:23:39 AM [facility] Name Value Range Interpretation Code Description Data Kiana rce(s) Supporting Document(s) Leukocytes [#/volume] in Blood by Automated count 7.0 10*3/uL 4-10 [facility] Erythrocytes [#/volume] in Blood by Automated count 3.57 10*6/uL 4.6- 6.[address] [facility] Hemoglobin [Mass/volume] in Blood 10.4 g/dL 13.5-[address] [facility] Hematocrit [Volume Fraction] of Blood by Automated count 31.8 % 4 1-[address] [facility] Erythrocyte mean corpuscular volume [Entitic volume] by Auto mated count 89.0 fL 80-96 [facility] Erythrocyte mean corpuscular hemoglobin [Entitic mass] by Automated count 29.2 pg 27-33 [facility] Erythrocyte mean corpuscular hemoglobin concentration [Mass/volume] by Automated count 32.8 g/dL 32.0-36.0 [facility] Erythrocyte distribution width [Ratio] by Automated count 15.6 % 11.5-14.[address] [facility] Platelets [#/volume] in Blood by Automated count 150 10*3/uL 150-400 [facility] ID Date Data Source [id number] 06/03/2021 04:48:12 AM EDT [facility] Name Value Range Interpretation Code Description Data Kiana rce(s) Supporting Document(s) Bicarbonate [Moles/volume] in Serum 20 mmol/L 22-[address] [facility] Chloride [Moles/volume] in Serum or Plasma 101 mmol/L 98-107 [facility] Creatinine [Mass/volume] in Serum or Plasma 1.86 mg/dL 0.70-1.[address] [facility] Glucose [Mass/volume] in Serum or Plasma 163 mg/dL 70-[address] [facility] Potassium [Moles/volume] in Serum or Plasma 5.0 mmol/L 3.4-5.1 [facility] Sodium [Moles/volume] in Serum or Plasma 135 mmol/L 136-[address] [facility] Urea nitrogen [Mass/volume] in Serum or Plasma 18 mg/dL 8-23 [facility] Anion gap 3 in Serum or Plasma 14 mmol/L 8-15 [facility] Osmolality of Serum or Plasma by calculation 285 mosm/kg 275-300 [facility] Creatinine/Urea nitrogen [Mass Ratio] in Serum or Plasma 10 [facility] Calcium [Mass/volume] in Serum or Plasma 8.4 mg/dL 8.8-10.[address] [facility] Glomerular filtration rate/1.73 sq M pre dicted among non-blacks [Volume Rate/Area] in Serum or Plasma by Creatinine-based formula (MDRD) >[address] [facility] Glomerular filtration rate/1.73 sq M pre dicted among blacks [Volume Rate/Area] in Serum or Plasma by Creatinine-based formula (MDRD) >60 [facility] ID Date Data Source [id number] 06/03/2021 04:48:12 AM EDT [facility] Name Value Range Interpretation Code Description Data Kiana rce(s) Supporting Document(s) Magnesium [Mass/volume] in Serum or Plasma 1.9 mg/dL 1.6-2.4 [facility] ID Date Data Source [id number] 06/03/2021 04:48:12 AM [facility] Name Value Range Interpretation Code Description Data Kiana rce(s) Supporting Document(s) Phosphate [Mass/volume] in Serum or Plasma 4.3 mg/dL 2.5-4.5 [facility] ID Date Data Source [id number] 06/03/2021 03:58:07 AM [facility] Name Value Range Interpretation Code Description Data Kiana rce(s) Supporting Document(s) Glucose [Mass/volume] in Capillary blood by Glucometer 156 mg/dL 70- [address] [facility] ID Date Data Source [id number] 06/03/2021 12:55:23 AM [facility] Name Value Range Interpretation Code Description Data Kiana rce(s) Supporting Document(s) Glucose [Mass/volume] in Capillary blood by Glucometer 148 mg/dL 70- [address] [facility] ID Date Data Source [id number] 06/02/2021 09:15:52 PM [facility] XR CHEST FRONTAL ONLY [id number] RESULTI nterpreted by:KD OrtizROCEDURE INFORMATION: Exam: XR Chest Exam date and time: 06/02/2021 7:53 PM Age: 80 years old Clinical indication: Other: Evaluate pneumothorax TECHNIQUE: Imaging protocol: XR of the chest. Views: 1 view. COMPARISON: DX XR CHEST FRONTAL ONLY [id number] PORTABLE 06/02/2021 2:10 PM FINDINGS: Lungs: Low [...] rce(s) Supporting Document(s) ID Date Data Source [id number] 06/02/2021 08:47:00 PM EDT [facility] Name Value Range Interpretation Code Description Data Kiana rce(s) Supporting Document(s) SARS-CoV-2 RNA 2019 nCoV Real-Time RT-PCR: NOT DETECTED [facility] This lab was ordered by [facility] and reported by [facility]. ID Date Data Source [id number] 06/03/2021 09:30:57 AM EDT [facility] Name Value Range Interpretation Code Description Data Kiana rce(s) Supporting Document(s) Specimen source [Identifier] of Unspecified specimen [facility] SARS-CoV-2 RNA 2019 nCoV Real-Time RT-PCR: NOT DETECTED 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 Patient has symptoms related to [facility] When did you start to experience these symptoms [Date and time] [Phen X] [facility] Patient was hospitalized because of this condition [facility] patient was admitted to ICU for [facility] Patient resides in a congregate care setting [facility] status [facility] ID Date Data Source [id number] 06/02/2021 08:51:38 PM EDT [facility] Name Value Range Interpretation Code Description Data Kiana rce(s) Supporting Document(s) Glucose [Mass/volume] in Capillary blood by Glucometer 165 mg/dL 70- [address] [facility] ID Date Data Source [id number] 06/02/2021 04:36:46 PM EDT [facility] Name Value Range Interpretation Code Description Data Kiana rce(s) Supporting Document(s) Glucose [Mass/volume] in Capillary blood by Glucometer 152 mg/dL 70- [address] [facility] ID Date Data Source [id number] 06/02/2021 03:36:55 PM EDT [facility] XR CHEST FRONTAL ONLY [id number] RESULT - FINALInterpreted by:Twila Quintanaum BeginsSigned on SatJun 02, 2021 3:36 PM by Raine Mercedes MDTHIS REPORT CONTAINS FINDINGS THAT MAY BE CRITICAL TO PATIENT CARE. The findings were verbally communicated via telephone conference with Jess Vincent RN at 3:35 PM EDT on 06/02/2021. The findings were acknowledged and understoodTHIS DOCUMENT HAS BEEN ELECTRONICALLY SIGNED BY RAINE MERCEDES MDAlivermore va hospital EndsPROCEDURE INFORMATION: Exam: XR Chest Exam date and time: 06/02/2021 2:10 PM Age: 80 years old Clinical indication: Other: Pneumothroax TECHNIQUE: Imaging protocol: XR of the chest. Views: 1 view. COMPARISON: CT THORAX WITHOUT CONTRAST [id number] 05/31/2021 12:30 PM FINDINGS: Tubes, catheters and [...] rce(s) Supporting Document(s) ID Date Data Source [id number] 06/02/2021 03:14:47 PM EDT [facility] Name Value Range Interpretation Code Description Data [facility] rce(s) Supporting Document(s) Bicarbonate [Moles/volume] in Serum 23 mmol/L 22-29 [facility] Chloride [Moles/volume] in Serum or Plasma 102 mmol/L 98-107 [facility] Creatinine [Mass/volume] in Serum or Plasma 1.50 mg/dL 0.70-1.[address] [facility] Glucose [Mass/volume] in Serum or Plasma 146 mg/dL 70-[address] [facility] Potassium [Moles/volume] in Serum or Plasma 4.2 mmol/L 3.4-5.1 [facility] Sodium [Moles/volume] in Serum or Plasma 139 mmol/L 136-145 [facility] Urea nitrogen [Mass/volume] in Serum or Plasma 17 mg/dL 8-23 [facility] Anion gap 3 in Serum or Plasma 14 mmol/L 8-15 [facility] Osmolality of Serum or Plasma by calculation 292 mosm/kg 275-300 [facility] Creatinine/Urea nitrogen [Mass Ratio] in Serum or Plasma 11 [facility] Calcium [Mass/volume] in Serum or Plasma 8.9 mg/dL 8.8-10.2 [facility] Glomerular filtration rate/1.73 sq M pre dicted among non-blacks [Volume Rate/Area] in Serum or Plasma by Creatinine-based formula (MDRD) >[address] [facility] Glomerular filtration rate/1.73 sq M pre dicted among blacks [Volume Rate/Area] in Serum or Plasma by Creatinine-based formula (MDRD) >60 [facility] ID Date Data Source [id number] 06/02/2021 03:14:47 PM [facility] Name Value Range Interpretation Code Description Data Kiana rce(s) Supporting Document(s) Magnesium [Mass/volume] in Serum or Plasma 2.2 mg/dL 1.6-2.4 [facility] ID Date Data Source [id number] 06/02/2021 03:14:47 PM [facility] Value Range Interpretation Code Description Data Kiana rce(s) Supporting Document(s) Phosphate [Mass/volume] in Serum or Plasma 3.7 mg/dL 2.5-4.5 [facility] ID Date Data Source [id number] 06/02/2021 03:14:50 PM [facility] Value Range Interpretation Code Description Data Kiana rce(s) Supporting Document(s) Leukocytes [#/volume] in Blood by Automated count 8.5 10*3/uL 4-10 [facility] Erythrocytes [#/volume] in Blood by Automated count 3.27 10*6/uL 4.6- 6.1 [facility] Hemoglobin [Mass/volume] in Blood 9.9 g/dL 13.5-[address] [facility] Hematocrit [Volume Fraction] of Blood by Automated count 29.5 % 4 1-[address] [facility] Erythrocyte mean corpuscular volume [Entitic volume] by Auto mated count 90.1 fL 80-96 [facility] Erythrocyte mean corpuscular hemoglobin [Entitic mass] by Automated count 30.3 pg 27-33 [facility] Erythrocyte mean corpuscular hemoglobin concentration [Mass/volume] by Automated count 33.7 g/dL 32.0-36.0 [facility] Erythrocyte distribution width [Ratio] by Automated count 15.7 % 11.5-14.[address] [facility] Platelets [#/volume] in Blood by Automated count 149 10*3/uL 150-[address] [facility] ID Date Data Source [id number] 06/02/2021 01:32:18 PM [facility] Name Value Range Interpretation Code Description Data Kiana rce(s) Supporting Document(s) pH of Arterial blood 7.40 7.38-7.44 [facility] Carbon dioxide [Partial pressure] in Arterial blood 39 mmHg 35-40 [facility] Oxygen [Partial pressure] in Arterial blood 117 mmHg 95-100 [facility] Base excess standard in Arterial blood by calculation 0 mmol/L [facility] Oxygen saturation Calculated from oxygen partial press ure in Arterial blood 99 % 94-100 [facility] Bicarbonate [Moles/volume] in Arterial blood 25 mmol/L [facility] Sodium [Moles/volume] in Blood 138 mmol/L 136-145 [facility] Potassium [Moles/volume] in Blood 4.1 mmol/L 3.4-5.1 [facility] Calcium.ionized [Moles/volume] in Blood 1.27 mmol/L 1.13-1.32 [facility] Glucose [Mass/volume] in Blood 143 mg/dL 70-140 [facility] Hematocrit [Volume Fraction] of Blood 29 % 41-53 [facility] Hemoglobin [Mass/volume] in Blood by calculation 9.9 g/dL 13.5-18.0 [facility] ID Date Data Source [id number] 06/02/2021 12:54:53 PM [facility] Name Value Range Interpretation Code Description Data Kiana rce(s) Supporting Document(s) pH of Arterial blood 7.37 7.38-7.44 [facility] Carbon dioxide [Partial pressure] in Arterial blood 44 mmHg 35-40 [facility] Oxygen [Partial pressure] in Arterial blood 126 mmHg 95-[address] [facility] Base excess standard in Arterial blood by calculation 0 mmol/L [facility] Oxygen saturation Calculated from oxygen partial press ure in Arterial blood 99 % 94-100 [facility] Bicarbonate [Moles/volume] in Arterial blood 26 mmol/L [facility] Sodium [Moles/volume] in Blood 138 mmol/L 136-145 [facility] Potassium [Moles/volume] in Blood 4.1 mmol/L 3.4-5.1 [facility] Calcium.ionized [Moles/volume] in Blood 1.15 mmol/L 1.13-1.32 [facility] Glucose [Mass/volume] in Blood 151 mg/dL 70-[address] [facility] Hematocrit [Volume Fraction] of Blood 32 % 41-53 [facility] Hemoglobin [Mass/volume] in Blood by calculation 10.9 g/dL 13.5-18.0 [facility] ID Date Data Source [id number] 06/02/2021 12:09:19 PM EDT [facility] Name Value Range Interpretation Code Description Data Kiana rce(s) Supporting Document(s) pH of Arterial blood 7.36 7.38-7.44 [facility] Carbon dioxide [Partial pressure] in Arterial blood 46 mmHg 35-[address] [facility] Oxygen [Partial pressure] in Arterial blood 152 mmHg 95-[address] [facility] Base excess standard in Arterial blood by calculation 1 mmol/L [facility] Oxygen saturation Calculated from oxygen partial press ure in Arterial blood 99 % 94-100 [facility] Bicarbonate [Moles/volume] in Arterial blood 28 mmol/L [facility] Sodium [Moles/volume] in Blood 138 mmol/L 136-145 [facility] Potassium [Moles/volume] in Blood 4.2 mmol/L 3.4-5.1 [facility] Calcium.ionized [Moles/volume] in Blood 1.02 mmol/L 1.13-1.32 [facility] Glucose [Mass/volume] in Blood 159 mg/dL 70-140 [facility] Hematocrit [Volume Fraction] of Blood 33 % 41-53 [facility] Hemoglobin [Mass/volume] in Blood by calculation 11.2 g/dL 13.5-18.0 [facility] ID Date Data Source [id number] 06/02/2021 11:34:16 AM [facility] Name Value Range Interpretation Code Description Data Kiana rce(s) Supporting Document(s) pH of Arterial blood 7.32 7.38-7.44 L [facility] Carbon dioxide [Partial pressure] in Arterial blood 50 mmHg 35-[address] [facility] Oxygen [Partial pressure] in Arterial blood 129 mmHg 95-[address] [facility] Base excess standard in Arterial blood by calculation [facility] Oxygen saturation Calculated from oxygen partial press ure in Arterial blood 99 % 94-100 [facility] Bicarbonate [Moles/volume] in Arterial blood 27 mmol/L [facility] Sodium [Moles/volume] in Blood 138 mmol/L 136-145 [facility] Potassium [Moles/volume] in Blood 4.2 mmol/L 3.4-5.1 [facility] Calcium.ionized [Moles/volume] in Blood 1.04 mmol/L 1.13-1.32 [facility] Glucose [Mass/volume] in Blood 154 mg/dL 70-[address] [facility] Hematocrit [Volume Fraction] of Blood 33 % 41-53 [facility] Hemoglobin [Mass/volume] in Blood by calculation 11.2 g/dL 13.5-18.0 [facility] ID Date Data Source [id number] 06/02/2021 09:37:21 AM [facility] Name Value Range Interpretation Code Description Data Kiana rce(s) Supporting Document(s) pH of Arterial blood 7.35 7.38-7.44 [facility] Carbon dioxide [Partial pressure] in Arterial blood 50 mmHg 35-[address] [facility] Oxygen [Partial pressure] in Arterial blood 153 mmHg 95-[address] [facility] Base excess standard in Arterial blood by calculation 1 mmol/L [facility] Oxygen saturation Calculated from oxygen partial press ure in Arterial blood 99 % 94-100 [facility] Bicarbonate [Moles/volume] in Arterial blood 29 mmol/L [facility] Sodium [Moles/volume] in Blood 139 mmol/L 136-145 [facility] Potassium [Moles/volume] in Blood 3.9 mmol/L 3.4-5.1 [facility] Calcium.ionized [Moles/volume] in Blood 1.17 mmol/L 1.13-1.32 [facility] Glucose [Mass/volume] in Blood 173 mg/dL 70-[address] [facility] Hematocrit [Volume Fraction] of Blood 38 % 41-[address] [facility] Hemoglobin [Mass/volume] in Blood by calculation 12.9 g/dL 13.5-18.[address] [facility] ID Date Data Source [id number] 06/02/2021 07:50:17 AM EDT [facility] Name Value Range Interpretation Code Description Data Kiana rce(s) Supporting Document(s) History and Physical [facility] DPDTFg9wNxGIShBu61/DFNvgSKJgp7IiQPojLWa0GUdhEOBiO2RvQBZ3qQ4xBHM7BAtGEkEuOzAnQUH1 lbm SfQiwLIhErWALwSvjQFfFnBJdaOodmqCEyDD0KuUJ3BWZzF31vZAFaMFFzM7BuGWE0AVJ+Fm6GJRUrkO RvWR3XFxjF8Hkko6j32ycB/QcCA+9Xm8tGSJSHEDqOW9/ONlmgYF3ZtpSPqs09JqapQ3U2u52/SqJsn1 C6lJCfzw8vcOIEXZ6Jw6aqzIl01bmuMnFrOUl6Q08O YJcVTzlto1lmybFCzqlthBT2dXlxV9FN3X/C/lcP6zr03PzJDEH9V5ZFErk0OxtCOB/cZNrtc2D2/2Gu 3NAKMoPK8BWCGgxF5vgnYiJlI2lYmzLDNTHQ4RuPVR+uuRSplgK9Fw3GQaCs0Y1TeOIVeeDsRhaDiTRs bTAZGa2NzkEjbhVS5ZJZSa+2Kl5pR1K9nD9zoUEbyr CexRz7xyWT0zvKnTBa8uT2NMQvCNvKe47Y4dFYsVq+ackpHjqjfXzM8gnvmPDk2qYgxqSsER+d7SiUS+ DNX3YMHdJ37XAHOoQ5hq27MzFwjaanGc8aj/vaOIxaUD4BlfdZapl3upRJ5HYTApWGl+fUjlEJdhlPlU 5RT4fo0R5H7U9GY5E84YpIq81A9vJprPtOQfEI8qA8 LRvUnl+qjovfcdyimQbsI9qUzYb9t1wXFMBfiDJ92CULE2yLb0GRCLE3tr6cARZ6/Xp0vVNcFnNa9C1a cS+BFriES8W3F4EKNFtojB9rd0K7n+w4/cE5rM0I8NHOjytU+gdwOgxe4tgbKp/6m3GWjUDGGfn+T2cW b8MHZeu5T/zABSx3Th5O0v2HPoG6px0ToIKxNtiK/X 5Qk9brzvAvZRMFikHhC+iChn0zp3YBGLpg/hhIqCeYHfFQhbqkukiSWLNdxzxLGwzqRX1dHZLVBSKNEC MQKsuRSWDQawYhNtUFJPUSzhOABXrYRRYvTVeVqODB50mAguoUsmEnJOLa4xekv7jYUl/OETIoSUQHbn BNQs9gOl4DwL2rrnCaLsSoarcNe0jGg68la/karli+Yr1 [file] ICAgICAgICAgICAgICAgICAgICAgICAgICAgICAgIC AgICAgICAgICAgICAgICAgICAgICAgICAgICAgDQogICAgICAgICAgICAgICAgICAgICAgICAgICAgIC AgICAgICAgICAgICAgICAgICAgICAgICAgICAgICAgICAgICAgICAgICAgICAgICAgICAgICAgICAgIC AgICAgICAgICAgDQogICAgICAgICAgICAgICAgICAg ICAgICAgICAgICAgICAgICAgICAgICAgICAgICAgICAgICAgICAgICAgICAgICAgICAgICAgICAgICAg ICAgICAgICAgICAgICAgICAgICAgDQogICAgICAgICAgICAgICAgICAgICAgICAgICAgICAgICAgICAg ICAgICAgICAgICAgICAgICAgICAgICAgICAgICAgIC AgICAgICAgICAgICAgICAgICAgICAgICAgICAgICAgDQogICAgICAgICAgICAgICAgICAgICAgICAgIC AgICAgICAgICAgICAgICAgICAgICAgICAgICAgICAgICAgICAgICAgICAgICAgICAgICAgICAgICAgIC AgICAgICAgICAgICAgDQogICAgICAgICAgICAgICAg ICAgICAgICAgICAgICAgICAgICAgICAgICAgICAgICAgICAgICAgICAgICAgICAgICAgICAgICAgICAg ICAgICAgICAgICAgICAgICAgICAgICAgDQogICAgICAgICAgICAgICAgICAgICAgICAgICAgICAgICAg ICAgICAgICAgICAgICAgICAgICAgICAgICAgICAgIC AgICAgICAgICAgICAgICAgICAgICAgICAgICAgICAgICAgDQogICAgICAgICAgICAgICAgICAgICAgIC AgICAgICAgICAgICAgICAgICAgICAgICAgICAgICAgICAgICAgICAgICAgICAgICAgICAgICAgICAgIC AgICAgICAgICAgICAgICAgDQogICAgICAgICAgICAg ICAgICAgICAgICAgICAgICAgICAgICAgICAgICAgICAgICAgICAgICAgICAgICAgICAgICAgICAgICAg ICAgICAgICAgICAgICAgICAgICAgICAgICAgDQogICAgICAgICAgICAgICAgICAgICAgICAgICAgICAg ICAgICAgICAgICAgICAgICAgICAgICAgICAgICAgIC TrCFOoAVWzXHYdEFGiBDAwFXFlXEPbBEYhQKAdSTTfKMHlTEDnGEh0Y4uwNYCsJJPfRP4pNAh4Uk2+DQ yIItXfIVV3baIqjI8LYZ4gp8YzFCfzITVxb8ZpMUz6TB1HCAJwZHgaBH1DOZyxid1EVSBpJTBabTHDk8 ybKbYyAIX8GUIjUxarSG0ZUGOaW8dtppAuTXSoEZCG LQgbEFTJUSuzWKVEUPXdGSAeZmVtPjItFHWnXX3ZESTrO753frGyQL0JRj3LRjOgIJ9sik4VAoMaLAKu EucOMpd1JTwbIG1NsPXlhXUmRuAvITFZKdIzL3bsx5QyFcvbDUABNGwgNV9Vi7PrpNNcUQu+Xf3CDF8x c8SuTLlnQqRoGW8isp3KILvYDzCiG4XklWvbPBbtCX UveTNUWNStrEHnBL1gA2AqEFWeXDmaTDZYHLLnqSH4ZeQ7TbHpMpLhMTO1KFEvHG8xQBmuBN9KZNM3XU dzBSHnSUAvW6uPHdWbFHXfOKUyeIqmPM4JFmRxC4DcquAhvPOnGjSlRUCGTc7+GWkmvlBmPfkAUeI9ER Bdx5AeSWp7HG3BTQAcOArdMI3YZNOyrS8iDKgpEO4H LiPxCIQoQHGRBrMrT64miAZsJIc4K5UwRtAoTZZjWfluERQjOAtdBaBqUDEfGrBsQTmtWI6+ID4+DQog LS4OZZhpfyDzOLJrUy5NKWUxONSmFB7iJHKgYYKjC8C9qXfhBJEAYkWqN7qahghkTG4dNWTjH585iPwr neVpBXR5CBMcSa6XKZCiRQE5FIEtiKIvOoUfBVUPIK nzAW2KfSVyAHB4eU7hPCadTLGvGRCyP7jNPvHxuUpxCC01hYpkrlVvuARsMJo+Up6KUJ2tg6SgSAx3ht XqYCofNHC8TQxqPTEpTRRsXSQvWQZ5IHM7YHUHAhTjQFCuWIWfLAexITGrZXCgdp0NSZBpBUUtKuBpFT TkBDNnFDCjENrzPJUbFNE0Xyg9IJBsOCSuSD8EDuTh WEPjZYYgBCanXYLpHVFmlf1JSJUfRQGxZvw9HCNiMNZlZPQnMHouWZQoKIJoBPsqHLGfZDDmFO3PFeEj PSOfLNFlApWlIFChDNLump5DVSNqKQWgGtTiMCRcKLHpPPJxUOtoPQNkHQX0TYF2OQTzHCHcKL0ORpAo NUOfBPdiDiIjFEHrGYUmny3KFNTxPOEtHAxeSiElDX EnOKVvJVzyWVMdXPOeJYP5ROTxTCGcZZ9VWxGhFHAdVQX8QUElQIVdFCAnqg8KGXOmOUSjJJYxYMKdEO TuJVErTUycSWSdVWZ6QLUjPSOiDNKqLE2QOgTsZCZdLDHfVDqyJHPuZMLvzl1MADEbIZVmCFO5VERxJQ NzETGyCHioHHWcOEC2ZqEuFISuXREjBD6AJmXlMHNr PDB0LBMeHEXoRBEkch5WFEXiNZHnJpU4FGRnGFYpSKDeDJduKDZwFBJ5WqWkWCRjEIGfEG3LMmYnKPNn EMu7ZKwnJIRoKPJawf8BIGUlCDFiOCPsUWMbWIEyEDQnDEnxUXBmTFQ3CWr4KHOfPLLqHS3JAsNrFESk CXdiUXWbEXZkUOWbov9IPLTiVEDnAKC1QNTfRPYzUD HlOIscFAOoTKMiJlS7WHAjTLYmMU2UHnPiFRRnKrVyQHGlRKEqVUNhrm5EWFSpLYLyFTI6JTNnPTFySE NjMBfnXUUaDURtLMBzAGIpNRSbHO4NEsRoXLKpDeX8NgWwYNNmLVZjzs7GUZGgOWNbQkTlXCNeUKKoMN WtSTvdEVJzSSZdYIC5GKVzAXVtSN5HXxHzTLQsYdX0 KMPbPVQpKYTsvp1YKBPiFFIvAhUbRVDlDTGtZGJvTDhiTRDxLUE9AKl6HINhLNQfDZ2QCaHgLXDfTvP0 PzTlPIIlKHQnra2RNRIgNSVaLGExGdHuYUUyWHPhJTe2mrWjfPGsBWh4EG3PK6DmwkOzQnwMPq2Ig879 HQJ1CXWqHg8XQ4yzZu9gUKAdEGCWNe0NQVx4USW5JU ZiWRQyDjofRkZyHcW7NqR8YYddOOO9CXU7JOT+MNidMNBpXsWzPxReBEVyYHU2ZTQwVlDhL6ZxSpN6JW otDp4eLWAXPb3+ZYvxkOYrdGioJJJELcV5EwV6UCkpCLKBJi0F ID Date Data Source [id number] 06/02/2021 07:08:35 AM EDT [facility] Name Value Range Interpretation Code Description Data Kiana e(s) Supporting Document(s) [facility] UYQLSm8bUsRKSpIqh6YrCdGpYXAiBP8xcmu0L1F4pBXdP6JeiUNez8rqF7YpZ9XiKQRzCAEAJR1DcKGg jb2 [file] HlTST9icFj6rBtOgMLPXS8Klu0JdWWRdKUUYAp8+AkX1CEP0dIFkZjp2ENqhOnwsWCIIZq== ID Date Data Source [id number] 06/03/2021 06:24:16 AM [facility] 06/05/2021,2359 Name Value Range Interpretation Code Description Data Kiana rce(s) Supporting Document(s) ABO and Rh group [Type] in Blood [facility] [place] [facility] [place] ID Date Data Source [id number] 06/02/2021 07:01:46 AM [facility] Name Value Range Interpretation Code Description Data Kiana rce(s) Supporting Document(s) Glucose [Mass/volume] in Capillary blood by Glucometer 128 mg/dL 70- 140 [facility] ID Date Data Source [id number] 06/06/2021 10:39:00 AM [facility] Surgical Pathology ReportName: SAIRA PINOMRN: [id number] Number: [id number] Date: 06/02/2021 00:00Received Date: [...] Findings: Left adrenal gland without significantpathologic changes. Merged with [facility] October 2019 Annual Release Georgia Lima M.D.;Resident PathologistElectronically Signed By Stan Kilpatrick M.D., Attending Pathologist06/06/2021 10:39:43 The attending pathologist named above attests that he/she has personallyreviewed the relevant preparation(s) for the specimen, performedmicroscopic examination when indicated, and rendered the final diagnosis.Unless 'gross-only' is specified, the final diagnosis is based on amicroscopic examination of self pay representative sections of tissue.Gross DescriptionThe specimen is [...] gland is present along themedial staple line. Propulsion Generator Repairer sections are submitted in eightcassettes as follows:A1 -vascular and ureteral marginsA2 -venous thrombusA3-5 -self pay representative sections of tumor, within renal sinusA6 - potential adrenal glandA7 -additional sections of venous thrombus, parenchymalA8 -uninvolved kidneyBE/pmw This report may include one or more immunohistochemical stain results thatuse analyte specific reagents. All positive and negative controls havebeen reviewed by the attending pathologist and are satisfactory. The testswere developed and their performance characteristics determined by [facility] Pathology department. They have not been cleared or approved by the USFood and Drug Administration. The FDA has determined that such clearanceor approval is not necessary. Name Value Range Interpretation Code Description Data Kiana rce(s) Supporting Document(s) ID Date Data Source [id number] 06/01/2021 02:18:32 PM EDT [facility] Name Value Range Interpretation Code Description Data Kiana rce(s) Supporting Document(s) ABO and Rh group [Type] in Blood [facility] Blood group antibody screen [Presence] in Serum or Plasma [facility] Performed at [facility], [place] Confirmed ID Date Data Source [id number] 05/31/2021 09:03:47 PM EDT [facility] Name Value Range Interpretation Code Description Data Kiana rce(s) Supporting Document(s) Progress Note [facility] [id number]/TVAhtQRTzd3VvWFspKKx0ZIngWJQhM0OaYII4xN9xPDD3CUnGYsPkCpZrNSW8 lbm [file] ICAgICAgICAgICAgICAgICAgICAgICAgICAgICAgIC AgICAgICAgICAgICAgICAgICAgICAgICAgICAgICAgICAgICAgICAgICAgICAgICAgICAgICAgICAgIC AgDQogICAgICAgICAgICAgICAgICAgICAgICAgICAgICAgICAgICAgICAgICAgICAgICAgICAgICAgIC AgICAgICAgICAgICAgICAgICAgICAgICAgICAgICAg ICAgICAgICAgICAgDQogICAgICAgICAgICAgICAgICAgICAgICAgICAgICAgICAgICAgICAgICAgICAg ICAgICAgICAgICAgICAgICAgICAgICAgICAgICAgICAgICAgICAgICAgICAgICAgICAgICAgDQogICAg ICAgICAgICAgICAgICAgICAgICAgICAgICAgICAgIC AgICAgICAgICAgICAgICAgICAgICAgICAgICAgICAgICAgICAgICAgICAgICAgICAgICAgICAgICAgIC AgICAgDQogICAgICAgICAgICAgICAgICAgICAgICAgICAgICAgICAgICAgICAgICAgICAgICAgICAgIC AgICAgICAgICAgICAgICAgICAgICAgICAgICAgICAg ICAgICAgICAgICAgICAgDQogICAgICAgICAgICAgICAgICAgICAgICAgICAgICAgICAgICAgICAgICAg ICAgICAgICAgICAgICAgICAgICAgICAgICAgICAgICAgICAgICAgICAgICAgICAgICAgICAgICAgDQog ICAgICAgICAgICAgICAgICAgICAgICAgICAgICAgIC AgICAgICAgICAgICAgICAgICAgICAgICAgICAgICAgICAgICAgICAgICAgICAgICAgICAgICAgICAgIC AgICAgICAgDQogICAgICAgICAgICAgICAgICAgICAgICAgICAgICAgICAgICAgICAgICAgICAgICAgIC AgICAgICAgICAgICAgICAgICAgICAgICAgICAgICAg ICAgICAgICAgICAgICAgICAgDQogICAgICAgICAgICAgICAgICAgICAgICAgICAgICAgICAgICAgICAg ICAgICAgICAgICAgICAgICAgICAgICAgICAgICAgICAgICAgICAgICAgICAgICAgICAgICAgICAgICAg DQogICAgICAgICAgICAgICAgICAgICAgICAgICAgIC AgICAgICAgICAgICAgICAgICAgICAgICAgICAgICAgICAgICAgICAgICAgICAgICAgICAgICAgICAgIC GrIKBrOLVvKCAoCZx9O1eyVSNeXKXoJF7kLXf5Mb5+QDiJDcFhQSO5boTmpT9YVD5gn7FeSKskHKHat1 VdANw3JU2YNOEcNTqjMC4GCFrhva6ITHLbNNZcyOYI s6uqMgZzAIA3AHNyNgkjMD2GZVQpH0rlfjQgMXUoDIWNLEhvVUNATEkvZZSEPMWoFOTfFwXtIMvqUG1Z l1AwuDR3BXf+Cg3ARV9zi6CqFAmkXHAsAW0lkm4HFNqTQtXoF8YnuvV5ZNBzSVSmDc3QHRFiFSWmdFPm PyRiRHVNYoXkP3RodC30QGJDCi6+DQplbmRvYmoNCj FsUVAnc3MaDOd7LO9FKGFeUNo7lFYyAPQjB7Zby0LyIg90AHEiYyxeEy0bKXM5PInyA5BmbDApaTvbWE SoEASqLZ1cKP7aHEErIHSdCdJsLGNFHA4OXPNyDQAsmBBkPJAjVJAMBI3BHOwsKUN5LGErraAkkDVzWS ebED0IGAWmtuFuXwDbBBMKPQw+Gk1GGN2dr1FmQEni EdZwGV6hvi7WHOwFRaGqY6O6rPZlQ0Q9FDhoXy3XGMCzHISeQhhzPNYGFQxhRV9DDP9djzS0MU0RvVUq EVWjGFYxmPReXPt3A85qdNYqIKguBK1NBPF+Chela+Hh2HPOZcRFTgUHCgCfQpLXNXQyVkW3ZfB3ZYv0Vz Z5ObLD01nHzzxbKiIFhiEI9MMB9mOKThLXTJBB1RtE OqoH9yoiFsXQCsNEBJCuCqO44voFNeNNGdVWRrFMPhBx2OOWCbD6GaalOqfEqhpkVyTLFsEYEDKI3RXC ewvuBrbPLhgGxoXO63bCmiCB1EGy7NZyPsWC1tix7FwSQnOb1PBTFjMS5TQXJtOBWfZABhUQK5KUPbYj LzCWdcRDYwRISzWPA3RYTpHUVrHV5KJhUgZRIlGwKf MbhqGFIiCXNlpq6SEHWeXONgIGa7BTXtFJLlWXYnSTfgAMEfFTVrLWD9LOPlMTDvOQ7MJcEuDGNqNVR7 MBioXMZpQYRbzw6WLQWpBXMlUJA5VHCpVKHtHSVlWDobYKDzEED9PKG7SHLgTDLfCA6YOxZcZAVzMUzm GRDcMNKeJKTuop3JZNEcOYIiUBm9SNXxBNMoSCVjNI poBSFmISUhVIMwEZSrJHCyRT0AGkMaXLNrCFGkXsHiOUEeGCKyjf9UGPQiTJJnKjH2PMEjUYRwGHDeNL utONScFJJrWdWyZWZmDDCjEC6DLgOlLTClQRB2MNquDUOtODIaxm5JIPRqYYItHrM4ZNAzFNNvTWBvYE yoSYQiQWB6RcItSXXzBBDrYI1APiDnIHYsXEC3HTXm KLCsHWKffx5EPZErQQFpLNSpAFAtKDYwMKFiRUofYTDmJSP6GVJtJGNhFVOqSW9GUcCvLAOnFrC8WLBj OSAkZSRpmz8ZKVCeQWVcSst3RLXgAJGgPVYwAIvwKDOiFMS9XqH4OUCeCAKfAY8XIkPaMQXeJrjrRQSu QRClKMFukq3FZHTpBBWoLFAdIuJjUUAdYBIxNXqzHQ HaSKR4MWH7PACeRGZsZG7GHbPaPVHlNmd2QHAbRCMpADLfeu9GAQXcODRyMYHlHROwSQHmNCZcJFjhCN QoEHN4KFL9FVEqWPIwGJ5BZnJqCKKhPyWnSKHkCRKgZOMoir1OOFHzKUXrGPDmSTHkXEKyDXDuUAgnHJ RbLYSzKBi0HHNtXJXrOM0PEhQeQEKfBjQ0DpKbRUMu HMOnvw9MCSOeOVLsGfYqMzTpQALrVBUuUUk9qsXmfTVxWPs1UD8HY8JgfwLkZdOJJg8Hm603ZTQhJCIs Jc9HM5vlPq3sCGGwAWZXHo9ICGm8RfA2QvW8LxN4DXXfWdv4OEV8MNE6IODjWUSiOlqzZCA+IDxiMzQ2 FosdHgTnHPYoRcZcRBqrYMYaU1P5ZwPuUpR6Tp6j XSANCj4+UYkhsUXqhSitRVISGzBsMnFmVAfiJZCYRy6P ID Date Data Source [id number] 05/31/2021 05:44:44 PM EDT [facility] CT THORAX WITHOUT CONTRAST [id number] RE SULTInterpreted by:KD CotoROCEDURE INFORMATION: Exam: CT [...] DETECTED [facility] This lab was ordered by [facility] and reported by [facility]. ID Date Data Source [id number] 05/31/2021 09:15:35 PM EDT [facility] Name Value Range Interpretation Code Description Data Kiana rce(s) Supporting Document(s) Specimen source [Identifier] of Unspecified specimen [facility] SARS-CoV-2 RNA 2019 nCoV Real-Time RT-PCR: NOT DETECTED [facility] Assay Performed [facility] Patients first test for condition 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 Patient has symptoms related to condition [facility] When did you start to experience these symptoms [Date and time] [Phen X] [facility] Patient was hospitalized because of this condition [facility] patient was admitted to ICU for condition [facility] Patient resides in a congregate care setting [facility] status [facility] ID Date Data Source [id number] 05/31/2021 09:43:37 AM EDT [facility] Name Value Range Interpretation Code Description Data Kiana rce(s) Supporting Document(s) Progress Note [facility] [id number] lbm [file] [id number]+[id number] ID Date Data Source [id number] 05/29/2021 01:39:40 PM EDT [facility] Name Value Range Interpretation Code Description Data Kiana rce(s) Supporting Document(s) Progress Note [facility] [id number] lbm [file] ID Date Data Source [id number] 01/08/2021 11:20:00 AM EDT [facility] Name Value Range Interpretation Code Description Data Kiana rce(s) Supporting Document(s) SARS-CoV-2 (COVID-19) RNA [Presence] in Respiratory specimen by KEVIN with probe detection Not Detected [facility] This lab was ordered by [facility] and reported by [facility]. Procedure Social History Code Duration Value Status Description Data Source(s ) Alcohol intake 06/02/2021 12:00:00 AM EDT Current drinker of al cohol (finding) completed Current drinker of alcohol (finding) [facility] Tobacco use and exposure 06/02/2021 12:00:00 AM EDT Never used co mpleted Never used [facility] Smoking 06/02/2021 12:00:00 AM EDT Never smoker completed Never s moker [facility] Alcohol intake 05/31/2021 12:00:00 AM EDT Current drinker of al cohol (finding) completed Current drinker of alcohol (finding) [facility] Alcohol intake 05/31/2021 12:00:00 AM EDT Current drinker of al cohol (finding) completed Current drinker of alcohol (finding) [facility] Alcohol intake 05/29/2021 12:00:00 AM EDT Current drinker of al cohol (finding) completed Current drinker of alcohol (finding) [facility] Smoking 05/23/2021 12:00:00 AM EDT Never Smoker completed Never S moker eCW1 ([facility]) Smoking 05/23/2021 12:00:00 AM EDT Never Smoker completed Never S moker eCW1 ([facility]) Smoking 05/03/2021 12:00:00 AM EDT Never Smoker completed Never S moker eCW1 ([facility]) Smoking 05/02/2021 12:00:00 AM EDT Never Smoker completed Never S moker eCW1 ([facility]) Smoking 01/11/2021 01:23:36 PM EDT Never smoked tobacco (findi ng) completed Never smoked tobacco (finding) LEATHA ([facility] W[facility]) Smoking 11/02/2020 12:00:00 AM EST Never Smoker completed Never S moker eCW1 ([facility]) Smoking 11/02/2020 12:00:00 AM EST Never Smoker completed Never S moker eCW1 ([facility]) Smoking 11/02/2020 12:00:00 AM EST Never Smoker completed Never S moker eCW1 ([facility]) Smoking 11/02/2020 12:00:00 AM EST Never Smoker completed Never S moker eCW1 ([facility]) Smoking 11/02/2020 12:00:00 AM EST Never Smoker completed Never S moker eCW1 ([facility]) Vital Signs ID Date Data Source UNK Name Value Range Interpretation Code Description Data Source(s) Systolic blood pressure 134 mm[Hg] 134 mm[Hg] M EDENT ([facility]) Diastolic blood pressure 77 mm[Hg] 77 mm[Hg] MEDENT ([facility]) Oxygen saturation in Arterial blood by Pulse oximetry 96 % 96 % MEDPOLO ([facility]) Heart rate 71 /min 71 /min LEIGH ([facility]) Systolic blood pressure 138 mm[Hg] 138 mm[Hg] M EDENT ([facility]) Diastolic blood pressure 77 mm[Hg] 77 mm[Hg] MEDENT ([facility]) Oxygen saturation in Arterial blood by Pulse oximetry 95 % 95 % MEDPOLO ([facility]) Heart rate 86 /min 86 /min LEIGH ([facility]) Heart rate 67 /min 67 /min eCW1 ([facility]) Body weight 209 [lb_av] 209 [lb_av] eCW1 ([facility]) Body weight 94.8 kg 94.8 kg eCW1 ([facility]) Body height 68 [in_i] 68 [in_i] eCW1 ([facility]) Body mass index (BMI) [Ratio] 31.77 kg/m2 31.77 kg/m2 eCW1 ([facility]) Respiratory rate 18 /min 18 /min eCW1 ([facility]) Body temperature 96.8 [degF] 96.8 [degF] eCW1 ( [facility]) Systolic blood pressure 142 mm[Hg] 142 mm[Hg] e CW1 ([facility]) Diastolic blood pressure 80 mm[Hg] 80 mm[Hg] eCW1 ([facility]) Body weight 208 [lb_av] 208 [lb_av] eCW1 ([facility]) Body weight 94.35 kg 94.35 kg eCW1 ([facility]) Body height 68 [in_i] 68 [in_i] eCW1 ([facility]) Body mass index (BMI) [Ratio] 31.62 kg/m2 31.62 kg/m2 W1 ([facility]) Heart rate 77 /min 77 /min eCW1 ([facility]) Respiratory rate 18 /min 18 /min eCW1 ([facility]) Body temperature 97.3 [degF] 97.3 [degF] eCW1 ( [facility]) Systolic blood pressure 124 mm[Hg] 124 mm[Hg] e CW1 ([facility]) Diastolic blood pressure 62 mm[Hg] 62 mm[Hg] eCW1 ([facility]) Respiratory rate 18 /min 18 /min eCW1 ([facility]) Body weight 219.8 [lb_av] 219.8 [lb_av] eCW1 [facility] Body height 68 [in_i] 68 [in_i] eCW1 ([facility]) Body mass index (BMI) [Ratio] 33.42 kg/m2 33.42 kg/m2 W1 ([facility]) Heart rate 84 /min 84 /min W1 ([facility]) Body temperature 97.4 [degF] 97.4 [degF] eCW1 ( [facility]) Systolic blood pressure 138 mm[Hg] 138 mm[Hg] e CW1 ([facility]) Diastolic blood pressure 80 mm[Hg] 80 mm[Hg] eCW1 ([facility]) ID Date Data Source [id number] 06/16/2021 12:53:42 PM EDT [facility] Name Value Range Interpretation Code Description Data Source(s) WEIGHT RECORDED 209.4 lb 209.4 lb [facility] WEIGHT RECORDED 205 lb 205 lb [facility] Body height Measured 68 in 68 in [facility] Patient Treatment Plan of Care Planned Activity Planned Date Details Description Data Source (s) tramadol hydrochloride 50 MG Oral Tablet 06/04/2021 12:00:00 AM [facility] hypromellose 25 MG/ML Ophthalmic Solution 06/03/2021 11:15:[address] [facility] oxyCODONE (ROXICODONE) immediate release tablet 5 mg 021 05:24:41 PM [facility] dextrose 50 % IV solution 25 mL 06/02/2021 04:17:27 PM [facility] Glucagon 1 MG Injection 06/02/2021 04:17:27 PM [facility] Glucose 0.417 MG/MG Oral Gel 06/02/2021 04:17:27 PM [facility] ondansetron (ZOFRAN) injection 4 mg 06/02/2021 04:17:14 PM [facility] empagliflozin 25 MG Oral Tablet [Jardiance] 12/26/2020 12:00:00 AM EDT [facility] ([facility]) empagliflozin 25 MG Oral Tablet [Jardiance] 12/26/2020 12:00:00 AM EDT [facility] ([facility]) empagliflozin 25 MG Oral Tablet [Jardiance] 12/26/2020 12:00:00 AM EDT eCW1 ([facility]) empagliflozin 25 MG Oral Tablet [Jardiance] 12/26/2020 12:00:00 AM EDT eCW1 ([facility])
--- NOTE | 2021-08-21 00:27 | IPNPDOC ---
Text Note Date of Service Significant event NOTE Went to assess patient for observation admission given concern for MELISSA and patient had absconded. Patient not present in exam room and a hospital gown was neatly folded on bed. One staff member did report they had seen a gentleman exiting the exam room fully dressed and exiting ER, but the gentleman had not verbalized he was leaving without being seen by provider or his disinterest in being admitted. Given pt absconded, admission orders have been canceled. VS,Fishbone, I+O VS, Fishbone, I+O Laboratory Tests 08/20/21 21:35 Vital Signs Date Time Temp Pulse Resp B/P (MAP) Pulse Ox O2 Delivery O2 Flow Rate FiO2 08/20/21 22:46 83 20 98 Room Air 08/20/21 16:59 96.0 176/92 (120) ROBINA BORREGO NP Aug 21, 2021 00:27
[2021-08-21] MEDS ORDERED: HumaLOG INSULIN (NovoLOG) PER UNIT SC SCH (07:30)
== END 2021-08-21 00:49 | disposition left against medical advice (07) ==
LOC: M ED 16:58 → UNDOADMOB 16:59 → M ED INP 16:59 → UNDODISOB 08-21 00:15
DX: N18.9 Chronic kidney disease, unspecified (principal); R06.02 Shortness of breath; B97.4 Respiratory syncytial virus as the cause of diseases classified elsewhere; E11.9 Type 2 diabetes mellitus without complications; I12.9 Hypertensive chronic kidney disease with stage 1 through stage 4 chronic kidney disease, or unspecified chronic kidney disease; E78.5 Hyperlipidemia, unspecified; Z79.899 Other long term (current) drug therapy; Z79.82 Long term (current) use of aspirin; Z79.84 Long term (current) use of oral hypoglycemic drugs

== ENCOUNTER → 2021-09-05 | Outpatient (CLI) | payer MEDICARE, BC ==
[~2021-09-05] MED LIST changes: +ASPI81TA26 PO; +CINN500C2 PO; +DIPH25CA32 PO; +LOSA100T45 PO; -LOSA100T50 PO; +MELA10CA PO; +MULT-40 PO; +OZEM2INJ2 SC; +TUMERIC PO
[2021-09-05 18:00] LABS: BASO # 0.1 10^3/uL (0.0-0.2); BASO % 0.7 % (0.0-1.0); EOS # 0.3 10^3/uL (0.0-0.5); EOS % 3.2 % (0.0-3.0); HEMATOCRIT 34.7 % (42.0-52.0); HEMOGLOBIN 10.9 g/dl (13.5-17.5); LYMPH # 1.6 10^3/uL (1.5-5.0); LYMPH % 18.9 % (24.0-44.0); MEAN CORPUSCULAR HGB CONC 31.4 g/dl (32.0-36.5); MEAN CORPUSCULAR VOLUME 89.2 fl (80.0-96.0); MONO # 0.5 10^3/uL (0.0-0.8); MONO % 6.3 % (2.0-8.0); NEUTROPHILS # 5.9 10^3/uL (1.5-8.5); NEUTROPHILS % 70.4 % (36.0-66.0); PLATELET COUNT, AUTOMATED 273 10^3/uL (150-450); RED BLOOD COUNT 3.89 10^6/uL (4.30-6.10); WHITE BLOOD COUNT 8.4 10^3/uL (4.0-10.0)
[2021-09-05 18:20] LABS: CALCIUM LEVEL 8.8 MG/DL (8.8-10.2); CREATININE FOR GFR 2.48 MG/DL (0.70-1.30); GLOMERULAR FILTRATION RATE 26.7 (>35); POTASSIUM SERUM 4.8 MEQ/L (3.5-5.1)
[2021-09-05 18:32] LABS: PTH INTACT 85.8 PG/ML (18.5-88.0)
== END ==
LOC: M PLALAB 14:23
PROVIDERS: ATTEND Internal Medicine
DX: N18.32 Chronic kidney disease, stage 3b (principal); Z86.19 Personal history of other infectious and parasitic diseases
CPT/HCPCS: 36415; 80048; 83970; 85025; G0463

== ENCOUNTER → 2021-09-05 | Outpatient (REF) | payer MEDICARE, BC ==
[~2021-09-05] MED LIST changes: -LOSA100T45 PO; +LOSA100T50 PO
== END ==
LOC: M SFHCPLAZ 14:11
PROVIDERS: ATTEND Internal Medicine
DX: Z86.19 Personal history of other infectious and parasitic diseases (principal); N17.9 Acute kidney failure, unspecified; N18.32 Chronic kidney disease, stage 3b

== ENCOUNTER → 2021-11-02 | Outpatient (CLI) | payer MEDICARE, BC ==
[~2021-11-02] MED LIST changes: +LOSA100T45 PO; -LOSA100T50 PO
[2021-11-02 15:41] LABS: ALBUMIN 3.8 GM/DL (3.2-5.2); BILIRUBIN,TOTAL 0.5 MG/DL (0.2-1.0); CREATININE FOR GFR 2.61 MG/DL (0.70-1.30); GLOMERULAR FILTRATION RATE 25.2 (>35); MAGNESIUM LEVEL 2.3 MG/DL (1.8-2.4); POTASSIUM SERUM 5.2 MEQ/L (3.5-5.1); THYROID STIMULATING HORMONE 2.67 uIU/ML (0.358-3.740)
[2021-11-02 16:05] LABS: HEMOGLOBIN A1c 7.6 %
== END ==
LOC: M PLALAB 10:06
PROVIDERS: ATTEND Internal Medicine
DX: E11.9 Type 2 diabetes mellitus without complications (principal)

== ENCOUNTER → 2021-12-20 | Outpatient (CLI) | payer MEDICARE, BC ==
[2021-12-20 13:29] LABS: BASO # 0.1 10^3/uL (0.0-0.2); EOS # 0.3 10^3/uL (0.0-0.5); HEMATOCRIT 37.6 % (42.0-52.0); HEMOGLOBIN 11.8 g/dl (13.5-17.5); LYMPH # 1.5 10^3/uL (1.5-5.0); LYMPH % 22.6 % (24.0-44.0); MEAN CORPUSCULAR HEMOGLOBIN 28.5 pg (27.0-33.0); MEAN CORPUSCULAR HGB CONC 31.4 g/dl (32.0-36.5); MEAN CORPUSCULAR VOLUME 90.8 fl (80.0-96.0); MONO # 0.4 10^3/uL (0.0-0.8); MONO % 6.5 % (2.0-8.0); NEUTROPHILS # 4.4 10^3/uL (1.5-8.5); NEUTROPHILS % 64.6 % (36.0-66.0); PLATELET COUNT, AUTOMATED 181 10^3/uL (150-450); RED BLOOD COUNT 4.14 10^6/uL (4.30-6.10); WHITE BLOOD COUNT 6.7 10^3/uL (4.0-10.0)
[2021-12-20 13:59] LABS: CALCIUM LEVEL 8.8 MG/DL (8.8-10.2); CREATININE FOR GFR 2.69 MG/DL (0.70-1.30); GLOMERULAR FILTRATION RATE 24.2 (>35); MAGNESIUM LEVEL 2.3 MG/DL (1.8-2.4); POTASSIUM SERUM 5.1 MEQ/L (3.5-5.1)
[2021-12-20 14:04] LABS: PTH INTACT 73.7 PG/ML (18.5-88.0)
== END ==
LOC: M PLALAB 10:07
PROVIDERS: ATTEND Internal Medicine
DX: N18.4 Chronic kidney disease, stage 4 (severe) (principal)

== ENCOUNTER → 2022-01-02 | Outpatient (CLI) | payer MEDICARE, BC ==
[~2022-01-02] MED LIST changes: +OXYC10TA3 PO
== END ==
LOC: M RAD 11:15
PROVIDERS: ATTEND Urology
DX: C64.2 Malignant neoplasm of left kidney, except renal pelvis (principal)

== ENCOUNTER → 2022-01-03 | Outpatient (CLI) | payer MEDICARE, BC | LOC: M LABSMTC 10:10 | PROVIDERS: ATTEND Anesthesiology | DX: Z01.818 Encounter for other preprocedural examination (principal); Z11.52 Encounter for screening for COVID-19 ==

== ENCOUNTER 2022-01-08 10:12 | Day surgery (SDC) | payer MEDICARE, BC ==
[~2022-01-08] VITALS: Ht 172.7 cm; Wt 92.1 kg
[~2022-01-08 10:12] MED LIST changes: +NS 1,000 ML IV ONE
[2022-01-08] MEDS ORDERED: propofoL 200 MG/20 ML VIAL As Ordered ONE (11:19)
[2022-01-08 12:07] VITALS: BP 150/71
== END 2022-01-08 12:09 | disposition home or self-care (01) ==
LOC: M OPP 10:12
PROVIDERS: ATTEND Internal Medicine Gastroenterology
DX: D12.0 Benign neoplasm of cecum (principal); K57.30 Diverticulosis of large intestine without perforation or abscess without bleeding; K64.0 First degree hemorrhoids; Z86.010 Personal history of colon polyps; Z09 Encounter for follow-up examination after completed treatment for conditions other than malignant neoplasm; Z79.02 Long term (current) use of antithrombotics/antiplatelets; Z79.82 Long term (current) use of aspirin; Z79.84 Long term (current) use of oral hypoglycemic drugs; Z79.891 Long term (current) use of opiate analgesic; Z79.899 Other long term (current) drug therapy; Z90.5 Acquired absence of kidney

== ENCOUNTER → 2022-02-05 | Outpatient (CLI) | payer MEDICARE, BC ==
[~2022-02-05] MED LIST changes: +ISOVUE-300 61% 50ML VIAL As Ordered ONE; +LIDOCAINE 1% MDV 20ML VIAL As Ordered ONE; -NS 1,000 ML IV ONE; +TRIAMCINOLONE ACETONIDE SUSP 40 MG/ML VIAL (J3301) As Ordered ONE
== END ==
LOC: M RADPRO 12:33
PROVIDERS: ATTEND Orthopaedic Surgery
DX: M19.011 Primary osteoarthritis, right shoulder (principal)
CPT/HCPCS: 20610; 77002; J3301; Q9967

== ENCOUNTER → 2022-03-21 | Outpatient (REF) | payer MEDICARE, BC ==
[~2022-03-21] MED LIST changes: -ISOVUE-300 61% 50ML VIAL As Ordered ONE; -LIDOCAINE 1% MDV 20ML VIAL As Ordered ONE; -TRIAMCINOLONE ACETONIDE SUSP 40 MG/ML VIAL (J3301) As Ordered ONE
== END ==
LOC: M SFHCPLAZ 12:20
PROVIDERS: ATTEND Internal Medicine
DX: N18.4 Chronic kidney disease, stage 4 (severe) (principal); E11.9 Type 2 diabetes mellitus without complications; E78.00 Pure hypercholesterolemia, unspecified; D69.6 Thrombocytopenia, unspecified; E53.8 Deficiency of other specified B group vitamins

== ENCOUNTER → 2022-03-21 | Outpatient (CLI) | payer MEDICARE, BC ==
[2022-03-21 15:56] LABS: BASO # 0.1 10^3/uL (0.0-0.2); BASO % 0.8 % (0.0-1.0); EOS # 0.6 10^3/uL (0.0-0.5); EOS % 7.6 % (0.0-3.0); HEMATOCRIT 38.6 % (42.0-52.0); HEMOGLOBIN 12.3 g/dl (13.5-17.5); LYMPH # 1.3 10^3/uL (1.5-5.0); LYMPH % 17.4 % (24.0-44.0); MEAN CORPUSCULAR HEMOGLOBIN 30.1 pg (27.0-33.0); MEAN CORPUSCULAR HGB CONC 31.9 g/dl (32.0-36.5); MEAN CORPUSCULAR VOLUME 94.6 fl (80.0-96.0); MONO # 0.5 10^3/uL (0.0-0.8); MONO % 7.2 % (2.0-8.0); NEUTROPHILS % 66.6 % (36.0-66.0); PLATELET COUNT, AUTOMATED 169 10^3/uL (150-450); RED BLOOD COUNT 4.08 10^6/uL (4.30-6.10); WHITE BLOOD COUNT 7.5 10^3/uL (4.0-10.0)
[2022-03-21 16:31] LABS: BILIRUBIN,TOTAL 0.4 MG/DL (0.2-1.0); CALCIUM LEVEL 9.3 MG/DL (8.8-10.2); CHOLESTEROL RISK RATIO 3.461 (<5); CREATININE FOR GFR 2.65 MG/DL (0.70-1.30); GLOMERULAR FILTRATION RATE 24.7 (>35); POTASSIUM SERUM 5.3 MEQ/L (3.5-5.1); TOTAL PROTEIN 7.2 GM/DL (6.4-8.2)
[2022-03-21 16:41] LABS: CREATININE, URINE 86.9 MG/DL; MALB URINE SIEMENS 25.8 MG/L; MAU/CREAT RATIO 29.6 MCG/MG (0.0-30.0)
[2022-03-21 16:45] LABS: PTH INTACT 100.4 PG/ML (18.5-88.0)
[2022-03-21 16:47] LABS: FOLATE 11.7 NG/ML
[2022-03-21 17:16] LABS: HEMOGLOBIN A1c 7.2 %
== END ==
LOC: M LAB 12:55
PROVIDERS: ATTEND Internal Medicine
DX: N18.4 Chronic kidney disease, stage 4 (severe) (principal); E11.9 Type 2 diabetes mellitus without complications; D69.6 Thrombocytopenia, unspecified; E53.8 Deficiency of other specified B group vitamins; E78.00 Pure hypercholesterolemia, unspecified

== ENCOUNTER → 2022-06-29 | Outpatient (CLI) | payer MEDICARE, BC | LOC: M RAD 10:38 | PROVIDERS: ATTEND Urology | DX: C64.9 Malignant neoplasm of unspecified kidney, except renal pelvis (principal); N28.1 Cyst of kidney, acquired; Z90.5 Acquired absence of kidney ==

== ENCOUNTER → 2022-12-27 | Outpatient (CLI) | payer MEDICARE, BC ==
[~2022-12-27] MED LIST changes: +DIPH-435 PO; -DIPH25CA32 PO
== END ==
LOC: M RAD 14:54
PROVIDERS: ATTEND Urology
DX: C64.2 Malignant neoplasm of left kidney, except renal pelvis (principal); K86.89 Other specified diseases of pancreas

== ENCOUNTER → 2022-12-27 | Outpatient (CLI) | payer MEDICARE, BC ==
[2022-12-27 16:09] LABS: ALBUMIN 3.9 G/DL (3.2-5.2); BILIRUBIN,TOTAL 0.4 MG/DL (0.3-1.2); CALCIUM LEVEL 8.9 MG/DL (8.3-10.6); CREATININE FOR GFR 2.39 MG/DL (0.70-1.30); GLOMERULAR FILTRATION RATE 27.7 (>35); POTASSIUM SERUM 4.9 MMOL/L (3.5-5.1)
== END ==
LOC: M LAB 14:59
DX: C64.2 Malignant neoplasm of left kidney, except renal pelvis (principal)

== ENCOUNTER → 2023-03-06 | Outpatient (CLI) | payer MEDICARE, BC ==
[~2023-03-06] MED LIST changes: +ISOVUE-300 61% 100ML VIAL ONE; +LIDOCAINE 1% MDV 20ML VIAL ONE; -LOSA100T45 PO; +LOSA100T46 PO; +TRIAMCINOLONE ACETONIDE SUSP 40MG/ML 1ML VIAL ONE
== END ==
LOC: M PLAIMG 14:59
PROVIDERS: ATTEND Orthopaedic Surgery
DX: M16.11 Unilateral primary osteoarthritis, right hip (principal)
CPT/HCPCS: 20610; 77002; J3301; Q9967

== ENCOUNTER → 2023-04-25 | Outpatient (REF) | payer MEDICARE, BC ==
[~2023-04-25] MED LIST changes: -ISOVUE-300 61% 100ML VIAL ONE; -LIDOCAINE 1% MDV 20ML VIAL ONE; -TRIAMCINOLONE ACETONIDE SUSP 40MG/ML 1ML VIAL ONE
== END ==
LOC: M LAB REF 11:41
PROVIDERS: ATTEND Internal Medicine
DX: G60.9 Hereditary and idiopathic neuropathy, unspecified (principal)

== ENCOUNTER → 2023-07-01 | Outpatient (CLI) | payer MEDICARE, BC | LOC: M RAD 12:45 | PROVIDERS: ATTEND Internal Medicine | DX: K86.2 Cyst of pancreas (principal); C64.9 Malignant neoplasm of unspecified kidney, except renal pelvis ==

== ENCOUNTER → 2023-07-01 | Outpatient (CLI) | payer MEDICARE, BC ==
[2023-07-01 15:00] LABS: HEMOGLOBIN 13.4 g/dl (13.5-17.5); MEAN CORPUSCULAR HEMOGLOBIN 31.2 pg (27.0-33.0); MEAN CORPUSCULAR HGB CONC 32.7 g/dl (32.0-36.5); MEAN CORPUSCULAR VOLUME 95.3 fl (80.0-96.0); PLATELET COUNT, AUTOMATED 185 10^3/uL (150-450); WHITE BLOOD COUNT 7.7 10^3/uL (4.0-10.0)
[2023-07-01 15:13] LABS: ALBUMIN 3.9 G/DL (3.2-5.2); BILIRUBIN,TOTAL 0.5 MG/DL (0.3-1.2); CREATININE FOR GFR 2.14 MG/DL (0.70-1.30); GLOMERULAR FILTRATION RATE 31.5 (>35); POTASSIUM SERUM 5.2 MMOL/L (3.5-5.1); TOTAL PROTEIN 7.1 G/DL (5.7-8.2)
== END ==
LOC: M LAB 12:53
PROVIDERS: ATTEND Nurse Practitioner Family
DX: C64.9 Malignant neoplasm of unspecified kidney, except renal pelvis (principal)

== ENCOUNTER → 2023-07-11 | Outpatient (CLI) | payer MEDICARE, BC | LOC: M RAD 16:23 | DX: C64.2 Malignant neoplasm of left kidney, except renal pelvis (principal); Z90.5 Acquired absence of kidney ==

== ENCOUNTER → 2023-10-04 | Outpatient (CLI) | payer MEDICARE, BC ==
[~2023-10-04] MED LIST changes: +ISOVUE-300 61% 100ML VIAL As Ordered ONE; +LIDOCAINE 1% MDV 20ML VIAL As Ordered ONE; +TRIAMCINOLONE ACETONIDE SUSP 40MG/ML 1ML VIAL As Ordered ONE
== END ==
LOC: M RAD 13:40
PROVIDERS: ATTEND Orthopaedic Surgery
DX: M16.11 Unilateral primary osteoarthritis, right hip (principal)
CPT/HCPCS: 20610; 77002; J3301; Q9967

== ENCOUNTER → 2024-03-17 | Outpatient (CLI) | payer MEDICARE ==
[~2024-03-17] MED LIST changes: -ISOVUE-300 61% 100ML VIAL As Ordered ONE; -LIDOCAINE 1% MDV 20ML VIAL As Ordered ONE; -TRIAMCINOLONE ACETONIDE SUSP 40MG/ML 1ML VIAL As Ordered ONE
== END ==
LOC: M PLAIMG 10:47
PROVIDERS: ATTEND Internal Medicine
DX: K86.2 Cyst of pancreas (principal); Z90.5 Acquired absence of kidney

== ENCOUNTER → 2024-03-30 | Outpatient (CLI) | payer MEDICARE | LOC: M PLAIMG 13:32 | PROVIDERS: ATTEND Student in an Organized Health Care Education/Training Program | DX: C64.2 Malignant neoplasm of left kidney, except renal pelvis (principal); S22.079A Unspecified fracture of T9-T10 vertebra, initial encounter for closed fracture; Y92.9 Unspecified place or not applicable; Y93.9 Activity, unspecified ==

== ENCOUNTER → 2024-11-11 | Outpatient (CLI) | payer MEDICARE, BC ==
[~2024-11-11] MED LIST changes: +GABA-1490 PO; -GABA600T4 PO; +GLIP10TA15 PO; -GLIP10TA6 PO
== END ==
LOC: M WUC 11:33
PROVIDERS: ATTEND Internal Medicine
DX: R05.9 Cough, unspecified (principal)

== ENCOUNTER → 2025-04-29 | Outpatient (CLI) | payer MEDICARE, BC ==
[~2025-04-29] MED LIST changes: +LISI40TA10 PO; -LISI40TA4 PO
== END ==
LOC: M PLAIMG 09:55
PROVIDERS: ATTEND Orthopaedic Surgery
DX: M47.896 Other spondylosis, lumbar region (principal)

== ENCOUNTER → 2025-06-09 | Outpatient (CLI) | payer MEDICARE, BC ==
[~2025-06-09] MED LIST changes: +PROHANCE 279.3MG/ML 15ML VIAL ONE; +PROHANCE 279.3MG/ML 5ML VIAL ONE
== END ==
LOC: M PLAIMG 07:51
PROVIDERS: ATTEND Nurse Practitioner Family
DX: C64.2 Malignant neoplasm of left kidney, except renal pelvis (principal)
CPT/HCPCS: 71250; 74183; A9576

== ENCOUNTER → 2025-06-15 | Outpatient (CLI) | payer MEDICARE, BC | LOC: M PLAIMG 08:58 | PROVIDERS: ATTEND Physical Medicine & Rehabilitation | DX: M51.26 Other intervertebral disc displacement, lumbar region (principal); M51.362 Other intervertebral disc degeneration, lumbar region with discogenic back pain and lower extremity pain; M43.16 Spondylolisthesis, lumbar region; M47.816 Spondylosis without myelopathy or radiculopathy, lumbar region; D18.09 Hemangioma of other sites; M48.061 Spinal stenosis, lumbar region without neurogenic claudication; M24.28 Disorder of ligament, vertebrae | CPT/HCPCS: 72158; A9576 ==

== ENCOUNTER → 2025-07-05 | Outpatient (CLI) | payer MEDICARE, BC ==
[~2025-07-05] MED LIST changes: -PROHANCE 279.3MG/ML 15ML VIAL ONE; -PROHANCE 279.3MG/ML 5ML VIAL ONE
[2025-07-05 15:20] LABS: PLATELET COUNT, AUTOMATED 185 10^3/uL (150-450)
[2025-07-05 16:26] LABS: INR 0.94
== END ==
LOC: M LAB 14:30
PROVIDERS: ATTEND Physical Medicine & Rehabilitation
DX: Z01.818 Encounter for other preprocedural examination (principal)